=== PATIENT | female | born 1995 | race Caucasian/White ===

== ENCOUNTER 2016-06-28 05:19 | Emergency (ER) | payer BC ==
[~2016-06-28 05:19] MED LIST: ALBUTEROL2.5 MG/3 M IN
--- NOTE | 2016-06-28 09:27 | DIAGNOSTIC IMAGING REPORT ---
PROCEDURE: US OB 1ST TRIMESTER W/TRANSVAG INDICATION: PAIN, 5 months . Initial encounter TECHNIQUE: Ng scale, color, and spectral Doppler transabdominal and endovaginal sonographic images of the first trimester gravid uterus were obtained. COMPARISON: Pelvic ultrasound 05/27/[address] abdomen/pelvis 03/29/2016 FINDINGS: TRANSABDOMINAL SCANS: Anteverted uterus. Echogenic kidneys suggestive of medullary sponge kidneys. Spleen at the upper limits of normal (12 x 5.5 cm) . Ultrasound of the right lower quadrant demonstrates no abnormalities. TRANSVAGINAL SCANS: Uterus measures 8.5 x 6.3 x 4.5 cm. Myometrium is unremarkable. Avascular slightly inhomogeneous endometrium measures 19 mm. Right ovary measures 3.4 x 1.6 x 1.8 cm with a 1.8 cm corpus luteum cyst. Left ovary measures 2 x 1.9 x 2.3 cm. There are small peripheral follicles. Vascular flow to both ovaries. No adnexal mass or free fluid. IMPRESSION: 1. Mild thickening of the endometrium. No evidence of an endometrial gestational sac. Recommend follow-up Beta hCG and ultrasound 2. Results discussed with Dr. Mcmanus
--- NOTE | 2016-06-28 09:28 | ED ORDER SUMMARY ---
..... Patient: JAMARI MCCLELLAND OrderSheet [facility] VisitID: [id number] [place] [address] 21y, F Registration Date/Time: 06/28/2016 ORDER SHEET Weight: 61.2 kg (stated) Allergies: No Known Drug Allergy GENERAL ORDERS: CBC w Diff Urgent (05:55 06/28/2016 Rafi Nunez) (Ack 5:56 LMuller) (6:07 Charles R.N.) CMP Urgent (05:55 06/28/2016 Rafi Nunez) (Ack 5:56 LMuller) (6:07 Charles R.N.) UA-Culture if indicated Urgent (05:55 06/28/2016 Rafi Nunez) (Ack 5:56 LMuller) (6:34 Quanimajulian) Urine Urgent (05:55 06/28/2016 Rafi Nunez) (Ack 5:56 LMuller) (6:34 Raj) Serum Quantitative Urgent (05:55 06/28/2016 Rafi Nunez) (Ack 5:56 LMuller) (6:07 Sofiya R.N.) US Pelvic Complete w Transvag (HCG 185 Please attempt to visualize the appendix) Urgent (07:09 06/28/2016 Rafi Nunez) (Ack 7:11 LMuller) (Cancelled: Physician Order8:51 Rafi Nunez) US OB 1st Trimester w Transvag (?) Urgent (08:51 06/28/2016 Rafi Nunez) (9:41 Rodrigo R.N.) MEDICATION ORDERS: DuoNeb Neb Tx 1 unit dose (NOW) (05:55 06/28/2016 Rafi Nunez) (6:02 Kitty) Prednisone PO 40 mg (NOW) (05:55 06/28/2016 Rafi Nunez) (6:12 Sofiya R.N.) IV FLUIDS: IV NS : initial bolus none -, then 1000 mL/hr for X1 (NOW) (05:53 06/28/2016 Rafi Nunez) (6:Caridad Gee ORDER SHEET NOTES: [Electronically signed by August Mcmanus Dr. (09:51 06/28/2016)] [Electronically signed by Karyn Sawant R.N. (06/28/2016)] [Electronically locked/signed by Karyn Sawant R.N. (06/28/2016)]
--- NOTE | 2016-06-28 09:28 | ED NURSING NOTES ---
Clinical Report - Nurses [facility] [address] [place] [address] 06/28/2016 5:19 Patient: JAMARI MCCLELLAND TRIAGE Triage time 0531. Acuity: LEVEL 3. Chief Complaint: DYSPNEA, COUGH and PELVIC PAIN. --05:40 Piero Clemente R.N. 05:31 06/28/16. BP: 127/68. HR: 95. RR: 18. O2 saturation: 98%. Temp: 98.2 F. Pain level now 0/10. --05:40 Piero Clemente R.N. Weight: 61.2 kg stated. Height/Length: 61 inches Per Patient. BMI: 25.5. --05:39 Piero Clemente R.N. Medications Albuterol HHN. Albuterol Sulfate HFA Inhalation. --05:35 Piero Clemente R.N. Allergies No Known Drug Allergy. --05:35 Piero Clemente R.N. History Arrived by private vehicle. Historian: patient. Unaccompanied. This started yesterday. ( both started yesterday. seen at [facility] monday last for abd pain. dx at that time. pt sent home with instructions to return if pain worsened.). 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 (albuterol,). PAST MEDICAL HX: Last normal menstrual period- May 30. 2. Para 1. Currently : 4 weeks. FALL RISK ASSESSMENT: Fall risk assessment completed. No fall risk identified. NUTRITIONAL RISK ASSESSMENT: The nutritional risk assessment revealed no deficiencies. FUNCTIONAL ASSESSMENT: Functional assessment: no impairments noted. LEARNING NEEDS ASSESSMENT: The learning needs assessment revealed no barriers. SKIN INTEGRITY ASSESSMENT: Skin integrity risk assessment completed. No skin integrity risk identified. --05:40 Piero Clemente R.N. PROBLEMS: Otitis Externa. Otitis Media. Abdominal Pain. Gastroenteritis. Mastitis. Anxiety Reaction. Lung Disease. Hemorrhoids. OB History. Diarrhea. Vomiting. . Nephrolithiasis. Renal Colic. Bronchitis. Asthma. UTI - Urinary Tract Infection. Cystitis. Ovarian Cyst. --05:35 Piero Clemente R.N. Appendicitis [RuleOut]. Abdominal Pain [RuleOut]. [RuleOut]. Flank Pain [RuleOut]. --05:35 Piero Clemente R.N. ADDITIONAL SURGERIES: Kidney Sx with ino stents. Laparoscopy. Ureteral Stent. --05:35 Piero Clemente R.N. Interventions ID band on patient. --05:40 Piero Clemente R.N. PHYSICAL ASSESSMENT GENERAL / NEURO / PSYCH: Alert. Oriented X 4. Appears in no acute distress. HEENT: Pupils equal, round and reactive to light. No facial asymmetry noted. Mucous membranes are pink. RESPIRATORY: Mild respiratory distress. The patient can speak in full sentences. Chest nontender. Wheezing present. CVS: Capillary refill less than 2 seconds. Pulses within normal limits. SKIN: Skin intact. Skin is warm and dry. Normal skin turgor. --05:40 Piero Clemente R.N. NURSING PROGRESS NOTES Patient gowned. Head of bed elevated. Reassurance given. Patient identifiers checked. Call light placed in reach. Bed placed in lowest position. Brakes of bed on. --05:40 Piero Clemente R.N. 06:02 06/28/2016 Duoneb (Ipratropium-Albuterol) Neb TX Nebulizer 1 unit dose given. Given by the respiratory therapist. Allergies verified and confirmed 5 rights. --06:02 Gricel Lopez 06:12 06/28/2016 Prednisone PO 40 mg given. Allergies verified and confirmed 5 rights. --06:12 Piero Clemente R.N. 06:13 06/28/2016 Site #1 started via IV in the left antecubital space with an 20g angiocath, with aseptic technique and good blood return; one attempt. Blood drawn: rainbow set. Labeled in the presence of the patient and sent to the lab. Saline lock flushed with saline. --06:13 Piero Clemente R.N. 06:13 06/28/2016 Started bag #1 1000 mL IV Fluids IV NS (Saline); bolus of 1000 mL wide open via site #1. Allergies verified and confirmed 5 rights. IV patency established. IV site checked: no pain, redness, or swelling. IV flushed thoroughly pre- and post-medication administration. --06:13 Piero Clemente R.N. 07:20 06/28/16. Care transferred and report received. --07:20 Karyn Sawant R.N. 07:44 06/28/16. BP: 120/74. HR: 104. RR: 12. O2 saturation: 100% on room air. Pain level now: 10/19. --07:44 Karyn Sawant R.N. 07:44 06/28/2016 IV Fluids IV NS Discontinued: bag #1 infused. Total amount infused: 1000 mL. IV patency established. IV site checked: no pain, redness, or swelling. IV flushed thoroughly. --09:44 Travis Marinelli R.N. DISPOSITION / DISCHARGE 09:39 06/28/16. BP: 116/71. HR: 90. RR: 16. O2 saturation: 99% on room air. Temp: 98.5 F (oral). Pain level now 09/19. --09:43 Travis Marinelli R.N. 09:38 06/28/2016 Site #1 removed upon discharge. Catheter intact. Bandage applied. --09:43 Travis Marinelli R.N. 09:40 06/28/16. Departure time: 0938. Condition at departure: improved and stable. No learning barriers present. Discharge instructions provided and reviewed with the patient. Reviewed medication(s) side effects, precautions, dosing and course information. Prescription(s) given to the patient. Patient verbalized understanding. Written instructions provided in Syrian. ( follow up with OB to establish care, and follow up with PCP in 2 days.). The patient was discharged by the physician. She was discharged home. She left the Emergency Department ambulatory and via private vehicle. Patient driving. --09:43 Travis Marinelli R.N. Locked/Released at 06/28/2016 19:25 by Karyn Sawant R.N.
--- NOTE | 2016-06-28 09:28 | ED ORDER SUMMARY ---
..... Patient: JAMARI MCCLELLAND OrderSheet [facility] VisitID: [id number] [place] [address] 21y, F Registration Date/Time: 06/28/2016 ORDER SHEET Weight: 61.2 kg (stated) Allergies: No Known Drug Allergy GENERAL ORDERS: CBC w Diff Urgent (05:55 06/28/2016 Rafi Nunez) (Ack 5:56 LMuller) (6:07 Charles R.N.) CMP Urgent (05:55 06/28/2016 Rafi Nunez) (Ack 5:56 LMuller) (6:07 Charles R.N.) UA-Culture if indicated Urgent (05:55 06/28/2016 Rafi Nunez) (Ack 5:56 LMuller) (6:34 Quanimajulian) Urine Urgent (05:55 06/28/2016 Rafi Nunez) (Ack 5:56 LMuller) (6:34 Raj) Serum Quantitative Urgent (05:55 06/28/2016 Rafi Nunez) (Ack 5:56 LMuller) (6:07 Sofiya R.N.) US Pelvic Complete w Transvag (HCG 185 Please attempt to visualize the appendix) Urgent (07:09 06/28/2016 Rafi Nunez) (Ack 7:11 LMuller) (Cancelled: Physician Order8:51 Rafi Nunez) US OB 1st Trimester w Transvag (?) Urgent (08:51 06/28/2016 Rafi Nunez) (9:41 Rodrigo R.N.) MEDICATION ORDERS: DuoNeb Neb Tx 1 unit dose (NOW) (05:55 06/28/2016 Rafi Nunez) (6:02 Kitty) Prednisone PO 40 mg (NOW) (05:55 06/28/2016 Rafi Nunez) (6:12 Sofiya R.N.) IV FLUIDS: IV NS : initial bolus none -, then 1000 mL/hr for X1 (NOW) (05:53 06/28/2016 Rafi Nunez) (6:Caridad Gee ORDER SHEET NOTES: [Electronically signed by August Mcmanus Dr. (09:51 06/28/2016)] [Electronically signed by Karyn Sawant R.N. (06/28/2016)] [Electronically locked/signed by Karyn Sawant R.N. (06/28/2016)]
--- NOTE | 2016-06-28 09:28 | ED CLINICAL REPORT ---
Clinical Report - Physicians/Mid Levels [facility] [address] [place] [address] 06/28/2016 5:19 Patient: JAMARI MCCLELLAND Time Seen: 05:30; initial patient contact. Arrived- By private vehicle. Historian- patient. HISTORY OF PRESENT ILLNESS Chief Complaint: PELVIC PAIN. This started yesterday and still present. It was gradual in onset. The symptoms are described as moderate. Modifying factors. Not worsened by anything. Not relieved by anything. The patient has had moderate, sharp, constant abdominal pain. The pain is described as located in the right lower quadrant. No nausea, vomiting, diarrhea or radiation of abdominal pain to the back. The patient has had pelvic pain and a vaginal discharge. No vaginal pain, low back pain, flank pain, pain with urination or urinary frequency. No urgency of urination or hematuria. She has missed a period. Sexually active. (Reviewed records from [facility] on 06/25/16, no ectopic/embryo visualized, HCG Qt 84. D/C'd w/ Vaginitis, pt has not filled Flagyl Rx.). Currently . Not receiving care. Similar symptoms previously: None. Recent medical care: The patient was seen recently at another facility in the emergency department. ( Prov: Positive U preg, inconclusive U/S for ectopic per pt(awaiting records).). REVIEW OF SYSTEMS No nausea, fever or chills. All systems otherwise negative, except as recorded above. PAST HISTORY ( Otitis Externa. Otitis Media. Abdominal Pain. Gastroenteritis. Mastitis. Anxiety Reaction. Lung Disease. Hemorrhoids. OB History. Diarrhea. Vomiting. . Nephrolithiasis. Renal Colic. Bronchitis. Asthma. UTI - Urinary Tract Infection. Cystitis. Ovarian Cyst. Appendicitis [RuleOut]. Abdominal Pain [RuleOut]. [RuleOut]. Flank Pain SURGERIES: Kidney Sx with ino stents. Laparoscopy. Ureteral Stent.). Medications: Albuterol HHN. Albuterol Sulfate HFA Inhalation. Allergies: No Known Drug Allergy. SOCIAL HISTORY Former smoker. No alcohol use or drug use. ADDITIONAL NOTES The nursing notes have been reviewed with agreement regarding the chief complaint, PMH and patient medications and allergies. PHYSICAL EXAM Vital Signs: 06/28/2016 05:31 BP: 127/68. HR: 95. RR: 18. O2 saturation: 98%. Temp: 98.2 F. Have been reviewed as normal. Appearance: Alert. Oriented X3. No acute distress. HEENT: Normal external inspection. ENT: Pharynx normal. CVS: Heart sounds normal. Rate normal. Rhythm normal. Respiratory: No respiratory distress. Expiratory mild bilateral wheezes diffusely. Abdomen: Soft. Moderate tenderness in the right lower quadrant with guarding present. Positive obturator and psoas sign (Positive Rovsing's sign.). No rebound tenderness. Bowel sounds normal. No organomegaly. No mass. Back: Normal external inspection. No CVA tenderness. Skin: Skin warm and dry. Normal skin color. No rash. Extremities: No lower extremity edema. Neuro: Oriented X 3. LABS, X-RAYS, AND EKG Pelvic Sonogram: Nl RLQ, no signs of appendicitis or eptopic. No free fluid in pelvis. Study type: bedside abdominal, transvaginal and obstetrical evaluation. The study was interpreted by the radiologist and discussed with the radiologist. Interpretation time: 09:24. Laboratory Tests: UA-Culture if indicated: (FRANCIS: 06/28/2016 06:30) ( MsgRcvd 06/28/2016 06:54) Final results Test Result Flag Units (Reference) URINE COLOR YELLOW URINE APPEARANCE CLEAR URINE GLUCOSE NEGATIVE (NEGATIVE) URINE BILIRUBIN NEGATIVE (NEGATIVE) URINE KETONE NEGATIVE (NEGATIVE) URINE SPECIFIC GRAVITY >= 1.030 (1.010-1.030) URINE PH 6.0 (5.0-8.0) URINE PROTEIN NEGATIVE (NEGATIVE) URINE UROBILINOGEN 0.2 EU/dL (0.2-1.0) URINE NITRITE NEGATIVE (NEGATIVE) URINE BLOOD TRACE-LYSED (NEGATIVE) URINE LEUK ESTERASE NEGATIVE (NEGATIVE) URINE RBC 1-3 rbc/hpf (0-1) URINE WBC 0-1 wbc/hpf (0-1) URINE EPITHELIAL CELLS 3-5 EPI/hpf (0-5) URINE BACTERIA TRACE (<1+) (NONE SEEN) URINE COMMENT CULT NOT INDICATED URINE CULTURES ARE SET-UP BASED ON THE FOLLOWING CRITERIA:POSITIVE NITRITEPOSITIVE LEUKOCYTE ESTERASEGREATER THAN 10 WHITE BLOOD CELLSMODERATE (2+) OR GREATER BACTERIA Urine: (FRANCIS: 06/28/2016 06:30) ( MsgRcvd 06/28/2016 06:45) Final results Test Result Flag Units (Reference) URINE POSITIVE CBC w Diff: (FRANCIS: 06/28/2016 06:02) ( MsgRcvd 06/28/2016 09:04) Final results Test Result Flag Units (Reference) WHITE BLOOD COUNT 7.2 K/uL (4.5-11.5) RED BLOOD COUNT 5.10 M/uL (4.00-5.20) HEMOGLOBIN 14.4 gm/dL (12.0-16.0) HEMATOCRIT 41.2 % (36.0-46.0) MEAN CELL VOLUME 81 fL (80-100) MEAN CORPUSCULAR HGB 28 pg (26-34) MEAN CORPUSCULAR HGB CONC 35 g/dL (31-37) RED CELL DISTRIBUTION WIDTH 14.2 % (11.6-14.8) PLATELET COUNT 333 K/uL (150-400) NEUTROPHIL % 47.3 L % (50-75) LYMPH % 27.8 % (25-40) MONO % 10.3 % (3-14) EOSINOPHIL % 13.6 H % (0-4) BASOPHIL % 0.7 % (0-2) CMP: (FRANCIS: 06/28/2016 06:02) ( MsgRcvd 06/28/2016 06:46) Final results Test Result Flag Units (Reference) GLUCOSE 94 mg/dL (70-110) BUN 17 mg/dL (7-18) CREATININE 0.9 mg/dL (0.6-1.3) Estimated GFR >60 mL/min Estimated GFR- >60 mL/min Note: Persistent reduction over 3 months in eGFR<60 mL/min/1.73 m2 defines CKD. Patients with eGFR values>=60 mL/min/1.73 m2 may also have CKD if evidence ofpersistent proteinuria. Additional information may be foundat www.kidney.org. SODIUM 141 mmol/L (136-145) POTASSIUM 3.9 mmol/L (3.5-5.1) CHLORIDE 107 mmol/L (98-107) CARBON DIOXIDE 24 mmol/L (21-32) CALCIUM 8.5 mg/dL (8.5-10.1) TOTAL PROTEIN 7.0 g/dL (6.4-8.2) ALBUMIN 3.6 g/dL (3.3-5.0) BILIRUBIN, TOTAL 0.8 mg/dL (0.0-1.0) ALKALINE PHOSPHATASE 76 U/L (46-116) AST (SGOT) 17 U/L (15-37) ALT (SGPT) 25 U/L (12-78) BETA HCG, QUANTITATIVE 185 mIU/mL REFERENCE RANGE:Adult Males: <2 mIU/mLNon- Females: <6 mIU/mL Females:Approximate Approximate hCGGestational Age Range (mIU/mL) 0-1 week 0-501-2 weeks 40-3002-3 weeks 100-38598-3 weeks 500-68232-7 months 5,000-200,0002-3 months 10,000-100,0002nd trimester 3,000-50,0003rd trimester 1,000-50,000 . PROGRESS AND PROCEDURES Disposition: Discharged home in good and improved condition. Condition: good. CLINICAL IMPRESSION Acute right lower quadrant abdominal pain. Ultrasound was performed but could not determine the location of the . Moderate persistent asthma with an acute exacerbation. No status asthmaticus, pneumonia, hypoxemia or acute respiratory failure. INSTRUCTIONS Your Current Medications: CONTINUE TAKING THE FOLLOWING MEDICATIONS: Albuterol HHN*. Albuterol Sulfate HFA Inhalation. Prescription Medications: Prednisone 20 mg: take 2 orally every day for 4 days. Dispense sufficient quantity. No refills. (Start on 06/29/16) Follow-up: Follow up with your doctor in about two days. Call for an appointment. (Electronically signed by August Mcmanus Dr. 06/28/2016 9:51)
--- NOTE | 2016-06-28 19:25 | ED MAR SUMMARY ---
..... Medication Administration Record [facility] [address] [place] [address] Patient: JAMARI MCCLELLAND Visit ID: [id number] 21y, F Weight: 61.2 kg Height/Length: 61 in BMI: 25.5 ALLERGIES: No Known Drug Allergy Given 06:02 06/28/2016 Gricel Lopez, Medication Administered: DUONEB [NEB TX] (IPRATROPIUM-ALBUTEROL), Dose: 1 unit dose Nebulizer Neb TX. Medication Ordered: DuoNeb Neb Tx 1 unit dose (NOW). Given 06:12 06/28/2016 Piero Clemente R.N. Medication Administered: PREDNISONE [PO], Dose: 40 mg PO. Medication Ordered: Prednisone PO 40 mg (NOW). Start 06:13 06/28/2016 Piero Clemente R.N., Stop 07:44 06/28/2016 Travis Marinelli R.N. Medication Administered: IV NS (SALINE), Dose: IV Fluids, Bolus: 1000 mL wide open, Dispensed: 1000 mL bag, Site: #1 left . Medication Ordered: IV NS : initial bolus none -, then 1000 mL/hr for X1 (NOW).
--- NOTE | 2016-06-28 19:25 | ED DISCHARGE INSTRUCTIONS ---
Patient: JAMARI MCCLELLAND General Instructions [facility] VisitID: [id number] [place] [address] 21y, F Registration Date/Time: 06/28/2016 Acute right lower quadrant abdominal pain. Ultrasound was performed but could not determine the location of the . Moderate persistent asthma with an acute exacerbation. No status asthmaticus, pneumonia, hypoxemia or acute respiratory failure. INSTRUCTIONS Your Current Medications: CONTINUE TAKING THE FOLLOWING MEDICATIONS: Albuterol HHN*. Albuterol Sulfate HFA Inhalation. Prescription Medications: Prednisone 20 mg: take 2 orally every day for 4 days. Dispense sufficient quantity. No refills. (Start on 06/29/16) Follow-up: Follow up with your doctor in about two days. Call for an appointment. ADDITIONAL INFORMATION Abdominal Pain, Unknown Cause (Female) The exact cause of your abdominal (stomach) pain is not certain. This does not mean that this is something to worry about, or the right tests were not done. Everyone likes to know the exact cause of the problem, but sometimes with abdominal pain, there is no clear-cut cause, and this could be a good thing. The good news is that your symptoms can be treated, and you will feel better. Your condition does not seem serious now; however, sometimes the signs of a serious problem may take more time to appear. For this reason,it is important for you to watch for any new symptoms, problems,or worsening of your condition. Over the next few days, the abdominal pain may come and go, or be continuous. Other common symptoms can include nausea and vomiting. Sometimes it can be difficult to tell if you feel nauseous, you may just feel bad and not associate that feeling with nausea. Constipation, diarrhea, and a fever may go along with the pain. The pain may continue even if treated correctly over the following days. Depending on how things go, sometimes the cause can become clear and may require further or different treatment. Additional evaluations, medications, or tests may be needed. Home care Your health care provider may prescribe medications for pain, symptoms, or an infection. Follow the health care provider's instructions for taking these medications. General care Rest until your next exam. No strenuous activities. Try to find positions that ease discomfort. A small pillow placed on the abdomen may help relieve pain. Something warm on your abdomen (such as a heating pad) may help, but be careful not to burn yourself. Diet Do not force yourself to eat, especially if having cramps, vomiting, or diarrhea. Water is important so you do not get dehydrated. Soup may also be good. Sports drinks may also help, especially if they are not too acidic. Make sure you don't drink sugary drinks as this can make things worse. Take liquids in small amounts. Do not guzzle them. Caffeine sometimes makes the pain and cramping worse. Avoid dairy products if you have vomiting or diarrhea. Don't eat large amounts at a time. Wait a few minutes between bites. Eat a diet low in fiber (called a low-residue diet). Foods allowed include refined breads, white rice, fruit and vegetable juices without pulp, tender meats. These foods will pass more easily through the intestine. Avoid whole-grain foods, whole fruits and vegetables, meats, seeds and nuts, fried or fatty foods, dairy, alcohol and spicy foods until your symptoms go away. Follow-up care Follow up with your health care provider as instructed, or if your pain does not begin to improve in the next 24 hours. When to seek medical care Seek prompt medical care if any of the following occur: Pain gets worse or moves to the right lower abdomen New or worsening vomiting or diarrhea Swelling of the abdomen Unable to pass stool for more than three days Fever of 100.4F (38C) or higher, or as directed by your healthcare provider. Blood in vomit or bowel movements (dark red or black color) Jaundice (yellow color of eyes and skin) Weakness, dizziness Chest, arm, back, neck or jaw pain Unexpected vaginal bleeding or missed period Call 911 Call emergency services if any of the following occur: Trouble breathing Confusion Fainting or loss of consciousness Rapid heart rate Seizure Asthma [Adult] Asthma is a disease where the small air passages within the lung go into spasm and restrict the flow of air. Inflammation and swelling of the airways cause further restriction. During an acute asthma attack, these factors cause difficulty breathing, wheezing, cough and chest tightness. An asthma attack can be triggered by many things. Common triggers include the common cold, bronchitis, pneumonia, irritants such as smoke or pullutants in the air, emotional upset and heavy exercise. Inmany adults with asthma, allergies todust, mold, pollen and animal dander can cause an asthma attack. Skipping doses of daily asthma medicine can also bring on an asthma attack. Asthma can be controlled with proper medicines and decreased exposure to known allergens. Home Care: Take prescribed medicine exactly at the times advised. If you have a hand-held inhaler or aerosol breathing medicine, do not use it more than once every four hours, unless told to do so. (If you need this medicine more than every four hours, you may need to return to the Emergency Room.) If prescribed an antibiotic or prednisone, take all of the medicine even if you are feeling better after a few days. Do not smoke. Avoid being exposed to the smoke of others. Some persons with asthma have worsening of their symptoms when they take aspirin and non-steroidal medicines like ibuprofen (Motrin, Advil) and naproxen (Aleve, Naprosyn). Talk to your doctor if you think this may apply to you. Acetaminophen (Tylenol)should be safe to use. Follow Up with your doctor, or as advised by our staff. Always bring all of your current medicines with you for your doctor to see. If you do not already have one, talk to your doctor about developing a personalized "Asthma Action Plan." [NOTE: A pneumococcal vaccine and yearly flu shot (every fall) are recommended. Ask your doctor about this.] Get Prompt Medical Attention if any of the following occur: Increased wheezing or shortness of breath Need to use your inhalers more often than usual without relief Fever of 100.4F (38C) or higher, or as directed by your healthcare provider Coughing up lots of dark-colored or bloody sputum (mucus) Chest pain with each breath You do not start to improve within 24 hours Call 911 If Any Of The Following Occur : Trouble walking or talking because of shortness of breath If you use a peak flow meter andyou are still in the red zone (less than 50 percent) 15 minutes after using inhaler medication Lips or fingernails turning johnson or blue Prednisone Oral tablet What is this medicine? PREDNISONE (PRED ni sone) is a corticosteroid. It is commonly used to treat inflammation of the skin, joints, lungs, and other organs. Common conditions treated include asthma, allergies, and arthritis. It is also used for other conditions, such as blood disorders and diseases of the adrenal glands. How should I use this medicine? Take this medicine by mouth with a glass of water. Follow the directions on the prescription label. Take this medicine with food. If you are taking this medicine once a day, take it in the morning. Do not take more medicine than you are told to take. Do not suddenly stop taking your medicine because you may develop a severe reaction. Your doctor will tell you how much medicine to take. If your doctor wants you to stop the medicine, the dose may be slowly lowered over time to avoid any side effects. Talk to your child psychology teacher regarding the use of this medicine in children. Special care may be needed. What side effects may I notice from receiving this medicine? Side effects that you should report to your doctor or health urgent care nurse practitioner as soon as possible: allergic reactions like skin rash, itching or hives, swelling of the face, lips, or tongue changes in emotions or moods changes in vision depressed mood eye pain fever or chills, cough, sore throat, pain or difficulty passing urine increased thirst swelling of ankles, feet Side effects that usually do not require medical attention (report to your doctor or health urgent care nurse practitioner if they continue or are bothersome): confusion, excitement, restlessness headache nausea, vomiting skin problems, acne, thin and shiny skin trouble sleeping weight gain What may interact with this medicine? Do not take this medicine with any of the following medications: metyrapone mifepristone This medicine may also interact with the following medications: aminoglutethimide amphotericin B aspirin and aspirin-like medicines barbiturates certain medicines for diabetes, like glipizide or glyburide cholestyramine cholinesterase inhibitors cyclosporine digoxin diuretics ephedrine female hormones, like estrogens and control pills isoniazid ketoconazole NSAIDS, medicines for pain and inflammation, like ibuprofen or naproxen phenytoin rifampin toxoids vaccines warfarin What if I miss a dose? If you miss a dose, take it as soon as you can. If it is almost time for your next dose, talk to your doctor or health urgent care nurse practitioner. You may need to miss a dose or take an extra dose. Do not take double or extra doses without advice. Where should I keep my medicine? Keep out of the reach of children. Store at room temperature between 15 and 30 degrees C (59 and 86 degrees F). Protect from light. Keep container tightly closed. Throw away any unused medicine after the expiration date. What should I tell my health care provider before I take this medicine? They need to know if you have any of these conditions: Melissa's syndrome diabetes glaucoma heart disease high blood pressure infection (especially a virus infection such as chickenpox, cold sores, or herpes) kidney disease liver disease mental illness myasthenia gravis osteoporosis seizures stomach or intestine problems thyroid disease an unusual or allergic reaction to lactose, prednisone, other medicines, foods, dyes, or preservatives or trying to get breast-feeding What should I watch for while using this medicine? Visit your doctor or health urgent care nurse practitioner for regular checks on your progress. If you are taking this medicine over a prolonged period, carry an identification card with your name and address, the type and dose of your medicine, and your doctor's name and address. This medicine may increase your risk of getting an infection. Tell your doctor or health urgent care nurse practitioner if you are around anyone with measles or chickenpox, or if you develop sores or blisters that do not heal properly. If you are going to have surgery, tell your doctor or health urgent care nurse practitioner that you have taken this medicine within the last twelve months. Ask your doctor or health urgent care nurse practitioner about your diet. You may need to lower the amount of salt you eat. This medicine may affect blood sugar levels. If you have diabetes, check with your doctor or health urgent care nurse practitioner before you change your diet or the dose of your diabetic medicine. You have been given the following additional information: Abdominal Pain, Unknown Cause, (Female) Asthma, Acute (Adult) Prednisone Oral tablet (Electronically signed by August Mcmanus Dr. 06/28/2016 9:51)
--- NOTE | 2016-06-28 19:25 | ED MAR SUMMARY ---
..... Medication Administration Record [facility] [address] [place] [address] Patient: JAMARI MCCLELLAND Visit ID: [id number] 21y, F Weight: 61.2 kg Height/Length: 61 in BMI: 25.5 ALLERGIES: No Known Drug Allergy Given 06:02 06/28/2016 Gricel Lopez, Medication Administered: DUONEB [NEB TX] (IPRATROPIUM-ALBUTEROL), Dose: 1 unit dose Nebulizer Neb TX. Medication Ordered: DuoNeb Neb Tx 1 unit dose (NOW). Given 06:12 06/28/2016 Piero Clemente R.N. Medication Administered: PREDNISONE [PO], Dose: 40 mg PO. Medication Ordered: Prednisone PO 40 mg (NOW). Start 06:13 06/28/2016 Piero Clemente R.N., Stop 07:44 06/28/2016 Travis Marinelli R.N. Medication Administered: IV NS (SALINE), Dose: IV Fluids, Bolus: 1000 mL wide open, Dispensed: 1000 mL bag, Site: #1 left . Medication Ordered: IV NS : initial bolus none -, then 1000 mL/hr for X1 (NOW).
--- NOTE | 2016-06-28 19:25 | ED MED RECONCILIATION SUMMARY ---
Patient: JAMARI MCCLELLAND Medication Reconciliation Report [facility] VisitID: [id number] [address] [place] [address] 21y, F Registration Date/Time: 06/28/2016 Weight: 61.2 kg Height/Length: 61 in. BMI: 25.5 ALLERGIES: No Known Drug Allergy The patient's Home Medications are listed below: CONTINUE TAKING THE FOLLOWING MEDICATIONS: Albuterol HHN Albuterol Sulfate HFA Inhalation The source(s) of the original Home Medication information: Not obtained. The following Medications were given to the patient in the Emergency Department: Duoneb [Neb Tx] Neb TX 1 unit dose, administered: 06/28/2016 6:02:00 AM Prednisone [PO] PO 40 mg, administered: 06/28/2016 6:12:00 AM IV NS IV Fluids bolus 1000 mL wide open, administered: 06/28/2016 6:13:00 AM The following Medications were prescribed to the patient: Prednisone 20 mg: take 2 orally every day for 4 days. Dispense sufficient quantity. No refills.(Start on 06/29/16) -- August Mcmanus Dr.
--- NOTE | 2016-06-28 19:25 | ED DISCHARGE INSTRUCTIONS ---
Patient: JAMARI MCCLELLAND General Instructions [facility] VisitID: [id number] [place] [address] 21y, F Registration Date/Time: 06/28/2016 Acute right lower quadrant abdominal pain. Ultrasound was performed but could not determine the location of the . Moderate persistent asthma with an acute exacerbation. No status asthmaticus, pneumonia, hypoxemia or acute respiratory failure. INSTRUCTIONS Your Current Medications: CONTINUE TAKING THE FOLLOWING MEDICATIONS: Albuterol HHN*. Albuterol Sulfate HFA Inhalation. Prescription Medications: Prednisone 20 mg: take 2 orally every day for 4 days. Dispense sufficient quantity. No refills. (Start on 06/29/16) Follow-up: Follow up with your doctor in about two days. Call for an appointment. ADDITIONAL INFORMATION Abdominal Pain, Unknown Cause (Female) The exact cause of your abdominal (stomach) pain is not certain. This does not mean that this is something to worry about, or the right tests were not done. Everyone likes to know the exact cause of the problem, but sometimes with abdominal pain, there is no clear-cut cause, and this could be a good thing. The good news is that your symptoms can be treated, and you will feel better. Your condition does not seem serious now; however, sometimes the signs of a serious problem may take more time to appear. For this reason,it is important for you to watch for any new symptoms, problems,or worsening of your condition. Over the next few days, the abdominal pain may come and go, or be continuous. Other common symptoms can include nausea and vomiting. Sometimes it can be difficult to tell if you feel nauseous, you may just feel bad and not associate that feeling with nausea. Constipation, diarrhea, and a fever may go along with the pain. The pain may continue even if treated correctly over the following days. Depending on how things go, sometimes the cause can become clear and may require further or different treatment. Additional evaluations, medications, or tests may be needed. Home care Your health care provider may prescribe medications for pain, symptoms, or an infection. Follow the health care provider's instructions for taking these medications. General care Rest until your next exam. No strenuous activities. Try to find positions that ease discomfort. A small pillow placed on the abdomen may help relieve pain. Something warm on your abdomen (such as a heating pad) may help, but be careful not to burn yourself. Diet Do not force yourself to eat, especially if having cramps, vomiting, or diarrhea. Water is important so you do not get dehydrated. Soup may also be good. Sports drinks may also help, especially if they are not too acidic. Make sure you don't drink sugary drinks as this can make things worse. Take liquids in small amounts. Do not guzzle them. Caffeine sometimes makes the pain and cramping worse. Avoid dairy products if you have vomiting or diarrhea. Don't eat large amounts at a time. Wait a few minutes between bites. Eat a diet low in fiber (called a low-residue diet). Foods allowed include refined breads, white rice, fruit and vegetable juices without pulp, tender meats. These foods will pass more easily through the intestine. Avoid whole-grain foods, whole fruits and vegetables, meats, seeds and nuts, fried or fatty foods, dairy, alcohol and spicy foods until your symptoms go away. Follow-up care Follow up with your health care provider as instructed, or if your pain does not begin to improve in the next 24 hours. When to seek medical care Seek prompt medical care if any of the following occur: Pain gets worse or moves to the right lower abdomen New or worsening vomiting or diarrhea Swelling of the abdomen Unable to pass stool for more than three days Fever of 100.4F (38C) or higher, or as directed by your healthcare provider. Blood in vomit or bowel movements (dark red or black color) Jaundice (yellow color of eyes and skin) Weakness, dizziness Chest, arm, back, neck or jaw pain Unexpected vaginal bleeding or missed period Call 911 Call emergency services if any of the following occur: Trouble breathing Confusion Fainting or loss of consciousness Rapid heart rate Seizure Asthma [Adult] Asthma is a disease where the small air passages within the lung go into spasm and restrict the flow of air. Inflammation and swelling of the airways cause further restriction. During an acute asthma attack, these factors cause difficulty breathing, wheezing, cough and chest tightness. An asthma attack can be triggered by many things. Common triggers include the common cold, bronchitis, pneumonia, irritants such as smoke or pullutants in the air, emotional upset and heavy exercise. Inmany adults with asthma, allergies todust, mold, pollen and animal dander can cause an asthma attack. Skipping doses of daily asthma medicine can also bring on an asthma attack. Asthma can be controlled with proper medicines and decreased exposure to known allergens. Home Care: Take prescribed medicine exactly at the times advised. If you have a hand-held inhaler or aerosol breathing medicine, do not use it more than once every four hours, unless told to do so. (If you need this medicine more than every four hours, you may need to return to the Emergency Room.) If prescribed an antibiotic or prednisone, take all of the medicine even if you are feeling better after a few days. Do not smoke. Avoid being exposed to the smoke of others. Some persons with asthma have worsening of their symptoms when they take aspirin and non-steroidal medicines like ibuprofen (Motrin, Advil) and naproxen (Aleve, Naprosyn). Talk to your doctor if you think this may apply to you. Acetaminophen (Tylenol)should be safe to use. Follow Up with your doctor, or as advised by our staff. Always bring all of your current medicines with you for your doctor to see. If you do not already have one, talk to your doctor about developing a personalized "Asthma Action Plan." [NOTE: A pneumococcal vaccine and yearly flu shot (every fall) are recommended. Ask your doctor about this.] Get Prompt Medical Attention if any of the following occur: Increased wheezing or shortness of breath Need to use your inhalers more often than usual without relief Fever of 100.4F (38C) or higher, or as directed by your healthcare provider Coughing up lots of dark-colored or bloody sputum (mucus) Chest pain with each breath You do not start to improve within 24 hours Call 911 If Any Of The Following Occur : Trouble walking or talking because of shortness of breath If you use a peak flow meter andyou are still in the red zone (less than 50 percent) 15 minutes after using inhaler medication Lips or fingernails turning johnson or blue Prednisone Oral tablet What is this medicine? PREDNISONE (PRED ni sone) is a corticosteroid. It is commonly used to treat inflammation of the skin, joints, lungs, and other organs. Common conditions treated include asthma, allergies, and arthritis. It is also used for other conditions, such as blood disorders and diseases of the adrenal glands. How should I use this medicine? Take this medicine by mouth with a glass of water. Follow the directions on the prescription label. Take this medicine with food. If you are taking this medicine once a day, take it in the morning. Do not take more medicine than you are told to take. Do not suddenly stop taking your medicine because you may develop a severe reaction. Your doctor will tell you how much medicine to take. If your doctor wants you to stop the medicine, the dose may be slowly lowered over time to avoid any side effects. Talk to your test eng regarding the use of this medicine in children. Special care may be needed. What side effects may I notice from receiving this medicine? Side effects that you should report to your doctor or health residential child care counselor as soon as possible: allergic reactions like skin rash, itching or hives, swelling of the face, lips, or tongue changes in emotions or moods changes in vision depressed mood eye pain fever or chills, cough, sore throat, pain or difficulty passing urine increased thirst swelling of ankles, feet Side effects that usually do not require medical attention (report to your doctor or health residential child care counselor if they continue or are bothersome): confusion, excitement, restlessness headache nausea, vomiting skin problems, acne, thin and shiny skin trouble sleeping weight gain What may interact with this medicine? Do not take this medicine with any of the following medications: metyrapone mifepristone This medicine may also interact with the following medications: aminoglutethimide amphotericin B aspirin and aspirin-like medicines barbiturates certain medicines for diabetes, like glipizide or glyburide cholestyramine cholinesterase inhibitors cyclosporine digoxin diuretics ephedrine female hormones, like estrogens and control pills isoniazid ketoconazole NSAIDS, medicines for pain and inflammation, like ibuprofen or naproxen phenytoin rifampin toxoids vaccines warfarin What if I miss a dose? If you miss a dose, take it as soon as you can. If it is almost time for your next dose, talk to your doctor or health residential child care counselor. You may need to miss a dose or take an extra dose. Do not take double or extra doses without advice. Where should I keep my medicine? Keep out of the reach of children. Store at room temperature between 15 and 30 degrees C (59 and 86 degrees F). Protect from light. Keep container tightly closed. Throw away any unused medicine after the expiration date. What should I tell my health care provider before I take this medicine? They need to know if you have any of these conditions: Melissa's syndrome diabetes glaucoma heart disease high blood pressure infection (especially a virus infection such as chickenpox, cold sores, or herpes) kidney disease liver disease mental illness myasthenia gravis osteoporosis seizures stomach or intestine problems thyroid disease an unusual or allergic reaction to lactose, prednisone, other medicines, foods, dyes, or preservatives or trying to get breast-feeding What should I watch for while using this medicine? Visit your doctor or health residential child care counselor for regular checks on your progress. If you are taking this medicine over a prolonged period, carry an identification card with your name and address, the type and dose of your medicine, and your doctor's name and address. This medicine may increase your risk of getting an infection. Tell your doctor or health residential child care counselor if you are around anyone with measles or chickenpox, or if you develop sores or blisters that do not heal properly. If you are going to have surgery, tell your doctor or health residential child care counselor that you have taken this medicine within the last twelve months. Ask your doctor or health residential child care counselor about your diet. You may need to lower the amount of salt you eat. This medicine may affect blood sugar levels. If you have diabetes, check with your doctor or health residential child care counselor before you change your diet or the dose of your diabetic medicine. You have been given the following additional information: Abdominal Pain, Unknown Cause, (Female) Asthma, Acute (Adult) Prednisone Oral tablet (Electronically signed by August Mcmanus Dr. 06/28/2016 9:51)
--- NOTE | 2016-06-28 19:25 | ED MED RECONCILIATION SUMMARY ---
Patient: JAMARI MCCLELLAND Medication Reconciliation Report [facility] VisitID: [id number] [address] [place] [address] 21y, F Registration Date/Time: 06/28/2016 Weight: 61.2 kg Height/Length: 61 in. BMI: 25.5 ALLERGIES: No Known Drug Allergy The patient's Home Medications are listed below: CONTINUE TAKING THE FOLLOWING MEDICATIONS: Albuterol HHN Albuterol Sulfate HFA Inhalation The source(s) of the original Home Medication information: Not obtained. The following Medications were given to the patient in the Emergency Department: Duoneb [Neb Tx] Neb TX 1 unit dose, administered: 06/28/2016 6:02:00 AM Prednisone [PO] PO 40 mg, administered: 06/28/2016 6:12:00 AM IV NS IV Fluids bolus 1000 mL wide open, administered: 06/28/2016 6:13:00 AM The following Medications were prescribed to the patient: Prednisone 20 mg: take 2 orally every day for 4 days. Dispense sufficient quantity. No refills.(Start on 06/29/16) -- August Mcmanus Dr.
== END 2016-06-28 09:44 | disposition home or self-care (01) ==
LOC: ED SRH 05:19
DX: R10.31 Right lower quadrant pain (principal); O99.89 Other specified diseases and conditions complicating pregnancy, childbirth and the puerperium; J45.41 Moderate persistent asthma with (acute) exacerbation; Z3A.01 Less than 8 weeks gestation of pregnancy; Z79.51 Long term (current) use of inhaled steroids
CPT/HCPCS: 90004; 90100; 90197; 93070; 95059

== ENCOUNTER 2016-07-10 18:44 | Emergency (ER) | payer BC ==
--- NOTE | 2016-07-10 21:33 | ED ORDER SUMMARY ---
..... Patient: JAMARI MCCLELLAND OrderSheet [facility] VisitID: [id number] [place] [address] 21y, F Registration Date/Time: 07/10/2016 ORDER SHEET Weight: 63.5 kg (stated) Allergies: No Known Drug Allergy GENERAL ORDERS: UA-Culture if indicated Urgent (19:00 07/10/2016 HOShaughnessy R.N. per protocol) (Ack 19:27 LTapper) (20:58 HOShaughnessy R.N.) Urine Urgent (19:00 07/10/2016 HOShaughabdoul R.N. per protocol) (Cancelled: Duplicate Order19:11 Evelio Nunez) US Pelvic Complete w Transvag Urgent (19:11 07/10/2016 Evelio Nunez) (Ack 19:27 LTapper) (Cancelled: Wrong Order20:02 LTapper) CBC w Diff Urgent (19:12 07/10/2016 Evelio Nunez) (Ack 19:27 LTapper) (20:58 HOShaughnessy R.N.) CMP Urgent (19:12 07/10/2016 Evelio Nunez) (Ack 19:27 LTapper) (20:58 HOShaughnessy R.N.) Serum Quantitative Urgent (19:12 07/10/2016 Evelio Nunez) (Ack 19:27 LTapper) (20:58 HOShaughnessy R.N.) US OB 1st Trimester w Transvag (2015) Urgent (20:02 07/10/2016 LTapper written order Evelio Nunez) (Ack 20:40 LTapper) (20:58 HOShaughnessy R.N.) MEDICATION ORDERS: Tylenol PO 650 mg (NOW) (19:12 07/10/2016 Evelio Nunez) (19:28 HOShaughnessy R.N.) IV FLUIDS: Morphine IV 4 mg (HIGH ALERT MEDICATION, NOW) (19:25 07/10/2016 Evelio Nunez) (19:34 HOShaughnessy R.N.) ORDER SHEET NOTES: [Electronically signed by Jordy Quiroz R.N. (23:41 07/10/2016)] [Electronically signed by Zacarias Garcia Dr. (11:08 07/13/2016)] [Electronically locked/signed by Jordy Quiroz R.N. (23:41 07/10/2016)]
--- NOTE | 2016-07-10 21:33 | ED NURSING NOTES ---
Clinical Report - Nurses [facility] [address] [place] [address] 07/10/2016 18:45 Patient: JAMARI MCCLELLAND TRIAGE Triage time 1902 PM. Chief Complaint: ABDOMINAL PAIN and CRAMPS and ABDOMINAL PAIN and RIGHT FLANK PAIN. Alert. No acute distress. --19:09 Jordy Quiroz R.N. 19:02 07/10/16. BP: 117/66. HR: 102. RR: 16. O2 saturation: 100%. Temp: 99.3 F (oral). Pain level now: 03/21. --19:09 Jordy Quiroz R.N. Weight: 63.5 kg stated. Height/Length: 61 inches. BMI: 26.5. --19:09 Jordy Quiroz R.N. Medications Albuterol HHN. Albuterol Sulfate HFA Inhalation. --19:06 Jordy Quiroz R.N. 1 Oral. --19:07 Jordy Quiroz R.N. Allergies No Known Drug Allergy. --19:06 Jordy Quiroz R.N. History Arrived by private vehicle. Historian: patient. Accompanied by family. Onset was gradual. (about 2 weeks.). ( Patient presents to the ED with symptoms of right sided abdominal pain and cramping that radiates to her back. Patient states that she is 6 weeks and has been experiencing the cramping for approximately 2 weeks. Patient states that she has noticed a thick white discharge coming from her vagina. Patient states that she has a history of 13 kidney stones.). Last oral intake by patient was dinner. 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 PAST MEDICAL HX: Immunizations: up-to-date. Last normal menstrual period- May 30, 2016. Possibly . In 1st trimester. confirmed with home test and urine test. Has had care in clinic. The patient has had care. SOCIAL HX: Never smoker. Alcohol use. (no). History of drug use. (no). FALL RISK ASSESSMENT: Fall risk assessment completed. No fall risk identified. NUTRITIONAL RISK ASSESSMENT: The nutritional risk assessment revealed no deficiencies. FUNCTIONAL ASSESSMENT: Functional assessment: no impairments noted. LEARNING NEEDS ASSESSMENT: The learning needs assessment revealed no barriers. SKIN INTEGRITY ASSESSMENT: Skin integrity risk assessment completed. No skin integrity risk identified. --19:09 Jordy Quiroz R.N. PROBLEMS: Otitis Externa. Otitis Media. Abdominal Pain. Gastroenteritis. Mastitis. Anxiety Reaction. Lung Disease. Hemorrhoids. OB History. Diarrhea. Vomiting. . Nephrolithiasis. Renal Colic. Bronchitis. Asthma. UTI - Urinary Tract Infection. Cystitis. Ovarian Cyst. --19:07 Jordy Quiroz R.N. ADDITIONAL SURGERIES: Kidney Sx with ino stents. Laparoscopy. Ureteral Stent. --19:07 Jordy Quiroz R.N. PHYSICAL ASSESSMENT Ambulatory to room. GENERAL / NEURO / PSYCH: Alert. Oriented X 4. Appears in no acute distress. HEENT: Mucous membranes are pink. RESPIRATORY: Respirations not labored. Breath sounds within normal limits. CVS: Normal heart rate and rhythm. Capillary refill less than 2 seconds. GI / : Abdominal tenderness in the right upper quadrant, right side of the abdomen and right lower quadrant. Guarding and rebound tenderness present. A copious amount of thick and white vaginal discharge present. No vaginal bleeding. EXTREMITIES: No lower extremity edema. SKIN: Skin is warm and dry. --19:10 Jordy Quiroz R.N. NURSING PROGRESS NOTES Call light placed in reach. Side rails up x 1. Bed placed in lowest position. Brakes of bed on. --19:10 Jordy Quiroz R.N. 19:28 07/10/2016 Tylenol (Acetaminophen) PO 650 mg given. Allergies verified and confirmed 5 rights. --19:28 Jordy Quiroz R.N. 19:34 07/10/2016 Site #1 started via IV in the right antecubital space with an 18g angiocath; one attempt. Blood drawn: rainbow set. Labeled in the presence of the patient and sent to the lab. Saline lock flushed with 10 mL saline. --19:34 Jordy Quiroz R.N. 19:34 07/10/2016 Morphine IVP 4 mg given over 2 minute(s) via site #1. Allergies verified, confirmed 5 rights and sedative warning given to the patient. IV patency established. IV site checked: no pain, redness, or swelling. IV flushed thoroughly pre- and post-medication administration. IVP given by RN. --19:34 Jordy Quiroz R.N. 20:20 07/10/16. BP: 108/90. HR: 75. RR: 16. O2 saturation: 100%. Pain level now: 09/19. --20:20 Jordy Quiroz R.N. Reassurance given. --20:20 Jordy Quiroz R.N. 20:57 07/10/2016 Morphine IVP 4 mg given over 2 minute(s) via site #1. Allergies verified, confirmed 5 rights and sedative warning given to the patient. IV patency established. IV site checked: no pain, redness, or swelling. IV flushed thoroughly pre- and post-medication administration. IVP given by RN. --20:58 Jordy Quiroz R.N. ( Ultrasound at the bedside.). --21:07 Jordy Quiroz R.N. Locked/Released at 07/10/2016 23:41 by Jordy Quiroz R.N.
--- NOTE | 2016-07-10 21:33 | ED ORDER SUMMARY ---
..... Patient: JAMARI MCCLELLAND OrderSheet [facility] VisitID: [id number] [place] [address] 21y, F Registration Date/Time: 07/10/2016 ORDER SHEET Weight: 63.5 kg (stated) Allergies: No Known Drug Allergy GENERAL ORDERS: UA-Culture if indicated Urgent (19:00 07/10/2016 HOShaughnessy R.N. per protocol) (Ack 19:27 LTapper) (20:58 HOShaughnessy R.N.) Urine Urgent (19:00 07/10/2016 HOShaughabdoul R.N. per protocol) (Cancelled: Duplicate Order19:11 Evelio Nunez) US Pelvic Complete w Transvag Urgent (19:11 07/10/2016 Evelio Nunez) (Ack 19:27 LTapper) (Cancelled: Wrong Order20:02 LTapper) CBC w Diff Urgent (19:12 07/10/2016 Evelio Nunez) (Ack 19:27 LTapper) (20:58 HOShaughnessy R.N.) CMP Urgent (19:12 07/10/2016 Evelio Nunez) (Ack 19:27 LTapper) (20:58 HOShaughnessy R.N.) Serum Quantitative Urgent (19:12 07/10/2016 Evelio Nunez) (Ack 19:27 LTapper) (20:58 HOShaughnessy R.N.) US OB 1st Trimester w Transvag (2015) Urgent (20:02 07/10/2016 LTapper written order Evelio Nunez) (Ack 20:40 LTapper) (20:58 HOShaughnessy R.N.) MEDICATION ORDERS: Tylenol PO 650 mg (NOW) (19:12 07/10/2016 Evelio Nunez) (19:28 HOShaughnessy R.N.) IV FLUIDS: Morphine IV 4 mg (HIGH ALERT MEDICATION, NOW) (19:25 07/10/2016 Evelio Nunez) (19:34 HOShaughnessy R.N.) ORDER SHEET NOTES: [Electronically signed by Jordy Quiroz R.N. (23:41 07/10/2016)] [Electronically signed by Zacarias Garcia Dr. (11:08 07/13/2016)] [Electronically locked/signed by Jordy Quiroz R.N. (23:41 07/10/2016)]
--- NOTE | 2016-07-10 21:33 | ED NURSING NOTES ---
Clinical Report - Nurses [facility] [address] [place] [address] 07/10/2016 18:45 Patient: JAMARI MCCLELLAND TRIAGE Triage time 1902 PM. Chief Complaint: ABDOMINAL PAIN and CRAMPS and ABDOMINAL PAIN and RIGHT FLANK PAIN. Alert. No acute distress. --19:09 Jordy Quiroz R.N. 19:02 07/10/16. BP: 117/66. HR: 102. RR: 16. O2 saturation: 100%. Temp: 99.3 F (oral). Pain level now: 03/21. --19:09 Jordy Quiroz R.N. Weight: 63.5 kg stated. Height/Length: 61 inches. BMI: 26.5. --19:09 Jordy Quiroz R.N. Medications Albuterol HHN. Albuterol Sulfate HFA Inhalation. --19:06 Jordy Quiroz R.N. 1 Oral. --19:07 Jordy Quiroz R.N. Allergies No Known Drug Allergy. --19:06 Jordy Quiroz R.N. History Arrived by private vehicle. Historian: patient. Accompanied by family. Onset was gradual. (about 2 weeks.). ( Patient presents to the ED with symptoms of right sided abdominal pain and cramping that radiates to her back. Patient states that she is 6 weeks and has been experiencing the cramping for approximately 2 weeks. Patient states that she has noticed a thick white discharge coming from her vagina. Patient states that she has a history of 13 kidney stones.). Last oral intake by patient was dinner. Treatment DIRECTOR REGULATORY AGENCY: Took Tylenol. PAST MEDICAL HX: Immunizations: up-to-date. Last normal menstrual period- May 30, 2016. Possibly . In 1st trimester. confirmed with home test and urine test. Has had care in clinic. The patient has had care. SOCIAL HX: Never smoker. Alcohol use. (no). History of drug use. (no). FALL RISK ASSESSMENT: Fall risk assessment completed. No fall risk identified. NUTRITIONAL RISK ASSESSMENT: The nutritional risk assessment revealed no deficiencies. FUNCTIONAL ASSESSMENT: Functional assessment: no impairments noted. LEARNING NEEDS ASSESSMENT: The learning needs assessment revealed no barriers. SKIN INTEGRITY ASSESSMENT: Skin integrity risk assessment completed. No skin integrity risk identified. --19:09 Jordy Quiroz R.N. PROBLEMS: Otitis Externa. Otitis Media. Abdominal Pain. Gastroenteritis. Mastitis. Anxiety Reaction. Lung Disease. Hemorrhoids. OB History. Diarrhea. Vomiting. . Nephrolithiasis. Renal Colic. Bronchitis. Asthma. UTI - Urinary Tract Infection. Cystitis. Ovarian Cyst. --19:07 Jordy Quiroz R.N. ADDITIONAL SURGERIES: Kidney Sx with ino stents. Laparoscopy. Ureteral Stent. --19:07 Jordy Quiroz R.N. PHYSICAL ASSESSMENT Ambulatory to room. GENERAL / NEURO / PSYCH: Alert. Oriented X 4. Appears in no acute distress. HEENT: Mucous membranes are pink. RESPIRATORY: Respirations not labored. Breath sounds within normal limits. CVS: Normal heart rate and rhythm. Capillary refill less than 2 seconds. GI / : Abdominal tenderness in the right upper quadrant, right side of the abdomen and right lower quadrant. Guarding and rebound tenderness present. A copious amount of thick and white vaginal discharge present. No vaginal bleeding. EXTREMITIES: No lower extremity edema. SKIN: Skin is warm and dry. --19:10 Jordy Quiroz R.N. NURSING PROGRESS NOTES Call light placed in reach. Side rails up x 1. Bed placed in lowest position. Brakes of bed on. --19:10 Jordy Quiroz R.N. 19:28 07/10/2016 Tylenol (Acetaminophen) PO 650 mg given. Allergies verified and confirmed 5 rights. --19:28 Jordy Quiroz R.N. 19:34 07/10/2016 Site #1 started via IV in the right antecubital space with an 18g angiocath; one attempt. Blood drawn: rainbow set. Labeled in the presence of the patient and sent to the lab. Saline lock flushed with 10 mL saline. --19:34 Jordy Quiroz R.N. 19:34 07/10/2016 Morphine IVP 4 mg given over 2 minute(s) via site #1. Allergies verified, confirmed 5 rights and sedative warning given to the patient. IV patency established. IV site checked: no pain, redness, or swelling. IV flushed thoroughly pre- and post-medication administration. IVP given by RN. --19:34 Jordy Quiroz R.N. 20:20 07/10/16. BP: 108/90. HR: 75. RR: 16. O2 saturation: 100%. Pain level now: 09/19. --20:20 Jordy Quiroz R.N. Reassurance given. --20:20 Jordy Quiroz R.N. 20:57 07/10/2016 Morphine IVP 4 mg given over 2 minute(s) via site #1. Allergies verified, confirmed 5 rights and sedative warning given to the patient. IV patency established. IV site checked: no pain, redness, or swelling. IV flushed thoroughly pre- and post-medication administration. IVP given by RN. --20:58 Jordy Quiroz R.N. ( Ultrasound at the bedside.). --21:07 Jordy Quiroz R.N. Locked/Released at 07/10/2016 23:41 by Jordy Quiroz R.N.
--- NOTE | 2016-07-10 21:33 | ED CLINICAL REPORT ---
Clinical Report - Physicians/Mid Levels [facility] [address] [place] [address] 07/10/2016 18:45 Patient: JAMARI MCCLELLAND Arrived- By private vehicle. Historian- patient. HISTORY OF PRESENT ILLNESS Chief Complaint: PELVIC PAIN. This started about 2 weeks ago and still present and worsening. It was gradual in onset and has been intermittent and waxing/waning but is not gone now. Modifying factors. Not worsened by anything. Not relieved by anything. The patient has had pelvic pain. No abnormal bleeding, vaginal discharge, vaginal itching, genital lesions or pain with urination. (patient reports some morning sickness with her prior howeverhas not had symptoms like this before. Reports she has a follow-up PLEATER appointment in a week.). Currently : reports being approximately 6 weeks . Patient is a . Similar symptoms previously: None. Recent medical care: Not recently seen/assessed. REVIEW OF SYSTEMS No fever, chills or skin rash. All systems otherwise negative, except as recorded above. PAST HISTORY See nurses notes. Medications: 1 Oral. Albuterol HHN. Albuterol Sulfate HFA Inhalation. Allergies: No Known Drug Allergy. SOCIAL HISTORY Never smoker. No alcohol use or drug use. No recent travel. Is a local resident. ADDITIONAL NOTES The nursing notes have been reviewed. PHYSICAL EXAM Vital Signs: 07/10/2016 19:02 BP: 117/66. HR: 102. RR: 16. O2 saturation: 100%. Temp: 99.3 F. Pain level now: 10/10. Blood pressure normal. Oxygen saturation normal. Appearance: Alert. Oriented X3. No acute distress. HEENT: Normal external inspection. ENT: Pharynx normal. Neck: Neck supple. CVS: Heart sounds normal. Respiratory: No respiratory distress. Breath sounds normal. Chest nontender. Abdomen: Soft and nontender. Bowel sounds normal. No organomegaly. No mass. No gravid uterus. Back: Normal external inspection. : (Not indicated). Skin: Skin warm and dry. Normal skin color. No rash. Normal skin turgor. Extremities: Extremities nontender. No lower extremity edema. LABS, X-RAYS, AND EKG Pelvic Sonogram: A single gestation intrauterine (early 1st trimester) is present. No ectopic , free fluid or adnexal mass. The study was independently viewed by me, interpreted by the radiologist and discussed with the radiologist. Laboratory Tests: UA-Culture if indicated: (FRANCIS: 07/10/2016 18:59) ( [facility] 07/10/2016 19:31) Final results Test Result Flag Units (Reference) URINE COLOR YELLOW URINE APPEARANCE CLEAR URINE GLUCOSE NEGATIVE (NEGATIVE) URINE BILIRUBIN NEGATIVE (NEGATIVE) URINE KETONE NEGATIVE (NEGATIVE) URINE SPECIFIC GRAVITY 1.025 (1.010-1.030) URINE PH 6.0 (5.0-8.0) URINE PROTEIN NEGATIVE (NEGATIVE) URINE UROBILINOGEN 0.2 EU/dL (0.2-1.0) URINE NITRITE NEGATIVE (NEGATIVE) URINE BLOOD NEGATIVE (NEGATIVE) URINE LEUK ESTERASE NEGATIVE (NEGATIVE) URINE RBC NONE SEEN rbc/hpf (0-1) URINE WBC 1-3 wbc/hpf (0-1) URINE EPITHELIAL CELLS 1-3 EPI/hpf (0-5) URINE BACTERIA NONE SEEN (NONE SEEN) URINE COMMENT CULT NOT INDICATED URINE CULTURES ARE SET-UP BASED ON THE FOLLOWING CRITERIA:POSITIVE NITRITEPOSITIVE LEUKOCYTE ESTERASEGREATER THAN 10 WHITE BLOOD CELLSMODERATE (2+) OR GREATER BACTERIA Urine: (FRANCIS: 07/10/2016 18:59) ( [facility] 07/10/2016 19:12) Final results Test Result Flag Units (Reference) URINE POSITIVE CBC w Diff: (FRANCIS: 07/10/2016 19:21) ( [facility] 07/10/2016 19:34) Final results Test Result Flag Units (Reference) WHITE BLOOD COUNT 10.8 K/uL (4.5-11.5) RED BLOOD COUNT 4.85 M/uL (4.00-5.20) HEMOGLOBIN 13.6 gm/dL (12.0-16.0) HEMATOCRIT 40.4 % (36.0-46.0) MEAN CELL VOLUME 83 fL (80-100) MEAN CORPUSCULAR HGB 28 pg (26-34) MEAN CORPUSCULAR HGB CONC 34 g/dL (31-37) RED CELL DISTRIBUTION WIDTH 14.4 % (11.6-14.8) PLATELET COUNT 311 K/uL (150-400) NEUTROPHIL % 50.8 % (50-75) LYMPH % 23.5 L % (25-40) MONO % 6.5 % (3-14) EOSINOPHIL % 18.0 H % (0-4) BASOPHIL % 1.2 % (0-2) CMP: (FRANCIS: 07/10/2016 19:21) ( MsgRcvd 07/10/2016 20:16) Final results Test Result Flag Units (Reference) GLUCOSE 92 mg/dL (70-110) BUN 13 mg/dL (7-18) CREATININE 0.9 mg/dL (0.6-1.3) Estimated GFR >60 mL/min Estimated GFR- >60 mL/min Note: Persistent reduction over 3 months in eGFR<60 mL/min/1.73 m2 defines CKD. Patients with eGFR values>=60 mL/min/1.73 m2 may also have CKD if evidence ofpersistent proteinuria. Additional information may be foundat www.kidney.org. SODIUM 141 mmol/L (136-145) POTASSIUM 3.7 mmol/L (3.5-5.1) CHLORIDE 107 mmol/L (98-107) CARBON DIOXIDE 24 mmol/L (21-32) CALCIUM 8.7 mg/dL (8.5-10.1) TOTAL PROTEIN 6.9 g/dL (6.4-8.2) ALBUMIN 3.8 g/dL (3.3-5.0) BILIRUBIN, TOTAL 0.8 mg/dL (0.0-1.0) ALKALINE PHOSPHATASE 75 U/L (46-116) AST (SGOT) 12 L U/L (15-37) ALT (SGPT) 20 U/L (12-78) BETA HCG, QUANTITATIVE 36759 mIU/mL REFERENCE RANGE:Adult Males: <2 mIU/mLNon- Females: <6 mIU/mL Females:Approximate Approximate hCGGestational Age Range (mIU/mL) 0-1 week 0-501-2 weeks 40-3002-3 weeks 100-94032-1 weeks 500-54864-8 months 5,000-200,0002-3 months 10,000-100,0002nd trimester 3,000-50,0003rd trimester 1,000-50,000 . PROGRESS AND PROCEDURES Course of Care: the patient is a 21-year-old femalewho was recently diagnosed as being in roughly the 6 weeks of her and is a [id number] for evaluation of lower abdominal pain. At this time differential diagnosis includes ovarian cyst, ectopic , urinary tract infecti The patient will be evaluated with laboratory studies includingultrasound of the abdomen and pelvis. Do not feel that this is acute appendicitis. Symptoms have been ongoing for the past 2 weeks. This is not consistent with the clinical presentation of appendicitis. Had discussed with patient acute appendicitis precautions All questions answered. Patient is agreeable to the treatment and plan. Patient's workup is significant for intrauterine . At this time thepatient could have a normal or a spontaneous . Unclear at this time as the patient's is very early on. Rest the patient's workup is otherwise unremarkable. I discussed the patient return precautions to the emergency department including vaginal bleeding and worsening pain as well as fever. Do not feel patient needs to be admitted to the hospital. Do not feel patient has ectopic . I discussed the patient workup, diagnosis, home care, follow-up, and return precautions. All questions answered. The patient expressed understanding of these instructions and was agreeable to them. Do not feel patient needs to be admitted to the hospital require further emergency department evaluation/workup. Do not feel patient has a surgical abdomen. Pain is likely due to current withoutsigns of ectopic . Disposition: Discharged. Condition: good. CLINICAL IMPRESSION Acute pelvic pain. 07/10/2016 19:02 BP: 117/66. HR: 102. RR: 16. O2 saturation: 100%. Temp: 99.3 F. Pain level now: 10/10. Blood pressure normal. Oxygen saturation normal. INSTRUCTIONS Warnings: GENERAL WARNINGS: Return or contact your physician immediately if your condition worsens or changes unexpectedly, if not improving as expected, or if other problems arise. Specifically return if pain, vomiting, bleeding, breathing difficulty or fever. Your Current Medications: CONTINUE TAKING THE FOLLOWING MEDICATIONS: Albuterol HHN*. Albuterol Sulfate HFA Inhalation. 1 Oral. Prescription Medications: Percocet 5 mg/325 mg: take 1 tablet orally every 6 hours as needed for pain. Dispense five (5). No refill. Substitution is permissible. Follow-up: Return to the emergency department as needed. Follow up with a specialist Your PLEATER. Reason for referral: call to schedule an appointment in 2 - 3 days. Summary of care provided to patient via paper. Follow up with your doctor in three days. Reason for referral: recheck today's concerns. Screening today revealed the patient's blood pressure to be in the normal range. Understanding of the discharge instructions verbalized by patient. (Electronically signed by Zacarias Garcia Dr. 07/13/2016 11:08) Addenda for JAMARI MCCLELLAND VisitID: [id number] Date: 07/10/2016 07/11/2016 0:45 Chart locked prior to input of discharge information. Vitals at discharge: 101/65 RR 18 98.3 F oral 87 pulse 2/10 Pain. Patient advised on medications including dosage, course, precautions. 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 Return if symptoms worsen, including heavy bleeding, cramping, fever. IV was removed, catheter intact and bandage applied. (Electronically signed by María eMndoza - 07/11/2016 0:45)
--- NOTE | 2016-07-10 21:33 | ED CLINICAL REPORT ---
Clinical Report - Physicians/Mid Levels [facility] [address] [place] [address] 07/10/2016 18:45 Patient: JAMARI MCLCELLAND Arrived- By private vehicle. Historian- patient. HISTORY OF PRESENT ILLNESS Chief Complaint: PELVIC PAIN. This started about 2 weeks ago and still present and worsening. It was gradual in onset and has been intermittent and waxing/waning but is not gone now. Modifying factors. Not worsened by anything. Not relieved by anything. The patient has had pelvic pain. No abnormal bleeding, vaginal discharge, vaginal itching, genital lesions or pain with urination. (patient reports some morning sickness with her prior howeverhas not had symptoms like this before. 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 Currently : reports being approximately 6 weeks . Patient is a . Similar symptoms previously: None. Recent medical care: Not recently seen/assessed. REVIEW OF SYSTEMS No fever, chills or skin rash. All systems otherwise negative, except as recorded above. PAST HISTORY See nurses notes. Medications: 1 Oral. Albuterol HHN. Albuterol Sulfate HFA Inhalation. Allergies: No Known Drug Allergy. SOCIAL HISTORY Never smoker. No alcohol use or drug use. No recent travel. Is a local resident. ADDITIONAL NOTES The nursing notes have been reviewed. PHYSICAL EXAM Vital Signs: 07/10/2016 19:02 BP: 117/66. HR: 102. RR: 16. O2 saturation: 100%. Temp: 99.3 F. Pain level now: 10/10. Blood pressure normal. Oxygen saturation normal. Appearance: Alert. Oriented X3. No acute distress. HEENT: Normal external inspection. ENT: Pharynx normal. Neck: Neck supple. CVS: Heart sounds normal. Respiratory: No respiratory distress. Breath sounds normal. Chest nontender. Abdomen: Soft and nontender. Bowel sounds normal. No organomegaly. No mass. No gravid uterus. Back: Normal external inspection. : (Not indicated). Skin: Skin warm and dry. Normal skin color. No rash. Normal skin turgor. Extremities: Extremities nontender. No lower extremity edema. LABS, X-RAYS, AND EKG Pelvic Sonogram: A single gestation intrauterine (early 1st trimester) is present. No ectopic , free fluid or adnexal mass. The study was independently viewed by me, interpreted by the radiologist and discussed with the radiologist. Laboratory Tests: UA-Culture if indicated: (FRANCIS: 07/10/2016 18:59) ( [facility] 19:31) Final results Test Result Flag Units (Reference) URINE COLOR YELLOW URINE APPEARANCE CLEAR URINE GLUCOSE NEGATIVE (NEGATIVE) URINE BILIRUBIN NEGATIVE (NEGATIVE) URINE KETONE NEGATIVE (NEGATIVE) URINE SPECIFIC GRAVITY 1.025 (1.010-1.030) URINE PH 6.0 (5.0-8.0) URINE PROTEIN NEGATIVE (NEGATIVE) URINE UROBILINOGEN 0.2 EU/dL (0.2-1.0) URINE NITRITE NEGATIVE (NEGATIVE) URINE BLOOD NEGATIVE (NEGATIVE) URINE LEUK ESTERASE NEGATIVE (NEGATIVE) URINE RBC NONE SEEN rbc/hpf (0-1) URINE WBC 1-3 wbc/hpf (0-1) URINE EPITHELIAL CELLS 1-3 EPI/hpf (0-5) URINE BACTERIA NONE SEEN (NONE SEEN) URINE COMMENT CULT NOT INDICATED URINE CULTURES ARE SET-UP BASED ON THE FOLLOWING CRITERIA:POSITIVE NITRITEPOSITIVE LEUKOCYTE ESTERASEGREATER THAN 10 WHITE BLOOD CELLSMODERATE (2+) OR GREATER BACTERIA Urine: (FRANCIS: 07/10/2016 18:59) ( [facility] 07/10[facility]2016 19:12) Final results Test Result Flag Units (Reference) URINE POSITIVE CBC w Diff: (FRANCIS: 07/10/2016 19:21) ( [facility] 07/10/2016 19:34) Final results Test Result Flag Units (Reference) WHITE BLOOD COUNT 10.8 K/uL (4.5-11.5) RED BLOOD COUNT 4.85 M/uL (4.00-5.20) HEMOGLOBIN 13.6 gm/dL (12.0-16.0) HEMATOCRIT 40.4 % (36.0-46.0) MEAN CELL VOLUME 83 fL (80-100) MEAN CORPUSCULAR HGB 28 pg (26-34) MEAN CORPUSCULAR HGB CONC 34 g/dL (31-37) RED CELL DISTRIBUTION WIDTH 14.4 % (11.6-14.8) PLATELET COUNT 311 K/uL (150-400) NEUTROPHIL % 50.8 % (50-75) LYMPH % 23.5 L % (25-40) MONO % 6.5 % (3-14) EOSINOPHIL % 18.0 H % (0-4) BASOPHIL % 1.2 % (0-2) CMP: (FRANCIS: 07/10/2016 19:21) ( MsgRcvd 07/10/2016 20:16) Final results Test Result Flag Units (Reference) GLUCOSE 92 mg/dL (70-110) BUN 13 mg/dL (7-18) CREATININE 0.9 mg/dL (0.6-1.3) Estimated GFR >60 mL/min Estimated GFR- >60 mL/min Note: Persistent reduction over 3 months in eGFR<60 mL/min/1.73 m2 defines CKD. Patients with eGFR values>=60 mL/min/1.73 m2 may also have CKD if evidence ofpersistent proteinuria. Additional information may be foundat www.kidney.org. SODIUM 141 mmol/L (136-145) POTASSIUM 3.7 mmol/L (3.5-5.1) CHLORIDE 107 mmol/L (98-107) CARBON DIOXIDE 24 mmol/L (21-32) CALCIUM 8.7 mg/dL (8.5-10.1) TOTAL PROTEIN 6.9 g/dL (6.4-8.2) ALBUMIN 3.8 g/dL (3.3-5.0) BILIRUBIN, TOTAL 0.8 mg/dL (0.0-1.0) ALKALINE PHOSPHATASE 75 U/L (46-116) AST (SGOT) 12 L U/L (15-37) ALT (SGPT) 20 U/L (12-78) BETA HCG, QUANTITATIVE 17919 mIU/mL REFERENCE RANGE:Adult Males: <2 mIU/mLNon- Females: <6 mIU/mL Females:Approximate Approximate hCGGestational Age Range (mIU/mL) 0-1 week 0-501-2 weeks 40-3002-3 weeks 100-94235-8 weeks 500-18342-8 months 5,000-200,0002-3 months 10,000-100,0002nd trimester 3,000-50,0003rd trimester 1,000-50,000 . PROGRESS AND PROCEDURES Course of Care: the patient is a 21-year-old femalewho was recently diagnosed as being in roughly the 6 weeks of her and is a [id number] for evaluation of lower abdominal pain. At this time differential diagnosis includes ovarian cyst, ectopic , urinary tract infecti The patient will be evaluated with laboratory studies includingultrasound of the abdomen and pelvis. Do not feel that this is acute appendicitis. Symptoms have been ongoing for the past 2 weeks. This is not consistent with the clinical presentation of appendicitis. Had discussed with patient acute appendicitis precautions All questions answered. Patient is agreeable to the treatment and plan. Patient's workup is significant for intrauterine . At this time thepatient could have a normal or a spontaneous . Unclear at this time as the patient's is very early on. Rest the patient's workup is otherwise unremarkable. I discussed the patient return precautions to the emergency department including vaginal bleeding and worsening pain as well as fever. Do not feel patient needs to be admitted to the hospital. Do not feel patient has ectopic . I discussed the patient workup, diagnosis, home care, follow-up, and return precautions. All questions answered. The patient expressed understanding of these instructions and was agreeable to them. Do not feel patient needs to be admitted to the hospital require further emergency department evaluation/workup. Do not feel patient has a surgical abdomen. Pain is likely due to current withoutsigns of ectopic . Disposition: Discharged. Condition: good. CLINICAL IMPRESSION Acute pelvic pain. 07/10/2016 19:02 BP: 117/66. HR: 102. RR: 16. O2 saturation: 100%. Temp: 99.3 F. Pain level now: 10/10. Blood pressure normal. Oxygen saturation normal. INSTRUCTIONS Warnings: GENERAL WARNINGS: Return or contact your physician immediately if your condition worsens or changes unexpectedly, if not improving as expected, or if other problems arise. Specifically return if pain, vomiting, bleeding, breathing difficulty or fever. Your Current Medications: CONTINUE TAKING THE FOLLOWING MEDICATIONS: Albuterol HHN*. Albuterol Sulfate HFA Inhalation. 1 Oral. Prescription Medications: Percocet 5 mg/325 mg: take 1 tablet orally every 6 hours as needed for pain. Dispense five (5). No refill. Substitution is permissible. Follow-up: Return to the emergency department as needed. 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 Reason for referral: call to schedule an appointment in 2 - 3 days. Summary of care provided to patient via paper. Follow up with your doctor in three days. Reason for referral: recheck today's concerns. Screening today revealed the patient's blood pressure to be in the normal range. Understanding of the discharge instructions verbalized by patient. (Electronically signed by Zacarias Garcia Dr. 07/13/2016 11:08) Addenda for JAMARI MCCLELLAND VisitID: [id number] Date: 07/10/2016 07/11/2016 0:45 Chart locked prior to input of discharge information. Vitals at discharge: 101/65 RR 18 98.3 F oral 87 pulse 2/10 Pain. Patient advised on medications including dosage, course, precautions. 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 Return if symptoms worsen, including heavy bleeding, cramping, fever. IV was removed, catheter intact and bandage applied. (Electronically signed by María Mendoza - 07/11/2016 0:45)
--- NOTE | 2016-07-10 23:22 | DIAGNOSTIC IMAGING REPORT ---
PROCEDURE: US OB 1ST TRIMESTER W/TRANSVAG INDICATION: Pelvic pain. TECHNIQUE: Gn scale, color, and spectral Doppler transabdominal and endovaginal sonographic images of the first trimester gravid uterus were obtained. COMPARISON: Comparison made to obstetric ultrasound 06/28/2016. FINDINGS: TRANSABDOMINAL SCANS: Interval development of intrauterine gestational sac. There is increased echogenicity of the renal pyramids bilaterally consistent with medullary sponge kidney. Kidneys are mildly atrophic (right 8.5 cm, left 9.0 cm). TRANSVAGINAL SCANS: Early intrauterine gestational sac (1.2 cm, 6.0 weeks). No evidence of pole or yolk sac. Placenta circumferential. Normal fluid. There is a 1.4 x 0.6 cm subchorionic hemorrhage. Normal cervix length (3.5 cm). The 1.5 cm right corpus luteum cyst. Ovaries are otherwise normal. IMPRESSION: 1. Development of a early intrauterine gestational sac estimated at 6.0 weeks (plus or minus 1.5 weeks). MELANY is 02/12/2017. 2. There is a 1.4 x 0.6 cm subchorionic hemorrhage. 3. Findings suggest medullary sponge kidney with mild bilateral chronic renal atrophy.
--- NOTE | 2016-07-13 11:09 | ED DISCHARGE INSTRUCTIONS ---
Patient: JAMARI MCCLELLAND General Instructions [facility] VisitID: [id number] [place] [address] 21y, F Registration Date/Time: 07/10/2016 Acute pelvic pain. 07/10/2016 19:02 BP: 117/66. HR: 102. RR: 16. O2 saturation: 100%. Temp: 99.3 F. Pain level now: 03/21. Blood pressure normal. Oxygen saturation normal. INSTRUCTIONS Warnings: GENERAL WARNINGS: Return or contact your physician immediately if your condition worsens or changes unexpectedly, if not improving as expected, or if other problems arise. Specifically return if pain, vomiting, bleeding, breathing difficulty or fever. Your Current Medications: CONTINUE TAKING THE FOLLOWING MEDICATIONS: Albuterol HHN*. Albuterol Sulfate HFA Inhalation. 1 Oral. Prescription Medications: Percocet 5 mg/325 mg: take 1 tablet orally every 6 hours as needed for pain. Dispense five (5). No refill. Substitution is permissible. Follow-up: Return to the emergency department as needed. Follow up with a specialist Your NURSE WOUND. Reason for referral: call to schedule an appointment in 2 - 3 days. Summary of care provided to patient via paper. Follow up with your doctor in three days. Reason for referral: recheck today's concerns. Screening today revealed the patient's blood pressure to be in the normal range. Understanding of the discharge instructions verbalized by patient. ADDITIONAL INFORMATION Pelvic Pain, Uncertain Cause Based on your visit today, the exact cause of your pelvic pain is not certain. But your condition does not appear to be serious at this time. However, the signs of a serious problem may take more time to appear. Therefore, it is important for you to watch for any new symptoms or worsening of your condition. Home Care: Rest until you are feeling better. Avoid sexual intercourse until your pain goes away. You may use acetaminophen (Tylenol) or ibuprofen (Motrin, Advil) to control pain, unless another medicine was prescribed. [NOTE: If you have chronic liver or kidney disease or ever had a stomach ulcer or GI bleeding, talk with your doctor before using these medicines.] Follow Up with your doctor as advised. If a culture test was taken, call in two days for the results. If the culture is positive, you will be given more advice at that time. Otherwise, follow-up with your doctor or this facility as instructed. Get Prompt Medical Attention if any of the following occur: Fever of 100.4F (38C) or higher, or as directed by your healthcare provider Vaginal discharge Worsening pain Weakness, dizziness or fainting Unexpected vaginal bleeding or passage of johnson or white tissue from the vagina Pain that moves to the right lower abdomen Abdominal Pain,Possible Appendicitis [Repeat Exam, Female] Based on your visit today, the exact cause of your abdominal (stomach) pain is not certain. However, you do have some of the early signs of APPENDICITIS. Early in an appendix infection the symptoms can be similar to a simple "stomach ache" or "stomach flu". Therefore, the diagnosis can be hard to make. Since an appendix infection is a serious condition, it is important to know if this is the cause of your symptoms. WAITING for more time to pass and repeating the exam is the best way to find out whether you have appendicitis. Within the next 12-24 hours the cause of your stomach pain should become clear. It is important for you to watch for any new symptoms or worsening of your condition. (See below). Home Care: Rest until your next exam. No strenuous activities. Eat a diet low in fiber (called a low-residue diet). Foods allowed include refined breads, white rice, fruit and vegetable juices without pulp, tender meats. These foods will pass more easily through the intestine. Avoid whole-grain foods, whole fruits and vegetables, meats, seeds and nuts, fried or fatty foods, dairy, alcohol and spicy foods until your symptoms go away. In some cases, you may be asked not to eat or drink anything until you are re-examined. Return for another exam exactly as directed. Follow Up with your doctor or this facility as directed. Get Prompt Medical Attention if any of the following occur: Pain gets worse or moves to the right lower abdomen New or worsening vomiting or diarrhea Swelling of the abdomen Unable to pass stool for more than three days Fever of 100.4F (38C) or higher, or as directed by your healthcare provider Blood in vomit or bowel movements (dark red or black color) Weakness, dizziness or fainting Unexpected vaginal bleeding Oxycodone Hydrochloride, Acetaminophen Oral tablet What is this medicine? ACETAMINOPHEN; OXYCODONE (a set a HOMER jaylan fen; ox i KOE done) is a pain reliever. It is used to treat mild to moderate pain. How should I use this medicine? Take this medicine by mouth with a full glass of water. Follow the directions on the prescription label. Take your medicine at regular intervals. Do not take your medicine more often than directed. Talk to your gericare aide teacher regarding the use of this medicine in children. Special care may be needed. Patients over 65 years old may have a stronger reaction and need a smaller dose. What side effects may I notice from receiving this medicine? Side effects that you should report to your doctor or health regular senior care provider as soon as possible: allergic reactions like skin rash, itching or hives, swelling of the face, lips, or tongue breathing difficulties, wheezing confusion light headedness or fainting spells severe stomach pain yellowing of the skin or the whites of the eyes Side effects that usually do not require medical attention (report to your doctor or health regular senior care provider if they continue or are bothersome): dizziness drowsiness nausea vomiting What may interact with this medicine? alcohol antihistamines barbiturates like amobarbital, butalbital, butabarbital, methohexital, pentobarbital, phenobarbital, thiopental, and secobarbital benztropine drugs for bladder problems like solifenacin, trospium, oxybutynin, tolterodine, hyoscyamine, and methscopolamine drugs for breathing problems like ipratropium and tiotropium drugs for certain stomach or intestine problems like propantheline, homatropine methylbromide, glycopyrrolate, atropine, belladonna, and dicyclomine general anesthetics like etomidate, ketamine, nitrous oxide, propofol, desflurane, enflurane, halothane, isoflurane, and sevoflurane medicines for depression, anxiety, or psychotic disturbances medicines for sleep muscle relaxants naltrexone narcotic medicines (opiates) for pain phenothiazines like perphenazine, thioridazine, chlorpromazine, mesoridazine, fluphenazine, prochlorperazine, promazine, and trifluoperazine scopolamine tramadol trihexyphenidyl What if I miss a dose? If you miss a dose, take it as soon as you can. If it is almost time for your next dose, take only that dose. Do not take double or extra doses. Where should I keep my medicine? Keep out of the reach of children. This medicine can be abused. Keep your medicine in a safe place to protect it from theft. Do not share this medicine with anyone. Selling or giving away this medicine is dangerous and against the law. Store at room temperature between 20 and 25 degrees C (68 and 77 degrees F). Keep container tightly closed. Protect from light. This medicine may cause accidental overdose and if it is taken by other adults, children, or pets. Flush any unused medicine down the toilet to reduce the chance of harm. Do not use the medicine after the expiration date. What should I tell my health care provider before I take this medicine? They need to know if you have any of these conditions: brain tumor Crohn's disease, inflammatory bowel disease, or ulcerative colitis drink more than 3 alcohol containing drinks per day drug abuse or addiction head injury heart or circulation problems kidney disease or problems going to the bathroom liver disease lung disease, asthma, or breathing problems an unusual or allergic reaction to acetaminophen, oxycodone, other opioid analgesics, other medicines, foods, dyes, or preservatives or trying to get breast-feeding What should I watch for while using this medicine? Tell your doctor or health regular senior care provider if your pain does not go away, if it gets worse, or if you have new or a different type of pain. You may develop tolerance to the medicine. Tolerance means that you will need a higher dose of the medication for pain relief. Tolerance is normal and is expected if you take this medicine for a long time. Do not suddenly stop taking your medicine because you may develop a severe reaction. Your body becomes used to the medicine. This does NOT mean you are addicted. Addiction is a behavior related to getting and using a drug for a non-medical reason. If you have pain, you have a medical reason to take pain medicine. Your doctor will tell you how much medicine to take. If your doctor wants you to stop the medicine, the dose will be slowly lowered over time to avoid any side effects. You may get drowsy or dizzy. Do not drive, use machinery, or do anything that needs mental alertness until you know how this medicine affects you. Do not stand or sit up quickly, especially if you are an older patient. This reduces the risk of dizzy or fainting spells. Alcohol may interfere with the effect of this medicine. Avoid alcoholic drinks. There are different types of narcotic medicines (opiates) for pain. If you take more than one type at the same time, you may have more side effects. Give your health care provider a list of all medicines you use. Your doctor will tell you how much medicine to take. Do not take more medicine than directed. Call emergency for help if you have problems breathing. The medicine will cause constipation. Try to have a bowel movement at least every 2 to 3 days. If you do not have a bowel movement for 3 days, call your doctor or health regular senior care provider. Do not take Tylenol (acetaminophen) or medicines that have acetaminophen with this medicine. Too much acetaminophen can be very dangerous. Many nonprescription medicines contain acetaminophen. Always read the labels carefully to avoid taking more acetaminophen. You have been given the following additional information: Pelvic Pain, Unknown Cause Abdominal Pain, Possible Appendicitis (Female) Oxycodone Hydrochloride, Acetaminophen Oral tablet (Electronically signed by Zacarias Garcia Dr. 07/13/2016 11:08)
--- NOTE | 2016-07-13 11:09 | ED MAR SUMMARY ---
..... Medication Administration Record [facility] [address] [place] [address] Patient: JAMARI MCCLELLAND Visit ID: [id number] 21y, F Weight: 63.5 kg Height/Length: 61 in BMI: 26.5 ALLERGIES: No Known Drug Allergy Given 19:28 07/10/2016 Jordy Quiroz RAsafNAsaf Medication Administered: TYLENOL [PO] (ACETAMINOPHEN), Dose: 650 mg PO. Medication Ordered: Tylenol PO 650 mg (NOW). Given 19:34 07/10/2016 Jordy Quiroz RAsafN. Medication Administered: MORPHINE [IVP], Dose: 4 mg IVP over 2 minute(s), Site: #1 right AC. Medication Ordered: Morphine IV 4 mg (HIGH ALERT MEDICATION, NOW). Given 20:57 07/10/2016 Jordy Quiroz, R.N. Medication Administered: MORPHINE [IVP], Dose: 4 mg IVP over 2 minute(s), Site: #1 right AC. Medication Ordered: Morphine IV 4 mg (HIGH ALERT MEDICATION, NOW).
--- NOTE | 2016-07-13 11:09 | ED MED RECONCILIATION SUMMARY ---
Patient: JAMARI MCCLELLAND Medication Reconciliation Report [facility] VisitID: [id number] [place] [address] 21y, F Registration Date/Time: 07/10/2016 Weight: 63.5 kg Height/Length: 61 in. BMI: 26.5 ALLERGIES: No Known Drug Allergy The patient's Home Medications are listed below: CONTINUE TAKING THE FOLLOWING MEDICATIONS: Albuterol HHN Albuterol Sulfate HFA Inhalation 1 Oral The source(s) of the original Home Medication information: Not obtained. The following Medications were given to the patient in the Emergency Department: Tylenol [PO] PO 650 mg, administered: 07/10/2016 7:28:00 PM Morphine [IVP] IVP 4 mg, administered: 07/10/2016 7:34:00 PM Morphine [IVP] IVP 4 mg, administered: 07/10/2016 8:57:00 PM The following Medications were prescribed to the patient: Percocet 5 mg/325 mg: take 1 tablet orally every 6 hours as needed for pain. Dispense five (5). No refill. Substitution is permissible. -- Zacarias Garcia Dr.
--- NOTE | 2016-07-13 11:09 | ED MED RECONCILIATION SUMMARY ---
Patient: JAMARI MCCLELLAND Medication Reconciliation Report [facility] VisitID: [id number] [place] [address] 21y, F Registration Date/Time: 07/10/2016 Weight: 63.5 kg Height/Length: 61 in. BMI: 26.5 ALLERGIES: No Known Drug Allergy The patient's Home Medications are listed below: CONTINUE TAKING THE FOLLOWING MEDICATIONS: Albuterol HHN Albuterol Sulfate HFA Inhalation 1 Oral The source(s) of the original Home Medication information: Not obtained. The following Medications were given to the patient in the Emergency Department: Tylenol [PO] PO 650 mg, administered: 07/10/2016 7:28:00 PM Morphine [IVP] IVP 4 mg, administered: 07/10/2016 7:34:00 PM Morphine [IVP] IVP 4 mg, administered: 07/10/2016 8:57:00 PM The following Medications were prescribed to the patient: Percocet 5 mg/325 mg: take 1 tablet orally every 6 hours as needed for pain. Dispense five (5). No refill. Substitution is permissible. -- Zacarias Garcia Dr.
--- NOTE | 2016-07-13 11:09 | ED MAR SUMMARY ---
..... Medication Administration Record [facility] [address] [place] [address] Patient: JAMARI MCCLELLAND Visit ID: [id number] 21y, F Weight: 63.5 kg Height/Length: 61 in BMI: 26.5 ALLERGIES: No Known Drug Allergy Given 19:28 07/10/2016 Jordy Quiroz RAsafNAsaf Medication Administered: TYLENOL [PO] (ACETAMINOPHEN), Dose: 650 mg PO. Medication Ordered: Tylenol PO 650 mg (NOW). Given 19:34 07/10/2016 Jordy Quiroz RAsafN. Medication Administered: MORPHINE [IVP], Dose: 4 mg IVP over 2 minute(s), Site: #1 right AC. Medication Ordered: Morphine IV 4 mg (HIGH ALERT MEDICATION, NOW). Given 20:57 07/10/2016 Jordy Quiroz, R.N. Medication Administered: MORPHINE [IVP], Dose: 4 mg IVP over 2 minute(s), Site: #1 right AC. Medication Ordered: Morphine IV 4 mg (HIGH ALERT MEDICATION, NOW).
== END 2016-07-10 22:45 | disposition home or self-care (01) ==
LOC: ED SRH 18:44
DX: O26.891 Other specified pregnancy related conditions, first trimester (principal); R10.2 Pelvic and perineal pain; Z3A.01 Less than 8 weeks gestation of pregnancy
CPT/HCPCS: 90004; 90100; 90197; 93070; 95059

== ENCOUNTER 2016-07-14 18:42 | Observation (INO) | payer BC ==
--- NOTE | 2016-07-14 19:33 | ED NURSING NOTES ---
Clinical Report - [facility] [address] [place] [address] 07/14/2016 18:42 Patient: JAMARI MCCLELLAND TRIAGE Triage time 18:50 Jul 14 2016. Acuity: LEVEL 3. Chief Complaint: "ASTHMA ATTACK" and WHEEZING. Alert. DAVEY COMA SCORE: Davey Coma Scale: 15- eyes open spontaneously (4); best verbal response- oriented x 4 (5); best motor response- obeys commands (6). --19:09 Quoc Perez R.N. 18:52 07/14/16. BP: 126/68. HR: 98. RR: 20. O2 saturation: 94% on room air. Temp: 99.4 F (oral). Pain level now: 5/10. Additional comments: Brething. --19:09 Quoc Perez R.N. Weight: 63.5 kg stated. Height/Length: 61 inches Per Patient. BMI: 26.5. --18:56 Quoc Perez R.N. Medications Albuterol HHN. Albuterol Sulfate HFA Inhalation. 1 Oral. --19:00 Quoc Perez R.N. Allergies No Known Drug Allergy. --19:00 Quoc Perez R.N. Medication/allergy information source: the patient. --19:09 Quoc Perez R.N. History Arrived by private vehicle. Historian: patient. Accompanied by family. Primary physician (Akanksha). ( Expiratory wheezing throughout. Has been using her HHN/MDI frequently and is feeling agitated.). Onset. (about three days ago). She has had wheezing. 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 PAST MEDICAL HX: Last normal menstrual period- 6 1/2 weeks . Currently . In 1st trimester. SOCIAL HX: Former smoker, end date 04/2016. No alcohol use or drug use. No infectious disease exposure. ABUSE ASSESSMENT: No report of abuse. FALL RISK ASSESSMENT: Fall risk assessment completed. No fall risk identified. NUTRITIONAL RISK ASSESSMENT: The nutritional risk assessment revealed no deficiencies. FUNCTIONAL ASSESSMENT: Functional assessment: no impairments noted. LEARNING NEEDS ASSESSMENT: The learning needs assessment revealed no barriers. SKIN INTEGRITY ASSESSMENT: Skin integrity risk assessment completed. No skin integrity risk identified. --19:09 Quoc Perez R.N. PROBLEMS: Pelvic Pain. Care. Otitis Externa. Otitis Media. Gastroenteritis. Mastitis. Anxiety Reaction. Lung Disease. Hemorrhoids. Diarrhea. Vomiting. . Nephrolithiasis. Renal Colic. Bronchitis. UTI - Urinary Tract Infection. Cystitis. Ovarian Cyst. --19:02 Quoc Perez R.N. Flank Pain [RuleOut]. --19:02 Quoc Perez R.N. ADDITIONAL SURGERIES: Kidney Sx with ino stents. Laparoscopy. Ureteral Stent. --19:02 Quoc Perez R.N. Interventions ID band on patient. To treatment room. --19: Quoc Perez R.N. PHYSICAL ASSESSMENT Ambulatory to room. GENERAL / NEURO / PSYCH: Alert. Oriented X 4. HEENT: Mucous membranes are pink. RESPIRATORY: No respiratory distress. Mild respiratory distress. Respirations not labored. The patient can speak in full sentences. Expiratory wheezes present. CVS: Capillary refill less than 2 seconds. GI / : Abdomen soft and nontender. Bowel sounds within normal limits. SKIN: Skin is warm and dry. Normal skin turgor. --19:11 Quoc Perez R.N. NURSING PROGRESS NOTES Pulse oximeter and NIBP monitor placed on patient; monitor alarms on. Patient gowned. Reassurance given to the patient and patient's friends. Patient identifiers checked. Call light placed in reach. Side rails up x 1. Bed placed in lowest position. Brakes of bed on. Patient ready for evaluation- chart flagged and ED physician notified. --19:11 Quoc Perez R.N. 19:07 07/14/2016 Duoneb (Ipratropium-Albuterol) Neb TX Nebulizer 1 unit dose given. Given by the respiratory therapist. Allergies verified and confirmed 5 rights. --19:22 Quoc Perez R.N. 19:18 07/14/2016 Albuterol Neb TX 1 unit dose given. --19:23 Quoc Perez R.N. 19:26 07/14/2016 Acetaminophen (APAP) PO Tablets 1000 mg given. Allergies verified and confirmed 5 rights. --19:26 Quoc Perez R.N. 19:30 07/14/2016 Site #1 started via IV antecubital space with an 20g angiocath, with aseptic technique and good blood return; one attempt. Saline lock flushed with saline. --19:31 Sam Godwin R.N. 19:31 07/14/2016 SOLU-MEDROL (MethylPREDNISolone Sodium Succ) IVP 125 mg given over 2 minute(s) via site #1. Allergies verified and confirmed 5 rights. IV patency established. IV site checked: no pain, redness, or swelling. IV flushed thoroughly pre- and post-medication administration. IVP given by RN. --19:31 Sam Godwin R.N. ( Pt on 1L able to ambulate to bathroom without difficulty pt verbalized understanding of POC). --19:56 Sam Godwin R.N. 19:55 07/14/16. BP: 127/72. HR: 90. RR: 18. O2 saturation: 100%. --19:56 Sam Godwin R.N. 20:17 07/14/16. BP: 142/70. HR: 81. RR: 18. O2 saturation: 98%. --20:19 Sam Godwin R.N. DISPOSITION / DISCHARGE Condition at departure: improved. --20:45 Sam Godwin R.N. 20:44 07/14/16. BP: 129/73. HR: 86. RR: 18. O2 saturation: 100%. Temp: 98.5 F. --20:45 Sam Godwin R.N. Departure time: 20:45 Jul 14 2016. Admitted (20:45 Jul 14 2016). Patient's personal items include: shirt and pants; items were given to the patient. --20:45 Sam Godwin R.N. Locked/Released at 07/15/2016 1:33 by Sam Godwin R.N.
--- NOTE | 2016-07-14 19:33 | ED NURSING NOTES ---
Clinical Report - Nurses [facility] [address] [place] [address] 07/14/2016 18:42 Patient: JAMARI MCCLELLAND TRIAGE Triage time 18:50 Jul 14 2016. Acuity: LEVEL 3. Chief Complaint: "ASTHMA ATTACK" and WHEEZING. Alert. DAVEY COMA SCORE: Davey Coma Scale: 15- eyes open spontaneously (4); best verbal response- oriented x 4 (5); best motor response- obeys commands (6). --19:09 Quoc Perez R.N. 18:52 07/14/16. BP: 126/68. HR: 98. RR: 20. O2 saturation: 94% on room air. Temp: 99.4 F (oral). Pain level now: 5/10. Additional comments: Brething. --19:09 Quoc Perez R.N. Weight: 63.5 kg stated. Height/Length: 61 inches Per Patient. BMI: 26.5. --18:56 Quoc Perez R.N. Medications Albuterol HHN. Albuterol Sulfate HFA Inhalation. 1 Oral. --19:00 Quoc Perez R.N. Allergies No Known Drug Allergy. --19:00 Quoc Perez R.N. Medication/allergy information source: the patient. --19:09 Quoc Perze R.N. History Arrived by private vehicle. Historian: patient. Accompanied by family. Primary physician (Akankhsa). ( Expiratory wheezing throughout. Has been using her HHN/MDI frequently and is feeling agitated.). Onset. (about three days ago). She has had wheezing. 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 PAST MEDICAL HX: Last normal menstrual period- 6 1/2 weeks . Currently . In 1st trimester. SOCIAL HX: Former smoker, end date 04/2016. No alcohol use or drug use. No infectious disease exposure. ABUSE ASSESSMENT: No report of abuse. FALL RISK ASSESSMENT: Fall risk assessment completed. No fall risk identified. NUTRITIONAL RISK ASSESSMENT: The nutritional risk assessment revealed no deficiencies. FUNCTIONAL ASSESSMENT: Functional assessment: no impairments noted. LEARNING NEEDS ASSESSMENT: The learning needs assessment revealed no barriers. SKIN INTEGRITY ASSESSMENT: Skin integrity risk assessment completed. No skin integrity risk identified. --19:09 Quoc Perez R.N. PROBLEMS: Pelvic Pain. Care. Otitis Externa. Otitis Media. Gastroenteritis. Mastitis. Anxiety Reaction. Lung Disease. Hemorrhoids. Diarrhea. Vomiting. . Nephrolithiasis. Renal Colic. Bronchitis. UTI - Urinary Tract Infection. Cystitis. Ovarian Cyst. --19:02 Quoc Perez R.N. Flank Pain [RuleOut]. --19:02 Quoc Perez R.N. ADDITIONAL SURGERIES: Kidney Sx with ino stents. Laparoscopy. Ureteral Stent. --19:02 Quoc Perez R.N. Interventions ID band on patient. To treatment room. --19: Quoc Perez R.N. PHYSICAL ASSESSMENT Ambulatory to room. GENERAL / NEURO / PSYCH: Alert. Oriented X 4. HEENT: Mucous membranes are pink. RESPIRATORY: No respiratory distress. Mild respiratory distress. Respirations not labored. The patient can speak in full sentences. Expiratory wheezes present. CVS: Capillary refill less than 2 seconds. GI / : Abdomen soft and nontender. Bowel sounds within normal limits. SKIN: Skin is warm and dry. Normal skin turgor. --19:11 Quoc Perez R.N. NURSING PROGRESS NOTES Pulse oximeter and NIBP monitor placed on patient; monitor alarms on. Patient gowned. Reassurance given to the patient and patient's friends. Patient identifiers checked. Call light placed in reach. Side rails up x 1. Bed placed in lowest position. Brakes of bed on. Patient ready for evaluation- chart flagged and ED physician notified. --19:11 Quoc Perez R.N. 19:07 07/14/2016 Duoneb (Ipratropium-Albuterol) Neb TX Nebulizer 1 unit dose given. Given by the respiratory therapist. Allergies verified and confirmed 5 rights. --19:22 Quoc Perez R.N. 19:18 07/14/2016 Albuterol Neb TX 1 unit dose given. --19:23 Quoc Perez R.N. 19:26 07/14/2016 Acetaminophen (APAP) PO Tablets 1000 mg given. Allergies verified and confirmed 5 rights. --19:26 Quoc Perez R.N. 19:30 07/14/2016 Site #1 started via IV antecubital space with an 20g angiocath, with aseptic technique and good blood return; one attempt. Saline lock flushed with saline. --19:31 Sam Godwin R.N. 19:31 07/14/2016 SOLU-MEDROL (MethylPREDNISolone Sodium Succ) IVP 125 mg given over 2 minute(s) via site #1. Allergies verified and confirmed 5 rights. IV patency established. IV site checked: no pain, redness, or swelling. IV flushed thoroughly pre- and post-medication administration. IVP given by RN. --19:31 Sam Godwin R.N. ( Pt on 1L able to ambulate to bathroom without difficulty pt verbalized understanding of POC). --19:56 Sam Godwin R.N. 19:55 07/14/16. BP: 127/72. HR: 90. RR: 18. O2 saturation: 100%. --19:56 Sam Godwin R.N. 20:17 07/14/16. BP: 142/70. HR: 81. RR: 18. O2 saturation: 98%. --20:19 Sam Godwin R.N. DISPOSITION / DISCHARGE Condition at departure: improved. --20:45 Sam Godwin R.N. 20:44 07/14/16. BP: 129/73. HR: 86. RR: 18. O2 saturation: 100%. Temp: 98.5 F. --20:45 Sam Godwin R.N. Departure time: 20:45 Jul 14 2016. Admitted (20:45 Jul 14 2016). Patient's personal items include: shirt and pants; items were given to the patient. --20:45 Sam Godwin R.N. Locked/Released at 07/15/2016 1:33 by Sam Godwin R.N.
--- NOTE | 2016-07-14 19:33 | ED CLINICAL REPORT ---
Clinical Report - Physicians/Mid Levels [facility] [address] [place] [address] 07/14/2016 18:42 Patient: JAMARI MCCLELLAND Time Seen: 19:03. Arrived- By private vehicle. Historian- patient. Note: . HISTORY OF PRESENT ILLNESS Chief Complaint: DYSPNEA and HISTORY OF ASTHMA. This started several days ago and is still present. It was gradual in onset and has been waxing/waning. The dyspnea is described as moderate. The dyspnea is worsened by walking and is improved by rest (neb / MDI help, but only briefly). The patient has had a moderate dry cough . No blood tinged sputum or frankly bloody sputum. She has had chest tightness, low grade fever, wheezing and dyspnea on exertion. No calf pain, foot swelling, orthopnea or paroxysmal nocturnal dyspnea. (Pt states she has been using her nebulizer or MDI "every hour" since last night and not improving much). Similar symptoms previously: Recent medical care: The patient was seen recently at this facility in the emergency department. Seen for similar symptoms. REVIEW OF SYSTEMS No muscle aches, sore throat, sinus drainage, nausea or vomiting. No abdominal pain, diarrhea, black stools, bloody stools or headache. No fainting episodes, difficulty with urination, excessive urination, enlarged lymph nodes or joint pain. The patient has had a nasal discharge and missed periods. Currently : 6 1/2 weeks recent sonogram showed intrauterine . All systems otherwise negative, except as recorded above. PAST HISTORY See nurses notes. Asthma. PCP: [facility]. Surgeries: Renal stone manipulation (ureteral stent placed). Medications: Albuterol HHN. Albuterol Sulfate HFA Inhalation. 1 Oral. Allergies: No Known Drug Allergy. SOCIAL HISTORY Former smoker, end date 04/2016. No alcohol use or drug use. ADDITIONAL NOTES The nursing notes have been reviewed. PHYSICAL EXAM Vital Signs: 07/14/2016 18:52 BP: 126/68. HR: 98. RR: 20. O2 saturation: 94%. Temp: 99.4 F. Pain level now: 5/10. Appearance: Alert. Patient in moderate distress. Eyes: Eyes normal inspection. No pale conjunctivae or scleral icterus. ENT: Pharynx normal. Uvula midline. No pharyngeal erythema. The mucous membranes are not dry. Neck: Normal inspection. No jugular venous distention. Neck supple. CVS: Tachycardia. Heart sounds normal. Pulses normal. Respiratory: Prolonged expirations. Mildly decreased air movement bilaterally. Expiratory moderate bilateral wheezes present. No rales. Abdomen: Soft and nontender. Back: Normal inspection. Skin: Skin warm and dry. Normal skin color. Normal skin turgor. Extremities: Extremities exhibit normal ROM. No calf tenderness. No lower extremity edema. Neuro: Oriented X 3. No motor deficit. LABS, X-RAYS, AND EKG Laboratory Tests: UA-Culture if indicated: (FRANCIS: 07/14/2016 19:37) ( [facility] 07/14/2016 19:53) IP Test Result Flag Units (Reference) URINE COLOR YELLOW URINE APPEARANCE CLEAR URINE GLUCOSE NEGATIVE (NEGATIVE) URINE BILIRUBIN NEGATIVE (NEGATIVE) URINE KETONE NEGATIVE (NEGATIVE) URINE SPECIFIC GRAVITY 1.020 (1.010-1.030) URINE PH 6.0 (5.0-8.0) URINE PROTEIN NEGATIVE (NEGATIVE) URINE UROBILINOGEN 0.2 EU/dL (0.2-1.0) URINE NITRITE NEGATIVE (NEGATIVE) URINE BLOOD NEGATIVE (NEGATIVE) URINE LEUK ESTERASE NEGATIVE (NEGATIVE) CBC w Diff: (FRANCIS: 07/14/2016 19:15) ( [facility] 07/14/2016 19:32) Final results Test Result Flag Units (Reference) WHITE BLOOD COUNT 11.6 H K/uL (4.5-11.5) RED BLOOD COUNT 4.95 M/uL (4.00-5.20) HEMOGLOBIN 14.0 gm/dL (12.0-16.0) HEMATOCRIT 41.2 % (36.0-46.0) MEAN CELL VOLUME 83 fL (80-100) MEAN CORPUSCULAR HGB 28 pg (26-34) MEAN CORPUSCULAR HGB CONC 34 g/dL (31-37) RED CELL DISTRIBUTION WIDTH 14.4 % (11.6-14.8) PLATELET COUNT 302 K/uL (150-400) NEUTROPHIL % 55.6 % (50-75) LYMPH % 19.2 L % (25-40) MONO % 5.3 % (3-14) EOSINOPHIL % 18.7 H % (0-4) BASOPHIL % 1.2 % (0-2) [id number]: (FRANCIS: 07/14/2016 19:15) ( MsgRcvd 07/14/2016 20:01) Final results Test Result Flag Units (Reference) PROCALCITONIN <0.5 ng/mL (0-0.5) PCT Concentration: Interpretation : Risk/option for action PCT <=0.5 ng/mL : Systemic : Low risk forinfection(sepsis): progression to severeis not likely. : systemic infection.Local bacterial : CAUTION-PCT levelsinfection is : below 0.5 ng/mL do notpossible. : exclude an infection,because localizedinfections (withoutsystemic signs) may beassociated with suchlow levels. If PCT ismeasured very earlyafter a bacterialchallenge (usually <6hours), these valuesmay still be low. Inthis case PCT shouldbe re-assessed 6-24hours later. PCT >0.5 and : Systemic infection: Moderate risk for<= 2 ng/mL : (sepsis) is : progression to severepossible, but : systemic infection.other conditions : The patient should beare known to : closely monitoredelevate PCT. : both clinically andby re-assessing PCTwithin 6-24 hours. PCT > 2 ng/mL : Systemic infection: High risk for(sepsis) is likely: progression to severeunless other : systemic infection.causes are known. : PCT >= 10 ng/mL : Important systemic: High likelihood ofinflammatory : severe sepsis orresponse, almost : septic shock.exclusively due to:severe bacterial :sepsis or septic :shock. : CMP: (FRANCIS: 07/14/2016 19:15) ( MsgRcvd 07/14/2016 19:59) Final results Test Result Flag Units (Reference) GLUCOSE 103 mg/dL (70-110) BUN 11 mg/dL (7-18) CREATININE 0.8 mg/dL (0.6-1.3) Estimated GFR >60 mL/min Estimated GFR- >60 mL/min Note: Persistent reduction over 3 months in eGFR<60 mL/min/1.73 m2 defines CKD. Patients with eGFR values>=60 mL/min/1.73 m2 may also have CKD if evidence ofpersistent proteinuria. Additional information may be foundat www.kidney.org. SODIUM 141 mmol/L (136-145) POTASSIUM 3.8 mmol/L (3.5-5.1) CHLORIDE 106 mmol/L (98-107) CARBON DIOXIDE 20 L mmol/L (21-32) CALCIUM 9.2 mg/dL (8.5-10.1) TOTAL PROTEIN 7.3 g/dL (6.4-8.2) ALBUMIN 4.1 g/dL (3.3-5.0) BILIRUBIN, TOTAL 0.8 mg/dL (0.0-1.0) ALKALINE PHOSPHATASE 75 U/L (46-116) AST (SGOT) 19 U/L (15-37) ALT (SGPT) 29 U/L (12-78) Rapid Influenza Screen: (FRANCIS: 07/14/2016 19:37) ( MsgRcvd 07/14/2016 20:04) Final results SPECIMEN DESCRIPTION: SLPS SWAB Test Result Flag Units (Reference) RAPID INFLUENZA SCREEN DATE: 07/14/16 INFLUENZA A: NEGATIVE SCREEN FOR INFLUENZA A INFLUENZA B: NEGATIVE SCREEN FOR INFLUENZA B . Pulse Oximetry: 07/14/2016 18:52 O2 saturation: 94%. (FIO2 - room air). Interpretation: hypoxemia. PROGRESS AND PROCEDURES Course of Care: Patient is stable. Physical exam findings are improved. Symptoms better. Acetaminophen 1000 mg PO given. Albuterol nebulizer treatment given. Solu-Medrol 125 mg IVP given. DuoNeb nebulizer treatment (1 unit dose) given. Discussed case with patient's primary care provider, (Elijah). Reviewed test results. Agreed upon treatment plan. Health care provider will see patient in hospital. Patient/family counseled. Old ED records reviewed. Patient has had multiple ED visits ([facility] with 18 visits to area ED's ([facility] x 14 visits) in past 12 months). Transition orders written. Disposition: Observation in Acute Care. Condition: stable, guarded and improved. CLINICAL IMPRESSION Status asthmaticus with hypoxemia. Underlying asthma is persistent, moderate. (Electronically signed by Mariano Jacinto DO 07/14/2016 22:43)
--- NOTE | 2016-07-14 19:33 | ED ORDER SUMMARY ---
..... Patient: JAMARI MCCLELLAND OrderSheet [facility] VisitID: [id number] [address] [place] [address] 21y, F Registration Date/Time: 07/14/2016 ORDER SHEET Weight: 63.5 kg (stated) Allergies: No Known Drug Allergy GENERAL ORDERS: Rapid Influenza Screen (Nasal Pharyngeal) (DEGREASING SOLUTION RECLAIMER swab) Urgent (19:11 07/14/2016 [facility]) (Ack 19:14 LTapper) (19:33 DBeyer R.N.) CBC w Diff Urgent (19:22 07/14/2016 [facility]) (19:22 JRomanelli R.N.) CMP Urgent (19:22 07/14/2016 [facility]) (19:22 JRomanelli R.N.) UA-Culture if indicated Urgent (19:22 07/14/2016 [facility]) (Ack 19:28 LMuller) (19:54 DBeyer R.N.) PCT (Procalcitonin) Urgent (19:22 07/14/2016 [facility]) (19:23 JRomanelli R.N.) MEDICATION ORDERS: DuoNeb Neb Tx 1 unit dose (NOW) (19:03 07/14/2016 [facility]) (19:22 JRomanelli R.N.) Albuterol Neb Tx 1 unit dose (NOW, HHN) (19:10 07/14/2016 [facility]) Acetaminophen PO 1,000 mg (NOW) (19:10 07/14/2016 [facility]) (19:26 JRomanelli R.N.) IV FLUIDS: Solu-MEDROL IV 125 mg (NOW) (19:09 07/14/2016 [facility]) (19:31 DBeyer R.N.) ORDER SHEET NOTES: [Electronically signed by Mariano Jacinto DO (22:43 07/14/2016)] [Electronically signed by Sam Godwin R.N. (01:33 07/15/2016)] [Electronically locked/signed by Sam Godwin R.N. (01:33 07/15/2016)]
--- NOTE | 2016-07-14 19:33 | ED ORDER SUMMARY ---
..... Patient: JAMARI MCCLELLAND OrderSheet [facility] VisitID: [id number] [address] [place] [address] 21y, F Registration Date/Time: 07/14/2016 ORDER SHEET Weight: 63.5 kg (stated) Allergies: No Known Drug Allergy GENERAL ORDERS: Rapid Influenza Screen (Nasal Pharyngeal) (INFORMATION ANALYST swab) Urgent (19:11 07/14/2016 [facility]) (Ack 19:14 LTapper) (19:33 DBeyer R.N.) CBC w Diff Urgent (19:22 07/14/2016 [facility]) (19:22 JRomanelli R.N.) CMP Urgent (19:22 07/14/2016 [facility]) (19:22 JRomanelli R.N.) UA-Culture if indicated Urgent (19:22 07/14/2016 [facility]) (Ack 19:28 LMuller) (19:54 DBeyer R.N.) PCT (Procalcitonin) Urgent (19:22 07/14/2016 [facility]) (19:23 JRomanelli R.N.) MEDICATION ORDERS: DuoNeb Neb Tx 1 unit dose (NOW) (19:03 07/14/2016 [facility]) (19:22 JRomanelli R.N.) Albuterol Neb Tx 1 unit dose (NOW, HHN) (19:10 07/14/2016 [facility]) Acetaminophen PO 1,000 mg (NOW) (19:10 07/14/2016 [facility]) (19:26 JRomanelli R.N.) IV FLUIDS: Solu-MEDROL IV 125 mg (NOW) (19:09 07/14/2016 [facility]) (19:31 DBeyer R.N.) ORDER SHEET NOTES: [Electronically signed by Mariano Jacinto DO (22:43 07/14/2016)] [Electronically signed by Sam Godwin R.N. (01:33 07/15/2016)] [Electronically locked/signed by Sam Godwin R.N. (01:33 07/15/2016)]
--- NOTE | 2016-07-14 20:10 | Progress Note ---
Subjective General 21 y.o. female who is 6 weeks with asthma flare last week or so. Not improving with nebs at home and using q 1 hr at night "can't breathe" admit for asthma flare. Treat with albuterol, advair, singulair. monitor on O2
[2016-07-14 21:25] VITALS: BP 124/68
--- NOTE | 2016-07-14 21:26 | HISTORY AND PHYSICAL ---
ADMITTED: 07/14/2016 CHIEF COMPLAINT: 1. Shortness of breath, asthma flare HISTORY OF PRESENT ILLNESS: The patient is a 21-year-old female who has had about a week or 2 of worse asthma symptoms and then the last couple days very bad, waking up every 1 hour overnight, unable to breathe, taking nebulizers. She got to the point that she knew she needed to come in for her asthma flare and treatment, went to the emergency department today and in spite of a nebulizer she continues to be very wheezy and some shortness of breath and decision is to admit her to the hospital. Of note, she is also 6-1/2 weeks with an EDC of 03/06/2017. MEDICAL/SURGICAL HISTORY: Past medical history: She has had asthma. She is , with EDC 03/06/2017. Past surgical history: She has had 2 kidney surgeries with stent placement and laparoscopy. MEDICATIONS: 1. Symbicort 160 mg 2 puffs b.i.d. 2. Albuterol inhaler as well as nebulizer q.2 hours p.r.n. shortness of breath. ALLERGIES: 1. NONE. SOCIAL HISTORY: She has history of smoking, quit about 2 months ago. She denies any alcohol or drug use. She lives with a stepson, as well as her own child and an adopted child at home. FAMILY HISTORY: Mom and dad are alive and well without any asthma, heart disease , diabetes. REVIEW OF SYSTEMS: For asthma, shortness of breath, acid reflux, , a little bit of nausea. Denies any fevers or muscle aches. PHYSICAL EXAMINATION: GENERAL: She is an alert female who is talking in full sentences, who appears to be breathing okay at this time, sitting up in the emergency department in no acute distress. VITAL SIGNS: Blood pressure of 126/68, heart rate of 98, respirations 20, saturating 94% on room air, temperature is 99.4. HEENT: Extraocular movements intact. Pupils equal, round, reactive to light. Oropharynx is clear with moist mucous membranes. NECK: Supple without lymphadenopathy. LUNGS: Diffuse wheezes bilaterally, but good air movement and no increased work of breathing noted. HEART: Regular rate and rhythm, no murmur. ABDOMEN: Soft. It is nontender, nondistended. EXTREMITIES: No edema. No sores. GENITOURINARY: Deferred. RECTAL: Deferred. BREASTS: Deferred. NEUROLOGIC: Cranial nerves II-XII intact. Strength and sensation grossly intact. LAB/IMAGING: Imaging: An ultrasound was done on 07/10/2016, showing development of an intrauterine with an MELANY of 02/12/2017 and bilateral medullary sponge kidney. Her CBC 11.6, hematocrit 41.2, platelets of 302,000. Comprehensive metabolic panel: Glucose 103, BUN of 11, creatinine 0.8, sodium 141, potassium 3.8, chloride of 106, HCO3 20, calcium 9.2, total protein 7.3. Albumin 4.1, total bili 0.8, alk phos 75, AST of 19, ALT of 29. Procalcitonin less than 0.05. Influenza screen negative. Urinalysis is normal. IMPRESSION: 1. This is a 21-year-old female with history of asthma and medullary sponge kidney, who presents to the emergency department with asthma exacerbation. 2. She is also 6-1/2 weeks . 3. She has got a history of acid reflux. PLAN: 1. Treat her with proton pump inhibitor, as especially at night this may be causing increase of her asthma flares. 2. We will add on Singulair to her asthma regimen, which includes a long-acting beta agonist, as well as corticosteroid through Symbicort. We will change to Advair as it is hospital formulary. Continue with albuterol treatments, oxygen to keep her O2 saturation greater than 92% and anticipate that patient will improve over the next 24-48 hours and hopefully will be able to be discharged home then if able. We will try to avoid using other meds as limiting her exposure to meds in the first trimester of . 3. She is a FULL CODE.
[2016-07-15] MEDS ORDERED: ALBUTEROL HFA60 DOSE IN (00:03)
--- NOTE | 2016-07-15 01:34 | ED MED RECONCILIATION SUMMARY ---
Patient: JAMARI MCCLELLAND Medication Reconciliation Report [facility] VisitID: [id number] [address] [place] [address] 21y, F Registration Date/Time: 07/14/2016 Weight: 63.5 kg Height/Length: 61 in. BMI: 26.5 ALLERGIES: No Known Drug Allergy The patient's Home Medications are listed below: THE FOLLOWING MEDICATIONS NEED TO BE RECONCILED: Albuterol HHN Albuterol Sulfate HFA Inhalation 1 Oral The source(s) of the original Home Medication information: patient The following Medications were given to the patient in the Emergency Department: Duoneb [Neb Tx] Neb TX 1 unit dose, administered: 07/14/2016 7:07:00 PM Albuterol [Neb Tx] Neb TX 1 unit dose, administered: 07/14/2016 7:18:00 PM Acetaminophen [PO] PO 1000 mg, administered: 07/14/2016 7:26:00 PM SOLU-MEDROL [IVP] IVP 125 mg, administered: 07/14/2016 7:31:00 PM The following Medications were prescribed to the patient: None.
--- NOTE | 2016-07-15 01:34 | ED MED RECONCILIATION SUMMARY ---
Patient: JAMARI MCCLELLAND Medication Reconciliation Report [facility] VisitID: [id number] [address] [place] [address] 21y, F Registration Date/Time: 07/14/2016 Weight: 63.5 kg Height/Length: 61 in. BMI: 26.5 ALLERGIES: No Known Drug Allergy The patient's Home Medications are listed below: THE FOLLOWING MEDICATIONS NEED TO BE RECONCILED: Albuterol HHN Albuterol Sulfate HFA Inhalation 1 Oral The source(s) of the original Home Medication information: patient The following Medications were given to the patient in the Emergency Department: Duoneb [Neb Tx] Neb TX 1 unit dose, administered: 07/14/2016 7:07:00 PM Albuterol [Neb Tx] Neb TX 1 unit dose, administered: 07/14/2016 7:18:00 PM Acetaminophen [PO] PO 1000 mg, administered: 07/14/2016 7:26:00 PM SOLU-MEDROL [IVP] IVP 125 mg, administered: 07/14/2016 7:31:00 PM The following Medications were prescribed to the patient: None.
--- NOTE | 2016-07-15 01:34 | ED MAR SUMMARY ---
..... Medication Administration Record [facility] [address] [place] [address] Patient: JAMARI MCCLELLAND Visit ID: [id number] 21y, F Weight: 63.5 kg Height/Length: 61 in BMI: 26.5 ALLERGIES: No Known Drug Allergy Given 19:07 07/14/2016 Quoc Perez RGerry Medication Administered: DUONEB [NEB TX] (IPRATROPIUM-ALBUTEROL), Dose: 1 unit dose Nebulizer Neb TX. Medication Ordered: DuoNeb Neb Tx 1 unit dose (NOW). Given :18 07/14/2016 Quoc Perez RAsafN. Medication Administered: ALBUTEROL [NEB TX], Dose: 1 unit dose Neb TX. Medication Ordered: Albuterol Neb Tx 1 unit dose (NOW, N). Given :07/14/2016 Quoc Perez RAsafNAsaf Medication Administered: ACETAMINOPHEN [PO] (APAP), Dose: 1000 mg Tablets PO. Medication Ordered: Acetaminophen PO 1,000 mg (NOW). Given :07/14/2016 Sam Godwin R.N. Medication Administered: SOLU-MEDROL [IVP] (METHYLPREDNISOLONE SODIUM SUCC), Dose: 125 mg IVP over 2 minute(s), Site: #1 . Medication Ordered: Solu-MEDROL IV 125 mg (NOW).
--- NOTE | 2016-07-15 01:34 | ED MAR SUMMARY ---
..... Medication Administration Record [facility] [address] [place] [address] Patient: JAMARI MCCLELLAND Visit ID: [id number] 21y, F Weight: 63.5 kg Height/Length: 61 in BMI: 26.5 ALLERGIES: No Known Drug Allergy Given 19:07 07/14/2016 Quoc Perez RGerry Medication Administered: DUONEB [NEB TX] (IPRATROPIUM-ALBUTEROL), Dose: 1 unit dose Nebulizer Neb TX. Medication Ordered: DuoNeb Neb Tx 1 unit dose (NOW). Given :18 07/14/2016 Quoc Perez RAsafN. Medication Administered: ALBUTEROL [NEB TX], Dose: 1 unit dose Neb TX. Medication Ordered: Albuterol Neb Tx 1 unit dose (NOW, N). Given :07/14/2016 Quoc Perez RAsafNAsaf Medication Administered: ACETAMINOPHEN [PO] (APAP), Dose: 1000 mg Tablets PO. Medication Ordered: Acetaminophen PO 1,000 mg (NOW). Given :07/14/2016 Sam Godwin R.N. Medication Administered: SOLU-MEDROL [IVP] (METHYLPREDNISOLONE SODIUM SUCC), Dose: 125 mg IVP over 2 minute(s), Site: #1 . Medication Ordered: Solu-MEDROL IV 125 mg (NOW).
--- NOTE | 2016-07-15 01:34 | ED DISCHARGE INSTRUCTIONS ---
Patient: JAMARI MCCLELLAND Bridgette General Instructions [facility] VisitID: [id number] [address] [place] [address] 21y, F Registration Date/Time: 07/14/2016 Status asthmaticus with hypoxemia. Underlying asthma is persistent, moderate. (Electronically signed by Mariano Jacinto DO 07/14/2016 22:43)
--- NOTE | 2016-07-15 01:34 | ED DISCHARGE INSTRUCTIONS ---
Patient: JAMARI MCCLELLAND Bridget[place] General Instructions [facility] VisitID: [id number] [address] [place] [address] 21y, F Registration Date/Time: 07/14/2016 Status asthmaticus with hypoxemia. Underlying asthma is persistent, moderate. (Electronically signed by Mariano Jacinto DO 07/14/2016 22:43)
[2016-07-15 03:12] VITALS: BP 123/59
[2016-07-15 07:03] VITALS: BP 112/65
--- NOTE | 2016-07-15 07:09 | Progress Note ---
Subjective General 21 y.o. female who is 6 weeks with asthma flare last week or so. Not improving with nebs at home and using q 1 hr at night "can't breathe" admit for asthma flare. This am feels that she is breathing a lot better. Not as tight and also not needing the nebs so much and feeling well. Would like to have d/c home. Physical Exam Vital Signs / I&Os Vital Signs Date Time Temp Pulse Resp B/P Pulse O2 O2 Flow FiO2 Ox Delivery Rate 07/15 702 98.4 108 19 112/65 98 Room Air 07/15 0312 98.8 109 18 123/59 93 Room Air 07/14 2130 Room Air 07/14 2124 98.8 96 18 124/68 96 Nasal 1.0 Cannula 07/14 1907 2.0 I&O 07/15 0000 07/14 1600 07/14 0800 Intake Total 0 Output Total 0 Balance 0 General Appearance Alert, Cooperative HEENT Normal exam Lungs good air movement, soft wheezes mild bilaterally no increase in work of breathing. Cardiovascular Regular rate and rhythm, No murmurs, gallops, rubs Extremities No edema LAB Results Laboratory Tests 07/14 07/14 07/14 1937 1915 191 Chemistry Plasma Sodium (136 - 145 mmol/L) 141 Plasma Potassium (3.5 - 5.1 mmol/L) 3.8 Plasma Chloride (98 - 107 mmol/L) 106 CO2 (Enzymatic) (21 - 32 mmol/L) 20 BUN (7 - 18 mg/dL) 11 Creatinine (0.6 - 1.3 mg/dL) 0.8 Est GFR ( Amer) (mL/min) >60 Est GFR (Non-Af Amer) (mL/min) >60 Glucose (70 - 110 mg/dL) 103 Plasma Calcium (8.5 - 10.1 mg/dL) 9.2 Total Bilirubin (0.0 - 1.0 mg/dL) 0.8 AST (15 - 37 U/L) 19 ALT (12 - 78 U/L) 29 Alkaline Phosphatase (46 - 116 U/L) 75 Total Protein (6.4 - 8.2 g/dL) 7.3 Albumin (3.3 - 5.0 g/dL) 4.1 Procalcitonin (0 - 0.5 ng/mL) <0.5 Hematology WBC (4.5 - 11.5 K/uL) 11.6 RBC (4.00 - 5.20 M/uL) 4.95 Hgb (12.0 - 16.0 gm/dL) 14.0 Hct (36.0 - 46.0 %) 41.2 MCV (80 - 100 fL) 83 MCH (26 - 34 pg) 28 RDW (11.6 - 14.8 %) 14.4 Neut % (Auto) (50 - 75 %) 55.6 Lymph % (Auto) (25 - 40 %) 19.2 Stearns % (Auto) (3 - 14 %) 5.3 Eos % (Auto) (0 - 4 %) 18.7 Baso % (Auto) (0 - 2 %) 1.2 Plt Count, EDTA (150 - 400 K/uL) 302 PUBS MCHC (31 - 37 g/dL) 34 Urines Urine Color YELLOW Urine Appearance CLEAR Urine pH (5.0 - 8.0) 6.0 Ur Specific [place] (1.010 - 1.030) 1.020 Urine Protein (NEGATIVE) NEGATIVE Urine Ketones (NEGATIVE) NEGATIVE Urine Blood (NEGATIVE) NEGATIVE Urine Nitrite (NEGATIVE) NEGATIVE Urine Bilirubin (NEGATIVE) NEGATIVE Urine Urobilinogen (0.2 - 1.0 EU/dL) 0.2 Ur Leukocyte Esterase (NEGATIVE) NEGATIVE Urine RBC (0 - 1 rbc/hpf) NONE SEEN Urine WBC (0 - 1 wbc/hpf) 1-3 Ur Epithelial Cells (0 - 5 EPI/hpf) 5-10 Urine Bacteria (NONE SEEN) TRACE (<1+) Urine Glucose (NEGATIVE) NEGATIVE Urine Comment CULT NOT INDICATED Microbiology Date/Time Procedure - Status Source Growth 07/14 1936 Influenza Screen - COMP NASALPHAR Assessment and Plan Problem List 1. Status asthmaticus Plan Seems to be much improved. Will continue with ppi, acid med, raise level of head in bed, f/u with PMD in early next week and d/c home today 2. Plan stable
[2016-07-15] MEDS ORDERED: MONTELUKAST SOD10 MG PO (07:47)
[2016-07-15] MEDS ORDERED: ADVAIR DISKU1 IN (07:47)
[2016-07-15] MEDS ORDERED: PANTOPRAZOLE SO40 MG PO (07:49)
--- NOTE | 2016-07-15 07:49 | Provider's Discharge Care Plan ---
Problem, Goal, Plan Problem List 1. Instructions: Follow up as needed (f/u with OB provider), Take meds as directed 2. Asthma Instructions: Take meds as directed, keep elevation of head of bed to 30 degrees to reduce gerd
== END 2016-07-15 09:15 | disposition home or self-care (01) ==
LOC: ED SRH 18:42 → TRANS SRH 19:41 → ACUTE2 SRH 20:45
PROVIDERS: ADMIT Family Medicine
DX: O99.511 Diseases of the respiratory system complicating pregnancy, first trimester (principal); J45.42 Moderate persistent asthma with status asthmaticus; R09.02 Hypoxemia; Z3A.01 Less than 8 weeks gestation of pregnancy; O26.831 Pregnancy related renal disease, first trimester; Q61.5 Medullary cystic kidney; Z87.891 Personal history of nicotine dependence
CPT/HCPCS: 29230; 29240; 90004; 90100; 91400; 93004; 95059

== ENCOUNTER 2016-07-22 16:58 | Emergency (ER) | payer BC ==
[~2016-07-22 16:58] MED LIST changes: +ADVAIR DISKU1 IN; +ALBUTEROL HFA60 DOSE IN; +MONTELUKAST SOD10 MG PO; +PANTOPRAZOLE SO40 MG PO
--- NOTE | 2016-07-22 19:15 | ED CLINICAL REPORT ---
Clinical Report - Physicians/Mid Levels [facility] [address] [place] [address] 07/22/2016 16:57 Patient: JAMARI MCCLELLAND Time Seen: 17:11; initial patient contact. Arrived- By private vehicle. Historian- patient. HISTORY OF PRESENT ILLNESS Chief Complaint: VOMITING. This started yesterday and is still present. It was gradual in onset. The patient has had nausea and vomiting. No diarrhea, black stools, bloody stools or abdominal pain. The illness is described as moderate. Similar symptoms previously: Many times. Recent medical care: Not recently seen/assessed. REVIEW OF SYSTEMS No fever or excessive urination. All systems otherwise negative, except as recorded above. PAST HISTORY Status Asthmaticus. Pelvic Pain. Care. Otitis Externa. Otitis Media. Abdominal Pain. Gastroenteritis. Mastitis. Anxiety Reaction. Lung Disease. Hemorrhoids. OB History. Diarrhea. Vomiting. . Nephrolithiasis. Renal Colic. Bronchitis. Asthma. UTI - Urinary Tract Infection. Cystitis. Ovarian Cyst. Appendicitis [RuleOut]. Abdominal Pain [RuleOut]. [RuleOut]. Flank Pain ADDITIONAL SURGERIES: Kidney Sx with ino stents. Laparoscopy. Renal Stone Manipulation. Ureteral Stent. Medications: Albuterol HHN. Albuterol Sulfate HFA Inhalation. 1 Oral. Allergies: No Known Drug Allergy. SOCIAL HISTORY Never smoker. No alcohol use or drug use. ADDITIONAL NOTES The nursing notes have been reviewed with agreement regarding the chief complaint, PMH and patient medications and allergies. PHYSICAL EXAM Vital Signs: 07/22/2016 17:17 BP: 120/79. HR: 105. RR: 18. O2 saturation: 97%. Temp: 98.4 F. Have been reviewed. Blood pressure normal. Tachycardic. Respiratory rate normal. Temperature normal. Oxygen saturation normal. Appearance: Alert. Oriented X3. No acute distress. Eyes: Eyes normal inspection. ENT: Dry mucous membranes present. CVS: Normal heart rate and rhythm. Heart sounds normal. Respiratory: No respiratory distress. Breath sounds normal. Abdomen: Soft and nontender. Bowel sounds normal. Back: Normal inspection. No CVA tenderness. Skin: Skin warm and dry. Normal skin color. Extremities: No lower extremity edema. Neuro: Oriented X 3. LABS, X-RAYS, AND EKG Laboratory Tests: UA-Culture if indicated: (FRANCIS: 07/22/2016 18:00) ( [facility] 07/22/2016 18:17) Final results Test Result Flag Units (Reference) URINE COLOR YELLOW URINE APPEARANCE CLEAR URINE GLUCOSE NEGATIVE (NEGATIVE) URINE BILIRUBIN NEGATIVE (NEGATIVE) URINE KETONE 2+ (NEGATIVE) URINE SPECIFIC GRAVITY 1.020 (1.010-1.030) URINE PH 6.0 (5.0-8.0) URINE PROTEIN NEGATIVE (NEGATIVE) URINE UROBILINOGEN 0.2 EU/dL (0.2-1.0) URINE NITRITE NEGATIVE (NEGATIVE) URINE BLOOD NEGATIVE (NEGATIVE) URINE LEUK ESTERASE NEGATIVE (NEGATIVE) URINE RBC 3-5 rbc/hpf (0-1) URINE WBC 1-3 wbc/hpf (0-1) URINE EPITHELIAL CELLS 5-10 EPI/hpf (0-5) URINE BACTERIA FEW (1+) (NONE SEEN) URINE COMMENT CULT NOT INDICATED MUCUS 2+URINE CULTURES ARE SET-UP BASED ON THE FOLLOWING CRITERIA:POSITIVE NITRITEPOSITIVE LEUKOCYTE ESTERASEGREATER THAN 10 WHITE BLOOD CELLSMODERATE (2+) OR GREATER BACTERIA CBC w Diff: (FRANCIS: 07/22/2016 18:00) ( [facility] 07/22/2016 18:18) Final results Test Result Flag Units (Reference) WHITE BLOOD COUNT 12.1 H K/uL (4.5-11.5) RED BLOOD COUNT 4.89 M/uL (4.00-5.20) HEMOGLOBIN 13.7 gm/dL (12.0-16.0) HEMATOCRIT 40.7 % (36.0-46.0) MEAN CELL VOLUME 83 fL (80-100) MEAN CORPUSCULAR HGB 28 pg (26-34) MEAN CORPUSCULAR HGB CONC 34 g/dL (31-37) RED CELL DISTRIBUTION WIDTH 14.4 % (11.6-14.8) PLATELET COUNT 319 K/uL (150-400) NEUTROPHIL % 73.2 % (50-75) LYMPH % 14.9 L % (25-40) MONO % 6.1 % (3-14) EOSINOPHIL % 5.5 H % (0-4) BASOPHIL % 0.3 % (0-2) . PROGRESS AND PROCEDURES Course of Care: Pt developed wheezing after arrival, relieved completely w/ Duoneb. Also feeling much better after IVF and Zofran. Disposition: Discharged home in good and improved condition. Condition: good. CLINICAL IMPRESSION Vomiting with nausea and dehydration. No volume depletion. Mild persistent asthma. INSTRUCTIONS Your Current Medications: CONTINUE TAKING THE FOLLOWING MEDICATIONS: Albuterol HHN*. Albuterol Sulfate HFA Inhalation. 1 Oral. Prescription Medications: Zofran (orally disintegrating tablets) 4 mg: take 1 orally every 6 hours as needed for nausea and vomiting. Dispense ten (10). One refill. Substitution is permissible. Follow-up: Follow up with your doctor as scheduled. Screening today revealed the patient's blood pressure to be in the normal range. (Electronically signed by August Mcmanus Dr. 07/22/2016 19:17)
--- NOTE | 2016-07-22 19:15 | ED CLINICAL REPORT ---
Clinical Report - Physicians/Mid Levels [facility] [address] [place] [address] 07/22/2016 16:57 Patient: JAMARI MCCLELLAND Time Seen: 17:11; initial patient contact. Arrived- By private vehicle. Historian- patient. HISTORY OF PRESENT ILLNESS Chief Complaint: VOMITING. This started yesterday and is still present. It was gradual in onset. The patient has had nausea and vomiting. No diarrhea, black stools, bloody stools or abdominal pain. The illness is described as moderate. Similar symptoms previously: Many times. Recent medical care: Not recently seen/assessed. REVIEW OF SYSTEMS No fever or excessive urination. All systems otherwise negative, except as recorded above. PAST HISTORY Status Asthmaticus. Pelvic Pain. Care. Otitis Externa. Otitis Media. Abdominal Pain. Gastroenteritis. Mastitis. Anxiety Reaction. Lung Disease. Hemorrhoids. OB History. Diarrhea. Vomiting. . Nephrolithiasis. Renal Colic. Bronchitis. Asthma. UTI - Urinary Tract Infection. Cystitis. Ovarian Cyst. Appendicitis [RuleOut]. Abdominal Pain [RuleOut]. [RuleOut]. Flank Pain ADDITIONAL SURGERIES: Kidney Sx with ino stents. Laparoscopy. Renal Stone Manipulation. Ureteral Stent. Medications: Albuterol HHN. Albuterol Sulfate HFA Inhalation. 1 Oral. Allergies: No Known Drug Allergy. SOCIAL HISTORY Never smoker. No alcohol use or drug use. ADDITIONAL NOTES The nursing notes have been reviewed with agreement regarding the chief complaint, PMH and patient medications and allergies. PHYSICAL EXAM Vital Signs: 07/22/2016 17:17 BP: 120/79. HR: 105. RR: 18. O2 saturation: 97%. Temp: 98.4 F. Have been reviewed. Blood pressure normal. Tachycardic. Respiratory rate normal. Temperature normal. Oxygen saturation normal. Appearance: Alert. Oriented X3. No acute distress. Eyes: Eyes normal inspection. ENT: Dry mucous membranes present. CVS: Normal heart rate and rhythm. Heart sounds normal. Respiratory: No respiratory distress. Breath sounds normal. Abdomen: Soft and nontender. Bowel sounds normal. Back: Normal inspection. No CVA tenderness. Skin: Skin warm and dry. Normal skin color. Extremities: No lower extremity edema. Neuro: Oriented X 3. LABS, X-RAYS, AND EKG Laboratory Tests: UA-Culture if indicated: (FRANCIS: 07/22/2016 18:00) ( [facility] [place] 07/22/2016 18:17) Final results Test Result Flag Units (Reference) URINE COLOR YELLOW URINE APPEARANCE CLEAR URINE GLUCOSE NEGATIVE (NEGATIVE) URINE BILIRUBIN NEGATIVE (NEGATIVE) URINE KETONE 2+ (NEGATIVE) URINE SPECIFIC GRAVITY 1.020 (1.010-1.030) URINE PH 6.0 (5.0-8.0) URINE PROTEIN NEGATIVE (NEGATIVE) URINE UROBILINOGEN 0.2 EU/dL (0.2-1.0) URINE NITRITE NEGATIVE (NEGATIVE) URINE BLOOD NEGATIVE (NEGATIVE) URINE LEUK ESTERASE NEGATIVE (NEGATIVE) URINE RBC 3-5 rbc/hpf (0-1) URINE WBC 1-3 wbc/hpf (0-1) URINE EPITHELIAL CELLS 5-10 EPI/hpf (0-5) URINE BACTERIA FEW (1+) (NONE SEEN) URINE COMMENT CULT NOT INDICATED MUCUS 2+URINE CULTURES ARE SET-UP BASED ON THE FOLLOWING CRITERIA:POSITIVE NITRITEPOSITIVE LEUKOCYTE ESTERASEGREATER THAN 10 WHITE BLOOD CELLSMODERATE (2+) OR GREATER BACTERIA CBC w Diff: (FRANCIS: 07/22/2016 18:00) ( [facility] [place] 07/22/2016 18:18) Final results Test Result Flag Units (Reference) WHITE BLOOD COUNT 12.1 H K/uL (4.5-11.5) RED BLOOD COUNT 4.89 M/uL (4.00-5.20) HEMOGLOBIN 13.7 gm/dL (12.0-16.0) HEMATOCRIT 40.7 % (36.0-46.0) MEAN CELL VOLUME 83 fL (80-100) MEAN CORPUSCULAR HGB 28 pg (26-34) MEAN CORPUSCULAR HGB CONC 34 g/dL (31-37) RED CELL DISTRIBUTION WIDTH 14.4 % (11.6-14.8) PLATELET COUNT 319 K/uL (150-400) NEUTROPHIL % 73.2 % (50-75) LYMPH % 14.9 L % (25-40) MONO % 6.1 % (3-14) EOSINOPHIL % 5.5 H % (0-4) BASOPHIL % 0.3 % (0-2) . PROGRESS AND PROCEDURES Course of Care: Pt developed wheezing after arrival, relieved completely w/ Duoneb. Also feeling much better after IVF and Zofran. Disposition: Discharged home in good and improved condition. Condition: good. CLINICAL IMPRESSION Vomiting with nausea and dehydration. No volume depletion. Mild persistent asthma. INSTRUCTIONS Your Current Medications: CONTINUE TAKING THE FOLLOWING MEDICATIONS: Albuterol HHN*. Albuterol Sulfate HFA Inhalation. 1 Oral. Prescription Medications: Zofran (orally disintegrating tablets) 4 mg: take 1 orally every 6 hours as needed for nausea and vomiting. Dispense ten (10). One refill. Substitution is permissible. Follow-up: Follow up with your doctor as scheduled. Screening today revealed the patient's blood pressure to be in the normal range. (Electronically signed by August Mcmanus Dr. 07/22/2016 19:17)
--- NOTE | 2016-07-22 19:15 | ED ORDER SUMMARY ---
..... Patient: JAMARI MCCLELLAND OrderSheet [facility] VisitID: [id number] [address] [place] [address] 21y, F Registration Date/Time: 07/22/2016 ORDER SHEET Weight: 63.5 kg (stated) Allergies: No Known Drug Allergy GENERAL ORDERS: UA-Culture if indicated Urgent (17:35 07/22/2016 Rafi Nunez) (Ack 17:41 LTapper) (18:01 LWhalen R.N.) CBC w Diff Urgent (17:35 07/22/2016 Rafi Nunez) (Ack 17:41 LTapper) (18:01 LWhalen R.N.) CMP Urgent (17:35 07/22/2016 Rafi Nunez) (Ack 17:41 LTapper) (18:01 LWhalen R.N.) Amylase Urgent (17:37 07/22/2016 Rafi Nunez) (Ack 17:41 LTapper) (18:01 LWhalen R.N.) Lipase Urgent (17:37 07/22/2016 Rafi Nunez) (Ack 17:41 LTapper) (18:01 LWhalen R.N.) MEDICATION ORDERS: DuoNeb Neb Tx 1 unit dose (NOW) (18:12 07/22/2016 Rafi Nunez) (18:28 JFredrickglar) IV FLUIDS: IV NS : initial bolus none -, then 1000 mL/hr for X1 (NOW) (17:33 07/22/2016 Rafi Nunez) (18:02 LWhalen R.N.) Zofran IV 4 mg (NOW) (17:34 07/22/2016 Rafi Nunez) (18:03 LWhalen R.N.) ORDER SHEET NOTES: [Electronically signed by August Mcmanus Dr. (19:17 07/22/2016)] [Electronically signed by Melody Virk R.N. (19:33 07/22/2016)] [Electronically locked/signed by Melody Virk R.N. (19:33 07/22/2016)]
--- NOTE | 2016-07-22 19:15 | ED ORDER SUMMARY ---
..... Patient: JAMARI MCCLELLAND OrderSheet [facility] VisitID: [id number] [address] [place] [address] 21y, F Registration Date/Time: 07/22/2016 ORDER SHEET Weight: 63.5 kg (stated) Allergies: No Known Drug Allergy GENERAL ORDERS: UA-Culture if indicated Urgent (17:35 07/22/2016 Rafi Nunez) (Ack 17:41 LTapper) (18:01 LWhalen R.N.) CBC w Diff Urgent (17:35 07/22/2016 Rafi Nunez) (Ack 17:41 LTapper) (18:01 LWhalen R.N.) CMP Urgent (17:35 07/22/2016 Rafi Nunez) (Ack 17:41 LTapper) (18:01 LWhalen R.N.) Amylase Urgent (17:37 07/22/2016 Rafi Nunez) (Ack 17:41 LTapper) (18:01 LWhalen R.N.) Lipase Urgent (17:37 07/22/2016 Rafi Nunez) (Ack 17:41 LTapper) (18:01 LWhalen R.N.) MEDICATION ORDERS: DuoNeb Neb Tx 1 unit dose (NOW) (18:12 07/22/2016 Rafi Nunez) (18:28 JFredrickglar) IV FLUIDS: IV NS : initial bolus none -, then 1000 mL/hr for X1 (NOW) (17:33 07/22/2016 Rafi Nunez) (18:02 LWhalen R.N.) Zofran IV 4 mg (NOW) (17:34 07/22/2016 Rafi Nunez) (18:03 LWhalen R.N.) ORDER SHEET NOTES: [Electronically signed by August Mcmanus Dr. (19:17 07/22/2016)] [Electronically signed by Melody Virk R.N. (19:33 07/22/2016)] [Electronically locked/signed by Melody Virk R.N. (19:33 07/22/2016)]
--- NOTE | 2016-07-22 19:15 | ED NURSING NOTES ---
Clinical Report - Nurses [facility] [address] [place] [address] 07/22/2016 16:57 [id number] Triage time 17:17 Jul 22 2016. Acuity: LEVEL 3. Chief Complaint: NAUSEA, VOMITING and DIARRHEA. DAVEY COMA SCORE: Davey Coma Scale: 15- eyes open spontaneously (4); best verbal response- oriented x 4 (5); best motor response- obeys commands (6). --17:25 Bernabe Hernandez R.N. 17:17 07/22/16. BP: 120/79. HR: 105. RR: 18. O2 saturation: 97%. Temp: 98.4 F. --17:25 Bernabe Hernandez R.N. Weight: 63.5 kg stated. Height/Length: 61 inches Per Patient. BMI: 26.5. --17:24 Bernabe Hernandez R.N. Medications Albuterol HHN. Albuterol Sulfate HFA Inhalation. 1 Oral. --17:20 Bernabe Hernandez R.N. Allergies No Known Drug Allergy. --17:20 Bernabe Hernandez R.N. History Arrived by private vehicle. Historian: patient. Accompanied by family. ( Two days ago symptoms started n/v and diarrhea and patient is 7 weeks .). She has had nausea and vomiting. Last oral intake by patient was breakfast (a couple crackers). 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 PAST MEDICAL HX: Mild gastroesophageal reflux disease. No history of diabetes mellitus. No history of peptic ulcer disease or gallstones. Immunizations: up-to-date. Currently . In 1st trimester. confirmed with urine test and serum test. Has had care by crown blocker. G 2. P 1. SOCIAL HX: Smoker- current status unknown. Occasional alcohol use. No drug use. She has had contact with a sick family member. No infectious disease exposure. SELF HARM ASSESSMENT: A self harm assessment was performed. The patient answered "no" to the question "Have you recently felt down, depressed, or hopeless?" and "Do you have thoughts of harming or killing yourself?". FALL RISK ASSESSMENT: Fall risk assessment completed. No fall risk identified. NUTRITIONAL RISK ASSESSMENT: The nutritional risk assessment revealed no deficiencies. FUNCTIONAL ASSESSMENT: Functional assessment: no impairments noted. LEARNING NEEDS ASSESSMENT: The learning needs assessment revealed no barriers. ABUSE ASSESSMENT: Abuse assessment: (yes) The patient was asked "Do you feel safe in your home?". SKIN INTEGRITY ASSESSMENT: Skin integrity risk assessment completed. No skin integrity risk identified. --17:25 Bernabe Hernandez R.N. PROBLEMS: Status Asthmaticus. Pelvic Pain. Care. Otitis Externa. Otitis Media. Abdominal Pain. Gastroenteritis. Mastitis. Anxiety Reaction. Lung Disease. Hemorrhoids. OB History. Diarrhea. Vomiting. . Nephrolithiasis. Renal Colic. Bronchitis. Asthma. UTI - Urinary Tract Infection. Cystitis. Ovarian Cyst. --17: Bernabe Hernandez R.N. Appendicitis [RuleOut]. Abdominal Pain [RuleOut]. [RuleOut]. Flank Pain [RuleOut]. --17: Bernabe Hernandez R.N. ADDITIONAL SURGERIES: Kidney Sx with ino stents. Laparoscopy. Renal Stone Manipulation. Ureteral Stent. --17: Bernabe Hernandez R.N. Interventions ID band on patient. --17: Bernabe Hernandez R.N. PHYSICAL ASSESSMENT Ambulatory to room. ( Patient states cramping now and then but nothing too bad.). GENERAL / NEURO / PSYCH: Alert. Oriented X 4. Appears in no acute distress. HEENT: Mucous membranes are pink. RESPIRATORY: Respirations not labored. Breath sounds within normal limits. CVS: Normal sinus rhythm noted. Capillary refill less than 2 seconds. GI / : The patient has had nausea. Emesis noted. She has diarrhea (yesterday). Normal genitalia. SKIN: Skin is warm and dry. --17:26 Bernabe Hernandez R.N. NURSING PROGRESS NOTES Pulse oximeter and NIBP monitor placed on patient. Head of bed elevated (45). Reassurance given. Call light placed in reach. Side rails up x 1. Bed placed in lowest position. Brakes of bed on. --17:27 Bernabe Hernandez R.N. 18:02 07/22/2016 Site #1 started via IV in the right hand with an 20g angiocath, with aseptic technique and good blood return; one attempt. Blood drawn: rainbow set. Labeled in the presence of the patient and sent to the lab. Saline lock flushed with 10 mL saline. --18:02 Bernabe Hernandez R.N. 18:02 07/22/2016 Started bag #1 1000 mL IV Fluids IV NS (Saline); at 1000 mL/hr over 1 hour(s) via site #1 via dial-a-flow. Allergies verified and confirmed 5 rights. IV patency established. IV site checked: no pain, redness, or swelling. IV flushed thoroughly pre- and post-medication administration. --18:02 Bernabe Hernandez R.N. 18:02 07/22/2016 Zofran (Ondansetron HCl) IVP 4 mg given over 2 minute(s) via site #1. Allergies verified and confirmed 5 rights. IV patency established. IV site checked: no pain, redness, or swelling. IV flushed thoroughly pre- and post-medication administration. --18:03 Bernabe Hernandez R.N. 18:18 07/22/2016 Duoneb (Ipratropium-Albuterol) Neb TX Nebulizer 1 unit dose given. Given by the respiratory therapist. Allergies verified and confirmed 5 rights. Jaun Gu --18:28 Jaun Gu. DISPOSITION / DISCHARGE 19:02 07/22/2016 IV Fluids IV NS Discontinued: bag #1 completed. Total amount infused: 1000 mL. IV patency established. IV site checked: no pain, redness, or swelling. IV flushed thoroughly. --19:31 Melody Virk R.N. 19:31 07/22/2016 Site #1 removed upon discharge. Catheter intact. Bandaid applied. --19:31 Melody Virk R.N. 19:32 07/22/16. Departure time: 19:32 Jul 22 2016. Condition at departure: improved and stable. The goals identified in the patient's plan of care were met. No learning barriers present. Discharge instructions provided and reviewed with the patient. Reviewed medication(s) side effects, precautions, dosing and course information. Prescription(s) given to the patient. Reviewed referral to an crown blocker for followup. Summary of care provided to patient via paper. Patient verbalized understanding. Written instructions provided in Korean. The patient was discharged home and accompanied by consumer relations specialist. She left the Emergency Department ambulatory and via private vehicle. Switchboard Operator Receptionist driving. --19:32 Melody Virk R.N. 19:32 07/22/16. BP: 116/68. HR: 103. RR: 18. O2 saturation: 100%. Temp: 98.3 F. Pain level now 0/10. --19:32 Melody Virk R.N. Locked/Released at 07/22/2016 19:33 by Melody Virk R.N.
--- NOTE | 2016-07-22 19:15 | ED NURSING NOTES ---
Clinical Report - Nurses [facility] [address] [place] [address] 07/22/2016 16:57 [id number] Triage time 17:17 Jul 22 2016. Acuity: LEVEL 3. Chief Complaint: NAUSEA, VOMITING and DIARRHEA. DAVEY COMA SCORE: Davey Coma Scale: 15- eyes open spontaneously (4); best verbal response- oriented x 4 (5); best motor response- obeys commands (6). --17:25 Bernabe Hernandez R.N. 17:17 07/22/16. BP: 120/79. HR: 105. RR: 18. O2 saturation: 97%. Temp: 98.4 F. --17:25 Bernabe Hernandez R.N. Weight: 63.5 kg stated. Height/Length: 61 inches Per Patient. BMI: 26.5. --17:24 Bernabe Hernandez R.N. Medications Albuterol HHN. Albuterol Sulfate HFA Inhalation. 1 Oral. --17:20 Bernabe Hernandez R.N. Allergies No Known Drug Allergy. --17:20 Bernabe Hernandez R.N. History Arrived by private vehicle. Historian: patient. Accompanied by family. ( Two days ago symptoms started n/v and diarrhea and patient is 7 weeks .). She has had nausea and vomiting. Last oral intake by patient was breakfast (a couple crackers). 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 PAST MEDICAL HX: Mild gastroesophageal reflux disease. No history of diabetes mellitus. No history of peptic ulcer disease or gallstones. Immunizations: up-to-date. Currently . In 1st trimester. confirmed with urine test and serum test. Has had care by carpenter and joiner. G 2. P 1. SOCIAL HX: Smoker- current status unknown. Occasional alcohol use. No drug use. She has had contact with a sick family member. No infectious disease exposure. SELF HARM ASSESSMENT: A self harm assessment was performed. The patient answered "no" to the question "Have you recently felt down, depressed, or hopeless?" and "Do you have thoughts of harming or killing yourself?". FALL RISK ASSESSMENT: Fall risk assessment completed. No fall risk identified. NUTRITIONAL RISK ASSESSMENT: The nutritional risk assessment revealed no deficiencies. FUNCTIONAL ASSESSMENT: Functional assessment: no impairments noted. LEARNING NEEDS ASSESSMENT: The learning needs assessment revealed no barriers. ABUSE ASSESSMENT: Abuse assessment: (yes) The patient was asked "Do you feel safe in your home?". SKIN INTEGRITY ASSESSMENT: Skin integrity risk assessment completed. No skin integrity risk identified. --17:25 Bernabe Hernandez R.N. PROBLEMS: Status Asthmaticus. Pelvic Pain. Care. Otitis Externa. Otitis Media. Abdominal Pain. Gastroenteritis. Mastitis. Anxiety Reaction. Lung Disease. Hemorrhoids. OB History. Diarrhea. Vomiting. . Nephrolithiasis. Renal Colic. Bronchitis. Asthma. UTI - Urinary Tract Infection. Cystitis. Ovarian Cyst. --17: Bernabe Hernandez R.N. Appendicitis [RuleOut]. Abdominal Pain [RuleOut]. [RuleOut]. Flank Pain [RuleOut]. --17: Bernabe Hernandez R.N. ADDITIONAL SURGERIES: Kidney Sx with ino stents. Laparoscopy. Renal Stone Manipulation. Ureteral Stent. --17: Bernabe Hernandez R.N. Interventions ID band on patient. --17: Bernabe Hernandez R.N. PHYSICAL ASSESSMENT Ambulatory to room. ( Patient states cramping now and then but nothing too bad.). GENERAL / NEURO / PSYCH: Alert. Oriented X 4. Appears in no acute distress. HEENT: Mucous membranes are pink. RESPIRATORY: Respirations not labored. Breath sounds within normal limits. CVS: Normal sinus rhythm noted. Capillary refill less than 2 seconds. GI / : The patient has had nausea. Emesis noted. She has diarrhea (yesterday). Normal genitalia. SKIN: Skin is warm and dry. --17:26 Bernabe Hernandez R.N. NURSING PROGRESS NOTES Pulse oximeter and NIBP monitor placed on patient. Head of bed elevated (45). Reassurance given. Call light placed in reach. Side rails up x 1. Bed placed in lowest position. Brakes of bed on. --17:27 Bernabe Hernandez R.N. 18:02 07/22/2016 Site #1 started via IV in the right hand with an 20g angiocath, with aseptic technique and good blood return; one attempt. Blood drawn: rainbow set. Labeled in the presence of the patient and sent to the lab. Saline lock flushed with 10 mL saline. --18:02 Bernabe Hernandez R.N. 18:02 07/22/2016 Started bag #1 1000 mL IV Fluids IV NS (Saline); at 1000 mL/hr over 1 hour(s) via site #1 via dial-a-flow. Allergies verified and confirmed 5 rights. IV patency established. IV site checked: no pain, redness, or swelling. IV flushed thoroughly pre- and post-medication administration. --18:02 Bernabe Hernandez R.N. 18:02 07/22/2016 Zofran (Ondansetron HCl) IVP 4 mg given over 2 minute(s) via site #1. Allergies verified and confirmed 5 rights. IV patency established. IV site checked: no pain, redness, or swelling. IV flushed thoroughly pre- and post-medication administration. --18:03 Bernabe Hernandez R.N. 18:18 07/22/2016 Duoneb (Ipratropium-Albuterol) Neb TX Nebulizer 1 unit dose given. Given by the respiratory therapist. Allergies verified and confirmed 5 rights. Jaun Gu --18:28 Jaun Gu. DISPOSITION / DISCHARGE 19:02 07/22/2016 IV Fluids IV NS Discontinued: bag #1 completed. Total amount infused: 1000 mL. IV patency established. IV site checked: no pain, redness, or swelling. IV flushed thoroughly. --19:31 Melody Virk R.N. 19:31 07/22/2016 Site #1 removed upon discharge. Catheter intact. Bandaid applied. --19:31 Melody Virk R.N. 19:32 07/22/16. Departure time: 19:32 Jul 22 2016. Condition at departure: improved and stable. The goals identified in the patient's plan of care were met. No learning barriers present. Discharge instructions provided and reviewed with the patient. Reviewed medication(s) side effects, precautions, dosing and course information. Prescription(s) given to the patient. Reviewed referral to an carpenter and joiner for followup. Summary of care provided to patient via paper. Patient verbalized understanding. Written instructions provided in Malay. The patient was discharged home and accompanied by manager med surg. She left the Emergency Department ambulatory and via private vehicle. Manager Content driving. --19:32 Melody Virk R.N. 19:32 07/22/16. BP: 116/68. HR: 103. RR: 18. O2 saturation: 100%. Temp: 98.3 F. Pain level now 0/10. --19:32 Melody Virk R.N. Locked/Released at 07/22/2016 19:33 by Melody Virk R.N.
--- NOTE | 2016-07-22 19:33 | ED MAR SUMMARY ---
..... Medication Administration Record [facility] [address] [place] [address] Patient: JAMARI MCCLELLAND Visit ID: [id number] 21y, F Weight: 63.5 kg Height/Length: 61 in BMI: 26.5 ALLERGIES: No Known Drug Allergy Start 18:02 07/22/2016 Bernabe Hernandez R.N., Stop 19:02 07/22/2016 Melody Virk R.N. Medication Administered: IV NS (SALINE), Dose: IV Fluids over 1 hour(s), Rate: 1000 mL/hr, Dispensed: 1000 mL bag, Site: #1 right hand. Medication Ordered: IV NS : initial bolus none -, then 1000 mL/hr for X1 (NOW). Given 18:02 07/22/2016 Bernabe Hernandez R.N. Medication Administered: ZOFRAN [IVP] (ONDANSETRON HCL), Dose: 4 mg IVP over 2 minute(s), Site: #1 right hand. Medication Ordered: Zofran IV 4 mg (NOW). Given 18:18 07/22/2016 Jaun Gu, Medication Administered: DUONEB [NEB TX] (IPRATROPIUM-ALBUTEROL), Dose: 1 unit dose Nebulizer Neb TX. Medication Ordered: DuoNeb Neb Tx 1 unit dose (NOW).
--- NOTE | 2016-07-22 19:33 | ED MAR SUMMARY ---
..... Medication Administration Record [facility] [address] [place] [address] Patient: JAMARI MCCLELLAND Visit ID: [id number] 21y, F Weight: 63.5 kg Height/Length: 61 in BMI: 26.5 ALLERGIES: No Known Drug Allergy Start 18:02 07/22/2016 Bernabe Hernandez R.N., Stop 19:02 07/22/2016 Melody Virk R.N. Medication Administered: IV NS (SALINE), Dose: IV Fluids over 1 hour(s), Rate: 1000 mL/hr, Dispensed: 1000 mL bag, Site: #1 right hand. Medication Ordered: IV NS : initial bolus none -, then 1000 mL/hr for X1 (NOW). Given 18:02 07/22/2016 Bernabe Hernandez R.N. Medication Administered: ZOFRAN [IVP] (ONDANSETRON HCL), Dose: 4 mg IVP over 2 minute(s), Site: #1 right hand. Medication Ordered: Zofran IV 4 mg (NOW). Given 18:18 07/22/2016 Jaun Gu, Medication Administered: DUONEB [NEB TX] (IPRATROPIUM-ALBUTEROL), Dose: 1 unit dose Nebulizer Neb TX. Medication Ordered: DuoNeb Neb Tx 1 unit dose (NOW).
--- NOTE | 2016-07-22 19:33 | ED MED RECONCILIATION SUMMARY ---
Patient: JAMARI MCCLELLAND Medication Reconciliation Report [facility] VisitID: [id number] [address] [place] [address] 21y, F Registration Date/Time: 07/22/2016 Weight: 63.5 kg Height/Length: 61 in. BMI: 26.5 ALLERGIES: No Known Drug Allergy The patient's Home Medications are listed below: CONTINUE TAKING THE FOLLOWING MEDICATIONS: Albuterol HHN Albuterol Sulfate HFA Inhalation 1 Oral The source(s) of the original Home Medication information: Not obtained. The following Medications were given to the patient in the Emergency Department: IV NS IV Fluids bolus 0, then 1000 mL/hr, administered: 07/22/2016 6:02:00 PM Zofran [IVP] IVP 4 mg, administered: 07/22/2016 6:02:00 PM Duoneb [Neb Tx] Neb TX 1 unit dose, administered: 07/22/2016 6:18:00 PM The following Medications were prescribed to the patient: Zofran (orally disintegrating tablets) 4 mg: take 1 orally every 6 hours as needed for nausea and vomiting. Dispense ten (10). One refill. Substitution is permissible. -- August Mcmanus Dr.
--- NOTE | 2016-07-22 19:33 | ED DISCHARGE INSTRUCTIONS ---
Patient: JAMARI MCCLELLAND General Instructions [facility] VisitID: [id number] [place] [address] 21y, F Registration Date/Time: 07/22/2016 Vomiting with nausea and dehydration. No volume depletion. Mild persistent asthma. INSTRUCTIONS Your Current Medications: CONTINUE TAKING THE FOLLOWING MEDICATIONS: Albuterol HHN*. Albuterol Sulfate HFA Inhalation. 1 Oral. Prescription Medications: Zofran (orally disintegrating tablets) 4 mg: take 1 orally every 6 hours as needed for nausea and vomiting. Dispense ten (10). One refill. Substitution is permissible. Follow-up: Follow up with your doctor as scheduled. Screening today revealed the patient's blood pressure to be in the normal range. ADDITIONAL INFORMATION Vomiting [6Yr-Adult] Vomiting is a common symptom that may be due to different causes. These include gastroenteritis ("stomach flu"), food poisoning and gastritis. There are other more serious causes of vomiting which may be hard to diagnose early in the illness. Therefore, it is important to watch for the warning signs listed below. The main danger from repeated vomiting is dehydration. This is due to excess loss of water and minerals from the body. When this occurs, body fluids must be replaced. Home Care: If symptoms are severe, rest at home for the next 24 hours. You may use acetaminophen (Tylenol) or ibuprofen (Motrin, Advil) to control fever, unless another medicine was prescribed. [NOTE : If you have chronic liver or kidney disease or ever had a stomach ulcer or GI bleeding, talk with your doctor before using these medicines.] (Aspirin should never be used in anyone under 18 years of age who is ill with a fever. It may cause severe liver damage.) Avoid tobacco and alcohol use, which may worsen your symptoms. If medicines for vomiting were prescribed, take as directed. Once vomiting stops, then follow these guidelines: During The First 12-24 Hours follow the diet below: FRUIT JUICES: Apple, grape juice, clear fruit drinks, and electrolyte replacement drinks. BEVERAGES: Soft drinks without caffeine; mineral water (plain or flavored), decaffeinated tea and coffee. SOUPS: Clear broth, consomm and bouillon DESSERTS: Plain gelatin, popsicles and fruit juice bars. As you feel better, you may add 6-8 ounces of yogurt per day. During The Next 24 Hours you may add the following to the above: Hot cereal, plain toast, bread, rolls, crackers Plain noodles, rice, mashed potatoes, chicken noodle or rice soup Unsweetened canned fruit (avoid pineapple), bananas Limit caffeine and chocolate. No spices or seasonings except salt. During The Next 24 Hours Gradually resume a normal diet, as you feel better and your symptoms lessen. Follow Up with your doctor as advised if you are not improving over the next 2-3 days. Get Prompt Medical Attention if any of the following occur: Constant right-sided lower abdominal pain or increasing general abdominal pain Continued vomiting (unable to keep liquids down) for 24 hours Frequent diarrhea (more than 5 times a day); blood (red or black color) or mucus in diarrhea Reduced urine output or extreme thirst Weakness, dizziness or fainting Unusually drowsy or confused Fever of 100.4F (38C) oral or higher, not better with fever medication Yellow color of the eyes or skin Ondansetron Oral disintegrating tablet What is this medicine? ONDANSETRON (on ERIKA se desi) is used to treat nausea and vomiting caused by chemotherapy. It is also used to prevent or treat nausea and vomiting after surgery. How should I use this medicine? These tablets are made to dissolve in the mouth. Do not try to push the tablet through the foil backing. With dry hands, peel away the foil backing and gently remove the tablet. Place the tablet in the mouth and allow it to dissolve, then swallow. While you may take these tablets with water, it is not necessary to do so. Talk to your head of english regarding the use of this medicine in children. Special care may be needed. What side effects may I notice from receiving this medicine? Side effects that you should report to your doctor or health transition of care specialist as soon as possible: allergic reactions like skin rash, itching or hives, swelling of the face, lips, or tongue breathing problems dizziness fast or irregular heartbeat feeling faint or lightheaded, falls fever and chills swelling of the hands and feet tightness in the chest Side effects that usually do not require medical attention (report to your doctor or health transition of care specialist if they continue or are bothersome): constipation or diarrhea headache What may interact with this medicine? Do not take this medicine with any of the following medications: -apomorphine -cisapride -dofetilide -dronedarone -pimozide -thioridazine -ziprasidone This medicine may also interact with the following medications: -carbamazepine -phenytoin -rifampicin -tramadol -other medicines that prolong the QT interval (cause an abnormal heart rhythm) What if I miss a dose? If you miss a dose, take it as soon as you can. If it is almost time for your next dose, take only that dose. Do not take double or extra doses. Where should I keep my medicine? Keep out of the reach of children. Store between 2 and 30 degrees C (36 and 86 degrees F). Throw away any unused medicine after the expiration date. What should I tell my health care provider before I take this medicine? They need to know if you have any of these conditions: heart disease history of irregular heartbeat liver disease low levels of magnesium or potassium in the blood an unusual or allergic reaction to ondansetron, granisetron, other medicines, foods, dyes, or preservatives or trying to get breast-feeding What should I watch for while using this medicine? Check with your doctor or health transition of care specialist as soon as you can if you have any sign of an allergic reaction. You have been given the following additional information: Vomiting (6Y-Adult) Ondansetron Oral disintegrating tablet (Electronically signed by August Mcmanus Dr. 07/22/2016 19:17)
--- NOTE | 2016-07-22 19:33 | ED DISCHARGE INSTRUCTIONS ---
Patient: JAMARI MCCLELLAND General Instructions [facility] VisitID: [id number] [place] [address] 21y, F Registration Date/Time: 07/22/2016 Vomiting with nausea and dehydration. No volume depletion. Mild persistent asthma. INSTRUCTIONS Your Current Medications: CONTINUE TAKING THE FOLLOWING MEDICATIONS: Albuterol HHN*. Albuterol Sulfate HFA Inhalation. 1 Oral. Prescription Medications: Zofran (orally disintegrating tablets) 4 mg: take 1 orally every 6 hours as needed for nausea and vomiting. Dispense ten (10). One refill. Substitution is permissible. Follow-up: Follow up with your doctor as scheduled. Screening today revealed the patient's blood pressure to be in the normal range. ADDITIONAL INFORMATION Vomiting [6Yr-Adult] Vomiting is a common symptom that may be due to different causes. These include gastroenteritis ("stomach flu"), food poisoning and gastritis. There are other more serious causes of vomiting which may be hard to diagnose early in the illness. Therefore, it is important to watch for the warning signs listed below. The main danger from repeated vomiting is dehydration. This is due to excess loss of water and minerals from the body. When this occurs, body fluids must be replaced. Home Care: If symptoms are severe, rest at home for the next 24 hours. You may use acetaminophen (Tylenol) or ibuprofen (Motrin, Advil) to control fever, unless another medicine was prescribed. [NOTE : If you have chronic liver or kidney disease or ever had a stomach ulcer or GI bleeding, talk with your doctor before using these medicines.] (Aspirin should never be used in anyone under 18 years of age who is ill with a fever. It may cause severe liver damage.) Avoid tobacco and alcohol use, which may worsen your symptoms. If medicines for vomiting were prescribed, take as directed. Once vomiting stops, then follow these guidelines: During The First 12-24 Hours follow the diet below: FRUIT JUICES: Apple, grape juice, clear fruit drinks, and electrolyte replacement drinks. BEVERAGES: Soft drinks without caffeine; mineral water (plain or flavored), decaffeinated tea and coffee. SOUPS: Clear broth, consomm and bouillon DESSERTS: Plain gelatin, popsicles and fruit juice bars. As you feel better, you may add 6-8 ounces of yogurt per day. During The Next 24 Hours you may add the following to the above: Hot cereal, plain toast, bread, rolls, crackers Plain noodles, rice, mashed potatoes, chicken noodle or rice soup Unsweetened canned fruit (avoid pineapple), bananas Limit caffeine and chocolate. No spices or seasonings except salt. During The Next 24 Hours Gradually resume a normal diet, as you feel better and your symptoms lessen. Follow Up with your doctor as advised if you are not improving over the next 2-3 days. Get Prompt Medical Attention if any of the following occur: Constant right-sided lower abdominal pain or increasing general abdominal pain Continued vomiting (unable to keep liquids down) for 24 hours Frequent diarrhea (more than 5 times a day); blood (red or black color) or mucus in diarrhea Reduced urine output or extreme thirst Weakness, dizziness or fainting Unusually drowsy or confused Fever of 100.4F (38C) oral or higher, not better with fever medication Yellow color of the eyes or skin Ondansetron Oral disintegrating tablet What is this medicine? ONDANSETRON (on ERIKA se desi) is used to treat nausea and vomiting caused by chemotherapy. It is also used to prevent or treat nausea and vomiting after surgery. How should I use this medicine? These tablets are made to dissolve in the mouth. Do not try to push the tablet through the foil backing. With dry hands, peel away the foil backing and gently remove the tablet. Place the tablet in the mouth and allow it to dissolve, then swallow. While you may take these tablets with water, it is not necessary to do so. Talk to your pneumatic tester mechanic regarding the use of this medicine in children. Special care may be needed. What side effects may I notice from receiving this medicine? Side effects that you should report to your doctor or health overnight caregiver as soon as possible: allergic reactions like skin rash, itching or hives, swelling of the face, lips, or tongue breathing problems dizziness fast or irregular heartbeat feeling faint or lightheaded, falls fever and chills swelling of the hands and feet tightness in the chest Side effects that usually do not require medical attention (report to your doctor or health overnight caregiver if they continue or are bothersome): constipation or diarrhea headache What may interact with this medicine? Do not take this medicine with any of the following medications: -apomorphine -cisapride -dofetilide -dronedarone -pimozide -thioridazine -ziprasidone This medicine may also interact with the following medications: -carbamazepine -phenytoin -rifampicin -tramadol -other medicines that prolong the QT interval (cause an abnormal heart rhythm) What if I miss a dose? If you miss a dose, take it as soon as you can. If it is almost time for your next dose, take only that dose. Do not take double or extra doses. Where should I keep my medicine? Keep out of the reach of children. Store between 2 and 30 degrees C (36 and 86 degrees F). Throw away any unused medicine after the expiration date. What should I tell my health care provider before I take this medicine? They need to know if you have any of these conditions: heart disease history of irregular heartbeat liver disease low levels of magnesium or potassium in the blood an unusual or allergic reaction to ondansetron, granisetron, other medicines, foods, dyes, or preservatives or trying to get breast-feeding What should I watch for while using this medicine? Check with your doctor or health overnight caregiver as soon as you can if you have any sign of an allergic reaction. You have been given the following additional information: Vomiting (6Y-Adult) Ondansetron Oral disintegrating tablet (Electronically signed by August Mcmanus Dr. 07/22/2016 19:17)
--- NOTE | 2016-07-22 19:33 | ED MED RECONCILIATION SUMMARY ---
Patient: JAMARI MCCLELLAND Medication Reconciliation Report [facility] VisitID: [id number] [address] [place] [address] 21y, F Registration Date/Time: 07/22/2016 Weight: 63.5 kg Height/Length: 61 in. BMI: 26.5 ALLERGIES: No Known Drug Allergy The patient's Home Medications are listed below: CONTINUE TAKING THE FOLLOWING MEDICATIONS: Albuterol HHN Albuterol Sulfate HFA Inhalation 1 Oral The source(s) of the original Home Medication information: Not obtained. The following Medications were given to the patient in the Emergency Department: IV NS IV Fluids bolus 0, then 1000 mL/hr, administered: 07/22/2016 6:02:00 PM Zofran [IVP] IVP 4 mg, administered: 07/22/2016 6:02:00 PM Duoneb [Neb Tx] Neb TX 1 unit dose, administered: 07/22/2016 6:18:00 PM The following Medications were prescribed to the patient: Zofran (orally disintegrating tablets) 4 mg: take 1 orally every 6 hours as needed for nausea and vomiting. Dispense ten (10). One refill. Substitution is permissible. -- August Mcmanus Dr.
== END 2016-07-22 19:33 | disposition home or self-care (01) ==
LOC: ED SRH 16:58
DX: R11.2 Nausea with vomiting, unspecified (principal); E86.0 Dehydration; J45.30 Mild persistent asthma, uncomplicated; Z79.51 Long term (current) use of inhaled steroids; Z33.1 Pregnant state, incidental; Z3A.01 Less than 8 weeks gestation of pregnancy
CPT/HCPCS: 90004; 90100; 92235; 92530; 95059

== ENCOUNTER 2016-07-27 15:24 | Emergency (ER) | payer BC ==
--- NOTE | 2016-07-27 16:21 | ED NURSING NOTES ---
Clinical Report - Nurses Formerly [facility] [address] [place] [address] 07/27/2016 15:24 Patient: JAMARI MCCLELLAND TRIAGE Triage time 1530 PM. Acuity: LEVEL 3. Chief Complaint: "ASTHMA ATTACK" and WHEEZING. Alert. No acute distress. SEPSIS SCREEN: Sepsis Screen. Negative (no infection suspected/documented). CHRISTIANA COMA SCORE: [place] Coma Scale: 15- eyes open spontaneously (4); best verbal response- oriented x 4 (5); best motor response- obeys commands (6). --15:34 Anat Crisostomo R.N. 15:29 07/27/16. BP: 123/68. HR: 115. RR: 21 (unlabored). O2 saturation: 98% on room air. Temp: 99.1 F (oral). Pain level now: 0/10. --15:34 Anat Crisostomo R.N. Weight: 63.5 kg stated. Height/Length: 67 inches Per Patient. BMI: 21.9. --15:29 Anat Crisostomo R.N. Medications Albuterol HHN. Albuterol Sulfate HFA Inhalation. 1 Oral. --15:33 Anat Crisostomo R.N. Allergies No Known Drug Allergy. --15:33 Anat Crisostomo R.N. Medication/allergy information source: the patient. --15:34 Anat Crisostomo R.N. History Arrived by private vehicle. Historian: patient. Accompanied by family. ( Pt is 8 weeks with a hx of asthma who has ran out of her inhalers as of this morning, pt does admit having a cold for the past week with fevers and dry cough. Here for evaluation). This started today. She has had fever, a cough and wheezing. No chills, chest pain or back pain. Treatment RETAIL ASSISTANT: None. PAST MEDICAL HX: Asthma. Immunizations: up-to-date. SOCIAL HX: No alcohol use or drug use. No infectious disease exposure. ABUSE ASSESSMENT: No report of abuse. SELF HARM ASSESSMENT: A self harm assessment was performed. The patient answered "no" to the question "Do you have thoughts of harming or killing yourself?" and "Have you recently had thoughts about harming or killing others?". FALL RISK ASSESSMENT: Fall risk assessment completed. No fall risk identified. NUTRITIONAL RISK ASSESSMENT: The nutritional risk assessment revealed no deficiencies. FUNCTIONAL ASSESSMENT: Functional assessment: no impairments noted. LEARNING NEEDS ASSESSMENT: The learning needs assessment revealed no barriers. SKIN INTEGRITY ASSESSMENT: Skin integrity risk assessment completed. No skin integrity risk identified. --15:34 Anat Crisostomo R.N. PROBLEMS: Sick Contact. Gastroesophageal Reflux Disease. Status Asthmaticus. Pelvic Pain. Care. Otitis Externa. Otitis Media. Abdominal Pain. Gastroenteritis. Mastitis. Anxiety Reaction. Lung Disease. Hemorrhoids. OB History. Diarrhea. Vomiting. . Nephrolithiasis. Renal Colic. Bronchitis. UTI - Urinary Tract Infection. Cystitis. Ovarian Cyst. --15:33 Anat Crisostomo R.N. Appendicitis [RuleOut]. Abdominal Pain [RuleOut]. [RuleOut]. Flank Pain [RuleOut]. --15:33 Anat Crisostomo R.N. ADDITIONAL SURGERIES: Kidney Sx with ino stents. Laparoscopy. Renal Stone Manipulation. Ureteral Stent. --15:33 Anat Crisostomo R.N. Interventions ID band on patient. --15:34 Anat Crisostomo R.N. PHYSICAL ASSESSMENT Ambulatory to room. GENERAL / NEURO / PSYCH: Alert. Oriented X 4. Appears in no acute distress. HEENT: Mucous membranes are pink. RESPIRATORY: Cough. Expiratory and inspiratory wheezes in the right and left lung base posteriorly, mid-lung posteriorly and upper lung posteriorly. SKIN: Skin is warm and dry. Normal skin turgor. --15:35 Anat Crisostomo R.N. NURSING PROGRESS NOTES The initial plan of care for this patient has been created This plan of care was discussed with the patient. Pulse oximeter placed on patient. Reassurance given. Two patient identifiers checked. Call light placed in reach. Side rails up. Bed placed in lowest position. Brakes of bed on. --15:35 Anat Crisostomo R.N. ( Neb treatment initiated as ordered by . O2 sats at 98 percent upon arrival and maintaining). --15:36 Anat Crisostomo R.N. late entry - 15:45 PM. Reassurance given. Reassessment after intervention and medication administered. She is calm and resting quietly and has had no adverse reaction. RESPIRATORY: Inspiratory wheezes in the left upper lung posteriorly. No decreased breath sounds. Call light placed in reach. --16:18 Anat Crisostomo R.N. 16:16 07/27/16. RR: 16. O2 saturation: 100% on room air. Pain level now: 0/10. --16:18 Anat Crisostomo R.N. DISPOSITION / DISCHARGE Departure time: 1632 PM. Condition at departure: improved and stable. The goals identified in the patient's plan of care were met. No learning barriers present. Discharge instructions provided and reviewed with the patient. Reviewed warnings (s/s of asthma). Reviewed medication(s) side effects, precautions, dosing and course information. Prescription(s) given to the patient. Activity restrictions (rest) reviewed. Work note given. Patient verbalized understanding. Written instructions provided in Indonesian. The patient was discharged by the physician. She was discharged home and accompanied by spouse. She left the Emergency Department ambulatory and via private vehicle. Patient driving. FALL RISK ASSESSMENT: Fall risk assessment completed. No fall risk identified. --16:42 Anat Crisostomo R.N. 16:30 07/27/16. BP: 115/95 (regular adult cuff) taken on the left arm, via an automated monitor, while sitting. HR: 96. RR: 16 (regular and unlabored). O2 saturation: 100% on room air. Temp: 98.4 F. Pain level now: 0/10. --16:42 Anat Crisostomo R.N. Locked/Released at 07/27/2016 16:43 by Anat Crisostomo R.N.
--- NOTE | 2016-07-27 16:21 | ED CLINICAL REPORT ---
Clinical Report - Physicians/Mid Levels [facility] [address] [place] [address] 07/27/2016 15:24 Patient: JAMARI MCCLELLAND Time Seen: 15:27. Arrived- By private vehicle. Historian- patient. CPT: ER phys charges level 4 (#[id number]). HISTORY OF PRESENT ILLNESS Chief Complaint: DYSPNEA, WHEEZING and HISTORY OF ASTHMA. This started today Ran out of meds today and is still present. The dyspnea is described as moderate. No cough, sputum production or chest pain. See nurses notes for current asthma threapy. Asthma triggers: unknown. Takes asthma medications. Similar symptoms previously: As bad. Diagnosis: asthma. Recent medical care: Not recently seen/assessed. REVIEW OF SYSTEMS No sore throat, sinus drainage, fever, chills or muscle aches. No palpitations, calf pain, nausea, abdominal pain or diarrhea. No difficulty with urination, excessive urination, skin rash, enlarged lymph nodes or vomiting. The patient has had a nasal discharge. All systems otherwise negative, except as recorded above. PAST HISTORY Asthma. Medications: Albuterol HHN. Albuterol Sulfate HFA Inhalation. 1 Oral. Allergies: No Known Drug Allergy. SOCIAL HISTORY Never smoker. No alcohol use or drug use. ADDITIONAL NOTES The nursing notes have been reviewed. PHYSICAL EXAM Vital Signs: 07/27/2016 15:29 BP: 123/68. HR: 115. RR: 21. O2 saturation: 98%. Temp: 99.1 F. Pain level now: 0/10. Appearance: Alert. Patient in mild distress. Eyes: Eyes normal inspection. ENT: Pharynx normal. Neck: Normal inspection. CVS: Normal heart rate and rhythm. Heart sounds normal. Pulses normal. Respiratory: Moderate respiratory distress with tachypnea. Expiratory moderate bilateral wheezes diffusely. Abdomen: Soft and nontender. Back: Normal inspection. Skin: Skin warm. Normal skin color. No rash. Extremities: Extremities exhibit normal ROM. No lower extremity edema. Neuro: Oriented X 3. PROGRESS AND PROCEDURES Course of Care: Al;buterol HHN Patient is stable. The patient's symptoms are now gone. Physical exam findings are improved. Patient/family counseled. Disposition: Discharged. Condition: stable. CLINICAL IMPRESSION Moderate persistent and mild intermittent asthma with an acute exacerbation. No status asthmaticus. Acute viral rhinitis. INSTRUCTIONS No strenuous activity. Warnings: Further evaluation is necessary. GENERAL WARNINGS: Return or contact your physician immediately if your condition worsens or changes unexpectedly, if not improving as expected, or if other problems arise. Your Current Medications: CONTINUE TAKING THE FOLLOWING MEDICATIONS: Albuterol HHN*. Albuterol Sulfate HFA Inhalation. 1 Oral. Prescription Medications: Albuterol HFA oral inhaler: inhale 2 puffs via spacer every 4 hours as needed for wheezing, until symptoms improve. Dispense one (1) unit. No refill. Albuterol 0.083% Inhalation Solution: inhale 1 unit dose (3 mL) via nebulizer every 4 hours until symptoms improve, as needed for wheezing. Dispense twenty-five (25) units. No refills. Understanding of the discharge instructions verbalized by patient. Follow-up with: Odalis Roldan PA-C, [facility], , [facility], [address] [place] [address] Follow up in one week. Call for the next available appointment. (Electronically signed by Jose Parker MD 07/29/2016 22:25) Addenda for JAMARI MCCLELLAND VisitID: [id number] Date: 07/27/2016 07/29/2016 22:24 Albuterol HHN ordered by myself (Electronically signed by Jose Parker MD - 07/29/2016 22:24)
--- NOTE | 2016-07-27 16:21 | ED CLINICAL REPORT ---
Clinical Report - Physicians/Mid Levels [facility] [address] [place] [address] 07/27/2016 15:24 Patient: JAMARI MCCLELLAND Time Seen: 15:27. Arrived- By private vehicle. Historian- patient. CPT: ER phys charges level 4 (#[id number]). HISTORY OF PRESENT ILLNESS Chief Complaint: DYSPNEA, WHEEZING and HISTORY OF ASTHMA. This started today Ran out of meds today and is still present. The dyspnea is described as moderate. No cough, sputum production or chest pain. See nurses notes for current asthma threapy. Asthma triggers: unknown. Takes asthma medications. Similar symptoms previously: As bad. Diagnosis: asthma. Recent medical care: Not recently seen/assessed. REVIEW OF SYSTEMS No sore throat, sinus drainage, fever, chills or muscle aches. No palpitations, calf pain, nausea, abdominal pain or diarrhea. No difficulty with urination, excessive urination, skin rash, enlarged lymph nodes or vomiting. The patient has had a nasal discharge. All systems otherwise negative, except as recorded above. PAST HISTORY Asthma. Medications: Albuterol HHN. Albuterol Sulfate HFA Inhalation. 1 Oral. Allergies: No Known Drug Allergy. SOCIAL HISTORY Never smoker. No alcohol use or drug use. ADDITIONAL NOTES The nursing notes have been reviewed. PHYSICAL EXAM Vital Signs: 07/27/2016 15:29 BP: 123/68. HR: 115. RR: 21. O2 saturation: 98%. Temp: 99.1 F. Pain level now: 0/10. Appearance: Alert. Patient in mild distress. Eyes: Eyes normal inspection. ENT: Pharynx normal. Neck: Normal inspection. CVS: Normal heart rate and rhythm. Heart sounds normal. Pulses normal. Respiratory: Moderate respiratory distress with tachypnea. Expiratory moderate bilateral wheezes diffusely. Abdomen: Soft and nontender. Back: Normal inspection. Skin: Skin warm. Normal skin color. No rash. Extremities: Extremities exhibit normal ROM. No lower extremity edema. Neuro: Oriented X 3. PROGRESS AND PROCEDURES Course of Care: Al;buterol HHN Patient is stable. The patient's symptoms are now gone. Physical exam findings are improved. Patient/family counseled. Disposition: Discharged. Condition: stable. CLINICAL IMPRESSION Moderate persistent and mild intermittent asthma with an acute exacerbation. No status asthmaticus. Acute viral rhinitis. INSTRUCTIONS No strenuous activity. Warnings: Further evaluation is necessary. GENERAL WARNINGS: Return or contact your physician immediately if your condition worsens or changes unexpectedly, if not improving as expected, or if other problems arise. Your Current Medications: CONTINUE TAKING THE FOLLOWING MEDICATIONS: Albuterol HHN*. Albuterol Sulfate HFA Inhalation. 1 Oral. Prescription Medications: Albuterol HFA oral inhaler: inhale 2 puffs via spacer every 4 hours as needed for wheezing, until symptoms improve. Dispense one (1) unit. No refill. Albuterol 0.083% Inhalation Solution: inhale 1 unit dose (3 mL) via nebulizer every 4 hours until symptoms improve, as needed for wheezing. Dispense twenty-five (25) units. No refills. Understanding of the discharge instructions verbalized by patient. Follow-up with: Odalis Roldan PA-C, [facility], , [facility], [address] [place] [address] Follow up in one week. Call for the next available appointment. (Electronically signed by Jose Parker MD 07/29/2016 22:25) Addenda for JAMARI MCCLELLAND VisitID: [id number] Date: 07/27/2016 07/29/2016 22:24 Albuterol HHN ordered by myself (Electronically signed by Jose Parker MD - 07/29/2016 22:24)
--- NOTE | 2016-07-29 22:25 | ED DISCHARGE INSTRUCTIONS ---
Patient: JAMARI MCCLELLAND General Instructions [facility] VisitID: [id number] Mikey Tilleymish [place] [phone] 21y, F Registration Date/Time: 07/27/2016 Moderate persistent and mild intermittent asthma with an acute exacerbation. No status asthmaticus. Acute viral rhinitis. INSTRUCTIONS No strenuous activity. Warnings: Further evaluation is necessary. GENERAL WARNINGS: Return or contact your physician immediately if your condition worsens or changes unexpectedly, if not improving as expected, or if other problems arise. Your Current Medications: CONTINUE TAKING THE FOLLOWING MEDICATIONS: Albuterol HHN*. Albuterol Sulfate HFA Inhalation. 1 Oral. Prescription Medications: Albuterol HFA oral inhaler: inhale 2 puffs via spacer every 4 hours as needed for wheezing, until symptoms improve. Dispense one (1) unit. No refill. Albuterol 0.083% Inhalation Solution: inhale 1 unit dose (3 mL) via nebulizer every 4 hours until symptoms improve, as needed for wheezing. Dispense twenty-five (25) units. No refills. Understanding of the discharge instructions verbalized by patient. Follow-up with: Odalis Roldan PA-C, [facility], , [facility], [address] [place] [address] Follow up in one week. Call for the next available appointment. ADDITIONAL INFORMATION Asthma [Adult] Asthma is a disease where the small air passages within the lung go into spasm and restrict the flow of air. Inflammation and swelling of the airways cause further restriction. During an acute asthma attack, these factors cause difficulty breathing, wheezing, cough and chest tightness. An asthma attack can be triggered by many things. Common triggers include the common cold, bronchitis, pneumonia, irritants such as smoke or pullutants in the air, emotional upset and heavy exercise. Inmany adults with asthma, allergies todust, mold, pollen and animal dander can cause an asthma attack. Skipping doses of daily asthma medicine can also bring on an asthma attack. Asthma can be controlled with proper medicines and decreased exposure to known allergens. Home Care: Take prescribed medicine exactly at the times advised. If you have a hand-held inhaler or aerosol breathing medicine, do not use it more than once every four hours, unless told to do so. (If you need this medicine more than every four hours, you may need to return to the Emergency Room.) If prescribed an antibiotic or prednisone, take all of the medicine even if you are feeling better after a few days. Do not smoke. Avoid being exposed to the smoke of others. Some persons with asthma have worsening of their symptoms when they take aspirin and non-steroidal medicines like ibuprofen (Motrin, Advil) and naproxen (Aleve, Naprosyn). Talk to your doctor if you think this may apply to you. Acetaminophen (Tylenol)should be safe to use. Follow Up with your doctor, or as advised by our staff. Always bring all of your current medicines with you for your doctor to see. If you do not already have one, talk to your doctor about developing a personalized "Asthma Action Plan." [NOTE: A pneumococcal vaccine and yearly flu shot (every fall) are recommended. Ask your doctor about this.] Get Prompt Medical Attention if any of the following occur: Increased wheezing or shortness of breath Need to use your inhalers more often than usual without relief Fever of 100.4F (38C) or higher, or as directed by your healthcare provider Coughing up lots of dark-colored or bloody sputum (mucus) Chest pain with each breath You do not start to improve within 24 hours Call 911 If Any Of The Following Occur : Trouble walking or talking because of shortness of breath If you use a peak flow meter andyou are still in the red zone (less than 50 percent) 15 minutes after using inhaler medication Lips or fingernails turning johnson or blue Viral Respiratory Illness [Adult] You have an Upper Respiratory Illness (URI) caused by a virus. This illness is contagious during the first few days. It is spread through the air by coughing and sneezing or by direct contact (touching the sick person and then touching your own eyes, nose or mouth). Most viral illnesses go away within 7-10 days with rest and simple home remedies. Sometimes, the illness may last for several weeks. Antibiotics will not kill a virus and are generally not prescribed for this condition. Home Care: 1) If symptoms are severe, rest at home for the first 2-3 days. When you resume activity, don't let yourself get too tired. 2) Avoid being exposed to cigarette smoke (yours or others). 3) Tylenol (acetaminophen) or ibuprofen (Advil, Motrin) will help fever, muscle aching and headache. (Persons under 18 with fever should not take aspirin since this may cause liver damage.) 4) Your appetite may be poor, so a light diet is fine. Avoid dehydration by drinking 6-8 glasses of fluids per day (water, soft drinks, juices, tea, soup). Extra fluids will help loosen secretions in the nose and lungs. 5) Ayeo-tvk-iriyfri cold medicines will not shorten the length of time youre sick, but they may be helpful for the following symptoms: cough (Robitussin DM); sore throat (Chloraseptic lozenges or spray); nasal and sinus congestion (Actifed, Sudafed, Chlortrimeton). Follow Up with your doctor or as advised if you dont improve over the next week. Get Prompt Medical Attention if any of the following occur: -- Cough with lots of colored sputum (mucus) or blood in your sputum -- Chest pain, shortness of breath, wheezing or have trouble breathing -- Severe headache; face, neck or ear pain -- Fever over 100.4 F (38.0 C) for more than three days -- You cant swallow due to throat pain Albuterol Sulfate Pressurized inhalation, suspension What is this medicine? ALBUTEROL (al BYOO ter ole) is a bronchodilator. It helps open up the airways in your lungs to make it easier to breathe. This medicine is used to treat and to prevent bronchospasm. How should I use this medicine? This medicine is for inhalation through the mouth. Follow the directions on your prescription label. Take your medicine at regular intervals. Do not use more often than directed. Make sure that you are using your inhaler correctly. Ask you doctor or health care provider if you have any questions. Talk to your packing clerk regarding the use of this medicine in children. Special care may be needed. What side effects may I notice from receiving this medicine? Side effects that you should report to your doctor or health nursing care attendant as soon as possible: allergic reactions like skin rash, itching or hives, swelling of the face, lips, or tongue breathing problems chest pain feeling faint or lightheaded, falls high blood pressure irregular heartbeat fever muscle cramps or weakness pain, tingling, numbness in the hands or feet vomiting Side effects that usually do not require medical attention (report to your doctor or health nursing care attendant if they continue or are bothersome): cough difficulty sleeping headache nervousness or trembling stomach upset stuffy or runny nose throat irritation unusual taste What may interact with this medicine? anti-infectives like chloroquine and pentamidine caffeine cisapride diuretics medicines for colds medicines for depression or for emotional or psychotic conditions medicines for weight loss including some herbal products methadone some antibiotics like clarithromycin, erythromycin, levofloxacin, and linezolid some heart medicines steroid hormones like dexamethasone, cortisone, hydrocortisone theophylline thyroid hormones What if I miss a dose? If you miss a dose, use it as soon as you can. If it is almost time for your next dose, use only that dose. Do not use double or extra doses. Where should I keep my medicine? Keep out of the reach of children. Store at room temperature between 15 and 30 degrees C (59 and 86 degrees F). The contents are under pressure and may burst when exposed to heat or flame. Do not freeze. This medicine does not work as well if it is too cold. Throw away any unused medicine after the expiration date. Inhalers need to be thrown away after the labeled number of puffs have been used or by the expiration date; whichever comes first. Ventolin HFA should be thrown away 12 months after removing from foil pouch. Check the instructions that come with your medicine. What should I tell my health care provider before I take this medicine? They need to know if you have any of the following conditions: diabetes heart disease or irregular heartbeat high blood pressure pheochromocytoma seizures thyroid disease an unusual or allergic reaction to albuterol, levalbuterol, sulfites, other medicines, foods, dyes, or preservatives or trying to get breast-feeding What should I watch for while using this medicine? Tell your doctor or health nursing care attendant if your symptoms do not improve. Do not use extra albuterol. If your asthma or bronchitis gets worse while you are using this medicine, call your doctor right away. If your mouth gets dry try chewing sugarless gum or sucking hard candy. Drink water as directed. Albuterol Sulfate Nebulizer solution What is this medicine? ALBUTEROL (al BYOO ter ole) is a bronchodilator. It helps to open up the airways in your lungs to make it easier to breathe. This medicine is used to treat and to prevent bronchospasm. How should I use this medicine? This medicine is used in a nebulizer. Nebulizers make a liquid into an aerosol that you breathe in through your mouth or your mouth and nose into your lungs. You will be taught how to use your nebulizer. Follow the directions on your prescription label. Take your medicine at regular intervals. Do not use more often than directed. Talk to your packing clerk regarding the use of this medicine in children. Special care may be needed. What side effects may I notice from receiving this medicine? Side effects that you should report to your doctor or health nursing care attendant as soon as possible: allergic reactions like skin rash, itching or hives, swelling of the face, lips, or tongue breathing problems chest pain feeling faint or lightheaded, falls high blood pressure irregular heartbeat fever muscle cramps or weakness pain, tingling, numbness in the hands or feet vomiting Side effects that usually do not require medical attention (report to your doctor or health nursing care attendant if they continue or are bothersome): cough difficulty sleeping headache nervousness, trembling stomach upset stuffy or runny nose throat irritation unusual taste What may interact with this medicine? anti-infectives like chloroquine and pentamidine caffeine cisapride diuretics medicines for colds medicines for depression or emotional or psychotic conditions medicines for weight loss including some herbal products methadone some antibiotics like clarithromycin, erythromycin, levofloxacin, and linezolid some heart medicines steroid hormones like dexamethasone, cortisone, hydrocortisone theophylline thyroid hormones What if I miss a dose? If you miss a dose, use it as soon as you can. If it is almost time for your next dose, use only that dose. Do not use double or extra doses. Where should I keep my medicine? Keep out of the reach of children. Store between 2 and 25 degrees C (36 and 77 degrees F). Do not freeze. Protect from light. Throw away any unused medicine after the expiration date. Most products are kept in the foil package until time of use. Some products can be used up to 1 week after they are removed from the foil pouch. Check the instructions that come with your medicine. What should I tell my health care provider before I take this medicine? They need to know if you have any of the following conditions: diabetes heart disease or irregular heartbeat high blood pressure pheochromocytoma seizures thyroid disease an unusual or allergic reaction to albuterol, levalbuterol, sulfites, other medicines, foods, dyes, or preservatives or trying to get breast-feeding What should I watch for while using this medicine? Tell your doctor or health nursing care attendant if your symptoms do not improve. Do not use extra albuterol. Call your doctor right away if your asthma or bronchitis gets worse while you are using this medicine. If your mouth gets dry try chewing sugarless gum or sucking hard candy. Drink water as directed. You have been given the following additional information: Asthma, Acute (Adult) Uri, Viral, No Abx (Adult) Albuterol Sulfate Pressurized inhalation, suspension Albuterol Sulfate Nebulizer solution No strenuous activity. (Electronically signed by Jose Parker MD 07/29/2016 22:25)
--- NOTE | 2016-07-29 22:25 | ED MAR SUMMARY ---
..... Medication Administration Record [facility] [address] [place], [place] [id number] Patient: JAMARI MCCLELLAND Visit ID: [id number] 21y, F Weight: 63.5 kg Height/Length: 67 in BMI: 21.9 ALLERGIES: No Known Drug Allergy
--- NOTE | 2016-07-29 22:25 | ED MED RECONCILIATION SUMMARY ---
Patient: JAMARI MCCLELLAND Medication Reconciliation Report [facility] VisitID: [id number] [address] [place] [address] 21y, F Registration Date/Time: 07/27/2016 Weight: 63.5 kg Height/Length: 67 in. BMI: 21.9 ALLERGIES: No Known Drug Allergy The patient's Home Medications are listed below: CONTINUE TAKING THE FOLLOWING MEDICATIONS: Albuterol HHN Albuterol Sulfate HFA Inhalation 1 Oral The source(s) of the original Home Medication information: patient The following Medications were given to the patient in the Emergency Department: None. The following Medications were prescribed to the patient: Albuterol HFA oral inhaler: inhale 2 puffs via spacer every 4 hours as needed for wheezing, until symptoms improve. Dispense one (1) unit. No refill. -- Jose Parker MD Albuterol 0.083% Inhalation Solution: inhale 1 unit dose (3 mL) via nebulizer every 4 hours until symptoms improve, as needed for wheezing. Dispense twenty-five (25) units. No refills. -- Jose Parker MD
--- NOTE | 2016-07-29 22:25 | ED MAR SUMMARY ---
..... Medication Administration Record [facility] [address] [place], [place] [id number] Patient: JAMARI MCCLELLAND Visit ID: [id number] 21y, F Weight: 63.5 kg Height/Length: 67 in BMI: 21.9 ALLERGIES: No Known Drug Allergy
--- NOTE | 2016-07-29 22:25 | ED MED RECONCILIATION SUMMARY ---
Patient: JAMARI MCCLELLAND Medication Reconciliation Report [facility] VisitID: [id number] [address] [place] [address] 21y, F Registration Date/Time: 07/27/2016 Weight: 63.5 kg Height/Length: 67 in. BMI: 21.9 ALLERGIES: No Known Drug Allergy The patient's Home Medications are listed below: CONTINUE TAKING THE FOLLOWING MEDICATIONS: Albuterol HHN Albuterol Sulfate HFA Inhalation 1 Oral The source(s) of the original Home Medication information: patient The following Medications were given to the patient in the Emergency Department: None. The following Medications were prescribed to the patient: Albuterol HFA oral inhaler: inhale 2 puffs via spacer every 4 hours as needed for wheezing, until symptoms improve. Dispense one (1) unit. No refill. -- Jose Parker MD Albuterol 0.083% Inhalation Solution: inhale 1 unit dose (3 mL) via nebulizer every 4 hours until symptoms improve, as needed for wheezing. Dispense twenty-five (25) units. No refills. -- Jose Parker MD
== END 2016-07-27 16:30 | disposition home or self-care (01) ==
LOC: ED SRH 15:24
DX: J45.41 Moderate persistent asthma with (acute) exacerbation (principal); J45.21 Mild intermittent asthma with (acute) exacerbation; J00 Acute nasopharyngitis [common cold]; K21.9 Gastro-esophageal reflux disease without esophagitis

== ENCOUNTER 2016-08-01 12:41 | Emergency (ER) | payer BC ==
--- NOTE | 2016-08-01 15:55 | DIAGNOSTIC IMAGING REPORT ---
PROCEDURE: US 1ST TRIMESTER INDICATION: Right pelvic pain TECHNIQUE: Ng scale, color, and spectral Doppler transabdominal sonographic images of the first trimester gravid uterus were obtained. COMPARISON: OB ultrasound 07/10/2016 FINDINGS: TRANSABDOMINAL SCANS: Single intrauterine gestational sac with a yolk sac. pole measures up to bone centimeters, 8 weeks 5 days. Heart rate 155 bpm. MELANY 03/08/2017. Stable 1.4 x 0.7 cm subchorionic hemorrhage. 1.9 cm right ovarian corpus luteum cyst. Normal closed cervix measures 3.3 cm. IMPRESSION: 1. Single living intrauterine with gestational age of 8 weeks 5 days and estimated due date of 03/08/2017 2. Stable small subchorionic hemorrhage.
--- NOTE | 2016-08-01 16:51 | ED NURSING NOTES ---
Clinical Report - Nurses [facility] [address] [place] [address] 08/01/2016 12:42 Patient: JAMARI MCCLELLAND TRIAGE Triage time 13:20 Aug 01 2016. Acuity: LEVEL 3. Chief Complaint: ABDOMINAL PAIN, NAUSEA and VOMITING. Alert. DAVEY COMA SCORE: Davey Coma Scale: 15- eyes open spontaneously (4); best verbal response- oriented x 4 (5); best motor response- obeys commands (6). --13:33 Quoc Perez R.N. 13:22 08/01/16. BP: 142/84. HR: 117. RR: 16. O2 saturation: 100% on room air. Temp: 99.7 F (oral). Pain level now: 8/10. Additional comments: Abdominal pain/cramps. --13:33 Quoc Perez R.N. Weight: 63.5 kg stated. Height/Length: 61 inches Per Patient. BMI: 26.5. --13:30 Quoc Perez R.N. Medications Zofran Oral. --13:28 Quoc Perez R.N. Medication/allergy information source: the patient. --13:33 Quoc Perez R.N. Allergies No Known Drug Allergy. --13:28 Quoc Perez R.N. History Arrived by private vehicle. Historian: patient. Accompanied by spouse. Primary physician (Akanksha). ( Abdominal Pain/cramping. Pt denies any vaginal bleeding. Nauseated, "can't keep anything down." Pt states that she is 9 weeks .). Onset. (about 3 days ago). She has had vomiting, diarrhea and abdominal pain. No fever. Last oral intake by patient was (about 3 days ago). 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 (Zofran). PAST MEDICAL HX: Immunizations: up-to-date. Currently : 9 weeks. In 1st trimester. SOCIAL HX: Former smoker, end date 12/2015. History of drug use. No alcohol use. No recent travel. No infectious disease exposure. ABUSE ASSESSMENT: No report of abuse. FALL RISK ASSESSMENT: Fall risk assessment completed. No fall risk identified. NUTRITIONAL RISK ASSESSMENT: The nutritional risk assessment revealed no deficiencies. FUNCTIONAL ASSESSMENT: Functional assessment: no impairments noted. LEARNING NEEDS ASSESSMENT: The learning needs assessment revealed no barriers. SKIN INTEGRITY ASSESSMENT: Skin integrity risk assessment completed. No skin integrity risk identified. --13:33 Quoc Perez R.N. PROBLEMS: URI. Gastroesophageal Reflux Disease. Status Asthmaticus. Care. Otitis Media. Gastroenteritis. Mastitis. Anxiety Reaction. Lung Disease. Hemorrhoids. OB History. Diarrhea. Vomiting. . Nephrolithiasis. Renal Colic. UTI - Urinary Tract Infection. Cystitis. Ovarian Cyst. --13:29 Quoc Perez R.N. Appendicitis [RuleOut]. Flank Pain [RuleOut]. --13:29 Quoc Perez R.N. ADDITIONAL SURGERIES: Kidney Sx with ino stents. Laparoscopy. Renal Stone Manipulation. Ureteral Stent. --13:29 Quoc Perez R.N. Interventions ID and allergy band on patient. To treatment room. --13:33 Quoc Perez R.N. PHYSICAL ASSESSMENT 13:45. Ambulatory to room. Patient gowned. GENERAL / NEURO / PSYCH: Alert. Oriented X 4. RESPIRATORY: Respirations not labored. Breath sounds within normal limits. CVS: Capillary refill less than 2 seconds. GI / : The patient has had nausea. Bilious emesis noted. Has vomited numerous times. Abdomen soft. Abdominal tenderness. A moderate amount of thick, white and yellow vaginal discharge present. Stool color normal. SKIN: Skin is pale. Skin is warm and dry. --13:49 Mya Ventura R.N. NURSING PROGRESS NOTES 13:51 08/01/2016 Site #1 started via IV in the right antecubital space with an 22g angiocath; one attempt. Blood drawn: rainbow set. Saline lock flushed with 3 mL saline. --13:51 Mya Ventura R.N. Patient gowned. Head of bed elevated. Two patient identifiers checked. Call light placed in reach. Side rails up x 1. Bed placed in lowest position. --13:51 Mya Ventura R.N. 13:51 08/01/16. Patient ready for evaluation- chart flagged. --13:51 Mya Ventura R.N. 14:05 08/01/2016 Started bag #1 1000 mL IV Fluids IV NS (Saline); bolus of 1000 mL wide open via site #1 --14:05 Mya Ventura R.N. 14:07 08/01/2016 Ondansetron (Ondansetron HCl) IVP 4 mg given. via site #1. Allergies verified and confirmed 5 rights. IV patency established. IV site checked: no pain, redness, or swelling. IV flushed thoroughly pre- and post-medication administration. IVP given by RN. --14:07 Mya Ventura R.N. 14:00. Patient ID band checked for patient name and birthdate: patient confirmed. Blood samples drawn from the right antecubital space IV site with 22g by nurse ; labeled in presence of the patient and sent to lab: red, green and purple top. Line flushed with 3 mL normal saline post blood draw. Urine collected. --14:11 Mya Ventura R.N. 14:05 unable to obtain heart tones, informed pt that I am usually unable to obtain them before 14-16 weeks. --14:33 Aye Day R.N. 14:54 08/01/2016 PHENERGAN (Promethazine HCl) IVP 25 mg given. via site #1. --14:54 Mya Ventura R.N. 14:55 08/01/2016 Morphine IVP 4 mg given. via site #1. Allergies verified, confirmed 5 rights and sedative warning given to the patient. IV patency established. --14:55 Mya Ventura R.N. 14:58. Reassessment after fluids administered (feeling better, less nauseated). --14:59 Mya Ventura R.N. 14:59 08/01/16. BP: 131/75. HR: 102. RR: 18. O2 saturation: 99%. Pain level now: 7/10. --14:59 Mya Ventura R.N. 15:30. ( US at bedside doing exam). --15:48 Aye Day R.N. 16:24 08/01/16. BP: 95/55. HR: 93. RR: 16. O2 saturation: 97% on room air. Pain level now: 010. --16:26 Mya Ventura R.N. 16:26. ( patient states she is feeling much better with no cramping and nausea is gone.). --16:27 Mya Ventura R.N. DISPOSITION / DISCHARGE 16:49 08/01/2016 Site #1 removed upon discharge. Bandaid applied. --16:59 Mya Ventura R.N. Condition at departure: improved. No learning barriers present. Discharge instructions provided and reviewed with the patient and spouse. Reviewed medication(s) dosing and course information. Prescription(s) given to the patient (keflex and diclegis). Patient and spouse verbalized understanding. Written instructions provided in Portuguese. The patient was discharged home and accompanied by spouse. She left the Emergency Department ambulatory and via private vehicle. Spouse driving. --17:01 Mya Ventura R.N. 16:50 08/01/16. BP: 107/66. HR: 108. RR: 16. O2 saturation: 99%. Temp: 98.6 F. Pain level now: 210. --17:01 Mya Ventura R.N. Locked/Released at 08/01/2016 17:02 by Mya Ventura R.N.
--- NOTE | 2016-08-01 16:51 | ED ORDER SUMMARY ---
..... Patient: JAMARI MCCLELLAND OrderSheet [facility] VisitID: [id number] [place] [address] 21y, F Registration Date/Time: 08/01/2016 ORDER SHEET Weight: 63.5 kg (stated) Allergies: No Known Drug Allergy GENERAL ORDERS: CBC w Diff Urgent (13:08/01/2016 Evelio Nunez) (Ack 13:31 LNations ER Tech1) (13:54 TChapman R.N.) CMP Urgent (13:08/01/2016 Evelio Nunez) (Ack 13:31 LNations ER Tech1) (13:54 TChapman R.N.) UA-Culture if indicated Urgent (13:08/01/2016 Evelio Nunez) (Ack 13:31 LNations ER Tech1) (14:12 TChapman R.N.) Serum Quantitative Urgent (13:08/01/2016 Evelio Nunez) (Ack 13:31 LNations ER Tech1) (13:54 TChapman R.N.) Pulse oximeter (13:08/01/2016 Evelio Nunez) (13:54 TChapman R.N.) Heart Tones (13:08/01/2016 Evelio Nunez) (14:32 DDean R.N.) Lipase Urgent (13:08/01/2016 Evelio Nunez) (Ack 13:31 LNations ER Tech1) (13:54 TChapman R.N.) US OB 1st Trimester (few months ago) Urgent (14:46 08/01/2016 Evelio Nunez) (Ack 14:49 LNations ER Tech1) (16:23 TChapman R.N.) MEDICATION ORDERS: Phenergan IV 25 mg (HIGH ALERT MEDICATION, NOW) (14:44 08/01/2016 Evelio Nunez) (Ack 14:47 DDean R.N.) (14:54 TChapman R.N.) IV FLUIDS: IV NS : initial bolus 1000 mL (1000 mL/hr), then none - for X1 (NOW) (13:29 08/01/2016 Evelio Nunez) (Ack 13:59 DDean R.N.) (14:05 TChapman R.N.) Ondansetron IV 4 mg (NOW) (14:06 08/01/2016 TChapman R.N. per protocol) (14:07 TChapman R.N.) Morphine IV 4 mg (HIGH ALERT MEDICATION, NOW) (14:44 08/01/2016 Evelio Nunez) (Ack 14:47 DDean R.N.) (14:55 TChapman R.N.) ORDER SHEET NOTES: [Electronically signed by Mya Ventura R.N. (17:02 08/01/2016)] [Electronically signed by Zacarias Garcia Dr. (07:42 08/07/2016)] [Electronically locked/signed by Mya Ventura R.N. (17:02 08/01/2016)]
--- NOTE | 2016-08-01 16:51 | ED ORDER SUMMARY ---
..... Patient: JAMARI MCCLELLAND OrderSheet [facility] VisitID: [id number] [place] [address] 21y, F Registration Date/Time: 08/01/2016 ORDER SHEET Weight: 63.5 kg (stated) Allergies: No Known Drug Allergy GENERAL ORDERS: CBC w Diff Urgent (13:08/01/2016 Evelio Nunez) (Ack 13:31 LNations ER Tech1) (13:54 TChapman R.N.) CMP Urgent (13:08/01/2016 Evelio Nunez) (Ack 13:31 LNations ER Tech1) (13:54 TChapman R.N.) UA-Culture if indicated Urgent (13:08/01/2016 Evelio Nunez) (Ack 13:31 LNations ER Tech1) (14:12 TChapman R.N.) Serum Quantitative Urgent (13:08/01/2016 Evelio Nunez) (Ack 13:31 LNations ER Tech1) (13:54 TChapman R.N.) Pulse oximeter (13:08/01/2016 Evelio Nunez) (13:54 TChapman R.N.) Heart Tones (13:08/01/2016 Evelio Nunez) (14:32 DDean R.N.) Lipase Urgent (13:08/01/2016 Evelio Nunez) (Ack 13:31 LNations ER Tech1) (13:54 TChapman R.N.) US OB 1st Trimester (few months ago) Urgent (14:46 08/01/2016 Evelio Nunez) (Ack 14:49 LNations ER Tech1) (16:23 TChapman R.N.) MEDICATION ORDERS: Phenergan IV 25 mg (HIGH ALERT MEDICATION, NOW) (14:44 08/01/2016 Evelio Nunez) (Ack 14:47 DDean R.N.) (14:54 TChapman R.N.) IV FLUIDS: IV NS : initial bolus 1000 mL (1000 mL/hr), then none - for X1 (NOW) (13:29 08/01/2016 Evelio Nunez) (Ack 13:59 DDean R.N.) (14:05 TChapman R.N.) Ondansetron IV 4 mg (NOW) (14:06 08/01/2016 TChapman R.N. per protocol) (14:07 TChapman R.N.) Morphine IV 4 mg (HIGH ALERT MEDICATION, NOW) (14:44 08/01/2016 Evelio Nunez) (Ack 14:47 DDean R.N.) (14:55 TChapman R.N.) ORDER SHEET NOTES: [Electronically signed by Mya Ventura R.N. (17:02 08/01/2016)] [Electronically signed by Zacarias Garcia Dr. (07:42 08/07/2016)] [Electronically locked/signed by Mya Ventura R.N. (17:02 08/01/2016)]
--- NOTE | 2016-08-01 16:51 | ED CLINICAL REPORT ---
Clinical Report - Physicians/Mid Levels [facility] [address] [place] [address] 08/01/2016 12:42 Patient: JAMARI MCCLELLAND Arrived- By private vehicle. Historian- patient. HISTORY OF PRESENT ILLNESS Chief Complaint: nausea and vomiting during . This started past several days and is still present and worsening. It was abrupt in onset and has been constant but is not gone now. No contractions, vaginal bleeding or discharge or complaint of leakage of fluid. Gestational age is 9 weeks. (also reports diarrhea. no recent abx, new/unusual foods, travel, or sick contacts.). Similar symptoms previously: None. Recent medical care: Not recently seen/assessed. REVIEW OF SYSTEMS No skin rash. All systems otherwise negative, except as recorded above. PAST HISTORY See nurses notes. Medications: Zofran Oral. Allergies: No Known Drug Allergy. SOCIAL HISTORY Never smoker. No alcohol use or drug use. No recent travel. Is a local resident. ADDITIONAL NOTES The nursing notes have been reviewed. PHYSICAL EXAM Vital Signs: 08/01/2016 13:22 BP: 142/84. HR: 117. RR: 16. O2 saturation: 100%. Temp: 99.7 F. Pain level now: 8/10. Hypertensive. Oxygen saturation normal. Appearance: Alert. Oriented X3. No acute distress. HEENT: Normal external inspection. ENT: Pharynx normal. Neck: Neck supple. CVS: Heart sounds normal. Respiratory: No respiratory distress. Breath sounds normal. Chest nontender. Abdomen: Soft and nontender. Abnormal bowel sounds: hyperactive. (unable to palpate fundus.). Skin: Skin warm and dry. Normal skin color. No rash. Normal skin turgor. Extremities: Extremities nontender. No pathologic edema. LABS, X-RAYS, AND EKG Pelvic Sonogram: IUP at 8 w 5 d. no evidence of torsion. PROCEDURE: US 1ST TRIMESTER INDICATION: Right pelvic pain TECHNIQUE: Ng scale, color, and spectral Doppler transabdominal sonographic images of the first trimester gravid uterus were obtained. COMPARISON: OB ultrasound 07/10/2016 FINDINGS: TRANSABDOMINAL SCANS: Single intrauterine gestational sac with a yolk sac. pole measures up to bone centimeters, 8 weeks 5 days. Heart rate 155 bpm. MELANY 03/08/2017. Stable 1.4 x 0.7 cm subchorionic hemorrhage. 1.9 cm right ovarian corpus luteum cyst. Normal closed cervix measures 3.3 cm. IMPRESSION: 1. Single living intrauterine with gestational age of 8 weeks 5 days and estimated due date of 03/08/2017 2. Stable small subchorionic hemorrhage. Study type: bedside transvaginal evaluation. The study was independently viewed by me and interpreted by the radiologist. The study was discussed with the radiologist (via pacs). Laboratory Tests: UA-Culture if indicated: (FRANCIS: 08/01/2016 14:20) ( MsgRcvd 08/01/2016 14:38) Final results Test Result Flag Units (Reference) URINE COLOR DARRION URINE APPEARANCE CLEAR URINE GLUCOSE NEGATIVE (NEGATIVE) URINE BILIRUBIN ICTOTEST NEGATIVE (NEGATIVE) URINE KETONE 1+ (NEGATIVE) URINE SPECIFIC GRAVITY 1.025 (1.010-1.030) URINE PH 5.5 (5.0-8.0) URINE PROTEIN TRACE (NEGATIVE) URINE UROBILINOGEN 0.2 EU/dL (0.2-1.0) URINE NITRITE NEGATIVE (NEGATIVE) URINE BLOOD 2+ (NEGATIVE) URINE LEUK ESTERASE NEGATIVE (NEGATIVE) URINE RBC 5-10 rbc/hpf (0-1) URINE WBC 1-3 wbc/hpf (0-1) URINE EPITHELIAL CELLS 5-10 EPI/hpf (0-5) URINE BACTERIA FEW (1+) (NONE SEEN) URINE COMMENT CULT NOT INDICATED 2+ MUCOUSURINE CULTURES ARE SET-UP BASED ON THE FOLLOWING CRITERIA:POSITIVE NITRITEPOSITIVE LEUKOCYTE ESTERASEGREATER THAN 10 WHITE BLOOD CELLSMODERATE (2+) OR GREATER BACTERIA CBC w Diff: (FRANCIS: 08/01/2016 13:50) ( MsgRcvd 08/01/2016 14:02) Final results Test Result Flag Units (Reference) WHITE BLOOD COUNT 10.2 K/uL (4.5-11.5) RED BLOOD COUNT 5.07 M/uL (4.00-5.20) HEMOGLOBIN 14.2 gm/dL (12.0-16.0) HEMATOCRIT 42.6 % (36.0-46.0) MEAN CELL VOLUME 84 fL (80-100) MEAN CORPUSCULAR HGB 28 pg (26-34) MEAN CORPUSCULAR HGB CONC 33 g/dL (31-37) RED CELL DISTRIBUTION WIDTH 14.6 % (11.6-14.8) PLATELET COUNT 342 K/uL (150-400) NEUTROPHIL % 62.6 % (50-75) LYMPH % 18.8 L % (25-40) MONO % 5.2 % (3-14) EOSINOPHIL % 12.6 H % (0-4) BASOPHIL % 0.8 % (0-2) CMP: (FRANCIS: 08/01/2016 13:50) ( MsgRcvd 08/01/2016 15:54) Final results Test Result Flag Units (Reference) GLUCOSE 94 mg/dL (70-110) BUN 12 mg/dL (7-18) CREATININE 0.8 mg/dL (0.6-1.3) Estimated GFR >60 mL/min Estimated GFR- >60 mL/min Note: Persistent reduction over 3 months in eGFR<60 mL/min/1.73 m2 defines CKD. Patients with eGFR values>=60 mL/min/1.73 m2 may also have CKD if evidence ofpersistent proteinuria. Additional information may be foundat www.kidney.org. SODIUM 137 mmol/L (136-145) POTASSIUM 3.9 mmol/L (3.5-5.1) CHLORIDE 104 mmol/L (98-107) CARBON DIOXIDE 19 L mmol/L (21-32) CALCIUM 9.5 mg/dL (8.5-10.1) TOTAL PROTEIN 7.6 g/dL (6.4-8.2) ALBUMIN 3.7 g/dL (3.3-5.0) BILIRUBIN, TOTAL 0.9 mg/dL (0.0-1.0) ALKALINE PHOSPHATASE 94 U/L (46-116) AST (SGOT) 21 U/L (15-37) ALT (SGPT) 58 U/L (12-78) LIPASE 83 U/L (73-393) BETA HCG, QUANTITATIVE 633658 mIU/mL REFERENCE RANGE:Adult Males: <2 mIU/mLNon- Females: <6 mIU/mL Females:Approximate Approximate hCGGestational Age Range (mIU/mL) 0-1 week 0-501-2 weeks 40-3002-3 weeks 100-88826-2 weeks 500-41176-2 months 5,000-200,0002-3 months 10,000-100,0002nd trimester 3,000-50,0003rd trimester 1,000-50,000 . PROGRESS AND PROCEDURES Course of Care: the patient is a pleasant 21-year-old female presenting for evaluation of nausea, vomiting, diarrhea. patient is noted to be . Patient reports not having her ultrasound at this point in time. Patient will be vital for the nausea and vomiting and diarrheaas well as the current . We'll order laboratory studies including urinalysis, laboratory studies, and ultrasound. Patient is agreeable to the treatment plan. Patient states that she isn't making the concern about the . Had long discussion with patient in regards to nausea medication includingthe effects possibly of Zofran however they have not been medically provenat this point in time. Patient reports that she Is agreeable to Zofran at this time. pain medications also been ordered. Patient's workup was remarkable fora significant elevation in the patient's beta hCG. Patient is also noted to have intrauterine . Because of the patient's nausea and vomiting, patient could have morning sickness. The diarrheacould be aviral type etiology. No recent antibiotic exposure or sick contacts. Do not feel patient has C. difficile. Ultrasound confirms a viable intrauterine with normal heart tones. Please seeresultson PACs. Patient has been resting in bed and in no acute distress. nausea is well controlled here in the emergency department. Patient is also been controlled. Do not feel patient is admitted to the hospital require further emergency department workup/evaluation. Patient is not having any vaginal discharge. Do not feel pelvic examis needed at this time. Discussed the patient workup, diagnosis, home care, follow-up, and return precautions. All questions have been answered. The patient expressed understanding of these instructions and was agreeable to them. Disposition: Discharged. Condition: good. CLINICAL IMPRESSION Acute pelvic pain. 08/01/2016 16:24 BP: 95/55. HR: 93. RR: 16. O2 saturation: 97%. Pain level now: 0/10. Blood pressure normal. Oxygen saturation normal. Mild dehydration Acute urinary tract infection with hematuria. Moderate hyperemesis gravidarum less than 21 weeks (acute). INSTRUCTIONS Warnings: GENERAL WARNINGS: Return or contact your physician immediately if your condition worsens or changes unexpectedly, if not improving as expected, or if other problems arise. Specifically return if pain, vomiting, bleeding, breathing difficulty or fever. Your Current Medications: CONTINUE TAKING THE FOLLOWING MEDICATIONS: Zofran Oral. Prescription Medications: Keflex 500 mg: take 1 capsule orally every 8 hours for 5 days. No refill. Substitution is permissible. (disp 15 caps) Diclegis 10mg/10mg. Take one pill at night for morning sickness. Disp 30 each. Follow-up: Return to the emergency department as needed. Follow up with your doctor in three days. Reason for referral: recheck today's concerns. Summary of care provided to patient via paper. Screening today revealed the patient's blood pressure to be in the normal range. The patient should follow up with a primary care provider for blood pressure management. Understanding of the discharge instructions verbalized by patient. (Electronically signed by Zacarias Garcia Dr. 08/07/2016 7:42)
--- NOTE | 2016-08-07 07:42 | ED DISCHARGE INSTRUCTIONS ---
Patient: JAMARI MCCLELLAND General Instructions [facility] VisitID: [id number] [place] [address] 21y, F Registration Date/Time: 08/01/2016 Acute pelvic pain. 08/01/2016 16:24 BP: 95/55. HR: 93. RR: 16. O2 saturation: 97%. Pain level now: 0/10. Blood pressure normal. Oxygen saturation normal. Mild dehydration Acute urinary tract infection with hematuria. Moderate hyperemesis gravidarum less than 21 weeks (acute). INSTRUCTIONS Warnings: GENERAL WARNINGS: Return or contact your physician immediately if your condition worsens or changes unexpectedly, if not improving as expected, or if other problems arise. Specifically return if pain, vomiting, bleeding, breathing difficulty or fever. Your Current Medications: CONTINUE TAKING THE FOLLOWING MEDICATIONS: Zofran Oral. Prescription Medications: Keflex 500 mg: take 1 capsule orally every 8 hours for 5 days. No refill. Substitution is permissible. (disp 15 caps) Diclegis 10mg/10mg. Take one pill at night for morning sickness. Disp 30 each. Follow-up: Return to the emergency department as needed. Follow up with your doctor in three days. Reason for referral: recheck today's concerns. Summary of care provided to patient via paper. Screening today revealed the patient's blood pressure to be in the normal range. The patient should follow up with a primary care provider for blood pressure management. Understanding of the discharge instructions verbalized by patient. ADDITIONAL INFORMATION Pelvic Pain, Uncertain Cause Based on your visit today, the exact cause of your pelvic pain is not certain. But your condition does not appear to be serious at this time. However, the signs of a serious problem may take more time to appear. Therefore, it is important for you to watch for any new symptoms or worsening of your condition. Home Care: Rest until you are feeling better. Avoid sexual intercourse until your pain goes away. You may use acetaminophen (Tylenol) or ibuprofen (Motrin, Advil) to control pain, unless another medicine was prescribed. [NOTE: If you have chronic liver or kidney disease or ever had a stomach ulcer or GI bleeding, talk with your doctor before using these medicines.] Follow Up with your doctor as advised. If a culture test was taken, call in two days for the results. If the culture is positive, you will be given more advice at that time. Otherwise, follow-up with your doctor or this facility as instructed. Get Prompt Medical Attention if any of the following occur: Fever of 100.4F (38C) or higher, or as directed by your healthcare provider Vaginal discharge Worsening pain Weakness, dizziness or fainting Unexpected vaginal bleeding or passage of johnson or white tissue from the vagina Pain that moves to the right lower abdomen Bladder Infection,Female (Adult) A bladder infection ("cystitis" or "UTI") usually causes a constant urge to urinate and a burning when passing urine. Urine may be cloudy, smelly or dark. There may be pain in the lower abdomen. A bladder infection occurs when bacteria from the vaginal area enter the bladder opening (urethra). This can occur from sexual intercourse, wearing tight clothing, dehydration and other factors. Home Care: Drink lots of fluids (at least 6-8 glasses a day, unless you must restrict fluids for other medical reasons). This will force the medicine into your urinary system and flush the bacteria out of your body. Avoid sexual intercourse until your symptoms are gone. Avoid caffeine, alcohol and spicy foods. These can irritate the bladder. A bladder infection is treated with antibiotics. You may also be given Pyridium (generic = phenazopyridine) to reduce the burning sensation. This medicine will cause your urine to become a bright orange color. The orange urine may stain clothing. You may wear a pad or panty-liner to protect clothing. Preventing Future Infections: Always wipe from front to back after a bowel movement. Keep the genital area clean and dry. Drink plenty of fluids each day to avoid dehydration. Both sexual partners should wash before intercourse. Urinate right after intercourse to flush out the bladder. Wear cotton underwear and cotton-lined panty hose; avoid tight-fitting pants. If you are on control pills and are having frequent bladder infections, discuss with your doctor. Follow Up: Return to this facility or see your doctor if ALL symptoms are not gone after three days of treatment. Get Prompt Medical Attention if any of the following occur: Fever of 100.4F (38C) or higher, or as directed by your healthcare provider No improvement by the third day of treatment Increasing back or abdominal pain Repeated vomiting; unable to keep medicine down Weakness, dizziness or fainting Vaginal discharge Pain, redness or swelling in the labia (outer vaginal area) Blood In The Urine Blood in the urine ("hematuria") has many possible causes. If it occurs after an injury (such as a car accident or fall), it is most often a sign of bruising to the kidney or bladder. Common medical causes of blood in the urine include urinary tract infection, kidney stone, inflammation, tumors, or certain other diseases of the kidney or bladder. Menstruation can cause blood to appear in the urine sample, although it is not coming from the urinary tract. If only a trace amount of blood is present, it will show up on the urine test, even though the urine may be yellow and not pink or red. This may occur with any of the above conditions, as well as heavy exercise or high fever. In this case, your doctor may want to repeat the urine test on another day. This will show if the blood is still present. If so, then other tests can be done to find out the cause. Home Care: If your urine does not appear bloody (pink, brown or red) then you do not need to restrict your activity in any way. If you can see blood in your urine, rest and avoid heavy exertion until your next exam. Do not use aspirin or anti-inflammatory medicine like ibuprofen (Motrin, Advil) or naproxen (Naprosyn, Aleve). These thin the blood and may increase bleeding. Follow Up with your doctor or as advised by our staff. If you were injured and had blood in your urine, you should have a repeat urine test in 1-2 days. Contact your doctor or return to this facility for this test. [NOTE: A radiologist will review any X-rays that were taken. We will notify you of any new findings that may affect your care.] Get Prompt Medical Attention if any of the following occur: Bright red blood or blood clots in the urine (if a new symptom) Weakness, dizziness or fainting New groin, abdominal or back pain Fever of 100.4F (38C) or higher, or as directed by your healthcare provider Repeated vomiting Bleeding from nose, gums or easy bruising Hyperemesis Of Hyperemesis of is a severe form of "morning sickness", where the vomiting is excessive and may cause dehydration and chemical imbalances in the body. It occurs in about 1% of pregnancies, and is usually worse during the 10-12th week of . It gets better by the 16th week. Its cause is not well understood, but may be related to rising hormone levels early in the . It can be a serious threat to mother and fetus if dehydration becomes severe. Therefore, follow the advice below carefully. If symptoms are severe and not controlled by home measures, intravenous fluids and admission to the hospital may be needed. Home Care: 1) Activity a. After awakening from sleep, remain in bed for 15 minutes before getting up. 2) Diet a. Eat frequent small meals rather than 3 large meals. b. A diet high in carbohydrates (starches) and fiber is best. Avoid greasy or spicy foods. c. If you are having trouble keeping down solid foods, drink frequent, small amounts of liquids with electrolytes, such as broth or sports drinks. If nausea and vomiting continue, rest your stomach by waiting 1-2 hours before trying to drink again. d. Keep a log of the foods you eat and how they affect your symptoms. Avoid foods that trigger your symptoms. e. Keep Saltine crackers at the bedside. If you are nauseated upon awakening, eat some crackers or dry toast before getting out of bed. 3) Medicine a. In general, it is best to avoid strong medicines during , especially during the first three months. The effect on the growing baby is not always known and these could cause harm. Your doctor will recommend a prescription medicine only when the symptoms you are having (vomiting and dehydration) are more dangerous to the baby than the small risk of using the medicine. b. Taking Vitamin B6 (pyridoxine), 10-25 mg daily is safe and may be helpful to reduce nausea. c. Check with your doctor before taking any other tsgw-zih-fthctyk or herbal medicines during your . Follow Up: With your doctor within the next few days or as instructed by this facility. Get Prompt Medical Attention if any of the following occur: -- Unable to keep any clear liquids down over a six-hour period -- Worsening weakness, dizziness or fainting occurs -- No weight gain over a two-week period -- Severe constant lower right abdominal pain -- Fever, chills or frequent diarrhea Dehydration (Adult) Dehydration occurs when your body loses too much fluid. This may be the result of vomiting a lot or from diarrhea,sweating a lot, or a high fever. It may also happen if you dont drink enough fluid when youre sick. Misuse of diuretics (water pills) can also be a cause. Symptoms include thirst and feeling dizzy, weak, fatigued, or very drowsy. The diet described below is usually enough to treat most cases. Sometimes you may needmedicine. Home Care Follow these guidelines for home care: Drink at least 12 8-ounce glasses of fluid every day to overcome the dehydration. Fluid may include water; orange juice; lemonade; apple, grape, and cranberry juice; clear fruit drinks; electrolyte replacement and sports drinks; and teas and coffee without caffeine. If you have been diagnosed with a kidney disease, ask your doctor how much and what types of fluids you should drink to prevent dehydration. If you have kidney disease, drinking too much fluid can cause it build up in the your body and be dangerous to your health. If you have fever, muscle aching, or headache from a viral syndrome, you may useacetaminophen or ibuprofen, unless another medicine was prescribed for this.If you have chronic liver or kidney disease or ever had a stomach ulcer or GI bleeding, talk with your doctor before using these medicines. Don't take aspirin if you are younger than 18 and are ill with a fever.Aspirin raises the chance forsevere liver injury. Follow-up care Follow up with your health care provider if you don't get better in the next 24 to 48 hours. When to seek medical care Get prompt medical attention if any of theseoccur: Continued vomiting (cant keep liquids down) Frequent diarrhea (more than 5 times a day); blood (red or black color) or mucus in diarrhea Blood in vomit or stool Swollen abdomen or increasing abdominal pain Weakness, dizziness, or fainting Unusually drowsy or confused Reduced urine output or extreme thirst Fever of 100.4 F (38 C) oral or higher that does not get better with fever medication Cephalexin Monohydrate Oral tablet What is this medicine? CEPHALEXIN (sef a KANIKA in) is a cephalosporin antibiotic. It is used to treat certain kinds of bacterial infections It will not work for colds, flu, or other viral infections. How should I use this medicine? Take this medicine by mouth with a full glass of water. Follow the directions on the prescription label. This medicine can be taken with or without food. Take your medicine at regular intervals. Do not take your medicine more often than directed. Take all of your medicine as directed even if you think you are better. Do not skip doses or stop your medicine early. Talk to your eligibility supervisor regarding the use of this medicine in children. While this drug may be prescribed for selected conditions, precautions do apply. What side effects may I notice from receiving this medicine? Side effects that you should report to your doctor or health dog daycare provider as soon as possible: allergic reactions like skin rash, itching or hives, swelling of the face, lips, or tongue breathing problems pain or trouble passing urine redness, blistering, peeling or loosening of the skin, including inside the mouth severe or watery diarrhea unusually weak or tired yellowing of the eyes, skin Side effects that usually do not require medical attention (report to your doctor or health dog daycare provider if they continue or are bothersome): gas or heartburn genital or anal irritation headache joint or muscle pain nausea, vomiting What may interact with this medicine? probenecid some other antibiotics What if I miss a dose? If you miss a dose, take it as soon as you can. If it is almost time for your next dose, take only that dose. Do not take double or extra doses. There should be at least 4 to 6 hours between doses. Where should I keep my medicine? Keep out of the reach of children. Store at room temperature between 59 and 86 degrees F (15 and 30 degrees C). Throw away any unused medicine after the expiration date. What should I tell my health care provider before I take this medicine? They need to know if you have any of these conditions: kidney disease stomach or intestine problems, especially colitis an unusual or allergic reaction to cephalexin, other cephalosporins, penicillins, other antibiotics, medicines, foods, dyes or preservatives or trying to get breast-feeding What should I watch for while using this medicine? Tell your doctor or health dog daycare provider if your symptoms do not begin to improve in a few days. Do not treat diarrhea with over the counter products. Contact your doctor if you have diarrhea that lasts more than 2 days or if it is severe and watery. If you have diabetes, you may get a false-positive result for sugar in your urine. Check with your doctor or health dog daycare provider. You have been given the following additional information: Pelvic Pain, Unknown Cause Bladder Infection, Female (Adult) Hematuria Hyperemesis Gravidarum Dehydration (Adult) Cephalexin Monohydrate Oral tablet (Electronically signed by Zacarias Garcia Dr. 08/07/2016 7:42)
--- NOTE | 2016-08-07 07:43 | ED MED RECONCILIATION SUMMARY ---
Patient: JAMARI MCCLELLAND Medication Reconciliation Report [facility] VisitID: [id number] [address] [place] [address] 21y, F Registration Date/Time: 08/01/2016 Weight: 63.5 kg Height/Length: 61 in. BMI: 26.5 ALLERGIES: No Known Drug Allergy The patient's Home Medications are listed below: CONTINUE TAKING THE FOLLOWING MEDICATIONS: Zofran Oral The source(s) of the original Home Medication information: patient The following Medications were given to the patient in the Emergency Department: IV NS IV Fluids bolus 1000 mL wide open, administered: 08/01/2016 2:05:00 PM Ondansetron [IVP] IVP 4 mg, administered: 08/01/2016 2:07:00 PM PHENERGAN [IVP] IVP 25 mg, administered: 08/01/2016 2:54:00 PM Morphine [IVP] IVP 4 mg, administered: 08/01/2016 2:55:00 PM The following Medications were prescribed to the patient: Diclegis 10mg/10mg. Take one pill at night for morning sickness. Disp 30 each. -- Zacarias Garcia Dr. Keflex 500 mg: take 1 capsule orally every 8 hours for 5 days. No refill. Substitution is permissible.(disp 15 caps) -- Zacarias Garcia Dr.
--- NOTE | 2016-08-07 07:43 | ED MAR SUMMARY ---
..... Medication Administration Record [facility] [address] [place] [address] Patient: JAMARI MCCLELLAND Visit ID: [id number] 21y, F Weight: 63.5 kg Height/Length: 61 in BMI: 26.5 ALLERGIES: No Known Drug Allergy Start 14:05 08/01/2016 Mya Vnetura R.N. Medication Administered: IV NS (SALINE), Dose: IV Fluids, Bolus: 1000 mL wide open, Dispensed: 1000 mL bag, Site: #1 right AC. Medication Ordered: IV NS : initial bolus 1000 mL (1000 mL/hr), then none - for X1 (NOW). Given 14:07 08/01/2016 Mya Ventura R.N. Medication Administered: ONDANSETRON [IVP] (ONDANSETRON HCL), Dose: 4 mg IVP, Site: #1 right AC. Medication Ordered: Ondansetron IV 4 mg (NOW). Given 14:54 08/01/2016 Mya Ventura R.N. Medication Administered: PHENERGAN [IVP] (PROMETHAZINE HCL), Dose: 25 mg IVP, Site: #1 right AC. Medication Ordered: Phenergan IV 25 mg (HIGH ALERT MEDICATION, NOW). Given 14:55 08/01/2016 Mya Ventura R.N. Medication Administered: MORPHINE [IVP], Dose: 4 mg IVP, Site: #1 right AC. Medication Ordered: Morphine IV 4 mg (HIGH ALERT MEDICATION, NOW).
--- NOTE | 2016-08-07 07:43 | ED MED RECONCILIATION SUMMARY ---
Patient: JAMARI MCCLELLAND Medication Reconciliation Report [facility] VisitID: [id number] [address] [place] [address] 21y, F Registration Date/Time: 08/01/2016 Weight: 63.5 kg Height/Length: 61 in. BMI: 26.5 ALLERGIES: No Known Drug Allergy The patient's Home Medications are listed below: CONTINUE TAKING THE FOLLOWING MEDICATIONS: Zofran Oral The source(s) of the original Home Medication information: patient The following Medications were given to the patient in the Emergency Department: IV NS IV Fluids bolus 1000 mL wide open, administered: 08/01/2016 2:05:00 PM Ondansetron [IVP] IVP 4 mg, administered: 08/01/2016 2:07:00 PM PHENERGAN [IVP] IVP 25 mg, administered: 08/01/2016 2:54:00 PM Morphine [IVP] IVP 4 mg, administered: 08/01/2016 2:55:00 PM The following Medications were prescribed to the patient: Diclegis 10mg/10mg. Take one pill at night for morning sickness. Disp 30 each. -- Zacarias Garcia Dr. Keflex 500 mg: take 1 capsule orally every 8 hours for 5 days. No refill. Substitution is permissible.(disp 15 caps) -- Zacarias Garcia Dr.
--- NOTE | 2016-08-07 07:43 | ED MAR SUMMARY ---
..... Medication Administration Record [facility] [address] [place] [address] Patient: JAMARI MCCLELLAND Visit ID: [id number] 21y, F Weight: 63.5 kg Height/Length: 61 in BMI: 26.5 ALLERGIES: No Known Drug Allergy Start 14:05 08/01/2016 Mya Ventura R.N. Medication Administered: IV NS (SALINE), Dose: IV Fluids, Bolus: 1000 mL wide open, Dispensed: 1000 mL bag, Site: #1 right AC. Medication Ordered: IV NS : initial bolus 1000 mL (1000 mL/hr), then none - for X1 (NOW). Given 14:07 08/01/2016 Mya Ventura R.N. Medication Administered: ONDANSETRON [IVP] (ONDANSETRON HCL), Dose: 4 mg IVP, Site: #1 right AC. Medication Ordered: Ondansetron IV 4 mg (NOW). Given 14:54 08/01/2016 Mya Ventura R.N. Medication Administered: PHENERGAN [IVP] (PROMETHAZINE HCL), Dose: 25 mg IVP, Site: #1 right AC. Medication Ordered: Phenergan IV 25 mg (HIGH ALERT MEDICATION, NOW). Given 14:55 08/01/2016 Mya Ventura R.N. Medication Administered: MORPHINE [IVP], Dose: 4 mg IVP, Site: #1 right AC. Medication Ordered: Morphine IV 4 mg (HIGH ALERT MEDICATION, NOW).
== END 2016-08-01 16:50 | disposition home or self-care (01) ==
LOC: ED SRH 12:41
DX: O21.1 Hyperemesis gravidarum with metabolic disturbance (principal); O23.31 Infections of other parts of urinary tract in pregnancy, first trimester; B97.89 Other viral agents as the cause of diseases classified elsewhere; R31.9 Hematuria, unspecified; Z3A.08 8 weeks gestation of pregnancy; Z87.891 Personal history of nicotine dependence
CPT/HCPCS: 90004; 90100; 90197; 92235; 95059

== ENCOUNTER 2016-08-23 19:55 | Emergency (ER) | payer BC ==
--- NOTE | 2016-08-23 22:53 | ED CLINICAL REPORT ---
Clinical Report - Physicians/Mid Levels [facility] [address] [place] [address] 08/23/2016 19:57 Patient: JAMARI MCCLELLAND Time Seen: 2014; initial patient contact, initial documentation, patient care assumed. Arrived- By private vehicle. Historian- patient. HISTORY OF PRESENT ILLNESS Chief Complaint: BACK PAIN. It is described as being in the area of the right flank. No radiation. Modifying factors. Not worsened by anything. Not relieved by anything. Onset was today and it is still present. It was abrupt in onset and has been waxing/waning. No bladder dysfunction, bowel dysfunction, sensory loss or motor loss. ( none). Additional history - 12 wks , everything with going ok so far. Patient denies an injury but injury to the head or neck. Similar symptoms previously: Occasionally, as bad. ( states the pain feels same as when she had kidney stone or infection). Recent medical care: Not recently seen/assessed. REVIEW OF SYSTEMS No fever, difficulty with urination, urinary frequency, hematuria or vaginal discharge. No difficulty breathing, chest pain, abdominal pain, vomiting or diarrhea. She has had nausea. All systems otherwise negative, except as recorded above. PAST HISTORY See nurses notes. PROBLEMS: Dehydration. Hyperemesis Gravidarum. URI. Sick Contact. Gastroesophageal Reflux Disease. Status Asthmaticus. Pelvic Pain. Care. Otitis Externa. Otitis Media. Abdominal Pain. Gastroenteritis. Mastitis. Anxiety Reaction. Lung Disease. Hemorrhoids. OB History. Diarrhea. Vomiting. . Nephrolithiasis. Renal Colic. Bronchitis. Asthma. UTI - Urinary Tract Infection. Cystitis. Ovarian Cyst. --20:06 Anat Crisostomo R.N. Appendicitis [RuleOut]. Abdominal Pain [RuleOut]. [RuleOut]. Flank Pain [RuleOut]. --20:06 Anat Crisostomo R.N. SOCIAL HISTORY Former smoker. No alcohol use or drug use. No recent travel. Is a local resident. FAMILY HISTORY Negative. ADDITIONAL NOTES The nursing notes have been reviewed with agreement regarding the chief complaint, HPI, ROS, PMH and patient medications and allergies. PHYSICAL EXAM Vital Signs: 08/23/2016 20:06 BP: 118/89. HR: 105. RR: 18. O2 saturation: 100%. Temp: 98.2 F. Pain level now: 810. Have been reviewed as abnormal and appear to be correct. Blood pressure normal. Tachycardic. Respiratory rate normal. Temperature normal. Oxygen saturation normal. Appearance: Alert. No acute distress. Neck: Normal inspection. Neck nontender. Painless ROM. CVS: Heart sounds normal. Pulses normal. Respiratory: No respiratory distress. Breath sounds normal. Abdomen: No visible injury. Soft and nontender. Nontender gravid uterus palpable to just above pubic symphysis. Size consistent with dates. Bowel sounds normal. No organomegaly. No mass. Back: Normal inspection. No tenderness. Painless ROM. Skin: Skin warm and dry. Normal skin color. No rash. Normal skin turgor. Extremities: Extremities exhibit normal ROM. Extremities nontender. Neuro: Oriented X 3. Mood/affect normal. No motor deficit. No sensory deficit. LABS, X-RAYS, AND EKG Laboratory Tests: UA-Culture if indicated: (FRANCIS: 08/23/2016 22:10) ( MsgRcvd 08/23/2016 22:31) Final results Test Result Flag Units (Reference) URINE COLOR YELLOW URINE APPEARANCE CLEAR URINE GLUCOSE NEGATIVE (NEGATIVE) URINE BILIRUBIN NEGATIVE (NEGATIVE) URINE KETONE NEGATIVE (NEGATIVE) URINE SPECIFIC GRAVITY 1.015 (1.010-1.030) URINE PH 6.0 (5.0-8.0) URINE PROTEIN NEGATIVE (NEGATIVE) URINE UROBILINOGEN 0.2 EU/dL (0.2-1.0) URINE NITRITE NEGATIVE (NEGATIVE) URINE BLOOD NEGATIVE (NEGATIVE) URINE LEUK ESTERASE NEGATIVE (NEGATIVE) URINE RBC 0-1 rbc/hpf (0-1) URINE WBC RARE wbc/hpf (0-1) URINE EPITHELIAL CELLS 0-1 EPI/hpf (0-5) URINE BACTERIA NONE SEEN (NONE SEEN) URINE COMMENT CULT NOT INDICATED URINE CULTURES ARE SET-UP BASED ON THE FOLLOWING CRITERIA:POSITIVE NITRITEPOSITIVE LEUKOCYTE ESTERASEGREATER THAN 10 WHITE BLOOD CELLSMODERATE (2+) OR GREATER BACTERIA CBC w Diff: (FRANCIS: 08/23/2016 19:30) ( Mscvd 08/23/2016 20:40) Final results Test Result Flag Units (Reference) WHITE BLOOD COUNT 10.5 K/uL (4.5-11.5) RED BLOOD COUNT 4.61 M/uL (4.00-5.20) HEMOGLOBIN 13.2 gm/dL (12.0-16.0) HEMATOCRIT 38.5 % (36.0-46.0) MEAN CELL VOLUME 84 fL (80-100) MEAN CORPUSCULAR HGB 29 pg (26-34) MEAN CORPUSCULAR HGB CONC 34 g/dL (31-37) RED CELL DISTRIBUTION WIDTH 14.4 % (11.6-14.8) PLATELET COUNT 307 K/uL (150-400) NEUTROPHIL % 67.7 % (50-75) LYMPH % 23.8 L % (25-40) MONO % 6.4 % (3-14) EOSINOPHIL % 1.4 % (0-4) BASOPHIL % 0.7 % (0-2) CMP: (FRANCIS: 08/23/2016 19:30) ( MsgRcvd 08/23/2016 21:01) Final results Test Result Flag Units (Reference) GLUCOSE 94 mg/dL (70-110) BUN 12 mg/dL (7-18) CREATININE 0.8 mg/dL (0.6-1.3) Estimated GFR >60 mL/min Estimated GFR- >60 mL/min Note: Persistent reduction over 3 months in eGFR<60 mL/min/1.73 m2 defines CKD. Patients with eGFR values>=60 mL/min/1.73 m2 may also have CKD if evidence ofpersistent proteinuria. Additional information may be foundat www.kidney.org. SODIUM 138 mmol/L (136-145) POTASSIUM 3.9 mmol/L (3.5-5.1) CHLORIDE 103 mmol/L (98-107) CARBON DIOXIDE 23 mmol/L (21-32) CALCIUM 9.2 mg/dL (8.5-10.1) TOTAL PROTEIN 6.9 g/dL (6.4-8.2) ALBUMIN 3.4 g/dL (3.3-5.0) BILIRUBIN, TOTAL 0.3 mg/dL (0.0-1.0) ALKALINE PHOSPHATASE 77 U/L (46-116) AST (SGOT) 8 L U/L (15-37) ALT (SGPT) 20 U/L (12-78) . Note - Tests: (US Kidney 9mm stone on R 6mm stone on L no hydronephrosis fht strong 150's Verbal report given by us tech Suzan). PROGRESS AND PROCEDURES Course of Care: pt was informed upon initial hx and exam reasons why I wouldn't give stronger pain meds, narcs, cat c drug, not safe in upon telling pt her results, guest in room was questioning me why I wasn't giving her pain meds, and how last time did, again explained I wasn't comfortable prescribing something that was cat c drug when I wasn't the ob specialist who could monitor her or her baby, pt verbalized understanding. Patient/family counseled. 22:49. Differential Diagnosis: I considered Musculo-skeletal strain, vertebral fracture, pancreatitis, pyelonephritis and ureterolithiasis as a possible cause of back pain in this patient. This is a partial list of diagnoses considered. Above considerations are based on history, physical exam and laboratory data. Differential diagnosis was discussed with patient. Disposition: Discharged home in good and improved condition. Condition: good and stable. CLINICAL IMPRESSION Ureterolithiasis (multiple stones) in the right ureter and left ureter with renal colic. No hydronephrosis, acute pyelonephritis, urinary tract infection or hematuria. INSTRUCTIONS (strain all urine). Warnings: GENERAL WARNINGS: Return or contact your physician immediately if your condition worsens or changes unexpectedly, if not improving as expected, or if other problems arise. SPECIFICALLY, return if you develop incontinence of urine (loss of bladder control). fever, uncontrolled vomiting. Prescription Medications: Zofran 4 mg: Take 1 orally every six hours as needed for nausea/vomiting. Dispense ten (10). No refills. Substitution is permissible. Follow-up: Follow up with an delinquency prevention officer in about two days even if well. Call for an appointment. Summary of care provided to patient. Understanding of the discharge instructions verbalized by patient. (Electronically signed by Juana Roberson A.R.N.P. 08/23/2016 23:25)
--- NOTE | 2016-08-23 22:53 | ED NURSING NOTES ---
Clinical Report - Nurses [facility] [address] [place] [address] 08/23/2016 19:57 Patient: JAMARI MCCLELLAND TRIAGE Triage time 2007 PM. Acuity: LEVEL 3. Chief Complaint: CHILLS, PELVIC PAIN, VAGINAL DISCHARGE, GENITAL PAIN, URINARY URGENCY, URINARY FREQUENCY and FLANK PAIN (Pt believes that she has a UTI or Kidney stone). Alert. No acute distress. DAVEY COMA SCORE: Davey Coma Scale: 15- eyes open spontaneously (4); best verbal response- oriented x 4 (5); best motor response- obeys commands (6). --20:13 Anat Crisostomo R.N. 20:06 08/23/16. BP: 118/89. HR: 105. RR: 18. O2 saturation: 100% on room air. Temp: 98.2 F. Pain level now: 01/19. --20:13 Anat Crisostomo R.N. Weight: 63.5 kg stated. Height/Length: 64 inches Per Patient. BMI: 24. --20:06 Anat Crisostomo R.N. Medications Zofran Oral. --20:06 Anat Crisostomo R.N. Medication/allergy information source: the patient. --20:13 Anat Crisostomo R.N. Allergies No Known Drug Allergy. --20:06 Anat Crisostomo R.N. History Arrived by private vehicle. Historian: patient. Accompanied by family. Primary physician (Dr. Ramsey/ Dr. Day Chisholm). ( Pt is 12 weeks who has had a hx of kidney stones and UTI in the past, onset of right flank pain initiated this a.m. Urgency for the past 3 days with pain upon urination and frequency, pt does admit to having vaginal disharge). This started today. No fever, weakness, cough, difficulty breathing or skin rash. Denies muscle aches. 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 PAST MEDICAL HX: Immunizations: up-to-date. Currently : 12 weeks. SOCIAL HX: Former smoker. No alcohol use or drug use. No infectious disease exposure. ABUSE ASSESSMENT: No report of abuse. SELF HARM ASSESSMENT: A self harm assessment was performed. The patient answered "no" to the question "Do you have thoughts of harming or killing yourself?" and "Have you recently had thoughts about harming or killing others?". FALL RISK ASSESSMENT: Fall risk assessment completed. No fall risk identified. NUTRITIONAL RISK ASSESSMENT: The nutritional risk assessment revealed no deficiencies. FUNCTIONAL ASSESSMENT: Functional assessment: no impairments noted. LEARNING NEEDS ASSESSMENT: The learning needs assessment revealed no barriers. SKIN INTEGRITY ASSESSMENT: Skin integrity risk assessment completed. No skin integrity risk identified. --20:13 Anat Crisostomo R.N. PROBLEMS: Dehydration. Hyperemesis Gravidarum. URI. Sick Contact. Gastroesophageal Reflux Disease. Status Asthmaticus. Pelvic Pain. Care. Otitis Externa. Otitis Media. Abdominal Pain. Gastroenteritis. Mastitis. Anxiety Reaction. Lung Disease. Hemorrhoids. OB History. Diarrhea. Vomiting. . Nephrolithiasis. Renal Colic. Bronchitis. Asthma. UTI - Urinary Tract Infection. Cystitis. Ovarian Cyst. --20:06 Anat Crisostomo R.N. Appendicitis [RuleOut]. Abdominal Pain [RuleOut]. [RuleOut]. Flank Pain [RuleOut]. --20:06 Anat Crisostomo R.N. Interventions ID band on patient. --20:13 Anat Crisostomo R.N. PHYSICAL ASSESSMENT Ambulatory to room. GENERAL / NEURO / PSYCH: Alert. Oriented X 4. Appears in no acute distress. Appears in pain. HEENT: No facial asymmetry noted. Mucous membranes are pink. RESPIRATORY: Respirations not labored. Breath sounds within normal limits. CVS: Capillary refill less than 2 seconds. GI / : Abdomen nontender. SKIN: Skin intact. Skin is warm and dry. Normal skin turgor. --20:17 Anat Crisostomo R.N. NURSING PROGRESS NOTES The initial plan of care for this patient has been created This plan of care was discussed with the patient. Patient gowned. Warming measures: blanket applied. Reassurance given. Two patient identifiers checked. Call light placed in reach. Side rails up x 1. Bed placed in lowest position. Brakes of bed on. --20:17 Anat Crisostomo R.N. ( FHT attempted x 2, unable to find at 12 weeks, US ordered DAIRY FEED MIXING OPERATOR Da aware). --20:29 Anat Crisostomo R.N. Patient ID band checked for patient name and birthdate: patient confirmed. Blood samples drawn from the right antecubital space with Vacutainer and 23g butterfly by tech per protocol ; labeled in presence of the patient and sent to lab: rainbow set. --20:37 Nessa Jin ER Tech1 21:29 08/23/2016 Tylenol (Acetaminophen) PO Tablets 500 mg given. Allergies verified and confirmed 5 rights. --21:29 Anat Crisostomo R.N. Reassurance given. ( Awaiting on US, approximately arriving at 2130, pt aware. Emotional support provide, complaining of pain, tylenol given as ordered). Call light placed in reach. --21:31 Anat Crisostomo R.N. 21:28 08/23/16. BP: 130/85 (regular adult cuff) taken on the left arm, via an automated monitor, while sitting. HR: 104. RR: 18. O2 saturation: 100%. Pain level now: 03/21. --21:31 Anat Crisostomo R.N. 22:22 08/23/2016 Tylenol PO Response: no adverse reaction symptoms are the same. The patient feels the same. --22:37 Anat Crisostomo R.N. DISPOSITION / DISCHARGE Departure time: 2240 PM. Condition at departure: stable. The goals identified in the patient's plan of care were met. ( Pt and Dad upset due to "unable to get pain meds" VIRIDIANA Roberson spoke to pt and family about concerns of being and warnings of Category C drugs. Pt's dad walked over and stated " I am taking her home, this was a joke and a waste of time"). ( Pt left without discharge paperwork,). FALL RISK ASSESSMENT: Fall risk assessment completed. No fall risk identified. --22:59 Anat Crisostomo R.N. 22:30 08/23/16. BP: unable to obtain due to patient not present. HR: unable to obtain due to patient not present. RR: unable to obtain due to patient not present. O2 saturation: unable to obtain due to patient not present. Temp: unable to obtain due to patient not present. Pain level now unable to obtain due to patient not present. --22:59 Anat Crisostomo R.N. Locked/Released at 08/23/2016 22:59 by Anat Crisostomo R.N.
--- NOTE | 2016-08-23 22:53 | ED ORDER SUMMARY ---
..... Patient: JAMARI MCCLELLAND OrderSheet [facility] VisitID: [id number] [place] [address] 21y, F Registration Date/Time: 08/23/2016 ORDER SHEET Weight: 63.5 kg (stated) Allergies: No Known Drug Allergy GENERAL ORDERS: US OB 1st Trimester (12 wks) Urgent (20:25 08/23/2016 HBivens A.R.N.P.) (Ack 20:27 SRedmond) (Ack 20:27 EHassan R.N.) (20:33 EHassan R.N.) UA-Culture if indicated Urgent (20:25 08/23/2016 HBivens A.R.N.P.) (Ack 20:27 SRedmond) (Ack 20:27 EHassan R.N.) (20:33 EHassan R.N.) CBC w Diff Urgent (20:25 08/23/2016 HBivens A.R.N.P.) (Ack 20:27 SRedmond) (Ack 20:27 EHassan R.N.) (20:33 EHassan R.N.) CMP Urgent (20:25 08/23/2016 HBivens A.R.N.P.) (Ack 20:27 SRedmond) (Ack 20:27 EHassan R.N.) (20:33 EHassan R.N.) US Kidney/Renal Complete (No) Urgent (21:36 08/23/2016 HBivens A.R.N.P.) (Ack 21:44 SRedmond) (22:04 HBivens A.R.N.P.) (Cancelled: Other22:04 HBivens A.R.N.P.) MEDICATION ORDERS: Tylenol PO 500 mg (NOW) (21:28 08/23/2016 EHassan R.N. verbal order read back to HBivens A.R.N.P.) (21:29 EHassan R.N.) Hydrocodone-APAP PO 5/325 mg (NOW, HIGH ALERT MEDICATION) (22:48 08/23/2016 HBivens A.R.N.P.) (Cancelled: Patient Left22:51 Hiram Armstrong) IV FLUIDS: ORDER SHEET NOTES: [Electronically signed by Anat Crisostomo R.N. (22:59 08/23/2016)] [Electronically signed by Juana RobersonRAsafN.PAsaf (23:25 08/23/2016)] [Electronically locked/signed by Anat Crisostomo R.N. (22:59 08/23/2016)]
--- NOTE | 2016-08-23 22:53 | ED ORDER SUMMARY ---
..... Patient: JAMARI MCCLELLAND OrderSheet [facility] VisitID: [id number] [place] [address] 21y, F Registration Date/Time: 08/23/2016 ORDER SHEET Weight: 63.5 kg (stated) Allergies: No Known Drug Allergy GENERAL ORDERS: US OB 1st Trimester (12 wks) Urgent (20:25 08/23/2016 HBivens A.R.N.P.) (Ack 20:27 SRedmond) (Ack 20:27 EHassan R.N.) (20:33 EHassan R.N.) UA-Culture if indicated Urgent (20:25 08/23/2016 HBivens A.R.N.P.) (Ack 20:27 SRedmond) (Ack 20:27 EHassan R.N.) (20:33 EHassan R.N.) CBC w Diff Urgent (20:25 08/23/2016 HBivens A.R.N.P.) (Ack 20:27 SRedmond) (Ack 20:27 EHassan R.N.) (20:33 EHassan R.N.) CMP Urgent (20:25 08/23/2016 HBivens A.R.N.P.) (Ack 20:27 SRedmond) (Ack 20:27 EHassan R.N.) (20:33 EHassan R.N.) US Kidney/Renal Complete (No) Urgent (21:36 08/23/2016 HBivens A.R.N.P.) (Ack 21:44 SRedmond) (22:04 HBivens A.R.N.P.) (Cancelled: Other22:04 HBivens A.R.N.P.) MEDICATION ORDERS: Tylenol PO 500 mg (NOW) (21:28 08/23/2016 EHassan R.N. verbal order read back to HBivens A.R.N.P.) (21:29 EHassan R.N.) Hydrocodone-APAP PO 5/325 mg (NOW, HIGH ALERT MEDICATION) (22:48 08/23/2016 HBivens A.R.N.P.) (Cancelled: Patient Left22:51 Hiram Armstrong) IV FLUIDS: ORDER SHEET NOTES: [Electronically signed by Anat Crisostomo R.N. (22:59 08/23/2016)] [Electronically signed by Juana RobersonRAsafN.PAsaf (23:25 08/23/2016)] [Electronically locked/signed by Anat Crisostomo R.N. (22:59 08/23/2016)]
--- NOTE | 2016-08-23 23:25 | ED MED RECONCILIATION SUMMARY ---
Patient: JAMARI MCCLELLAND Medication Reconciliation Report [facility] VisitID: [id number] [address] [place] [address] 21y, F Registration Date/Time: 08/23/2016 Weight: 63.5 kg Height/Length: 64 in. BMI: 24.0 ALLERGIES: No Known Drug Allergy The patient's Home Medications are listed below: THE FOLLOWING MEDICATIONS NEED TO BE RECONCILED: Zofran Oral The source(s) of the original Home Medication information: patient The following Medications were given to the patient in the Emergency Department: Tylenol [PO] PO 500 mg, administered: 08/23/2016 9:29:00 PM The following Medications were prescribed to the patient: Zofran 4 mg: Take 1 orally every six hours as needed for nausea/vomiting. Dispense ten (10). No refills. Substitution is permissible. -- Juana Roberson A.R.N.P.
--- NOTE | 2016-08-23 23:25 | ED DISCHARGE INSTRUCTIONS ---
Patient: JAMARI MCCLELLAND General Instructions [facility] VisitID: [id number] [place] [address] 21y, F Registration Date/Time: 08/23/2016 Ureterolithiasis (multiple stones) in the right ureter and left ureter with renal colic. No hydronephrosis, acute pyelonephritis, urinary tract infection or hematuria. INSTRUCTIONS (strain all urine). Warnings: GENERAL WARNINGS: Return or contact your physician immediately if your condition worsens or changes unexpectedly, if not improving as expected, or if other problems arise. SPECIFICALLY, return if you develop incontinence of urine (loss of bladder control). fever, uncontrolled vomiting. Prescription Medications: Zofran 4 mg: Take 1 orally every six hours as needed for nausea/vomiting. Dispense ten (10). No refills. Substitution is permissible. Follow-up: Follow up with an plastic technician in about two days even if well. Call for an appointment. Summary of care provided to patient. Understanding of the discharge instructions verbalized by patient. ADDITIONAL INFORMATION Kidney Stone (W/ Colic) The sharp cramping pain and nausea/vomiting that you have is due to a small stone which has formed in the kidney and is now passing down a narrow tube (ureter) on its way to your bladder. Once it reaches your bladder, the pain will stop. The stone may pass in your urine stream in one piece. [The size may be 1/16" to 1/4" (1-6mm)]. Or, the stone may also break up into jarek fragments which you may not even notice. Once you have had a kidney stone, you are at risk for developing another one in the future. Home Care: Drink plenty of fluids (at least 8 to 10 glasses of water a day). Most stones will pass on their own, but may take from a few hours to a few days. Sometimes the stone is too large to pass by itself and special methods will have to be used to remove the stone. Each time you urinate, do so in a jar. Pour the urine from the jar through the strainer and into the toilet. Continue doing this until 24 hours after your pain stops. By then, if there was a kidney stone, it should pass from your bladder. Some stones dissolve into sand-like particles and pass right through the strainer. In that case, you wont ever see a stone. Save any stone that you find in the strainer and bring it to your doctor for analysis. It may be possible to prevent certain types of stones from forming. Therefore, it is important to know what kind of stone you have. Try to stay as active as possible since this will help the stone pass. Do not stay in bed unless your pain prevents you from getting up. You may notice a red, pink or brown color to your urine. This is normal while passing a kidney stone. Follow Up with your doctor or return to this facility if the pain lasts more than 48 hours. Get Prompt Medical Attention if any of the following occur: Pain that is not controlled by the medicine given Repeated vomiting or unable to keep down fluids Weakness, dizziness or fainting Fever of 100.4F (38C) or higher, or as directed by your healthcare provider Passage of solid red or brown urine (can't see through it) or urine with lots of blood clots Unable to pass urine for 8 hours and increasing bladder pressure Ondansetron Oral disintegrating tablet What is this medicine? ONDANSETRON (on ERIKA se desi) is used to treat nausea and vomiting caused by chemotherapy. It is also used to prevent or treat nausea and vomiting after surgery. How should I use this medicine? These tablets are made to dissolve in the mouth. Do not try to push the tablet through the foil backing. With dry hands, peel away the foil backing and gently remove the tablet. Place the tablet in the mouth and allow it to dissolve, then swallow. While you may take these tablets with water, it is not necessary to do so. Talk to your professional development director regarding the use of this medicine in children. Special care may be needed. What side effects may I notice from receiving this medicine? Side effects that you should report to your doctor or health insurance healthcare representative as soon as possible: allergic reactions like skin rash, itching or hives, swelling of the face, lips, or tongue breathing problems dizziness fast or irregular heartbeat feeling faint or lightheaded, falls fever and chills swelling of the hands and feet tightness in the chest Side effects that usually do not require medical attention (report to your doctor or health insurance healthcare representative if they continue or are bothersome): constipation or diarrhea headache What may interact with this medicine? Do not take this medicine with any of the following medications: -apomorphine -cisapride -dofetilide -dronedarone -pimozide -thioridazine -ziprasidone This medicine may also interact with the following medications: -carbamazepine -phenytoin -rifampicin -tramadol -other medicines that prolong the QT interval (cause an abnormal heart rhythm) What if I miss a dose? If you miss a dose, take it as soon as you can. If it is almost time for your next dose, take only that dose. Do not take double or extra doses. Where should I keep my medicine? Keep out of the reach of children. Store between 2 and 30 degrees C (36 and 86 degrees F). Throw away any unused medicine after the expiration date. What should I tell my health care provider before I take this medicine? They need to know if you have any of these conditions: heart disease history of irregular heartbeat liver disease low levels of magnesium or potassium in the blood an unusual or allergic reaction to ondansetron, granisetron, other medicines, foods, dyes, or preservatives or trying to get breast-feeding What should I watch for while using this medicine? Check with your doctor or health insurance healthcare representative as soon as you can if you have any sign of an allergic reaction. You have been given the following additional information: Kidney Stone W/ Colic Ondansetron Oral disintegrating tablet (Electronically signed by Juana Roberson A.R.N.P. 08/23/2016 23:25)
--- NOTE | 2016-08-23 23:25 | ED MED RECONCILIATION SUMMARY ---
Patient: JAMARI MCCLELLAND Medication Reconciliation Report [facility] VisitID: [id number] [address] [place] [address] 21y, F Registration Date/Time: 08/23/2016 Weight: 63.5 kg Height/Length: 64 in. BMI: 24.0 ALLERGIES: No Known Drug Allergy The patient's Home Medications are listed below: THE FOLLOWING MEDICATIONS NEED TO BE RECONCILED: Zofran Oral The source(s) of the original Home Medication information: patient The following Medications were given to the patient in the Emergency Department: Tylenol [PO] PO 500 mg, administered: 08/23/2016 9:29:00 PM The following Medications were prescribed to the patient: Zofran 4 mg: Take 1 orally every six hours as needed for nausea/vomiting. Dispense ten (10). No refills. Substitution is permissible. -- Juana Roberson A.R.N.P.
--- NOTE | 2016-08-23 23:25 | ED DISCHARGE INSTRUCTIONS ---
Patient: JAMARI MCCLELLAND General Instructions [facility] VisitID: [id number] [place] [address] 21y, F Registration Date/Time: 08/23/2016 Ureterolithiasis (multiple stones) in the right ureter and left ureter with renal colic. No hydronephrosis, acute pyelonephritis, urinary tract infection or hematuria. INSTRUCTIONS (strain all urine). Warnings: GENERAL WARNINGS: Return or contact your physician immediately if your condition worsens or changes unexpectedly, if not improving as expected, or if other problems arise. SPECIFICALLY, return if you develop incontinence of urine (loss of bladder control). fever, uncontrolled vomiting. Prescription Medications: Zofran 4 mg: Take 1 orally every six hours as needed for nausea/vomiting. Dispense ten (10). No refills. Substitution is permissible. Follow-up: Follow up with an opal polisher in about two days even if well. Call for an appointment. Summary of care provided to patient. Understanding of the discharge instructions verbalized by patient. ADDITIONAL INFORMATION Kidney Stone (W/ Colic) The sharp cramping pain and nausea/vomiting that you have is due to a small stone which has formed in the kidney and is now passing down a narrow tube (ureter) on its way to your bladder. Once it reaches your bladder, the pain will stop. The stone may pass in your urine stream in one piece. [The size may be 1/16" to 1/4" (1-6mm)]. Or, the stone may also break up into jarek fragments which you may not even notice. Once you have had a kidney stone, you are at risk for developing another one in the future. Home Care: Drink plenty of fluids (at least 8 to 10 glasses of water a day). Most stones will pass on their own, but may take from a few hours to a few days. Sometimes the stone is too large to pass by itself and special methods will have to be used to remove the stone. Each time you urinate, do so in a jar. Pour the urine from the jar through the strainer and into the toilet. Continue doing this until 24 hours after your pain stops. By then, if there was a kidney stone, it should pass from your bladder. Some stones dissolve into sand-like particles and pass right through the strainer. In that case, you wont ever see a stone. Save any stone that you find in the strainer and bring it to your doctor for analysis. It may be possible to prevent certain types of stones from forming. Therefore, it is important to know what kind of stone you have. Try to stay as active as possible since this will help the stone pass. Do not stay in bed unless your pain prevents you from getting up. You may notice a red, pink or brown color to your urine. This is normal while passing a kidney stone. Follow Up with your doctor or return to this facility if the pain lasts more than 48 hours. Get Prompt Medical Attention if any of the following occur: Pain that is not controlled by the medicine given Repeated vomiting or unable to keep down fluids Weakness, dizziness or fainting Fever of 100.4F (38C) or higher, or as directed by your healthcare provider Passage of solid red or brown urine (can't see through it) or urine with lots of blood clots Unable to pass urine for 8 hours and increasing bladder pressure Ondansetron Oral disintegrating tablet What is this medicine? ONDANSETRON (on ERIKA se desi) is used to treat nausea and vomiting caused by chemotherapy. It is also used to prevent or treat nausea and vomiting after surgery. How should I use this medicine? These tablets are made to dissolve in the mouth. Do not try to push the tablet through the foil backing. With dry hands, peel away the foil backing and gently remove the tablet. Place the tablet in the mouth and allow it to dissolve, then swallow. While you may take these tablets with water, it is not necessary to do so. Talk to your military science teacher regarding the use of this medicine in children. Special care may be needed. What side effects may I notice from receiving this medicine? Side effects that you should report to your doctor or health care clinician as soon as possible: allergic reactions like skin rash, itching or hives, swelling of the face, lips, or tongue breathing problems dizziness fast or irregular heartbeat feeling faint or lightheaded, falls fever and chills swelling of the hands and feet tightness in the chest Side effects that usually do not require medical attention (report to your doctor or health care clinician if they continue or are bothersome): constipation or diarrhea headache What may interact with this medicine? Do not take this medicine with any of the following medications: -apomorphine -cisapride -dofetilide -dronedarone -pimozide -thioridazine -ziprasidone This medicine may also interact with the following medications: -carbamazepine -phenytoin -rifampicin -tramadol -other medicines that prolong the QT interval (cause an abnormal heart rhythm) What if I miss a dose? If you miss a dose, take it as soon as you can. If it is almost time for your next dose, take only that dose. Do not take double or extra doses. Where should I keep my medicine? Keep out of the reach of children. Store between 2 and 30 degrees C (36 and 86 degrees F). Throw away any unused medicine after the expiration date. What should I tell my health care provider before I take this medicine? They need to know if you have any of these conditions: heart disease history of irregular heartbeat liver disease low levels of magnesium or potassium in the blood an unusual or allergic reaction to ondansetron, granisetron, other medicines, foods, dyes, or preservatives or trying to get breast-feeding What should I watch for while using this medicine? Check with your doctor or health care clinician as soon as you can if you have any sign of an allergic reaction. You have been given the following additional information: Kidney Stone W/ Colic Ondansetron Oral disintegrating tablet (Electronically signed by Juana Roberson A.R.N.P. 08/23/2016 23:25)
--- NOTE | 2016-08-23 23:25 | ED MAR SUMMARY ---
..... Medication Administration Record [facility] [address] [place] [address] Patient: JAMARI MCCLELLAND Visit ID: [id number] 21y, F Weight: 63.5 kg Height/Length: 64 in BMI: 24 ALLERGIES: No Known Drug Allergy Given 21:29 08/23/2016 Anat Crisostomo R.N. Medication Administered: TYLENOL [PO] (ACETAMINOPHEN), Dose: 500 mg Tablets PO. Medication Ordered: Tylenol PO 500 mg (NOW).
--- NOTE | 2016-08-23 23:25 | ED MAR SUMMARY ---
..... Medication Administration Record [facility] [address] [place] [address] Patient: JAMARI MCCLELLAND Visit ID: [id number] 21y, F Weight: 63.5 kg Height/Length: 64 in BMI: 24 ALLERGIES: No Known Drug Allergy Given 21:29 08/23/2016 Anat Crisostomo R.N. Medication Administered: TYLENOL [PO] (ACETAMINOPHEN), Dose: 500 mg Tablets PO. Medication Ordered: Tylenol PO 500 mg (NOW).
--- NOTE | 2016-08-24 00:02 | DIAGNOSTIC IMAGING REPORT ---
PROCEDURE: US 1ST TRIMESTER INDICATION: Right flank pain. History of kidney stones. TECHNIQUE: Ng scale, color, and spectral Doppler transabdominal and endovaginal sonographic images of the first trimester gravid uterus were obtained. COMPARISON: Comparison made to obstetric ultrasound 08/01/2016 (MELANY 03/08/2017). Comparison is also made to abdominal ultrasound (05/27/2016) and CT abdomen and pelvis on 03/29/2016. FINDINGS: TRANSABDOMINAL SCANS: Early intrauterine . Right kidney is of normal size (9.5 cm). There is increased echogenicity of the renal pyramids with a 7 mm nonobstructing right lower pole renal calculus. Left kidney is of normal size (9.8 cm). There is increased echogenicity of the renal pyramids with a 5 mm nonobstructing calculus in the lower pole. Patent bilateral ureteral orifices. TRANSVAGINAL SCANS: Early viable intrauterine with cardiac activity. Maskell-rump length 5.8 cm (12.3 weeks). Placenta is posterior and partially circumferential. Normal amniotic fluid and cervix length. Right ovary is normal with a 1.7 cm of corpus luteum cyst. Left ovary is not visualized. IMPRESSION: 1. Early viable intrauterine at 12.3 weeks menstrual age (plus or minus 1 week). MELANY is 03/05/2017. 2. Normal growth. 3. Increased echogenicity of bilateral renal pyramids compatible with medullary sponge kidney. 4. There is a 7 mm nonobstructing calculus in the right kidney. 5. There is a 5 mm nonobstructing calculus in the left kidney.
== END 2016-08-23 21:40 | disposition home or self-care (01) ==
LOC: ED SRH 19:55
DX: O99.89 Other specified diseases and conditions complicating pregnancy, childbirth and the puerperium (principal); N20.1 Calculus of ureter; N23 Unspecified renal colic; Z3A.12 12 weeks gestation of pregnancy; K21.9 Gastro-esophageal reflux disease without esophagitis; Z87.891 Personal history of nicotine dependence
CPT/HCPCS: 90004; 90100; 95059

== ENCOUNTER 2016-08-24 14:09 | Emergency (ER) | payer BC ==
--- NOTE | 2016-08-24 16:28 | ED CLINICAL REPORT ---
Clinical Report - Physicians/Mid Levels [facility] [address] [place] [address] 08/24/2016 14:10 Patient: JAMARI MCCLELLAND Time Seen: 14:31 Aug 24 2016. Arrived- By private vehicle. Historian- patient. HISTORY OF PRESENT ILLNESS Chief Complaint: b/l flank pain. Still present. The patient has had flank pain. She has had pain with urination. (, patient with bilateral flank pain worsening over the last 3 days, was seen here in the emergency department last night, diagnosed with bilateral nephrolithiasis, is awaiting her first appointment with her OB. Currently 12 weeks. NO fevers, no dysuria.). REVIEW OF SYSTEMS No vomiting, diarrhea, difficulty breathing or chest pain. All systems otherwise negative, except as recorded above. SOCIAL HISTORY Never smoker. No alcohol use. ADDITIONAL NOTES The nursing notes have been reviewed. PHYSICAL EXAM Vital Signs: 08/24/2016 14:20 BP: 125/86. HR: 75. RR: 18. O2 saturation: 98%. Temp: 98.6 F. Pain level now: 7/10. Appearance: Alert. No acute distress. Appears to be in pain. Patient in mild distress. CVS: Heart sounds normal. Respiratory: No respiratory distress. Breath sounds normal. Abdomen: Gravid uterus palpable to just above pubic symphysis. No organomegaly. No mass. No abdominal tenderness or rebound tenderness. Skin: Skin warm. No rash. LABS, X-RAYS, AND EKG Laboratory Tests: UA-Culture if indicated: (FRANCIS: 08/24/2016 15:34) ( MsgRcvd 08/24/2016 16:26) Final results Test Result Flag Units (Reference) URINE COLOR YELLOW URINE APPEARANCE CLEAR URINE GLUCOSE NEGATIVE (NEGATIVE) URINE BILIRUBIN NEGATIVE (NEGATIVE) URINE KETONE NEGATIVE (NEGATIVE) URINE SPECIFIC GRAVITY 1.025 (1.010-1.030) URINE PH 6.0 (5.0-8.0) URINE PROTEIN NEGATIVE (NEGATIVE) URINE UROBILINOGEN 0.2 EU/dL (0.2-1.0) URINE NITRITE NEGATIVE (NEGATIVE) URINE BLOOD 1+ (NEGATIVE) URINE LEUK ESTERASE NEGATIVE (NEGATIVE) URINE RBC 5-10 rbc/hpf (0-1) URINE WBC 1-3 wbc/hpf (0-1) URINE EPITHELIAL CELLS 3-5 EPI/hpf (0-5) URINE BACTERIA TRACE (<1+) (NONE SEEN) URINE COMMENT CULT NOT INDICATED URINE CULTURES ARE SET-UP BASED ON THE FOLLOWING CRITERIA:POSITIVE NITRITEPOSITIVE LEUKOCYTE ESTERASEGREATER THAN 10 WHITE BLOOD CELLSMODERATE (2+) OR GREATER BACTERIA UA-Culture if indicated: (FRANCIS: 08/24/2016 14:30) ( MsgRcvd 08/24/2016 15:16) Final results Test Result Flag Units (Reference) URINE COLOR YELLOW URINE APPEARANCE HAZY URINE GLUCOSE NEGATIVE (NEGATIVE) URINE BILIRUBIN NEGATIVE (NEGATIVE) URINE KETONE NEGATIVE (NEGATIVE) URINE SPECIFIC GRAVITY >= 1.030 (1.010-1.030) URINE PH 5.5 (5.0-8.0) URINE PROTEIN NEGATIVE (NEGATIVE) URINE UROBILINOGEN 0.2 EU/dL (0.2-1.0) URINE NITRITE NEGATIVE (NEGATIVE) URINE BLOOD NEGATIVE (NEGATIVE) URINE LEUK ESTERASE TRACE (NEGATIVE) URINE RBC 1-3 rbc/hpf (0-1) URINE WBC 5-10 wbc/hpf (0-1) URINE EPITHELIAL CELLS 10-15 EPI/hpf (0-5) URINE BACTERIA MANY (4+) (NONE SEEN) URINE COMMENT CULTURE INDICATED URINE CULTURES ARE SET-UP BASED ON THE FOLLOWING CRITERIA:POSITIVE NITRITEPOSITIVE LEUKOCYTE ESTERASEGREATER THAN 10 WHITE BLOOD CELLSMODERATE (2+) OR GREATER BACTERIA . Note - Tests: (US: IMPRESSION: 1. Early viable intrauterine at 12.3 weeks menstrual age (plus or minus 1 week). MELANY is 03/05/2017. 2. Normal growth. 3. Increased echogenicity of bilateral renal pyramids compatible with medullary sponge kidney. 4. There is a 7 mm nonobstructing calculus in the right kidney. 5. There is a 5 mm nonobstructing calculus in the left kidney. _ Electronically Final signed by:Tejinder Flores MD 08/23/2016 11:59:28 PM). PROGRESS AND PROCEDURES Course of Care: Previous US/ FHT within 24 hours reviewed er visit Patient with no CVA tenderness, minimal low bacteria seen on a clean catch urine, will culture. She is afebrile, normal cardiac. Recent ultrasound, no further workup in the ER. Patient has an appointment with her OB tomorrow. Otherwise abdomen is benign, soft and no signs of acute surgical abdomen. Patient is stable. Patient/family counseled. Disposition: Discharged. CLINICAL IMPRESSION Right and left nephrolithiasis with renal colic. First Trimester . INSTRUCTIONS Drink plenty of fluids. Prescription Medications: Percocet 5 mg/325 mg: take 1 tablet orally every 6 hours as needed for pain. Dispense five (5). No refill. Substitution is permissible. Follow-up: Follow up with your doctor tomorrow. (Electronically signed by Tracy Ramachandran P.A.-C 08/24/2016 16:46)
--- NOTE | 2016-08-24 16:28 | ED ORDER SUMMARY ---
..... Patient: JAMARI MCCLELLAND OrderSheet [facility] VisitID: [id number] [place] [address] 21y, F Registration Date/Time: 08/24/2016 ORDER SHEET Weight: 63.5 kg (stated) Allergies: No Known Drug Allergy GENERAL ORDERS: UA-Culture if indicated Urgent (14:28 08/24/2016 EKoroleva P.A.-C) (Ack 14:33 James) (14:36 JBoardley R.N.) UA-Culture if indicated Urgent (15:40 08/24/2016 JBoardley R.N. verbal order read back to Perla P.A.-C) (Ack 15:42 James) (15:53 JBoardley R.N.) Culture, Urine (Urine, Clean Catch) (on the second urine sample please) Urgent (16:27 08/24/2016 EKoroleva P.A.-C) (Ack 16:28 James) MEDICATION ORDERS: Percocet PO 5/325 mg (HIGH ALERT MEDICATION, NOW) (14:28 08/24/2016 EKoroleva P.A.-C) (Ack 14:29 JBoardley R.N.) (14:32 JBoardley R.N.) Zofran ODT PO 4 mg (NOW) (14:34 08/24/2016 EKoroleva P.A.-C) (14:36 JBoardley R.N.) IV FLUIDS: ORDER SHEET NOTES: [Electronically signed by Tracy RamachandranAAsaf-C (16:46 08/24/2016)] [Electronically signed by Chrissy Fernández R.N. (08:37 08/25/2016)] [Electronically locked/signed by Chrissy Fernández R.N. (08:37 08/25/2016)]
--- NOTE | 2016-08-24 16:28 | ED ORDER SUMMARY ---
..... Patient: JAMARI MCCLELLAND OrderSheet [facility] VisitID: [id number] [place] [address] 21y, F Registration Date/Time: 08/24/2016 ORDER SHEET Weight: 63.5 kg (stated) Allergies: No Known Drug Allergy GENERAL ORDERS: UA-Culture if indicated Urgent (14:28 08/24/2016 EKoroleva P.A.-C) (Ack 14:33 James) (14:36 JBoardley R.N.) UA-Culture if indicated Urgent (15:40 08/24/2016 JBoardley R.N. verbal order read back to Perla P.A.-C) (Ack 15:42 James) (15:53 JBoardley R.N.) Culture, Urine (Urine, Clean Catch) (on the second urine sample please) Urgent (16:27 08/24/2016 EKoroleva P.A.-C) (Ack 16:28 James) MEDICATION ORDERS: Percocet PO 5/325 mg (HIGH ALERT MEDICATION, NOW) (14:28 08/24/2016 EKoroleva P.A.-C) (Ack 14:29 JBoardley R.N.) (14:32 JBoardley R.N.) Zofran ODT PO 4 mg (NOW) (14:34 08/24/2016 EKoroleva P.A.-C) (14:36 JBoardley R.N.) IV FLUIDS: ORDER SHEET NOTES: [Electronically signed by Tracy RamachandranAAsaf-C (16:46 08/24/2016)] [Electronically signed by Chrissy Fernández R.N. (08:37 08/25/2016)] [Electronically locked/signed by Chrissy Fernández R.N. (08:37 08/25/2016)]
--- NOTE | 2016-08-24 16:28 | ED NURSING NOTES ---
Clinical Report - Nurses [facility] [address] [place] [address] 08/24/2016 14:10 Patient: JAMARI MCCLELLAND TRIAGE Triage time 14:16. Acuity: LEVEL 4. Chief Complaint: FLANK PAIN (Right and Left). 14:16 08/24/16. 14:16 08/24/16. Alert. No acute distress. SEPSIS SCREEN: Sepsis Screen. Negative (no infection suspected/documented). --14:23 Domingo Robison R.N. 14:20 08/24/16. BP: 125/86. HR: 75. RR: 18. O2 saturation: 98% on room air. Temp: 98.6 F (oral). Pain level now: 710. --14:23 Domingo Robison R.N. Weight: 63.5 kg stated. Height/Length: 61 inches Per Patient. BMI: 26.5. --14:19 Domingo Robison R.N. Medications Zofran Oral. --14:18 Domingo Robison R.N. Albuterol Sulfate Inhalation. --14:18 Domingo Robison R.N. Advair Diskus Inhalation. --14:18 Domingo Robison R.N. Singulair Oral. --14:18 Domingo Robison R.N. Medication/allergy information source: the patient and patient's family. --14:23 Domingo Robison R.N. Allergies No Known Drug Allergy. --14:18 Domingo Robison R.N. History Arrived by private vehicle. Historian: patient. Accompanied by family. Primary physician (DOTTIE FUENTES). 14:16 08/24/16. Treatment PERSONAL FINANCIAL REPRESENTATIVE: (Hydrocodone from previous ER visit). PAST MEDICAL HX: Immunizations: up-to-date. Last normal menstrual period- 12 weeks , LMP 19 DEC 16. Currently . SOCIAL HX: Never smoker. No alcohol use or drug use. No recent travel. No known contact with a sick individual. ABUSE ASSESSMENT: No report of abuse. FALL RISK ASSESSMENT: Fall risk assessment completed. No fall risk identified. NUTRITIONAL RISK ASSESSMENT: The nutritional risk assessment revealed no deficiencies. FUNCTIONAL ASSESSMENT: Functional assessment: no impairments noted. LEARNING NEEDS ASSESSMENT: The learning needs assessment revealed no barriers. SKIN INTEGRITY ASSESSMENT: Skin integrity risk assessment completed. No skin integrity risk identified. --14:23 Domingo Robison R.N. PROBLEMS: Ureterolithiasis. Dehydration. Hyperemesis Gravidarum. URI. Sick Contact. Gastroesophageal Reflux Disease. Status Asthmaticus. Pelvic Pain. Care. Otitis Externa. Otitis Media. Abdominal Pain. Gastroenteritis. Mastitis. Anxiety Reaction. Lung Disease. Hemorrhoids. OB History. Diarrhea. Vomiting. . Nephrolithiasis. Renal Colic. Bronchitis. Asthma. UTI - Urinary Tract Infection. Cystitis. Ovarian Cyst. --14:19 Domingo Robison R.N. ADDITIONAL SURGERIES: Kidney Sx with ino stents. Laparoscopy. Renal Stone Manipulation. Ureteral Stent. --14:19 Domingo Robison R.N. Assessment 14:16 08/24/16. --14:23 Domingo Robison R.N. Interventions 14:16 08/24/16. 14:16 08/24/16. ID and allergy band on patient. To treatment room. --14:23 Domingo Robison R.N. PHYSICAL ASSESSMENT 14:08/24/16. Ambulatory to room. GENERAL / NEURO / PSYCH: Appears in pain. RESPIRATORY: Respirations not labored. Breath sounds within normal limits. CVS: Capillary refill less than 2 seconds. SKIN: Skin is warm and dry. --14:20 Domingo Robison R.N. NURSING PROGRESS NOTES 14:20 08/24/16. The plan of care for this patient has been created. Head of bed elevated. Two patient identifiers checked. Call light placed in reach. Side rails up x 2. Bed placed in lowest position. Brakes of bed on. Brakes of chair on. --14:20 Domingo Robison R.N. 14:20 08/24/16. Patient ready for evaluation- chart flagged and notification provided. --14:20 Domingo Robison R.N. 14:26 08/24/2016 Percocet (Oxycodone-Acetaminophen) PO 5/325 mg Tablets 1 tab given. Allergies verified, confirmed 5 rights and sedative warning given to the patient. --14:32 Domingo Robison R.N. 14:36 08/24/2016 Zofran ODT (Ondansetron) PO 4 mg given. Allergies verified and confirmed 5 rights. --14:36 Domingo Robison R.N. 14:36 08/24/16. Patient ID band checked for patient name and birthdate: patient confirmed. Clean catch urine collected with return of yellow-colored urine; sample sent to lab for urinalysis and culture. Specimen labeled in the presence of the patient. --14:36 Domingo Robison R.N. 14:41 08/24/16. Patient and family informed about reason for wait and about plan of care. --14:41 Domingo Robison R.N. 14:41 08/24/16. Patient waiting for lab results. --14:41 Domingo Robison R.N. 15:11 08/24/16. --15:11 Domingo Robison R.N. 15:10 08/24/16. BP: 118/72. HR: 80. RR: 14. O2 saturation: 99% on room air. Temp: 98.1 F (oral). Pain level now: 5/10. --15:11 Domingo Robison R.N. 15:11 08/24/16. Reassessment after medication administered. She has had no adverse reaction. Overall patient status is improved- she states feels better. --15:11 Domingo Robison R.N. 15:23 08/24/16. ( Pt aware she needs to provide urine specimen as previous was contaminated.). --15:23 Domingo Robison R.N. 15:32 08/24/16. Patient and family informed about reason for wait and about plan of care. --15:32 Domingo Robison R.N. 15:42 08/24/16. Patient ID band checked for patient name and birthdate: patient confirmed. Instructions provided to collect clean catch urine and patient verbalized understanding. Clean catch urine collected with return of yellow-colored urine; sample sent to lab for urinalysis and culture. Specimen labeled in the presence of the patient (2nd urine sent due to contamination from 1st specimen). --15:42 Domingo Robison R.N. 15:43 08/24/16. Patient informed about reason for wait and about plan of care. --15:43 Domingo Robison R.N. 15:43 08/24/16. Patient waiting for lab results. --15:43 Domingo Robison R.N. DISPOSITION / DISCHARGE 16:32 08/24/16. Condition at departure: improved. The goals identified in the patient's plan of care were met. No learning barriers present. Discharge instructions provided and reviewed with the patient and family. Reviewed warnings. Reviewed medication(s). Treatments reviewed. Patient and family verbalized understanding. Written instructions provided in [place]. The patient was discharged by the physician assistant director of security. She was discharged home and accompanied by family. She left the Emergency Department ambulatory and via private vehicle. Family member driving. FALL RISK ASSESSMENT: Fall risk assessment completed. No fall risk identified. --16:32 Domingo Robison R.N. 16:31 08/24/16. BP: 109/69. HR: 72. RR: 16. O2 saturation: 100% on room air. Temp: 98.1 F (oral). --16:32 Domingo Robison R.N. 16:32 08/24/16. Departure time: 16:32. --16:32 Domingo Robison R.N. Locked/Released at 08/25/2016 8:37 by Chrissy Fernández R.N.
--- NOTE | 2016-08-24 16:28 | ED NURSING NOTES ---
Clinical Report - Nurses [facility] [address] [place] [address] 08/24/2016 14:10 Patient: JAMARI MCCLELLAND TRIAGE Triage time 14:16. Acuity: LEVEL 4. Chief Complaint: FLANK PAIN (Right and Left). 14:16 08/24/16. 14:16 08/24/16. Alert. No acute distress. SEPSIS SCREEN: Sepsis Screen. Negative (no infection suspected/documented). --14:23 Domingo Robison R.N. 14:20 08/24/16. BP: 125/86. HR: 75. RR: 18. O2 saturation: 98% on room air. Temp: 98.6 F (oral). Pain level now: 710. --14:23 Domingo Robison R.N. Weight: 63.5 kg stated. Height/Length: 61 inches Per Patient. BMI: 26.5. --14:19 Domingo Robison R.N. Medications Zofran Oral. --14:18 Domingo Robison R.N. Albuterol Sulfate Inhalation. --14:18 Domingo Robison R.N. Advair Diskus Inhalation. --14:18 Domingo Robison R.N. Singulair Oral. --14:18 Domingo Robison R.N. Medication/allergy information source: the patient and patient's family. --14:23 Domingo Robison R.N. Allergies No Known Drug Allergy. --14:18 Domingo Robison R.N. History Arrived by private vehicle. Historian: patient. Accompanied by family. Primary physician (DOTTIE FUENTES). 14:16 08/24/16. 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 PAST MEDICAL HX: Immunizations: up-to-date. Last normal menstrual period- 12 weeks , LMP 19 DEC 16. Currently . SOCIAL HX: Never smoker. No alcohol use or drug use. No recent travel. No known contact with a sick individual. ABUSE ASSESSMENT: No report of abuse. FALL RISK ASSESSMENT: Fall risk assessment completed. No fall risk identified. NUTRITIONAL RISK ASSESSMENT: The nutritional risk assessment revealed no deficiencies. FUNCTIONAL ASSESSMENT: Functional assessment: no impairments noted. LEARNING NEEDS ASSESSMENT: The learning needs assessment revealed no barriers. SKIN INTEGRITY ASSESSMENT: Skin integrity risk assessment completed. No skin integrity risk identified. --14:23 Domingo Robison R.N. PROBLEMS: Ureterolithiasis. Dehydration. Hyperemesis Gravidarum. URI. Sick Contact. Gastroesophageal Reflux Disease. Status Asthmaticus. Pelvic Pain. Care. Otitis Externa. Otitis Media. Abdominal Pain. Gastroenteritis. Mastitis. Anxiety Reaction. Lung Disease. Hemorrhoids. OB History. Diarrhea. Vomiting. . Nephrolithiasis. Renal Colic. Bronchitis. Asthma. UTI - Urinary Tract Infection. Cystitis. Ovarian Cyst. --14:19 Domingo Robison R.N. ADDITIONAL SURGERIES: Kidney Sx with ino stents. Laparoscopy. Renal Stone Manipulation. Ureteral Stent. --14:19 Domingo Robison R.N. Assessment 14:16 08/24/16. --14:23 Domingo Robison R.N. Interventions 14:16 08/24/16. 14:16 08/24/16. ID and allergy band on patient. To treatment room. --14:23 Domingo Robison R.N. PHYSICAL ASSESSMENT 14:08/24/16. Ambulatory to room. GENERAL / NEURO / PSYCH: Appears in pain. RESPIRATORY: Respirations not labored. Breath sounds within normal limits. CVS: Capillary refill less than 2 seconds. SKIN: Skin is warm and dry. --14:20 Domingo Robison R.N. NURSING PROGRESS NOTES 14:20 08/24/16. The plan of care for this patient has been created. Head of bed elevated. Two patient identifiers checked. Call light placed in reach. Side rails up x 2. Bed placed in lowest position. Brakes of bed on. Brakes of chair on. --14:20 Domingo Robison R.N. 14:20 08/24/16. Patient ready for evaluation- chart flagged and notification provided. --14:20 Domingo Robison R.N. 14:26 08/24/2016 Percocet (Oxycodone-Acetaminophen) PO 5/325 mg Tablets 1 tab given. Allergies verified, confirmed 5 rights and sedative warning given to the patient. --14:32 Domingo Robison R.N. 14:36 08/24/2016 Zofran ODT (Ondansetron) PO 4 mg given. Allergies verified and confirmed 5 rights. --14:36 Domingo Robison R.N. 14:36 08/24/16. Patient ID band checked for patient name and birthdate: patient confirmed. Clean catch urine collected with return of yellow-colored urine; sample sent to lab for urinalysis and culture. Specimen labeled in the presence of the patient. --14:36 Domingo Robison R.N. 14:41 08/24/16. Patient and family informed about reason for wait and about plan of care. --14:41 Domingo Robison R.N. 14:41 08/24/16. Patient waiting for lab results. --14:41 Domingo Robison R.N. 15:11 08/24/16. --15:11 Domingo Robison R.N. 15:10 08/24/16. BP: 118/72. HR: 80. RR: 14. O2 saturation: 99% on room air. Temp: 98.1 F (oral). Pain level now: 5/10. --15:11 Domingo Robison R.N. 15:11 08/24/16. Reassessment after medication administered. She has had no adverse reaction. Overall patient status is improved- she states feels better. --15:11 Domingo Robison R.N. 15:23 08/24/16. ( Pt aware she needs to provide urine specimen as previous was contaminated.). --15:23 Domingo Robison R.N. 15:32 08/24/16. Patient and family informed about reason for wait and about plan of care. --15:32 Domingo Robison R.N. 15:42 08/24/16. Patient ID band checked for patient name and birthdate: patient confirmed. Instructions provided to collect clean catch urine and patient verbalized understanding. Clean catch urine collected with return of yellow-colored urine; sample sent to lab for urinalysis and culture. Specimen labeled in the presence of the patient (2nd urine sent due to contamination from 1st specimen). --15:42 Domingo Robison R.N. 15:43 08/24/16. Patient informed about reason for wait and about plan of care. --15:43 Domingo Robison R.N. 15:43 08/24/16. Patient waiting for lab results. --15:43 Domingo Robison R.N. DISPOSITION / DISCHARGE 16:32 08/24/16. Condition at departure: improved. The goals identified in the patient's plan of care were met. No learning barriers present. Discharge instructions provided and reviewed with the patient and family. Reviewed warnings. Reviewed medication(s). Treatments reviewed. Patient and family verbalized understanding. Written instructions provided in Dutch. The patient was discharged by the physician certified physical therapist assistant. She was discharged home and accompanied by family. She left the Emergency Department ambulatory and via private vehicle. Family member driving. FALL RISK ASSESSMENT: Fall risk assessment completed. No fall risk identified. --16:32 Domingo Robison R.N. 16:31 08/24/16. BP: 109/69. HR: 72. RR: 16. O2 saturation: 100% on room air. Temp: 98.1 F (oral). --16:32 Domingo Robison R.N. 16:32 08/24/16. Departure time: 16:32. --16:32 Domingo Robison R.N. Locked/Released at 08/25/2016 8:37 by Chrissy Fernández R.N.
--- NOTE | 2016-08-25 08:37 | ED MAR SUMMARY ---
..... Medication Administration Record [facility] [address] [place] [address] Patient: JAMARI MCCLELLAND Visit ID: [id number] 21y, F Weight: 63.5 kg Height/Length: 61 in BMI: 26.5 ALLERGIES: No Known Drug Allergy Given 14:26 08/24/2016 Domingo Robison R.N. Medication Administered: PERCOCET [PO] (OXYCODONE-ACETAMINOPHEN), Dose: 1 tab 5/325 mg Tablets PO. Medication Ordered: Percocet PO 5/325 mg (HIGH ALERT MEDICATION, NOW). Given 14:36 08/24/2016 Domingo Robison R.N. Medication Administered: ZOFRAN ODT [PO] (ONDANSETRON), Dose: 4 mg PO. Medication Ordered: Zofran ODT PO 4 mg (NOW).
--- NOTE | 2016-08-25 08:37 | ED MED RECONCILIATION SUMMARY ---
Patient: JAMARI MCCLELLAND Medication Reconciliation Report [facility] VisitID: [id number] [place] [address] 21y, F Registration Date/Time: 08/24/2016 Weight: 63.5 kg Height/Length: 61 in. BMI: 26.5 ALLERGIES: No Known Drug Allergy The patient's Home Medications are listed below: THE FOLLOWING MEDICATIONS NEED TO BE RECONCILED: Advair Diskus Inhalation Albuterol Sulfate Inhalation Singulair Oral Zofran Oral The source(s) of the original Home Medication information: patient patient's family member The following Medications were given to the patient in the Emergency Department: Percocet [PO] PO 1 tab, administered: 08/24/2016 2:26:00 PM Zofran ODT [PO] PO 4 mg, administered: 08/24/2016 2:36:00 PM The following Medications were prescribed to the patient: Percocet 5 mg/325 mg: take 1 tablet orally every 6 hours as needed for pain. Dispense five (5). No refill. Substitution is permissible. -- Tracy Ramachandran P.A.-C
--- NOTE | 2016-08-25 08:37 | ED MED RECONCILIATION SUMMARY ---
Patient: JAMARI MCCLELLAND Medication Reconciliation Report [facility] VisitID: [id number] [place] [address] 21y, F Registration Date/Time: 08/24/2016 Weight: 63.5 kg Height/Length: 61 in. BMI: 26.5 ALLERGIES: No Known Drug Allergy The patient's Home Medications are listed below: THE FOLLOWING MEDICATIONS NEED TO BE RECONCILED: Advair Diskus Inhalation Albuterol Sulfate Inhalation Singulair Oral Zofran Oral The source(s) of the original Home Medication information: patient patient's family member The following Medications were given to the patient in the Emergency Department: Percocet [PO] PO 1 tab, administered: 08/24/2016 2:26:00 PM Zofran ODT [PO] PO 4 mg, administered: 08/24/2016 2:36:00 PM The following Medications were prescribed to the patient: Percocet 5 mg/325 mg: take 1 tablet orally every 6 hours as needed for pain. Dispense five (5). No refill. Substitution is permissible. -- Tracy Ramachandran P.A.-C
--- NOTE | 2016-08-25 08:37 | ED MAR SUMMARY ---
..... Medication Administration Record [facility] [address] [place] [address] Patient: JAMARI MCCLELLAND Visit ID: [id number] 21y, F Weight: 63.5 kg Height/Length: 61 in BMI: 26.5 ALLERGIES: No Known Drug Allergy Given 14:26 08/24/2016 Domingo Robison R.N. Medication Administered: PERCOCET [PO] (OXYCODONE-ACETAMINOPHEN), Dose: 1 tab 5/325 mg Tablets PO. Medication Ordered: Percocet PO 5/325 mg (HIGH ALERT MEDICATION, NOW). Given 14:36 08/24/2016 Domingo Robison R.N. Medication Administered: ZOFRAN ODT [PO] (ONDANSETRON), Dose: 4 mg PO. Medication Ordered: Zofran ODT PO 4 mg (NOW).
--- NOTE | 2016-08-25 08:37 | ED DISCHARGE INSTRUCTIONS ---
Patient: JAMARI MCCLELLAND General Instructions [facility] VisitID: [id number] [place] [address] 21y, F Registration Date/Time: 08/24/2016 Right and left nephrolithiasis with renal colic. First Trimester . INSTRUCTIONS Drink plenty of fluids. Prescription Medications: Percocet 5 mg/325 mg: take 1 tablet orally every 6 hours as needed for pain. Dispense five (5). No refill. Substitution is permissible. Follow-up: Follow up with your doctor tomorrow. ADDITIONAL INFORMATION Kidney Stone (W/ Colic) The sharp cramping pain and nausea/vomiting that you have is due to a small stone which has formed in the kidney and is now passing down a narrow tube (ureter) on its way to your bladder. Once it reaches your bladder, the pain will stop. The stone may pass in your urine stream in one piece. [The size may be 1/16" to 1/4" (1-6mm)]. Or, the stone may also break up into jarek fragments which you may not even notice. Once you have had a kidney stone, you are at risk for developing another one in the future. Home Care: Drink plenty of fluids (at least 8 to 10 glasses of water a day). Most stones will pass on their own, but may take from a few hours to a few days. Sometimes the stone is too large to pass by itself and special methods will have to be used to remove the stone. Each time you urinate, do so in a jar. Pour the urine from the jar through the strainer and into the toilet. Continue doing this until 24 hours after your pain stops. By then, if there was a kidney stone, it should pass from your bladder. Some stones dissolve into sand-like particles and pass right through the strainer. In that case, you wont ever see a stone. Save any stone that you find in the strainer and bring it to your doctor for analysis. It may be possible to prevent certain types of stones from forming. Therefore, it is important to know what kind of stone you have. Try to stay as active as possible since this will help the stone pass. Do not stay in bed unless your pain prevents you from getting up. You may notice a red, pink or brown color to your urine. This is normal while passing a kidney stone. Follow Up with your doctor or return to this facility if the pain lasts more than 48 hours. Get Prompt Medical Attention if any of the following occur: Pain that is not controlled by the medicine given Repeated vomiting or unable to keep down fluids Weakness, dizziness or fainting Fever of 100.4F (38C) or higher, or as directed by your healthcare provider Passage of solid red or brown urine (can't see through it) or urine with lots of blood clots Unable to pass urine for 8 hours and increasing bladder pressure Blood In The Urine Blood in the urine ("hematuria") has many possible causes. If it occurs after an injury (such as a car accident or fall), it is most often a sign of bruising to the kidney or bladder. Common medical causes of blood in the urine include urinary tract infection, kidney stone, inflammation, tumors, or certain other diseases of the kidney or bladder. Menstruation can cause blood to appear in the urine sample, although it is not coming from the urinary tract. If only a trace amount of blood is present, it will show up on the urine test, even though the urine may be yellow and not pink or red. This may occur with any of the above conditions, as well as heavy exercise or high fever. In this case, your doctor may want to repeat the urine test on another day. This will show if the blood is still present. If so, then other tests can be done to find out the cause. Home Care: If your urine does not appear bloody (pink, brown or red) then you do not need to restrict your activity in any way. If you can see blood in your urine, rest and avoid heavy exertion until your next exam. Do not use aspirin or anti-inflammatory medicine like ibuprofen (Motrin, Advil) or naproxen (Naprosyn, Aleve). These thin the blood and may increase bleeding. Follow Up with your doctor or as advised by our staff. If you were injured and had blood in your urine, you should have a repeat urine test in 1-2 days. Contact your doctor or return to this facility for this test. [NOTE: A radiologist will review any X-rays that were taken. We will notify you of any new findings that may affect your care.] Get Prompt Medical Attention if any of the following occur: Bright red blood or blood clots in the urine (if a new symptom) Weakness, dizziness or fainting New groin, abdominal or back pain Fever of 100.4F (38C) or higher, or as directed by your healthcare provider Repeated vomiting Bleeding from nose, gums or easy bruising Oxycodone Hydrochloride, Acetaminophen Oral tablet What is this medicine? ACETAMINOPHEN; OXYCODONE (a set a HOMER jaylan fen; ox i KOE done) is a pain reliever. It is used to treat mild to moderate pain. How should I use this medicine? Take this medicine by mouth with a full glass of water. Follow the directions on the prescription label. Take your medicine at regular intervals. Do not take your medicine more often than directed. Talk to your architectural sales consultant regarding the use of this medicine in children. Special care may be needed. Patients over 65 years old may have a stronger reaction and need a smaller dose. What side effects may I notice from receiving this medicine? Side effects that you should report to your doctor or health intensive care anaesthetist as soon as possible: allergic reactions like skin rash, itching or hives, swelling of the face, lips, or tongue breathing difficulties, wheezing confusion light headedness or fainting spells severe stomach pain yellowing of the skin or the whites of the eyes Side effects that usually do not require medical attention (report to your doctor or health intensive care anaesthetist if they continue or are bothersome): dizziness drowsiness nausea vomiting What may interact with this medicine? alcohol antihistamines barbiturates like amobarbital, butalbital, butabarbital, methohexital, pentobarbital, phenobarbital, thiopental, and secobarbital benztropine drugs for bladder problems like solifenacin, trospium, oxybutynin, tolterodine, hyoscyamine, and methscopolamine drugs for breathing problems like ipratropium and tiotropium drugs for certain stomach or intestine problems like propantheline, homatropine methylbromide, glycopyrrolate, atropine, belladonna, and dicyclomine general anesthetics like etomidate, ketamine, nitrous oxide, propofol, desflurane, enflurane, halothane, isoflurane, and sevoflurane medicines for depression, anxiety, or psychotic disturbances medicines for sleep muscle relaxants naltrexone narcotic medicines (opiates) for pain phenothiazines like perphenazine, thioridazine, chlorpromazine, mesoridazine, fluphenazine, prochlorperazine, promazine, and trifluoperazine scopolamine tramadol trihexyphenidyl What if I miss a dose? If you miss a dose, take it as soon as you can. If it is almost time for your next dose, take only that dose. Do not take double or extra doses. Where should I keep my medicine? Keep out of the reach of children. This medicine can be abused. Keep your medicine in a safe place to protect it from theft. Do not share this medicine with anyone. Selling or giving away this medicine is dangerous and against the law. Store at room temperature between 20 and 25 degrees C (68 and 77 degrees F). Keep container tightly closed. Protect from light. This medicine may cause accidental overdose and if it is taken by other adults, children, or pets. Flush any unused medicine down the toilet to reduce the chance of harm. Do not use the medicine after the expiration date. What should I tell my health care provider before I take this medicine? They need to know if you have any of these conditions: brain tumor Crohn's disease, inflammatory bowel disease, or ulcerative colitis drink more than 3 alcohol containing drinks per day drug abuse or addiction head injury heart or circulation problems kidney disease or problems going to the bathroom liver disease lung disease, asthma, or breathing problems an unusual or allergic reaction to acetaminophen, oxycodone, other opioid analgesics, other medicines, foods, dyes, or preservatives or trying to get breast-feeding What should I watch for while using this medicine? Tell your doctor or health intensive care anaesthetist if your pain does not go away, if it gets worse, or if you have new or a different type of pain. You may develop tolerance to the medicine. Tolerance means that you will need a higher dose of the medication for pain relief. Tolerance is normal and is expected if you take this medicine for a long time. Do not suddenly stop taking your medicine because you may develop a severe reaction. Your body becomes used to the medicine. This does NOT mean you are addicted. Addiction is a behavior related to getting and using a drug for a non-medical reason. If you have pain, you have a medical reason to take pain medicine. Your doctor will tell you how much medicine to take. If your doctor wants you to stop the medicine, the dose will be slowly lowered over time to avoid any side effects. You may get drowsy or dizzy. Do not drive, use machinery, or do anything that needs mental alertness until you know how this medicine affects you. Do not stand or sit up quickly, especially if you are an older patient. This reduces the risk of dizzy or fainting spells. Alcohol may interfere with the effect of this medicine. Avoid alcoholic drinks. There are different types of narcotic medicines (opiates) for pain. If you take more than one type at the same time, you may have more side effects. Give your health care provider a list of all medicines you use. Your doctor will tell you how much medicine to take. Do not take more medicine than directed. Call emergency for help if you have problems breathing. The medicine will cause constipation. Try to have a bowel movement at least every 2 to 3 days. If you do not have a bowel movement for 3 days, call your doctor or health intensive care anaesthetist. Do not take Tylenol (acetaminophen) or medicines that have acetaminophen with this medicine. Too much acetaminophen can be very dangerous. Many nonprescription medicines contain acetaminophen. Always read the labels carefully to avoid taking more acetaminophen. You have been given the following additional information: Kidney Stone W/ Colic Hematuria Oxycodone Hydrochloride, Acetaminophen Oral tablet (Electronically signed by Tracy Ramachandran P.A.-C 08/24/2016 16:46)
== END 2016-08-24 16:32 | disposition home or self-care (01) ==
LOC: ED SRH 14:09
DX: O99.89 Other specified diseases and conditions complicating pregnancy, childbirth and the puerperium (principal); N20.0 Calculus of kidney; Z3A.12 12 weeks gestation of pregnancy
CPT/HCPCS: 90004; 90469

== ENCOUNTER 2016-10-02 17:39 | Emergency (ER) | payer BC ==
--- NOTE | 2016-10-02 18:25 | ED CLINICAL REPORT ---
Clinical Report - Physicians/Mid Levels [facility] [address] [place] [address] 10/02/2016 17:41 Patient: JAMARI MCCLELLAND Time Seen: 18:06; initial patient contact. Arrived- By private vehicle. Historian- patient. HISTORY OF PRESENT ILLNESS Chief Complaint: VAGINAL DISCHARGE. (pt. states she is currently being treated for a "vaginal infection" with augmentin. She has been on this for 7 days but concerned because now she is having white/clear discharge and more pain.).). The symptoms are described as moderate. The patient has had pelvic pain. No low back pain. She has had pain with urination. Sexually active. Currently : 18 weeks. Similar symptoms previously: Twice. Recent medical care: The patient was seen recently at another facility in the emergency department. REVIEW OF SYSTEMS No nausea, vomiting or diarrhea. All systems otherwise negative, except as recorded above. PAST HISTORY See nurses notes. Problems: Abdominal Pain. Anxiety Reaction. UTI - Urinary Tract Infection. Medications: Augmentin Oral. Advair Diskus Inhalation. Albuterol Sulfate Inhalation. Singulair Oral. Allergies: No Known Drug Allergy. FAMILY HISTORY Negative. ADDITIONAL NOTES The nursing notes have been reviewed with agreement regarding the chief complaint, HPI, ROS, PMH and patient medications and allergies. PHYSICAL EXAM Vital Signs: 10/02/2016 17:49 BP: 122/79. HR: 76. RR: 16. O2 saturation: 98%. Temp: 98.8 F. Have been reviewed. Appearance: Alert. Oriented X3. No acute distress. Anxious. Appears to be in pain. CVS: Heart sounds normal. Abdomen: Soft and nontender. Bowel sounds normal. No organomegaly. No mass. : Vagina: moderate erythema. Right labia majora : mild erythema, tenderness and swelling. Clitoris: mild erythema, tenderness and swelling. Left labia majora : mild erythema, tenderness and swelling. Right labia minora : moderate erythema and tenderness and mild swelling. Left labia minora : moderate erythema and tenderness and mild swelling. No vaginal bleeding. No cervicitis. CLINICAL IMPRESSION Acute moderate suzette vulvovaginitis Second trimester . INSTRUCTIONS (keep your appointment with your squad leader tomorrow, stop the augmentin for now, and cold compresses to the area may help, and benadryl orally might help with the itching.). Warnings: Further evaluation is necessary. It is very important to follow up with a physician. OTC Medications: Benadryl Allergy 25 mg (available over the counter): take 1 orally every 8 hours as needed for itching. Dispense twenty (20). No refill. Substitution is permissible. Clotrimazole 2% Vaginal Cream (available over the counter): insert 1 applicatorful into the vagina every 12 hours for 3 days. No refills. Follow-up: Follow up with a network controller tomorrow as scheduled. Understanding of the discharge instructions verbalized by patient. (Electronically signed by Gabi Renee PA-C 10/02/2016 20:15)
--- NOTE | 2016-10-02 18:25 | ED CLINICAL REPORT ---
Clinical Report - Physicians/Mid Levels [facility] [address] [place] [address] 10/02/2016 17:41 Patient: JAMARI MCCLELLAND Time Seen: 18:06; initial patient contact. Arrived- By private vehicle. Historian- patient. HISTORY OF PRESENT ILLNESS Chief Complaint: VAGINAL DISCHARGE. (pt. states she is currently being treated for a "vaginal infection" with augmentin. She has been on this for 7 days but concerned because now she is having white/clear discharge and more pain.).). The symptoms are described as moderate. The patient has had pelvic pain. No low back pain. She has had pain with urination. Sexually active. Currently : 18 weeks. Similar symptoms previously: Twice. Recent medical care: The patient was seen recently at another facility in the emergency department. REVIEW OF SYSTEMS No nausea, vomiting or diarrhea. All systems otherwise negative, except as recorded above. PAST HISTORY See nurses notes. Problems: Abdominal Pain. Anxiety Reaction. UTI - Urinary Tract Infection. Medications: Augmentin Oral. Advair Diskus Inhalation. Albuterol Sulfate Inhalation. Singulair Oral. Allergies: No Known Drug Allergy. FAMILY HISTORY Negative. ADDITIONAL NOTES The nursing notes have been reviewed with agreement regarding the chief complaint, HPI, ROS, PMH and patient medications and allergies. PHYSICAL EXAM Vital Signs: 10/02/2016 17:49 BP: 122/79. HR: 76. RR: 16. O2 saturation: 98%. Temp: 98.8 F. Have been reviewed. Appearance: Alert. Oriented X3. No acute distress. Anxious. Appears to be in pain. CVS: Heart sounds normal. Abdomen: Soft and nontender. Bowel sounds normal. No organomegaly. No mass. : Vagina: moderate erythema. Right labia majora : mild erythema, tenderness and swelling. Clitoris: mild erythema, tenderness and swelling. Left labia majora : mild erythema, tenderness and swelling. Right labia minora : moderate erythema and tenderness and mild swelling. Left labia minora : moderate erythema and tenderness and mild swelling. No vaginal bleeding. No cervicitis. CLINICAL IMPRESSION Acute moderate suzette vulvovaginitis Second trimester . INSTRUCTIONS (keep your appointment with your labor expediter tomorrow, stop the augmentin for now, and cold compresses to the area may help, and benadryl orally might help with the itching.). Warnings: Further evaluation is necessary. It is very important to follow up with a physician. OTC Medications: Benadryl Allergy 25 mg (available over the counter): take 1 orally every 8 hours as needed for itching. Dispense twenty (20). No refill. Substitution is permissible. Clotrimazole 2% Vaginal Cream (available over the counter): insert 1 applicatorful into the vagina every 12 hours for 3 days. No refills. Follow-up: Follow up with a reading assistant tomorrow as scheduled. Understanding of the discharge instructions verbalized by patient. (Electronically signed by Gabi Renee PA-C 10/02/2016 20:15)
--- NOTE | 2016-10-02 18:25 | ED NURSING NOTES ---
Clinical Report - Nurses [facility] [address] [place] [address] 10/02/2016 17:41 Patient: JAMARI MCCLELLAND TRIAGE Triage time 17:48. Acuity: LEVEL 4. Chief Complaint: VAGINAL DISCHARGE. Alert. No acute distress. ( pt. states she is currently being treated for a "vaginal infection" with augmentin. She has been on this for 7 days but concerned because now she is having white/clear discharge and more pain.). SEPSIS SCREEN: Sepsis Screen. Negative (no infection suspected/documented). CHRISTIANA COMA SCORE: [place] Coma Scale: 15- eyes open spontaneously (4); best verbal response- oriented x 4 (5); best motor response- obeys commands (6). --17:53 Taylor Serna R.N. 17:49 10/02/16. BP: 122/79. HR: 76. RR: 16. O2 saturation: 98%. Temp: 98.8 F. Pain level now 5/10. --17:53 Taylor Serna R.N. Weight: 63.5 kg stated. Height/Length: 61 inches Per Patient. BMI: 26.5. --17:48 Taylor Serna R.N. Medications Advair Diskus Inhalation. Albuterol Sulfate Inhalation. Singulair Oral. --17:50 Taylor Serna R.N. Augmentin Oral. --17:53 Taylor Serna R.N. Allergies No Known Drug Allergy. --17:50 Taylor Serna R.N. History Arrived by private vehicle. Historian: patient. Unaccompanied. Primary physician (Odalis Romero). Onset. (3 days ago). 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 PAST MEDICAL HX: Immunizations: up-to-date. Last normal menstrual period- 2015. 2. Para 1. Abortions 0. SOCIAL HX: Never smoker. No alcohol use or drug use. ABUSE ASSESSMENT: Abuse assessment: The patient was asked "Do you feel safe in your home?" and "Has anyone hurt you or threatened to hurt you?". No report of abuse. NUTRITIONAL RISK ASSESSMENT: The nutritional risk assessment revealed no deficiencies. FUNCTIONAL ASSESSMENT: Functional assessment: no impairments noted. LEARNING NEEDS ASSESSMENT: The learning needs assessment revealed no barriers. --17:53 Taylor Serna R.N. PROBLEMS: Ureterolithiasis. Dehydration. Hyperemesis Gravidarum. URI. Gastroesophageal Reflux Disease. Status Asthmaticus. Pelvic Pain. Care. Otitis Externa. Otitis Media. Abdominal Pain. Gastroenteritis. Mastitis. Anxiety Reaction. Lung Disease. Hemorrhoids. Diarrhea. Vomiting. Nephrolithiasis. Renal Colic. Bronchitis. Asthma. UTI - Urinary Tract Infection. Cystitis. Ovarian Cyst. --17:50 Taylor Serna R.N. ADDITIONAL SURGERIES: Kidney Sx with ino stents. Laparoscopy. Renal Stone Manipulation. Ureteral Stent. --17:50 Taylor Serna R.N. Interventions ID band on patient. --17:53 Taylor Serna R.N. PHYSICAL ASSESSMENT Ambulatory to room. GENERAL / NEURO / PSYCH: Alert. Appears in no acute distress. HEENT: Mucous membranes are pink. RESPIRATORY: Respirations not labored. GI / : Abdomen soft and nontender. SKIN: Skin is warm and dry. --17:53 Taylor Serna R.N. NURSING PROGRESS NOTES Patient gowned. Head of bed elevated. Two patient identifiers checked. Call light placed in reach. Side rails up x 2. Bed placed in lowest position. Brakes of bed on. Patient ready for evaluation- chart flagged. --17:53 Taylor Serna R.N. DISPOSITION / DISCHARGE 18:27. Departure time: 1826. Condition at departure: stable. No learning barriers present. Discharge instructions provided and reviewed with the patient. Reviewed medication(s) side effects, precautions, dosing and course information. Prescription(s) given to the patient. Reviewed referral to family practice for followup. Patient verbalized understanding. Written instructions provided in Swedish. The patient was discharged home and unaccompanied at time of discharge. She left the Emergency Department ambulatory. Medication list reviewed and validated. --18:33 Taylor Serna R.N. 18:27 10/02/16. RR: 15. Additional comments: d/c v/s deferred due to pt in ED < 1 hour. . --18:33 Taylor Serna R.N. Locked/Released at 10/02/2016 18:33 by Taylor Serna R.N.
--- NOTE | 2016-10-02 18:25 | ED NURSING NOTES ---
Clinical Report - Nurses [facility] [address] [place] [address] 10/02/2016 17:41 Patient: JAMARI MCCLELLAND TRIAGE Triage time 17:48. Acuity: LEVEL 4. Chief Complaint: VAGINAL DISCHARGE. Alert. No acute distress. ( pt. states she is currently being treated for a "vaginal infection" with augmentin. She has been on this for 7 days but concerned because now she is having white/clear discharge and more pain.). SEPSIS SCREEN: Sepsis Screen. Negative (no infection suspected/documented). CHRISTIANA COMA SCORE: [place] Coma Scale: 15- eyes open spontaneously (4); best verbal response- oriented x 4 (5); best motor response- obeys commands (6). --17:53 Taylor Serna R.N. 17:49 10/02/16. BP: 122/79. HR: 76. RR: 16. O2 saturation: 98%. Temp: 98.8 F. Pain level now 5/10. --17:53 Taylor Serna R.N. Weight: 63.5 kg stated. Height/Length: 61 inches Per Patient. BMI: 26.5. --17:48 Taylor Serna R.N. Medications Advair Diskus Inhalation. Albuterol Sulfate Inhalation. Singulair Oral. --17:50 Taylor Serna R.N. Augmentin Oral. --17:53 Taylor Serna R.N. Allergies No Known Drug Allergy. --17:50 Taylor Serna R.N. History Arrived by private vehicle. Historian: patient. Unaccompanied. Primary physician (Odalis Romero). Onset. (3 days ago). 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 PAST MEDICAL HX: Immunizations: up-to-date. Last normal menstrual period- 2015. 2. Para 1. Abortions 0. SOCIAL HX: Never smoker. No alcohol use or drug use. ABUSE ASSESSMENT: Abuse assessment: The patient was asked "Do you feel safe in your home?" and "Has anyone hurt you or threatened to hurt you?". No report of abuse. NUTRITIONAL RISK ASSESSMENT: The nutritional risk assessment revealed no deficiencies. FUNCTIONAL ASSESSMENT: Functional assessment: no impairments noted. LEARNING NEEDS ASSESSMENT: The learning needs assessment revealed no barriers. --17:53 Taylor Serna R.N. PROBLEMS: Ureterolithiasis. Dehydration. Hyperemesis Gravidarum. URI. Gastroesophageal Reflux Disease. Status Asthmaticus. Pelvic Pain. Care. Otitis Externa. Otitis Media. Abdominal Pain. Gastroenteritis. Mastitis. Anxiety Reaction. Lung Disease. Hemorrhoids. Diarrhea. Vomiting. Nephrolithiasis. Renal Colic. Bronchitis. Asthma. UTI - Urinary Tract Infection. Cystitis. Ovarian Cyst. --17:50 Taylor Serna R.N. ADDITIONAL SURGERIES: Kidney Sx with ino stents. Laparoscopy. Renal Stone Manipulation. Ureteral Stent. --17:50 Taylor Serna R.N. Interventions ID band on patient. --17:53 Taylor Serna R.N. PHYSICAL ASSESSMENT Ambulatory to room. GENERAL / NEURO / PSYCH: Alert. Appears in no acute distress. HEENT: Mucous membranes are pink. RESPIRATORY: Respirations not labored. GI / : Abdomen soft and nontender. SKIN: Skin is warm and dry. --17:53 Taylor Serna R.N. NURSING PROGRESS NOTES Patient gowned. Head of bed elevated. Two patient identifiers checked. Call light placed in reach. Side rails up x 2. Bed placed in lowest position. Brakes of bed on. Patient ready for evaluation- chart flagged. --17:53 Taylor Serna R.N. DISPOSITION / DISCHARGE 18:27. Departure time: 1826. Condition at departure: stable. No learning barriers present. Discharge instructions provided and reviewed with the patient. Reviewed medication(s) side effects, precautions, dosing and course information. Prescription(s) given to the patient. Reviewed referral to family practice for followup. Patient verbalized understanding. Written instructions provided in Urdu. The patient was discharged home and unaccompanied at time of discharge. She left the Emergency Department ambulatory. Medication list reviewed and validated. --18:33 Taylor Serna R.N. 18:27 10/02/16. RR: 15. Additional comments: d/c v/s deferred due to pt in ED < 1 hour. . --18:33 Taylor Serna R.N. Locked/Released at 10/02/2016 18:33 by Taylor Serna R.N.
--- NOTE | 2016-10-02 20:16 | ED MED RECONCILIATION SUMMARY ---
Patient: KRYSTINJAMARI Medication Reconciliation Report [facility] VisitID: [id number] [place] [address] 21y, F Registration Date/Time: 10/02/2016 Weight: 63.5 kg Height/Length: 61 in. BMI: 26.5 ALLERGIES: No Known Drug Allergy The patient's Home Medications are listed below: THE FOLLOWING MEDICATIONS NEED TO BE RECONCILED: Advair Diskus Inhalation Albuterol Sulfate Inhalation Augmentin Oral Singulair Oral The source(s) of the original Home Medication information: Not obtained. The following Medications were given to the patient in the Emergency Department: None. The following Medications were prescribed to the patient: Benadryl Allergy 25 mg (available over the counter): take 1 orally every 8 hours as needed for itching. Dispense twenty (20). No refill. Substitution is permissible. -- Gabi Renee PA-C Clotrimazole 2% Vaginal Cream (available over the counter): insert 1 applicatorful into the vagina every 12 hours for 3 days. No refills. -- Gabi Renee PA-C
--- NOTE | 2016-10-02 20:16 | ED MAR SUMMARY ---
..... Medication Administration Record [facility] [address] [place] [place], [place] [id number] Patient: JAMARI MCCLELLAND Visit ID: [id number] 21y, F Weight: 63.5 kg Height/Length: 61 in BMI: 26.5 ALLERGIES: No Known Drug Allergy
--- NOTE | 2016-10-02 20:16 | ED MED RECONCILIATION SUMMARY ---
Patient: KRYSTINJAMARI Medication Reconciliation Report [facility] VisitID: [id number] [place] [address] 21y, F Registration Date/Time: 10/02/2016 Weight: 63.5 kg Height/Length: 61 in. BMI: 26.5 ALLERGIES: No Known Drug Allergy The patient's Home Medications are listed below: THE FOLLOWING MEDICATIONS NEED TO BE RECONCILED: Advair Diskus Inhalation Albuterol Sulfate Inhalation Augmentin Oral Singulair Oral The source(s) of the original Home Medication information: Not obtained. The following Medications were given to the patient in the Emergency Department: None. The following Medications were prescribed to the patient: Benadryl Allergy 25 mg (available over the counter): take 1 orally every 8 hours as needed for itching. Dispense twenty (20). No refill. Substitution is permissible. -- Gabi Renee PA-C Clotrimazole 2% Vaginal Cream (available over the counter): insert 1 applicatorful into the vagina every 12 hours for 3 days. No refills. -- Gabi Renee PA-C
--- NOTE | 2016-10-02 20:16 | ED DISCHARGE INSTRUCTIONS ---
Patient: JAMARI MCCLELLAND General Instructions [facility] VisitID: [id number] [place] [address] 21y, F Registration Date/Time: 10/02/2016 Acute moderate suzette vulvovaginitis Second trimester . INSTRUCTIONS (keep your appointment with your vice president and portfolio manager tomorrow, stop the augmentin for now, and cold compresses to the area may help, and benadryl orally might help with the itching.). Warnings: Further evaluation is necessary. It is very important to follow up with a physician. OTC Medications: Benadryl Allergy 25 mg (available over the counter): take 1 orally every 8 hours as needed for itching. Dispense twenty (20). No refill. Substitution is permissible. Clotrimazole 2% Vaginal Cream (available over the counter): insert 1 applicatorful into the vagina every 12 hours for 3 days. No refills. Follow-up: Follow up with a midlevel provider tomorrow as scheduled. Understanding of the discharge instructions verbalized by patient. ADDITIONAL INFORMATION Suzette Vaginal Infection Suzette is an overgrowth of the yeast germs that are normally present in the vagina. The symptoms are itching and redness of the outer vaginal area and whitish discharge. You may also have a burning sensation when you pass urine. This is due to the urine contacting the inflamed outer vaginal tissues. This infection occurs when there is an imbalance in the natural fluids of the vagina. It may occur during , or when taking control pills or antibiotics. Other risk factors include diabetes, wearing tight underwear and douching too often. Home Care: Keep the genital area clean and free of discharge by wearing an absorbent sanitary pad. Change the pad often. Shower daily, cleaning the outer vaginal area with plain soap and water. Do not douche during treatment unless advised to do so by your doctor. Routine douching after treatment is no longer recommended to clean the vagina. It raises your risk of vaginal infection and pelvic inflammatory disease. Dont have sex until you have finished the medicine and all of your symptoms have gone away. Wear cotton underwear or cotton-lined panty hose. Dont wear pants that are too tight. Take all medicine as directed until it is gone. If you dont do this, symptoms might come back. Follow Up: Return to this facility or see your doctor if ALL symptoms have not cleared after treatment is complete. Get Prompt Medical Attention if any of the following occur: Fever of 100.4F (38C) or higher, or as directed by your healthcare provider Lower abdominal pain Rash or joint pain Painful sores around the outer vaginal area or on your partners penis You have been given the following additional information: Vaginitis, Suzette (Electronically signed by Gabi Renee PA-C 10/02/2016 20:15)
--- NOTE | 2016-10-02 20:16 | ED DISCHARGE INSTRUCTIONS ---
Patient: JAMARI MCCLELLAND General Instructions [facility] VisitID: [id number] [place] [address] 21y, F Registration Date/Time: 10/02/2016 Acute moderate suzette vulvovaginitis Second trimester . INSTRUCTIONS (keep your appointment with your electrician wiring tomorrow, stop the augmentin for now, and cold compresses to the area may help, and benadryl orally might help with the itching.). Warnings: Further evaluation is necessary. It is very important to follow up with a physician. OTC Medications: Benadryl Allergy 25 mg (available over the counter): take 1 orally every 8 hours as needed for itching. Dispense twenty (20). No refill. Substitution is permissible. Clotrimazole 2% Vaginal Cream (available over the counter): insert 1 applicatorful into the vagina every 12 hours for 3 days. No refills. Follow-up: Follow up with a skein yard drier tomorrow as scheduled. Understanding of the discharge instructions verbalized by patient. ADDITIONAL INFORMATION Suzette Vaginal Infection Suzette is an overgrowth of the yeast germs that are normally present in the vagina. The symptoms are itching and redness of the outer vaginal area and whitish discharge. You may also have a burning sensation when you pass urine. This is due to the urine contacting the inflamed outer vaginal tissues. This infection occurs when there is an imbalance in the natural fluids of the vagina. It may occur during , or when taking control pills or antibiotics. Other risk factors include diabetes, wearing tight underwear and douching too often. Home Care: Keep the genital area clean and free of discharge by wearing an absorbent sanitary pad. Change the pad often. Shower daily, cleaning the outer vaginal area with plain soap and water. Do not douche during treatment unless advised to do so by your doctor. Routine douching after treatment is no longer recommended to clean the vagina. It raises your risk of vaginal infection and pelvic inflammatory disease. Dont have sex until you have finished the medicine and all of your symptoms have gone away. Wear cotton underwear or cotton-lined panty hose. Dont wear pants that are too tight. Take all medicine as directed until it is gone. If you dont do this, symptoms might come back. Follow Up: Return to this facility or see your doctor if ALL symptoms have not cleared after treatment is complete. Get Prompt Medical Attention if any of the following occur: Fever of 100.4F (38C) or higher, or as directed by your healthcare provider Lower abdominal pain Rash or joint pain Painful sores around the outer vaginal area or on your partners penis You have been given the following additional information: Vaginitis, Suzette (Electronically signed by Gabi Renee PA-C 10/02/2016 20:15)
--- NOTE | 2016-10-02 20:16 | ED MAR SUMMARY ---
..... Medication Administration Record [facility] [address] [place], [place] [id number] Patient: JAMARI MCCLELLAND Visit ID: [id number] 21y, F Weight: 63.5 kg Height/Length: 61 in BMI: 26.5 ALLERGIES: No Known Drug Allergy
== END 2016-10-02 18:27 | disposition home or self-care (01) ==
LOC: ED SRH 17:39
DX: O23.592 Infection of other part of genital tract in pregnancy, second trimester (principal); B37.3 Candidiasis of vulva and vagina; Z3A.18 18 weeks gestation of pregnancy

== ENCOUNTER 2016-10-08 17:12 | Emergency (ER) | payer BC ==
--- NOTE | 2016-10-08 19:30 | ED CLINICAL REPORT ---
Clinical Report - Physicians/Mid Levels [facility] [address] [place] [address] 10/08/2016 17:12 Patient: JAMARI MCCLELLAND Time Seen: 17:20. Arrived- By private vehicle. Historian- patient. HISTORY OF PRESENT ILLNESS Chief Complaint: DYSPNEA and HISTORY OF ASTHMA. This started about 2 days ago and is still present. It was gradual in onset and has been waxing/waning. The dyspnea is described as moderate and is worsened by walking and is improved by rest. The patient has had a mild dry cough . No blood tinged sputum or frankly bloody sputum. No fever, chest pain, calf pain or foot swelling. She has had wheezing and dyspnea on exertion. (Albuterol MDI--last dose ~ 15 minutes ago - helped somewhat). Similar symptoms previously: Recent medical care: The patient was seen recently at this facility in the emergency department. Seen for other problems. REVIEW OF SYSTEMS Last normal menstrual period- May 30. 2. Para 1. Abortions 0. No muscle aches, sore throat, sinus drainage, nausea or vomiting. No abdominal pain, diarrhea, black stools, bloody stools or headache. No difficulty with urination, excessive urination, skin rash or joint pain. The patient has had a nasal discharge. Currently : 18 weeks confirmed. Has had care. PAST HISTORY Asthma. Primary physician (Odalis Vale) PROBLEMS: Ureterolithiasis. Dehydration. Hyperemesis Gravidarum. URI. Gastroesophageal Reflux Disease. Status Asthmaticus. Pelvic Pain. Care. Otitis Externa. Otitis Media. Abdominal Pain. Gastroenteritis. Mastitis. Anxiety Reaction. Lung Disease. Hemorrhoids. Diarrhea. Vomiting. Nephrolithiasis. Renal Colic. Bronchitis. Asthma. UTI - Urinary Tract Infection. Cystitis. Ovarian Cyst. SURGERIES: Kidney Sx with ion stents. Laparoscopy. Renal Stone Manipulation. Ureteral Stent. No history of deep venous thrombosis or pulmonary embolism. Urinary tract infection. Anxiety. Medications: Advair Diskus Inhalation (Aerosol Powder Breath Activated 100-50 mcg/dose), 2x a day. Albuterol Sulfate Inhalation 2 puffs, PRN. Singulair Oral pt uncertain, at bedtime. Allergies: No Known Drug Allergy. SOCIAL HISTORY Never smoker. No alcohol use or drug use. Is a local resident. FAMILY HISTORY Negative. ADDITIONAL NOTES The nursing notes have been reviewed. PHYSICAL EXAM Vital Signs: 10/08/2016 17:16 BP: 117/78. HR: 128. RR: 20. O2 saturation: 100%. Temp: 98.2 F. Pain level now: 3/10. Appearance: Alert. Patient in mild distress. Eyes: Eyes normal inspection. No pale conjunctivae or scleral icterus. ENT: Nose normal. Uvula midline. Neck: Normal inspection. No jugular venous distention. Neck supple. CVS: Tachycardia. Heart sounds normal. Pulses normal. Respiratory: Mild respiratory distress with tachypnea. No fatigue. Expiratory moderate bilateral wheezes present. No accessory muscle use, retractions, decreased air movement, stridor or rales. No rhonchi. Abdomen: Soft and nontender. Gravid uterus. Size consistent with dates. Back: Normal inspection. Skin: Skin warm and dry. Normal skin color. Normal skin turgor. Extremities: Extremities exhibit normal ROM. No calf tenderness. No lower extremity edema. Neuro: Oriented X 3. No motor deficit. LABS, X-RAYS, AND EKG Pulse Oximetry: 10/08/2016 17:16 O2 saturation: 100%. (FIO2 - room air). Interpretation: normal. PROGRESS AND PROCEDURES Course of Care: Acetaminophen 1000 mg PO given. Prednisone 60 mg risks and benefits discussed with patient in 2nd trimester PO given. Zofran 4 mg ODT PO given. DuoNeb nebulizer treatment (1 unit dose) by respiratory therapist. Longstanding asthma history. No reason to suspect PE clinically (only PERC criteria is elevated HR which is c/w beta agonist use 19:27 10/08/16. Patient is stable. Physical exam findings are improved. Symptoms better. 19:28 10/08/16. Offered pt further work up and treatment, but she states she prefers to go home - she is informed that I cannot rule out other problems without further tests, but states, "I just live 2 minutes away and I can come back if any problems". Patient/family counseled. Old ED records reviewed. Patient has had multiple ED visits (19 visits to [facility], [facility] x 3 visits, [facility] ED x 1 visit, [facility] ED x 1 visit in past 12 months). Disposition: Discharged. Condition: stable and improved. CLINICAL IMPRESSION Moderate persistent asthma with an acute exacerbation. No status asthmaticus or hypoxemia. INSTRUCTIONS Warnings: Further evaluation is necessary. It is very important to follow up with a physician. GENERAL WARNINGS: Return or contact your physician immediately if your condition worsens or changes unexpectedly, if not improving as expected, or if other problems arise. Your Current Medications: CONTINUE TAKING THE FOLLOWING MEDICATIONS: Advair Diskus Inhalation : Aerosol Powder Breath Activated 100-50 mcg/dose, 2x a day. Albuterol Sulfate Inhalation : 2 puffs PRN. Singulair Oral : pt uncertain at bedtime. Prescription Medications: Prednisone 20 mg: take 2 orally every day for 4 days. Dispense sufficient quantity. No refills. OTC Medications: Acetaminophen (available over the counter): take according to label instructions. Follow-up with: Odalis Roldan PA-C, [facility], , [facility], [address] [place] [address] Follow up in two days. (Electronically signed by Mariano Jacinto DO 10/08/2016 23:07)
--- NOTE | 2016-10-08 19:30 | ED CLINICAL REPORT ---
Clinical Report - Physicians/Mid Levels [facility] [address] [place] [address] 10/08/2016 17:12 Patient: JAMARI MCCLELLAND Time Seen: 17:20. Arrived- By private vehicle. Historian- patient. HISTORY OF PRESENT ILLNESS Chief Complaint: DYSPNEA and HISTORY OF ASTHMA. This started about 2 days ago and is still present. It was gradual in onset and has been waxing/waning. The dyspnea is described as moderate and is worsened by walking and is improved by rest. The patient has had a mild dry cough . No blood tinged sputum or frankly bloody sputum. No fever, chest pain, calf pain or foot swelling. She has had wheezing and dyspnea on exertion. (Albuterol MDI--last dose ~ 15 minutes ago - helped somewhat). Similar symptoms previously: Recent medical care: The patient was seen recently at this facility in the emergency department. Seen for other problems. REVIEW OF SYSTEMS Last normal menstrual period- May 30. 2. Para 1. Abortions 0. No muscle aches, sore throat, sinus drainage, nausea or vomiting. No abdominal pain, diarrhea, black stools, bloody stools or headache. No difficulty with urination, excessive urination, skin rash or joint pain. The patient has had a nasal discharge. Currently : 18 weeks confirmed. Has had care. PAST HISTORY Asthma. Primary physician (Odalis Vale) PROBLEMS: Ureterolithiasis. Dehydration. Hyperemesis Gravidarum. URI. Gastroesophageal Reflux Disease. Status Asthmaticus. Pelvic Pain. Care. Otitis Externa. Otitis Media. Abdominal Pain. Gastroenteritis. Mastitis. Anxiety Reaction. Lung Disease. Hemorrhoids. Diarrhea. Vomiting. Nephrolithiasis. Renal Colic. Bronchitis. Asthma. UTI - Urinary Tract Infection. Cystitis. Ovarian Cyst. SURGERIES: Kidney Sx with ino stents. Laparoscopy. Renal Stone Manipulation. Ureteral Stent. No history of deep venous thrombosis or pulmonary embolism. Urinary tract infection. Anxiety. Medications: Advair Diskus Inhalation (Aerosol Powder Breath Activated 100-50 mcg/dose), 2x a day. Albuterol Sulfate Inhalation 2 puffs, PRN. Singulair Oral pt uncertain, at bedtime. Allergies: No Known Drug Allergy. SOCIAL HISTORY Never smoker. No alcohol use or drug use. Is a local resident. FAMILY HISTORY Negative. ADDITIONAL NOTES The nursing notes have been reviewed. PHYSICAL EXAM Vital Signs: 10/08/2016 17:16 BP: 117/78. HR: 128. RR: 20. O2 saturation: 100%. Temp: 98.2 F. Pain level now: 3/10. Appearance: Alert. Patient in mild distress. Eyes: Eyes normal inspection. No pale conjunctivae or scleral icterus. ENT: Nose normal. Uvula midline. Neck: Normal inspection. No jugular venous distention. Neck supple. CVS: Tachycardia. Heart sounds normal. Pulses normal. Respiratory: Mild respiratory distress with tachypnea. No fatigue. Expiratory moderate bilateral wheezes present. No accessory muscle use, retractions, decreased air movement, stridor or rales. No rhonchi. Abdomen: Soft and nontender. Gravid uterus. Size consistent with dates. Back: Normal inspection. Skin: Skin warm and dry. Normal skin color. Normal skin turgor. Extremities: Extremities exhibit normal ROM. No calf tenderness. No lower extremity edema. Neuro: Oriented X 3. No motor deficit. LABS, X-RAYS, AND EKG Pulse Oximetry: 10/08/2016 17:16 O2 saturation: 100%. (FIO2 - room air). Interpretation: normal. PROGRESS AND PROCEDURES Course of Care: Acetaminophen 1000 mg PO given. Prednisone 60 mg risks and benefits discussed with patient in 2nd trimester PO given. Zofran 4 mg ODT PO given. DuoNeb nebulizer treatment (1 unit dose) by respiratory therapist. Longstanding asthma history. No reason to suspect PE clinically (only PERC criteria is elevated HR which is c/w beta agonist use 19:27 10/08/16. Patient is stable. Physical exam findings are improved. Symptoms better. 19:28 10/08/16. Offered pt further work up and treatment, but she states she prefers to go home - she is informed that I cannot rule out other problems without further tests, but states, "I just live 2 minutes away and I can come back if any problems". Patient/family counseled. Old ED records reviewed. Patient has had multiple ED visits (19 visits to [facility] ED, [facility] x 3 visits, [facility] ED x 1 visit, [facility] ED x 1 visit in past 12 months). Disposition: Discharged. Condition: stable and improved. CLINICAL IMPRESSION Moderate persistent asthma with an acute exacerbation. No status asthmaticus or hypoxemia. INSTRUCTIONS Warnings: Further evaluation is necessary. It is very important to follow up with a physician. GENERAL WARNINGS: Return or contact your physician immediately if your condition worsens or changes unexpectedly, if not improving as expected, or if other problems arise. Your Current Medications: CONTINUE TAKING THE FOLLOWING MEDICATIONS: Advair Diskus Inhalation : Aerosol Powder Breath Activated 100-50 mcg/dose, 2x a day. Albuterol Sulfate Inhalation : 2 puffs PRN. Singulair Oral : pt uncertain at bedtime. Prescription Medications: Prednisone 20 mg: take 2 orally every day for 4 days. Dispense sufficient quantity. No refills. OTC Medications: Acetaminophen (available over the counter): take according to label instructions. Follow-up with: Odalis Roldan PA-C, [facility], , [facility], [address] [place] [address] Follow up in two days. (Electronically signed by Mariano Jacinto DO 10/08/2016 23:07)
--- NOTE | 2016-10-08 19:30 | ED ORDER SUMMARY ---
..... Patient: JAMARI MCCLELLAND OrderSheet [facility] VisitID: [id number] [place] [address] 21y, F Registration Date/Time: 10/08/2016 ORDER SHEET Weight: 63.5 kg (stated) Allergies: No Known Drug Allergy GENERAL ORDERS: RT Evaluation Stat (17:40 10/08/2016 Sharron R.N. verbal order read back to [facility]) (17:40 Sharron R.N.) MEDICATION ORDERS: DuoNeb Neb Tx 1 unit dose (NOW) (17:31 10/08/2016 [facility]) (17:39 Sharron R.N.) Prednisone PO 60 mg (NOW) (17:31 10/08/2016 [facility]) (18:19 Sharron R.N.) Zofran ODT PO 4 mg (NOW) (17:31 10/08/2016 [facility]) (17:38 Sharron R.N.) Albuterol Neb Tx 1 unit dose (NOW, with pediatric spacer, HHN) (17:48 10/08/2016 [facility]) (18:09 MRobideyadiel) Acetaminophen PO 1,000 mg (NOW) (19:27 10/08/2016 [facility]) (Ack 19:28 Robert R.N.) (19:30 Robert R.N.) IV FLUIDS: ORDER SHEET NOTES: [Electronically signed by Dudley Garnica R.N. (19:45 10/08/2016)] [Electronically signed by Mariano Jacinto DO (23:07 10/08/2016)] [Electronically locked/signed by Dudley Garnica R.N. (19:45 10/08/2016)]
--- NOTE | 2016-10-08 19:30 | ED NURSING NOTES ---
Clinical Report - Nurses [facility] [address] [place] [address] 10/08/2016 17:12 Patient: JAMARI MCCLELLAND TRIAGE Triage time 17:15 Oct 08 2016. Acuity: LEVEL 3. Chief Complaint: "ASTHMA ATTACK" and WHEEZING. Alert. DAVEY COMA SCORE: Davey Coma Scale: 15- eyes open spontaneously (4); best verbal response- oriented x 4 (5); best motor response- obeys commands (6). --17:27 Quoc Perez R.N. 17:16 10/08/16. BP: 117/78. HR: 128. RR: 20. O2 saturation: 100%. Temp: 98.2 F. Pain level now: 08/19. --17:27 Quoc Perez R.N. 17:32 10/08/16. Temp: 99.5 F (oral). Additional comments: Temp recheck. --17:32 Quoc Perez R.N. Weight: 63.5 kg stated. Height/Length: 61 inches Per Patient. BMI: 26.5. --17:17 Quoc Perez R.N. Medications Advair Diskus Inhalation (Aerosol Powder Breath Activated 100-50 mcg/dose), 2x a day. Albuterol Sulfate Inhalation 2 puffs, PRN. Singulair Oral pt uncertain, at bedtime. --17:21 Quoc Perez R.N. Allergies No Known Drug Allergy. --17:21 Quoc Perez R.N. Medication/allergy information source: the patient. --17:27 Quoc Perez R.N. History Arrived by private vehicle. Historian: patient. Accompanied by father. Primary physician (Odalis Vale). ( Worsening asthma for the last 2 days. Pt states that she has been using her Albuterol MDI at least once every hour without improvement. Pt states that she is 18 weeks .). Onset. (about 2 days ago). She has had chills, a cough, wheezing and chest pain. Treatment CORRECTIONS SPECIALIST: (Albuterol MDI--last dose ~ 15 minutes ago). PAST MEDICAL HX: Immunizations: up-to-date. Currently . In 2nd trimester. SOCIAL HX: Former smoker, end date 2015. No alcohol use or drug use. No infectious disease exposure. ABUSE ASSESSMENT: No report of abuse. FALL RISK ASSESSMENT: Fall risk assessment completed. No fall risk identified. NUTRITIONAL RISK ASSESSMENT: The nutritional risk assessment revealed no deficiencies. FUNCTIONAL ASSESSMENT: Functional assessment: no impairments noted. LEARNING NEEDS ASSESSMENT: The learning needs assessment revealed no barriers. SKIN INTEGRITY ASSESSMENT: Skin integrity risk assessment completed. No skin integrity risk identified. --17:27 Quoc Perez R.N. PROBLEMS: Vulvovaginitis. Ureterolithiasis. Dehydration. Hyperemesis Gravidarum. URI. Gastroesophageal Reflux Disease. Status Asthmaticus. Pelvic Pain. Care. Otitis Externa. Otitis Media. Abdominal Pain. Gastroenteritis. Mastitis. Anxiety Reaction. Lung Disease. Hemorrhoids. Diarrhea. Vomiting. . Nephrolithiasis. Renal Colic. Bronchitis. Asthma. UTI - Urinary Tract Infection. Cystitis. Ovarian Cyst. --17:25 Quoc Perez R.N. Appendicitis [RuleOut]. Abdominal Pain [RuleOut]. [RuleOut]. Flank Pain [RuleOut]. --17:25 Quoc Perez R.N. ADDITIONAL SURGERIES: Kidney Sx with ino stents. Laparoscopy. Renal Stone Manipulation. Ureteral Stent. --17:25 Quoc Perez R.N. Interventions ID band on patient. To treatment room. --17:27 Quoc Perez R.N. PHYSICAL ASSESSMENT Ambulatory to room. GENERAL / NEURO / PSYCH: Alert. Oriented X 4. HEENT: Mucous membranes are pink. RESPIRATORY: Mild respiratory distress. The patient can speak in full sentences. Expiratory and inspiratory bilateral wheezes diffusely. CVS: Cardiac rhythm: sinus tachycardia. GI / : Abdomen soft. SKIN: Skin is warm and dry. Normal skin turgor. --17:34 Quoc Perez R.N. NURSING PROGRESS NOTES equipment monitor phototypesetting and pulse oximeter placed on patient; monitor alarms on. Patient gowned. Patient identifiers checked. Call light placed in reach. Side rails up x 1. Bed placed in lowest position. Brakes of bed on. Patient ready for evaluation- chart flagged and ED physician notified. --17:29 Quoc Perez R.N. 17:33 10/08/2016 Zofran ODT (Ondansetron) PO Tablets 4 mg given. Allergies verified and confirmed 5 rights. --17:38 Quoc Perez R.N. 17:39 10/08/2016 Duoneb (Ipratropium-Albuterol) Neb TX Nebulizer 1 unit dose given. Given by the respiratory therapist. Allergies verified and confirmed 5 rights. --17:39 Quoc Perez R.N. 17:55 10/08/2016 Prednisone PO Tablets 60 mg given. Allergies verified and confirmed 5 rights. --18:19 Quoc Perez R.N. 18:09 10/08/2016 Albuterol Neb TX Nebulizer 1 unit dose given. Given by the respiratory therapist. Allergies verified and confirmed 5 rights. --18:09 Amanda Bush 18:22 10/08/16. BP: 115/80. HR: 124. RR: 20. O2 saturation: 96% on room air. Pain level now: 3/10. Additional comments: Chest discomfort. --18:23 Quoc Perez R.N. 19:30 10/08/2016 Acetaminophen (APAP) PO Tablets 1000 mg given. Allergies verified and confirmed 5 rights. --19:30 Dudley Garnica R.N. DISPOSITION / DISCHARGE Departure time: 1935. Condition at departure: stable. The goals identified in the patient's plan of care were met. No learning barriers present. Discharge instructions provided and reviewed with the patient. Reviewed medication(s) side effects, precautions, dosing and course information. Prescription(s) given to the patient. Patient verbalized understanding. Written instructions provided in Belgian. ( Jamari verbalizes understanding of all d/c instructions including need to f/u with OBGYN. She has no questions and voices no concerns at this time.). The patient was discharged by the physician. She was discharged home and accompanied by family. She left the Emergency Department ambulatory and via private vehicle. Family member driving. DAVEY COMA SCORE: Davey Coma Scale: 15- eyes open spontaneously (4); best verbal response- oriented x 4 (5); best motor response- obeys commands (6). --19:45 Dudley Garnica R.N. 19:30 10/08/16. BP: 112/66 (regular adult cuff) taken on the left arm, via an automated monitor, while lying. HR: 113 (tachycardic). RR: 18 (regular, unlabored and normal). O2 saturation: 97% on room air. Temp: 98.9 F (oral). Pain level now: 0/10. --19:45 Dudley Garnica R.N. Locked/Released at 10/08/2016 19:45 by Dudley Garnica R.N.
--- NOTE | 2016-10-08 19:30 | ED ORDER SUMMARY ---
..... Patient: JAMARI MCCLELLAND OrderSheet [facility] VisitID: [id number] [place] [address] 21y, F Registration Date/Time: 10/08/2016 ORDER SHEET Weight: 63.5 kg (stated) Allergies: No Known Drug Allergy GENERAL ORDERS: RT Evaluation Stat (17:40 10/08/2016 Sharron R.N. verbal order read back to [facility]) (17:40 Sharron R.N.) MEDICATION ORDERS: DuoNeb Neb Tx 1 unit dose (NOW) (17:31 10/08/2016 [facility]) (17:39 Sharron R.N.) Prednisone PO 60 mg (NOW) (17:31 10/08/2016 [facility]) (18:19 Sharron R.N.) Zofran ODT PO 4 mg (NOW) (17:31 10/08/2016 [facility]) (17:38 Sharron R.N.) Albuterol Neb Tx 1 unit dose (NOW, with pediatric spacer, HHN) (17:48 10/08/2016 [facility]) (18:09 MRobideyadiel) Acetaminophen PO 1,000 mg (NOW) (19:27 10/08/2016 [facility]) (Ack 19:28 Robert R.N.) (19:30 Robert R.N.) IV FLUIDS: ORDER SHEET NOTES: [Electronically signed by Dudley Garnica R.N. (19:45 10/08/2016)] [Electronically signed by Mariano Jacinto DO (23:07 10/08/2016)] [Electronically locked/signed by Dudley Garnica R.N. (19:45 10/08/2016)]
--- NOTE | 2016-10-08 23:07 | ED MAR SUMMARY ---
..... Medication Administration Record [facility] [address] [place] [address] Patient: JAMARI MCCLELLAND Visit ID: [id number] 21y, F Weight: 63.5 kg Height/Length: 61 in BMI: 26.5 ALLERGIES: No Known Drug Allergy Given 17:33 10/08/2016 Quoc Perez RAsafN. Medication Administered: ZOFRAN ODT [PO] (ONDANSETRON), Dose: 4 mg Tablets PO. Medication Ordered: Zofran ODT PO 4 mg (NOW). Given 17:39 10/08/2016 Quoc Perez R.N. Medication Administered: DUONEB [NEB TX] (IPRATROPIUM-ALBUTEROL), Dose: 1 unit dose Nebulizer Neb TX. Medication Ordered: DuoNeb Neb Tx 1 unit dose (NOW). Given 17:55 10/08/2016 Quoc Perez RAsafN. Medication Administered: PREDNISONE [PO], Dose: 60 mg Tablets PO. Medication Ordered: Prednisone PO 60 mg (NOW). Given 18:09 10/08/2016 Amanda Bush, Medication Administered: ALBUTEROL [NEB TX], Dose: 1 unit dose Nebulizer Neb TX. Medication Ordered: Albuterol Neb Tx 1 unit dose (NOW, with pediatric spacer, N). Given 19:30 10/08/2016 Dudley Garnica R.N. Medication Administered: ACETAMINOPHEN [PO] (APAP), Dose: 1000 mg Tablets PO. Medication Ordered: Acetaminophen PO 1,000 mg (NOW).
--- NOTE | 2016-10-08 23:07 | ED DISCHARGE INSTRUCTIONS ---
Patient: JAMARI MCCLELLAND General Instructions [facility] VisitID: [id number] [place], [place] [id number] 21y, F Registration Date/Time: 10/08/2016 Moderate persistent asthma with an acute exacerbation. No status asthmaticus or hypoxemia. INSTRUCTIONS Warnings: Further evaluation is necessary. It is very important to follow up with a physician. GENERAL WARNINGS: Return or contact your physician immediately if your condition worsens or changes unexpectedly, if not improving as expected, or if other problems arise. Your Current Medications: CONTINUE TAKING THE FOLLOWING MEDICATIONS: Advair Diskus Inhalation : Aerosol Powder Breath Activated 100-50 mcg/dose, 2x a day. Albuterol Sulfate Inhalation : 2 puffs PRN. Singulair Oral : pt uncertain at bedtime. Prescription Medications: Prednisone 20 mg: take 2 orally every day for 4 days. Dispense sufficient quantity. No refills. OTC Medications: Acetaminophen (available over the counter): take according to label instructions. Follow-up with: Odalis Roldan PA-C, [facility] , [facility], [address] [place] [id number] Follow up in two days. ADDITIONAL INFORMATION Asthma [Adult] Asthma is a disease where the small air passages within the lung go into spasm and restrict the flow of air. Inflammation and swelling of the airways cause further restriction. During an acute asthma attack, these factors cause difficulty breathing, wheezing, cough and chest tightness. An asthma attack can be triggered by many things. Common triggers include the common cold, bronchitis, pneumonia, irritants such as smoke or pullutants in the air, emotional upset and heavy exercise. Inmany adults with asthma, allergies todust, mold, pollen and animal dander can cause an asthma attack. Skipping doses of daily asthma medicine can also bring on an asthma attack. Asthma can be controlled with proper medicines and decreased exposure to known allergens. Home Care: Take prescribed medicine exactly at the times advised. If you have a hand-held inhaler or aerosol breathing medicine, do not use it more than once every four hours, unless told to do so. (If you need this medicine more than every four hours, you may need to return to the Emergency Room.) If prescribed an antibiotic or prednisone, take all of the medicine even if you are feeling better after a few days. Do not smoke. Avoid being exposed to the smoke of others. Some persons with asthma have worsening of their symptoms when they take aspirin and non-steroidal medicines like ibuprofen (Motrin, Advil) and naproxen (Aleve, Naprosyn). Talk to your doctor if you think this may apply to you. Acetaminophen (Tylenol)should be safe to use. Follow Up with your doctor, or as advised by our staff. Always bring all of your current medicines with you for your doctor to see. If you do not already have one, talk to your doctor about developing a personalized "Asthma Action Plan." [NOTE: A pneumococcal vaccine and yearly flu shot (every fall) are recommended. Ask your doctor about this.] Get Prompt Medical Attention if any of the following occur: Increased wheezing or shortness of breath Need to use your inhalers more often than usual without relief Fever of 100.4F (38C) or higher, or as directed by your healthcare provider Coughing up lots of dark-colored or bloody sputum (mucus) Chest pain with each breath You do not start to improve within 24 hours Call 911 If Any Of The Following Occur : Trouble walking or talking because of shortness of breath If you use a peak flow meter andyou are still in the red zone (less than 50 percent) 15 minutes after using inhaler medication Lips or fingernails turning johnson or blue Prednisone Oral tablet What is this medicine? PREDNISONE (PRED ni sone) is a corticosteroid. It is commonly used to treat inflammation of the skin, joints, lungs, and other organs. Common conditions treated include asthma, allergies, and arthritis. It is also used for other conditions, such as blood disorders and diseases of the adrenal glands. How should I use this medicine? Take this medicine by mouth with a glass of water. Follow the directions on the prescription label. Take this medicine with food. If you are taking this medicine once a day, take it in the morning. Do not take more medicine than you are told to take. Do not suddenly stop taking your medicine because you may develop a severe reaction. Your doctor will tell you how much medicine to take. If your doctor wants you to stop the medicine, the dose may be slowly lowered over time to avoid any side effects. Talk to your cushion filler regarding the use of this medicine in children. Special care may be needed. What side effects may I notice from receiving this medicine? Side effects that you should report to your doctor or health workforce investment act career manager as soon as possible: allergic reactions like skin rash, itching or hives, swelling of the face, lips, or tongue changes in emotions or moods changes in vision depressed mood eye pain fever or chills, cough, sore throat, pain or difficulty passing urine increased thirst swelling of ankles, feet Side effects that usually do not require medical attention (report to your doctor or health workforce investment act career manager if they continue or are bothersome): confusion, excitement, restlessness headache nausea, vomiting skin problems, acne, thin and shiny skin trouble sleeping weight gain What may interact with this medicine? Do not take this medicine with any of the following medications: metyrapone mifepristone This medicine may also interact with the following medications: aminoglutethimide amphotericin B aspirin and aspirin-like medicines barbiturates certain medicines for diabetes, like glipizide or glyburide cholestyramine cholinesterase inhibitors cyclosporine digoxin diuretics ephedrine female hormones, like estrogens and control pills isoniazid ketoconazole NSAIDS, medicines for pain and inflammation, like ibuprofen or naproxen phenytoin rifampin toxoids vaccines warfarin What if I miss a dose? If you miss a dose, take it as soon as you can. If it is almost time for your next dose, talk to your doctor or health workforce investment act career manager. You may need to miss a dose or take an extra dose. Do not take double or extra doses without advice. Where should I keep my medicine? Keep out of the reach of children. Store at room temperature between 15 and 30 degrees C (59 and 86 degrees F). Protect from light. Keep container tightly closed. Throw away any unused medicine after the expiration date. What should I tell my health care provider before I take this medicine? They need to know if you have any of these conditions: Ashland's syndrome diabetes glaucoma heart disease high blood pressure infection (especially a virus infection such as chickenpox, cold sores, or herpes) kidney disease liver disease mental illness myasthenia gravis osteoporosis seizures stomach or intestine problems thyroid disease an unusual or allergic reaction to lactose, prednisone, other medicines, foods, dyes, or preservatives or trying to get breast-feeding What should I watch for while using this medicine? Visit your doctor or health workforce investment act career manager for regular checks on your progress. If you are taking this medicine over a prolonged period, carry an identification card with your name and address, the type and dose of your medicine, and your doctor's name and address. This medicine may increase your risk of getting an infection. Tell your doctor or health workforce investment act career manager if you are around anyone with measles or chickenpox, or if you develop sores or blisters that do not heal properly. If you are going to have surgery, tell your doctor or health workforce investment act career manager that you have taken this medicine within the last twelve months. Ask your doctor or health workforce investment act career manager about your diet. You may need to lower the amount of salt you eat. This medicine may affect blood sugar levels. If you have diabetes, check with your doctor or health workforce investment act career manager before you change your diet or the dose of your diabetic medicine. Acetaminophen Oral tablet What is this medicine? ACETAMINOPHEN (a set a HOMER jaylan fen) is a pain reliever. It is used to treat mild pain and fever. How should I use this medicine? Take this medicine by mouth with a glass of water. Follow the directions on the package or prescription label. Take your medicine at regular intervals. Do not take your medicine more often than directed. Talk to your cushion filler regarding the use of this medicine in children. While this drug may be prescribed for children as young as 6 years of age for selected conditions, precautions do apply. What side effects may I notice from receiving this medicine? Side effects that you should report to your doctor or health workforce investment act career manager as soon as possible: allergic reactions like skin rash, itching or hives, swelling of the face, lips, or tongue breathing problems fever or sore throat redness, blistering, peeling or loosening of the skin, including inside the mouth trouble passing urine or change in the amount of urine unusual bleeding or bruising unusually weak or tired yellowing of the eyes or skin Side effects that usually do not require medical attention (report to your doctor or health workforce investment act career manager if they continue or are bothersome): headache nausea, stomach upset What may interact with this medicine? alcohol imatinib isoniazid other medicines with acetaminophen What if I miss a dose? If you miss a dose, take it as soon as you can. If it is almost time for your next dose, take only that dose. Do not take double or extra doses. Where should I keep my medicine? Keep out of reach of children. Store at room temperature between 20 and 25 degrees C (68 and 77 degrees F). Protect from moisture and heat. Throw away any unused medicine after the expiration date. What should I tell my health care provider before I take this medicine? They need to know if you have any of these conditions: if you frequently drink alcohol containing drinks liver disease an unusual or allergic reaction to acetaminophen, other medicines, foods, dyes or preservatives or trying to get breast-feeding What should I watch for while using this medicine? Tell your doctor or health workforce investment act career manager if the pain lasts more than 10 days (5 days for children), if it gets worse, or if there is a new or different kind of pain. Also, check with your doctor if a fever lasts for more than 3 days. Do not take other medicines that contain acetaminophen with this medicine. Always read labels carefully. If you have questions, ask your doctor or pharmacist. If you take too much acetaminophen get medical help right away. Too much acetaminophen can be very dangerous and cause liver damage. Even if you do not have symptoms, it is important to get help right away. You have been given the following additional information: Asthma, Acute (Adult) Prednisone Oral tablet Acetaminophen Oral tablet (Electronically signed by Mariano Jacinto DO 10/08/2016 23:07)
--- NOTE | 2016-10-08 23:07 | ED MED RECONCILIATION SUMMARY ---
Patient: JAMARI MCCLELLAND Medication Reconciliation Report [facility] VisitID: [id number] [place] [address] 21y, F Registration Date/Time: 10/08/2016 Weight: 63.5 kg Height/Length: 61 in. BMI: 26.5 ALLERGIES: No Known Drug Allergy The patient's Home Medications are listed below: CONTINUE TAKING THE FOLLOWING MEDICATIONS: Advair Diskus Inhalation (100-50 mcg/dose), 2x a day Albuterol Sulfate Inhalation 2 puffs, PRN Singulair Oral pt uncertain, at bedtime The source(s) of the original Home Medication information: patient The following Medications were given to the patient in the Emergency Department: Zofran ODT [PO] PO 4 mg, administered: 10/08/2016 5:33:00 PM Duoneb [Neb Tx] Neb TX 1 unit dose, administered: 10/08/2016 5:39:00 PM Albuterol [Neb Tx] Neb TX 1 unit dose, administered: 10/08/2016 6:09:00 PM Prednisone [PO] PO 60 mg, administered: 10/08/2016 5:55:00 PM Acetaminophen [PO] PO 1000 mg, administered: 10/08/2016 7:30:00 PM The following Medications were prescribed to the patient: Acetaminophen (available over the counter): take according to label instructions. -- Mariano Jacinto DO Prednisone 20 mg: take 2 orally every day for 4 days. Dispense sufficient quantity. No refills. -- Mariano Jacinto DO
--- NOTE | 2016-10-08 23:07 | ED MED RECONCILIATION SUMMARY ---
Patient: JAMARI MCCLELLAND Medication Reconciliation Report [facility] VisitID: [id number] [place] [address] 21y, F Registration Date/Time: 10/08/2016 Weight: 63.5 kg Height/Length: 61 in. BMI: 26.5 ALLERGIES: No Known Drug Allergy The patient's Home Medications are listed below: CONTINUE TAKING THE FOLLOWING MEDICATIONS: Advair Diskus Inhalation (100-50 mcg/dose), 2x a day Albuterol Sulfate Inhalation 2 puffs, PRN Singulair Oral pt uncertain, at bedtime The source(s) of the original Home Medication information: patient The following Medications were given to the patient in the Emergency Department: Zofran ODT [PO] PO 4 mg, administered: 10/08/2016 5:33:00 PM Duoneb [Neb Tx] Neb TX 1 unit dose, administered: 10/08/2016 5:39:00 PM Albuterol [Neb Tx] Neb TX 1 unit dose, administered: 10/08/2016 6:09:00 PM Prednisone [PO] PO 60 mg, administered: 10/08/2016 5:55:00 PM Acetaminophen [PO] PO 1000 mg, administered: 10/08/2016 7:30:00 PM The following Medications were prescribed to the patient: Acetaminophen (available over the counter): take according to label instructions. -- Mariano Jacinto DO Prednisone 20 mg: take 2 orally every day for 4 days. Dispense sufficient quantity. No refills. -- Mariano Jacinto DO
--- NOTE | 2016-10-08 23:07 | ED DISCHARGE INSTRUCTIONS ---
Patient: JAMARI MCCLELLAND General Inst[facility] VisitID: [id number] [place], [place] [id number] 21y, F Registration Date/Time: 10/08/2016 Moderate persistent asthma with an acute exacerbation. No status asthmaticus or hypoxemia. INSTRUCTIONS Warnings: Further evaluation is necessary. It is very important to follow up with a physician. GENERAL WARNINGS: Return or contact your physician immediately if your condition worsens or changes unexpectedly, if not improving as expected, or if other problems arise. Your Current Medications: CONTINUE TAKING THE FOLLOWING MEDICATIONS: Advair Diskus Inhalation : Aerosol Powder Breath Activated 100-50 mcg/dose, 2x a day. Albuterol Sulfate Inhalation : 2 puffs PRN. Singulair Oral : pt uncertain at bedtime. Prescription Medications: Prednisone 20 mg: take 2 orally every day for 4 days. Dispense sufficient quantity. No refills. OTC Medications: Acetaminophen (available over the counter): take according to label instructions. Follow-up with: Odalis Roldan PA-C, [facility], , [facility], [address] [place] [id number] Follow up in two days. ADDITIONAL INFORMATION Asthma [Adult] Asthma is a disease where the small air passages within the lung go into spasm and restrict the flow of air. Inflammation and swelling of the airways cause further restriction. During an acute asthma attack, these factors cause difficulty breathing, wheezing, cough and chest tightness. An asthma attack can be triggered by many things. Common triggers include the common cold, bronchitis, pneumonia, irritants such as smoke or pullutants in the air, emotional upset and heavy exercise. Inmany adults with asthma, allergies todust, mold, pollen and animal dander can cause an asthma attack. Skipping doses of daily asthma medicine can also bring on an asthma attack. Asthma can be controlled with proper medicines and decreased exposure to known allergens. Home Care: Take prescribed medicine exactly at the times advised. If you have a hand-held inhaler or aerosol breathing medicine, do not use it more than once every four hours, unless told to do so. (If you need this medicine more than every four hours, you may need to return to the Emergency Room.) If prescribed an antibiotic or prednisone, take all of the medicine even if you are feeling better after a few days. Do not smoke. Avoid being exposed to the smoke of others. Some persons with asthma have worsening of their symptoms when they take aspirin and non-steroidal medicines like ibuprofen (Motrin, Advil) and naproxen (Aleve, Naprosyn). Talk to your doctor if you think this may apply to you. Acetaminophen (Tylenol)should be safe to use. Follow Up with your doctor, or as advised by our staff. Always bring all of your current medicines with you for your doctor to see. If you do not already have one, talk to your doctor about developing a personalized "Asthma Action Plan." [NOTE: A pneumococcal vaccine and yearly flu shot (every fall) are recommended. Ask your doctor about this.] Get Prompt Medical Attention if any of the following occur: Increased wheezing or shortness of breath Need to use your inhalers more often than usual without relief Fever of 100.4F (38C) or higher, or as directed by your healthcare provider Coughing up lots of dark-colored or bloody sputum (mucus) Chest pain with each breath You do not start to improve within 24 hours Call 911 If Any Of The Following Occur : Trouble walking or talking because of shortness of breath If you use a peak flow meter andyou are still in the red zone (less than 50 percent) 15 minutes after using inhaler medication Lips or fingernails turning johnson or blue Prednisone Oral tablet What is this medicine? PREDNISONE (PRED ni sone) is a corticosteroid. It is commonly used to treat inflammation of the skin, joints, lungs, and other organs. Common conditions treated include asthma, allergies, and arthritis. It is also used for other conditions, such as blood disorders and diseases of the adrenal glands. How should I use this medicine? Take this medicine by mouth with a glass of water. Follow the directions on the prescription label. Take this medicine with food. If you are taking this medicine once a day, take it in the morning. Do not take more medicine than you are told to take. Do not suddenly stop taking your medicine because you may develop a severe reaction. Your doctor will tell you how much medicine to take. If your doctor wants you to stop the medicine, the dose may be slowly lowered over time to avoid any side effects. Talk to your woven wood shade assembler regarding the use of this medicine in children. Special care may be needed. What side effects may I notice from receiving this medicine? Side effects that you should report to your doctor or health child care center assistant director as soon as possible: allergic reactions like skin rash, itching or hives, swelling of the face, lips, or tongue changes in emotions or moods changes in vision depressed mood eye pain fever or chills, cough, sore throat, pain or difficulty passing urine increased thirst swelling of ankles, feet Side effects that usually do not require medical attention (report to your doctor or health child care center assistant director if they continue or are bothersome): confusion, excitement, restlessness headache nausea, vomiting skin problems, acne, thin and shiny skin trouble sleeping weight gain What may interact with this medicine? Do not take this medicine with any of the following medications: metyrapone mifepristone This medicine may also interact with the following medications: aminoglutethimide amphotericin B aspirin and aspirin-like medicines barbiturates certain medicines for diabetes, like glipizide or glyburide cholestyramine cholinesterase inhibitors cyclosporine digoxin diuretics ephedrine female hormones, like estrogens and control pills isoniazid ketoconazole NSAIDS, medicines for pain and inflammation, like ibuprofen or naproxen phenytoin rifampin toxoids vaccines warfarin What if I miss a dose? If you miss a dose, take it as soon as you can. If it is almost time for your next dose, talk to your doctor or health child care center assistant director. You may need to miss a dose or take an extra dose. Do not take double or extra doses without advice. Where should I keep my medicine? Keep out of the reach of children. Store at room temperature between 15 and 30 degrees C (59 and 86 degrees F). Protect from light. Keep container tightly closed. Throw away any unused medicine after the expiration date. What should I tell my health care provider before I take this medicine? They need to know if you have any of these conditions: Fairfield's syndrome diabetes glaucoma heart disease high blood pressure infection (especially a virus infection such as chickenpox, cold sores, or herpes) kidney disease liver disease mental illness myasthenia gravis osteoporosis seizures stomach or intestine problems thyroid disease an unusual or allergic reaction to lactose, prednisone, other medicines, foods, dyes, or preservatives or trying to get breast-feeding What should I watch for while using this medicine? Visit your doctor or health child care center assistant director for regular checks on your progress. If you are taking this medicine over a prolonged period, carry an identification card with your name and address, the type and dose of your medicine, and your doctor's name and address. This medicine may increase your risk of getting an infection. Tell your doctor or health child care center assistant director if you are around anyone with measles or chickenpox, or if you develop sores or blisters that do not heal properly. If you are going to have surgery, tell your doctor or health child care center assistant director that you have taken this medicine within the last twelve months. Ask your doctor or health child care center assistant director about your diet. You may need to lower the amount of salt you eat. This medicine may affect blood sugar levels. If you have diabetes, check with your doctor or health child care center assistant director before you change your diet or the dose of your diabetic medicine. Acetaminophen Oral tablet What is this medicine? ACETAMINOPHEN (a set a HOMER jaylan fen) is a pain reliever. It is used to treat mild pain and fever. How should I use this medicine? Take this medicine by mouth with a glass of water. Follow the directions on the package or prescription label. Take your medicine at regular intervals. Do not take your medicine more often than directed. Talk to your woven wood shade assembler regarding the use of this medicine in children. While this drug may be prescribed for children as young as 6 years of age for selected conditions, precautions do apply. What side effects may I notice from receiving this medicine? Side effects that you should report to your doctor or health child care center assistant director as soon as possible: allergic reactions like skin rash, itching or hives, swelling of the face, lips, or tongue breathing problems fever or sore throat redness, blistering, peeling or loosening of the skin, including inside the mouth trouble passing urine or change in the amount of urine unusual bleeding or bruising unusually weak or tired yellowing of the eyes or skin Side effects that usually do not require medical attention (report to your doctor or health child care center assistant director if they continue or are bothersome): headache nausea, stomach upset What may interact with this medicine? alcohol imatinib isoniazid other medicines with acetaminophen What if I miss a dose? If you miss a dose, take it as soon as you can. If it is almost time for your next dose, take only that dose. Do not take double or extra doses. Where should I keep my medicine? Keep out of reach of children. Store at room temperature between 20 and 25 degrees C (68 and 77 degrees F). Protect from moisture and heat. Throw away any unused medicine after the expiration date. What should I tell my health care provider before I take this medicine? They need to know if you have any of these conditions: if you frequently drink alcohol containing drinks liver disease an unusual or allergic reaction to acetaminophen, other medicines, foods, dyes or preservatives or trying to get breast-feeding What should I watch for while using this medicine? Tell your doctor or health child care center assistant director if the pain lasts more than 10 days (5 days for children), if it gets worse, or if there is a new or different kind of pain. Also, check with your doctor if a fever lasts for more than 3 days. Do not take other medicines that contain acetaminophen with this medicine. Always read labels carefully. If you have questions, ask your doctor or pharmacist. If you take too much acetaminophen get medical help right away. Too much acetaminophen can be very dangerous and cause liver damage. Even if you do not have symptoms, it is important to get help right away. You have been given the following additional information: Asthma, Acute (Adult) Prednisone Oral tablet Acetaminophen Oral tablet (Electronically signed by Mariano Jacinto DO 10/08/2016 23:07)
--- NOTE | 2016-10-08 23:07 | ED MAR SUMMARY ---
..... Medication Administration Record [facility] [address] [place] [address] Patient: JAMARI MCCLELLAND Visit ID: [id number] 21y, F Weight: 63.5 kg Height/Length: 61 in BMI: 26.5 ALLERGIES: No Known Drug Allergy Given 17:33 10/08/2016 Quoc Perez RAsafN. Medication Administered: ZOFRAN ODT [PO] (ONDANSETRON), Dose: 4 mg Tablets PO. Medication Ordered: Zofran ODT PO 4 mg (NOW). Given 17:39 10/08/2016 Quoc Perez R.N. Medication Administered: DUONEB [NEB TX] (IPRATROPIUM-ALBUTEROL), Dose: 1 unit dose Nebulizer Neb TX. Medication Ordered: DuoNeb Neb Tx 1 unit dose (NOW). Given 17:55 10/08/2016 Quoc Perez RAsafN. Medication Administered: PREDNISONE [PO], Dose: 60 mg Tablets PO. Medication Ordered: Prednisone PO 60 mg (NOW). Given 18:09 10/08/2016 Amanda Bush, Medication Administered: ALBUTEROL [NEB TX], Dose: 1 unit dose Nebulizer Neb TX. Medication Ordered: Albuterol Neb Tx 1 unit dose (NOW, with pediatric spacer, N). Given 19:30 10/08/2016 Dudley Garnica R.N. Medication Administered: ACETAMINOPHEN [PO] (APAP), Dose: 1000 mg Tablets PO. Medication Ordered: Acetaminophen PO 1,000 mg (NOW).
== END 2016-10-08 19:36 | disposition home or self-care (01) ==
LOC: ED SRH 17:12
DX: O99.512 Diseases of the respiratory system complicating pregnancy, second trimester (principal); J45.41 Moderate persistent asthma with (acute) exacerbation; Z3A.18 18 weeks gestation of pregnancy; Z87.891 Personal history of nicotine dependence

== ENCOUNTER 2016-12-21 10:51 | Emergency (ER) | payer BC ==
--- NOTE | 2016-12-21 13:42 | ED CLINICAL REPORT ---
Clinical Report - Physicians/Mid Levels [facility] [address] [place] [address] 12/21/2016 10:52 Patient: JAMARI MCCLELLAND Time Seen: 10:56. Arrived- By private vehicle. Historian- patient. HISTORY OF PRESENT ILLNESS Chief Complaint: NAUSEA. This started 2 days ago and is still present. It was gradual in onset and has been waxing/waning. No recent travel. She has had nausea. She has had vomiting. The vomiting has occurred several times. No blood-tinged emesis or frankly bloody emesis. She has had diarrhea. This has occurred several times. It has been watery. No bloody diarrhea. No black stools, bloody stools, abdominal pain, constipation or flank pain. No history of possible bad food exposure or known contact with a sick individual. Has not recently been camping. Has recently been on antibiotics (last abx was po flagyl for BV 2-3 months ago). The illness is described as moderate. Similar symptoms previously: Recent medical care: The patient was seen recently at this facility in the emergency department. REVIEW OF SYSTEMS No fever, muscle aches, difficulty with urination, dark urine or headache. No sore throat, cough, chest pain, difficulty breathing or excessive urination. No skin rash, jaundice or back pain. Currently . All systems otherwise negative, except as recorded above. PAST HISTORY Primary physician: Odalis Vale OB: Dr Villanueva - located at [facility] in [place] PROBLEMS: Ureterolithiasis. Dehydration. Hyperemesis Gravidarum. URI. Gastroesophageal Reflux Disease. Status Asthmaticus. Pelvic Pain. Care. Otitis Externa. Otitis Media. Abdominal Pain. Gastroenteritis. Mastitis. Anxiety Reaction. Lung Disease. Hemorrhoids. Diarrhea. Vomiting. Nephrolithiasis. Renal Colic. Bronchitis. Asthma. UTI - Urinary Tract Infection. Cystitis. Ovarian Cyst. SURGERIES: Kidney Sx with ino stents. Laparoscopy. Renal Stone Manipulation. Ureteral Stent. SOCIAL HISTORY Never smoker. No alcohol use or drug use. Is a local resident. ADDITIONAL NOTES The nursing notes have been reviewed. PHYSICAL EXAM Vital Signs: 12/21/2016 10:59 BP: 128/104. HR: 98. RR: 16. O2 saturation: 98%. Temp: 98.1 F. Pain level now: 07/22. Appearance: Alert. Oriented X3. (FHT: 147). Patient in mild distress. Eyes: Pupils equal, round and reactive to light. Eyes normal inspection. No pale conjunctivae or scleral icterus. ENT: Dry mucous membranes present. No pharyngeal erythema or tonsillar exudate. Neck: Normal inspection. Neck supple. CVS: Heart sounds normal. Pulses normal. Respiratory: No respiratory distress. Breath sounds normal. Abdomen: Soft and nontender. Gravid uterus. Back: Normal inspection. Skin: Skin warm and dry. Normal skin color. Normal skin turgor. Extremities: Extremities exhibit normal ROM. No lower extremity edema. No calf tenderness. No lower extremity edema. Neuro: Oriented X 3. No motor deficit. No sensory deficit. LABS, X-RAYS, AND EKG Laboratory Tests: UA-Culture if indicated: (FRANCIS: 12/21/2016 12:20) ( MsgRcvd 12/21/2016 12:35) Final results Test Result Flag Units (Reference) URINE COLOR YELLOW URINE APPEARANCE SL CLOUDY URINE GLUCOSE NEGATIVE (NEGATIVE) URINE BILIRUBIN NEGATIVE (NEGATIVE) URINE KETONE NEGATIVE (NEGATIVE) URINE SPECIFIC GRAVITY 1.025 (1.010-1.030) URINE PH 6.0 (5.0-8.0) URINE PROTEIN NEGATIVE (NEGATIVE) URINE UROBILINOGEN 0.2 EU/dL (0.2-1.0) URINE NITRITE NEGATIVE (NEGATIVE) URINE BLOOD NEGATIVE (NEGATIVE) URINE LEUK ESTERASE TRACE (NEGATIVE) URINE RBC NONE SEEN rbc/hpf (0-1) URINE WBC 5-10 wbc/hpf (0-1) URINE EPITHELIAL CELLS >15 EPI/hpf (0-5) URINE BACTERIA MODERATE (2+ TO 3+) (NONE SEEN) 2+ URINE COMMENT CULTURE INDICATED 2+ MUCOUSEPITHELIAL CONTAMINATION. NO CULTURE SETUP.Please call laboratory if culture wanted.URINE CULTURES ARE SET-UP BASED ON THE FOLLOWING CRITERIA:POSITIVE NITRITEPOSITIVE LEUKOCYTE ESTERASEGREATER THAN 10 WHITE BLOOD CELLSMODERATE (2+) OR GREATER BACTERIA CBC w Diff: (FRANCIS: 12/21/2016 11:20) ( MsgRcvd 12/21/2016 11:33) Final results Test Result Flag Units (Reference) WHITE BLOOD COUNT 9.8 K/uL (4.5-11.5) RED BLOOD COUNT 4.04 M/uL (4.00-5.20) HEMOGLOBIN 11.4 L gm/dL (12.0-16.0) HEMATOCRIT 33.9 L % (36.0-46.0) MEAN CELL VOLUME 84 fL (80-100) MEAN CORPUSCULAR HGB 28 pg (26-34) MEAN CORPUSCULAR HGB CONC 34 g/dL (31-37) RED CELL DISTRIBUTION WIDTH 13.2 % (11.6-14.8) PLATELET COUNT 255 K/uL (150-400) NEUTROPHIL % 87.7 H % (50-75) LYMPH % 6.3 L % (25-40) MONO % 3.8 % (3-14) EOSINOPHIL % 0.3 % (0-4) BASOPHIL % 1.9 % (0-2) CMP: (FRANCIS: 12/21/2016 11:20) ( MsgRcvd 12/21/2016 12:00) Final results Test Result Flag Units (Reference) GLUCOSE 99 mg/dL (70-110) BUN 11 mg/dL (7-18) CREATININE 0.8 mg/dL (0.6-1.3) Estimated GFR >60 mL/min Estimated GFR- >60 mL/min Note: Persistent reduction over 3 months in eGFR<60 mL/min/1.73 m2 defines CKD. Patients with eGFR values>=60 mL/min/1.73 m2 may also have CKD if evidence ofpersistent proteinuria. Additional information may be foundat www.kidney.org. SODIUM 138 mmol/L (136-145) POTASSIUM 3.6 mmol/L (3.5-5.1) Slightly hemolyzed specimen CHLORIDE 105 mmol/L (98-107) CARBON DIOXIDE 18 L mmol/L (21-32) CALCIUM 8.7 mg/dL (8.5-10.1) TOTAL PROTEIN 6.7 g/dL (6.4-8.2) ALBUMIN 2.9 L g/dL (3.3-5.0) BILIRUBIN, TOTAL 0.6 mg/dL (0.0-1.0) ALKALINE PHOSPHATASE 94 U/L (46-116) AST (SGOT) 25 U/L (15-37) Slightly hemolyzed specimen ALT (SGPT) 25 U/L (12-78) Stool WBC: (FRANCIS: 12/21/2016 12:46) ( MsgRcvd 12/21/2016 13:24) Final results Test Result Flag Units (Reference) FECAL LEUKOCYTES DATE: 12/21/16 FECAL LEUKOCYTES: MODERATE CDT SOURCE STOOL C-DIFFICILE TOXIN A/B CALLED TO: MARKIE MILLS RN CDT RESULT:: POSITIVE * . Microbiology: Urine culture ordered. Pulse Oximetry: 12/21/2016 10:59 O2 saturation: 98%. (FIO2 - room air). Interpretation: normal. PROGRESS AND PROCEDURES Course of Care: Normal Saline 2 liters IVPB given. Protonix 40 mg IVP given. Reglan 10 mg IVP given. Metronidazole 500 mg PO given. 14:01 12/21/16. Patient is stable. Physical exam findings are improved. Symptoms much better. Nontoxic. C.diff positive, otherwise labs look good (mild decreased HCO3-). I have arranged for close out pt follow up. Discussed preg cat of medications with pt and father. Patient/family counseled. Old ED records reviewed. Patient has had multiple ED visits (18 visits to [facility] ED in past 11 months). Disposition: Discharged. Condition: stable and improved. CLINICAL IMPRESSION Vomiting with nausea. Diarrhea Third trimester . Ultrasound demonstrated an intrauterine . C. Difficile colitis. Moderate hyperemesis gravidarum less than 21 weeks with volume depletion. Acute urinary tract infection with cystitis. INSTRUCTIONS Do not work for three days. Drink plenty of fluids. No alcohol. Avoid alcohol and NSAIDS. Examples of NSAIDS include aspirin, ibuprofen (Advil) and naproxen (Aleve). Avoid fatty, fried/greasy, lactose-containing (such as milk, cheese and ice cream), salty and spicy foods. (Phenergan is Category C in - meaning possibly harmful to the baby. It is routinely used in however but its use should be discussed with your OB / PCP prior to using. It is important to control your nausea, so you may use one or two doses if you are not able to talk with your medical providers. You may try OTC Kaopectate - generally regarded as the antidiarrheal agent of choice in (does not cross the placenta). Please see the Table regarding Over the Counter Medications in (antidiarrheals) from the [employer] you have been given). Warnings: Further evaluation is necessary in order to recheck abnormal lab, obtain test results and conduct further tests. It is very important to follow up with a physician. GENERAL WARNINGS: Return or contact your physician immediately if your condition worsens or changes unexpectedly, if not improving as expected, or if other problems arise. Your Current Medications: CONTINUE TAKING THE FOLLOWING MEDICATIONS: Advair Diskus Inhalation : Aerosol Powder Breath Activated 100-50 mcg/dose, 2x a day. Albuterol Sulfate Inhalation : 2 puffs PRN. Singulair Oral : pt uncertain at bedtime. Zofran Oral. Prescription Medications: Flagyl 500 mg: Take 1 tablet orally every 8 hours for 10 days. No refill. Substitution is permissible Macrobid 100 mg: Take 1 capsule orally every 12 hours for 7 days. No refills. Substitution is permissible. Reglan 10 mg tablets: take 1 orally four times daily (before meals and at bedtime). Dispense sixty (60). No refills. Substitution is permissible. Phenergan suppositories 25 mg: Insert 1 rectally every 4 to 6 hours as needed for nausea or vomiting. Dispense ten (10). No refills. Substitution is permissible. Follow-up: Follow up with your doctor tomorrow. Follow up with an hot knife cutter- as recommended by your primary care physician- Dr Villanueva tomorrow. Follow-up with: Odalis Roldan PA-C, [facility], , [facility], [address] [place] [address], [id number] Follow up. Reason for referral: An appointment has been made for you for tomorrow with Odalis Vale at 3:30 pm - please arrive 10 min early. (Electronically signed by Mariano Jacinto DO 12/21/2016 14:25)
--- NOTE | 2016-12-21 13:43 | ED ORDER SUMMARY ---
..... Patient: JAMARI MCCLELLAND OrderSheet [facility] VisitID: [id number] [place] [address] 21y, F Registration Date/Time: 12/21/2016 ORDER SHEET Weight: 66.6 kg (stated) Allergies: No Known Drug Allergy GENERAL ORDERS: CBC w Diff Urgent (11:04 [facility]/21/2016 [facility] (Ack 11:06 LNations ER Tech1) (12:30 JBest R.N.) CMP Urgent (11:12/21/2016 PHcoson ) (Ack 11:06 LNations ER Tech1) (12:30 JBest R.N.) UA-Culture if indicated Urgent (11:04 12/21/2016 ) (Ack 11:06 LNations ER Tech1) (12:30 JBest R.N.) Stool for C. Difficile [facility] (12:28 [facility] (Ack 12:36 PWeiler ER Tech1) (12:51 JBest R.N.) Stool WBC Urgent (12:28 12[facility]21/2016 [facility] (Ack 12:36 PWeiler ER Tech1) (12:51 JBest R.N.) MEDICATION ORDERS: Metronidazole PO 500 mg (NOW) (14:00 12/21/2016 [facility] DO) (14:09 GMarshall R.N.) IV FLUIDS: IV NS : initial bolus 1000 mL (1000 mL/hr), then 1000 mL/hr for X1 (NOW) (11:04 12/21/2016 [facility] DO) (11:23 JBest R.N.) Reglan IV 10 mg (NOW) (11:04 12/21/2016 [facility] DO) (11:24 JBest R.N.) Protonix IVP 40mg 40 mg (Mix in NS 10ml over 2min) (11:08 12/21/2016 [facility] DO) (11:25 JBest R.N.) Ceftriaxone IV 1 gm/50mL (NOW) (12:48 12/21/2016 [facility] DO) (12:59 JBest R.N.) ORDER SHEET NOTES: [Electronically signed by Ze Fuentes R.N. (14:12/21/2016)] [Electronically signed by Mariano Jacinto DO (14:12/21/2016)] [Electronically locked/signed by Ze Fuentes R.N. (14:12/21/2016)]
--- NOTE | 2016-12-21 13:43 | ED ORDER SUMMARY ---
..... Patient: JAMARI MCCLELLAND OrderSheet [facility] VisitID: [id number] [place] [address] 21y, F Registration Date/Time: 12/21/2016 ORDER SHEET Weight: 66.6 kg (stated) Allergies: No Known Drug Allergy GENERAL ORDERS: CBC w Diff Urgent (11:04 [facility]/2016 [facility] (Ack 11:06 LNations ER Tech1) (12:30 JBest R.N.) CMP Urgent (11:12/21/2016 [facility] ) (Ack 11:06 LNations ER Tech1) (12:30 JBest R.N.) UA-Culture if indicated Urgent (11:04 12/21/2016 ) (Ack 11:06 LNations ER Tech1) (12:30 JBest R.N.) Stool for C. Difficile [facility]12[facility]28 [facility] (Ack 12:36 PWeiler ER Tech1) (12:51 JBest R.N.) Stool WBC [facility]12:28 [facility] (Ack 12:36 PWeiler ER Tech1) (12:51 JBest R.N.) MEDICATION ORDERS: Metronidazole PO 500 mg (NOW) (14:00 12/21/2016 [facility] DO) (14:09 GMarshall R.N.) IV FLUIDS: IV NS : initial bolus 1000 mL (1000 mL/hr), then 1000 mL/hr for X1 (NOW) (11:04 12/21/2016 [facility] DO) (11:23 JBest R.N.) Reglan IV 10 mg (NOW) (11:04 12/21/2016 [facility] DO) (11:24 JBest R.N.) Protonix IVP 40mg 40 mg (Mix in NS 10ml over 2min) (11:08 12/21/2016 [facility] DO) (11:25 JBest R.N.) Ceftriaxone IV 1 gm/50mL (NOW) (12:48 12/21/2016 [facility] DO) (12:59 JBest R.N.) ORDER SHEET NOTES: [Electronically signed by Ze Fuentes R.N. (14:12/21/2016)] [Electronically signed by Mariano Jacinto DO (14:12/21/2016)] [Electronically locked/signed by Ze Fuentes R.N. (14:12/21/2016)]
--- NOTE | 2016-12-21 13:43 | ED NURSING NOTES ---
Clinical Report - [facility] [address] [place] [address] 12/21/2016 10:52 Patient: JAMARI MCCLELLAND TRIAGE Triage time 10:59. Acuity: LEVEL 3. Chief Complaint: NAUSEA, VOMITING and DIARRHEA. --11:03 Philomena Smith R.N. 10:59 12/21/16. BP: 128/104. HR: 98. RR: 16. O2 saturation: 98%. Temp: 98.1 F. Pain level now: 07/22. --11:03 Philomena Smith R.N. Weight: 66.6 kg stated. Height/Length: 61 inches Per Patient. BMI: 27.8. --11:03 Philomena Smith R.N. Medications Advair Diskus Inhalation (Aerosol Powder Breath Activated 100-50 mcg/dose), 2x a day. Albuterol Sulfate Inhalation 2 puffs, PRN. Singulair Oral pt uncertain, at bedtime. --11:00 Philomena Smith R.N. Zofran Oral. --11:00 Philomena Smith R.N. Allergies No Known Drug Allergy. --11:00 Philomena Smith R.N. History Historian: patient and family. Primary physician (Kay (Blaire)). ( 29 weeks ). Onset. (about 2 days ago). ( Second ). Treatment [employer]: None. PAST MEDICAL HX: Immunizations: up-to-date. Currently . SOCIAL HX: Never smoker. No alcohol use or drug use. No infectious disease exposure. SELF HARM ASSESSMENT: A self harm assessment was performed. The patient answered "no" to the question "Do you have thoughts of harming or killing yourself?". --11:03 Philomena Smith R.N. 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 --11:30 Philomena Smith R.N. PROBLEMS: Vulvovaginitis. Ureterolithiasis. Dehydration. Hyperemesis Gravidarum. URI. Sick Contact. Gastroesophageal Reflux Disease. Status Asthmaticus. Pelvic Pain. Care. Otitis Externa. Otitis Media. Abdominal Pain. Gastroenteritis. Mastitis. Anxiety Reaction. Lung Disease. Hemorrhoids. OB History. Diarrhea. Vomiting. . Nephrolithiasis. Renal Colic. Bronchitis. Asthma. UTI - Urinary Tract Infection. Cystitis. Ovarian Cyst. --11: Philomena Smith R.N. ADDITIONAL SURGERIES: Kidney Sx with ino stents. Laparoscopy. Renal Stone Manipulation. Ureteral Stent. --11: Philomena Smith R.N. Interventions ID band on patient. To room. --11:03 Philomena Smith R.N. PHYSICAL ASSESSMENT Ambulatory to room. GENERAL / NEURO / PSYCH: Alert. Oriented X 4. Appears in no acute distress. SKIN: Skin is warm and dry. --11:04 Philomena Smith R.N. NURSING PROGRESS NOTES Reassurance given. Two patient identifiers checked. Call light placed in reach. Bed placed in lowest position. Brakes of bed on. Patient ready for evaluation- ED physician notified. --11:04 Philomena Smith R.N. ( baby HR via ultrasound = 147). --11:05 Philomena Smith R.N. ( appt. made for pt. tomorrow with Odalis Vale at 1520). --11:05 Ely Zimmerman ER Tech1 11:13 12/21/2016 Site #1 started via IV in the right antecubital space with an 20g angiocath, with aseptic technique and good blood return; one attempt. Blood drawn: rainbow set. Labeled in the presence of the patient and sent to the lab. Saline lock flushed with 10 mL saline. --11:23 Philomena Smith R.N. 11:12/21/2016 Started bag #1 1000 mL IV Fluids IV NS (Saline); bolus of 1000 mL over 1 hour(s) then at 999 mL/kg over 1 hour(s) via site #1 via IV pump. Allergies verified and confirmed 5 rights. IV patency established. IV site checked: no pain, redness, or swelling. IV flushed thoroughly pre- and post-medication administration. --11:23 Philomena Smith R.N. 11:24 12/21/2016 Reglan (Metoclopramide HCl) IVP 10 mg given over 5 minute(s) via site #1. Allergies verified and confirmed 5 rights. IV patency established. IV site checked: no pain, redness, or swelling. IV flushed thoroughly pre- and post-medication administration. IVP given by RN. --11:24 Philomena Smith R.N. 11:25 12/21/2016 PROTONIX 40MG (Pantoprazole Sodium) IVP 40 mg given over 2 minute(s) via site #1. Allergies verified and confirmed 5 rights. IV patency established. IV site checked: no pain, redness, or swelling. IV flushed thoroughly pre- and post-medication administration. IVP given by RN. --11:25 Philomena Smith R.N. <<STRICKEN ENTRY-- 11:29 12/21/2016 PROTONIX (Pantoprazole Sodium) IVP 40 mg given over 1 minute(s) via site #1. Allergies verified and confirmed 5 rights. IV patency established. IV site checked: no pain, redness, or swelling. IV flushed thoroughly pre- and post-medication administration. IVP given by RN. --11:29 Philomena Smith R.N. --END STRIKE>> Correction. --11:30 Philomena Smith R.N. ( Pts dad came out of room and said she cannot control her bowels. When I entered the room she was standing in a watery pool of diarrhea. Cleaned pt with wipes, placed her clothing in a pt belongings bag, and provided her with paper scrub pants to wear.). GI / : The patient reports diarrhea that is described as watery and is associated with cramps. --11:46 Philomena Smith R.N. 12:52 12/21/2016 Site #1 relocated to the left antecubital space with an 22g angiocath, with aseptic technique and good blood return; one attempt. Saline lock flushed with 10 mL saline. --12:52 Philomena Smith R.N. 12:58 12/21/2016 Started 1 gm of Ceftriaxone IVPB in bag #1 50 mL; at 100 mcg/kg/min over 30 minute(s) via site #1 via IV pump. Allergies verified and confirmed 5 rights. IV patency established. IV site checked: no pain, redness, or swelling. IV flushed thoroughly pre- and post-medication administration. --12:59 Philomena Smith R.N. 13:25 12/21/16. Critical value relayed to ED by Lab. Critical value received by Domingo SHELDON. Critical value read back. ED physician and charge nurse notifed of critical value (C-Diff Positive). --13:25 Domingo Robison R.N. Call light placed in reach. ( welfare check. Patient has no needs at this time. IV Rocephin infused, IV Saline infusing.). --13:28 Ze Fuentes R.N. 13:31 12/21/2016 Ceftriaxone IVPB Discontinued: bag #1 infused. Total amount infused: 50 mL. --13:57 Ze Fuentes R.N. 13:32 12/21/2016 IV Fluids IV NS Discontinued: bag #1 infused. Total amount infused: 1000 mL. IV patency established. IV site checked: no pain, redness, or swelling. IV flushed thoroughly. --13:42 Ze Fuentes R.N. 13:34 12/21/2016 Site #1 removed. Catheter intact. Manual pressure and bandaid applied. --13:35 Ze Fuentes R.N. 14:09 12/21/2016 Metronidazole PO 500 mg given. --14:09 Ze Fuentes R.N. DISPOSITION / DISCHARGE Condition at departure: improved. --13:56 Ze Fuentes R.N. 13:55 12/21/16. BP: 115/69. HR: 98. RR: 20. O2 saturation: 100%. Temp: 99 F. Pain level now 10. --13:56 Ze Fuentes R.N. No learning barriers present. Discharge instructions provided and reviewed with the patient. Patient verbalized understanding. Written instructions provided in Guyanese. The patient was discharged by the physician. She was accompanied by parent. She left the Emergency Department ambulatory. --14:08 Ze Fuentes R.N. Locked/Released at 12/21/2016 14:09 by Ze Fuentes R.N.
--- NOTE | 2016-12-21 14:25 | ED DISCHARGE INSTRUCTIONS ---
Patient: JAMARI MCCLELLAND General Instructions [facility] VisitID: [id number] [place] [address] 21y, F Registration Date/Time: 12/21/2016 Vomiting with nausea. Diarrhea Third trimester . Ultrasound demonstrated an intrauterine . C. Difficile colitis. Moderate hyperemesis gravidarum less than 21 weeks with volume depletion. Acute urinary tract infection with cystitis. INSTRUCTIONS Do not work for three days. Drink plenty of fluids. No alcohol. Avoid alcohol and NSAIDS. Examples of NSAIDS include aspirin, ibuprofen (Advil) and naproxen (Aleve). Avoid fatty, fried/greasy, lactose-containing (such as milk, cheese and ice cream), salty and spicy foods. (Phenergan is Category C in - meaning possibly harmful to the baby. It is routinely used in however but its use should be discussed with your OB / PCP prior to using. It is important to control your nausea, so you may use one or two doses if you are not able to talk with your medical providers. You may try OTC Kaopectate - generally regarded as the antidiarrheal agent of choice in (does not cross the placenta). Please see the Table regarding Over the Counter Medications in (antidiarrheals) from the [employer] you have been given). Warnings: Further evaluation is necessary in order to recheck abnormal lab, obtain test results and conduct further tests. It is very important to follow up with a physician. GENERAL WARNINGS: Return or contact your physician immediately if your condition worsens or changes unexpectedly, if not improving as expected, or if other problems arise. Your Current Medications: CONTINUE TAKING THE FOLLOWING MEDICATIONS: Advair Diskus Inhalation : Aerosol Powder Breath Activated 100-50 mcg/dose, 2x a day. Albuterol Sulfate Inhalation : 2 puffs PRN. Singulair Oral : pt uncertain at bedtime. Zofran Oral. Prescription Medications: Flagyl 500 mg: Take 1 tablet orally every 8 hours for 10 days. No refill. Substitution is permissible Macrobid 100 mg: Take 1 capsule orally every 12 hours for 7 days. No refills. Substitution is permissible. Reglan 10 mg tablets: take 1 orally four times daily (before meals and at bedtime). Dispense sixty (60). No refills. Substitution is permissible. Phenergan suppositories 25 mg: Insert 1 rectally every 4 to 6 hours as needed for nausea or vomiting. Dispense ten (10). No refills. Substitution is permissible. Follow-up: Follow up with your doctor tomorrow. Follow up with an assistant reading teacher- as recommended by your primary care physician- Dr Villanueva tomorrow. Follow-up with: Odalis Roldan PA-C, [facility], , [facility], [address], [address], [place], [address] Follow up. Reason for referral: An appointment has been made for you for tomorrow with Odalis Vale at 3:30 pm - please arrive 10 min early. ADDITIONAL INFORMATION Vomiting [6Yr-Adult] Vomiting is a common symptom that may be due to different causes. These include gastroenteritis ("stomach flu"), food poisoning and gastritis. There are other more serious causes of vomiting which may be hard to diagnose early in the illness. Therefore, it is important to watch for the warning signs listed below. The main danger from repeated vomiting is dehydration. This is due to excess loss of water and minerals from the body. When this occurs, body fluids must be replaced. Home Care: If symptoms are severe, rest at home for the next 24 hours. You may use acetaminophen (Tylenol) or ibuprofen (Motrin, Advil) to control fever, unless another medicine was prescribed. [NOTE : If you have chronic liver or kidney disease or ever had a stomach ulcer or GI bleeding, talk with your doctor before using these medicines.] (Aspirin should never be used in anyone under 18 years of age who is ill with a fever. It may cause severe liver damage.) Avoid tobacco and alcohol use, which may worsen your symptoms. If medicines for vomiting were prescribed, take as directed. Once vomiting stops, then follow these guidelines: During The First 12-24 Hours follow the diet below: FRUIT JUICES: Apple, grape juice, clear fruit drinks, and electrolyte replacement drinks. BEVERAGES: Soft drinks without caffeine; mineral water (plain or flavored), decaffeinated tea and coffee. SOUPS: Clear broth, consomm and bouillon DESSERTS: Plain gelatin, popsicles and fruit juice bars. As you feel better, you may add 6-8 ounces of yogurt per day. During The Next 24 Hours you may add the following to the above: Hot cereal, plain toast, bread, rolls, crackers Plain noodles, rice, mashed potatoes, chicken noodle or rice soup Unsweetened canned fruit (avoid pineapple), bananas Limit caffeine and chocolate. No spices or seasonings except salt. During The Next 24 Hours Gradually resume a normal diet, as you feel better and your symptoms lessen. Follow Up with your doctor as advised if you are not improving over the next 2-3 days. Get Prompt Medical Attention if any of the following occur: Constant right-sided lower abdominal pain or increasing general abdominal pain Continued vomiting (unable to keep liquids down) for 24 hours Frequent diarrhea (more than 5 times a day); blood (red or black color) or mucus in diarrhea Reduced urine output or extreme thirst Weakness, dizziness or fainting Unusually drowsy or confused Fever of 100.4F (38C) oral or higher, not better with fever medication Yellow color of the eyes or skin Diarrhea, Bacterial [6Yr-Adult] You have gastro-enteritis which is another name for an infection in the intestinal tract. Although most of the time this is due to a virus ("stomach flu"), you may have a more serious bacterial infection . This may cause fever, vomiting, stomach cramping and diarrhea. There may also be blood or mucus in the stool. Antibiotics are often used to treat this type of infection. Sometimes it is necessary to wait until a stool culture is complete before an antibiotic can be chosen. This may take about two days. In the meantime, follow the advice below. Home Care 1. If antibiotics were prescribed, take them until they are finished. 2. You may use acetaminophen (Tylenol) or ibuprofen (Motrin, Advil) to control pain and fever, unless another medicine was prescribed for this. [NOTE: If you have chronic liver or kidney disease or ever had a stomach ulcer or GI bleeding, talk with your doctor before using these medicines.] (Aspirin should never be used in anyone under 18 years of age who is ill with a fever. It may cause severe liver damage.) 3. Do not give zsdz-ijw-tbeewdz anti-diarrheal medicines, unless advised by your doctor. 4. Once vomiting stops: During The First 12-24 Hours follow the diet below: BEVERAGES: Sport drinks like Gatorade, soft drinks without caffeine; gingerale, mineral water (plain or flavored), decaffeinated tea and coffee. SOUPS: Clear broth, consomm and bouillon DESSERTS: Plain gelatin (Jell-O), popsicles and fruit juice bars. During The Next 24 Hours you may add the following to the above: Hot cereal, plain toast, bread, rolls, crackers Plain noodles, rice, mashed potatoes, chicken noodle or rice soup Unsweetened canned fruit (avoid pineapple), bananas Limit fat intake to less than 15 grams per day by avoiding margarine, butter, oils, mayonnaise, sauces, gravies, fried foods, peanut butter, meat, poultry and fish. Limit fiber; avoid raw or cooked vegetables, fresh fruits (except bananas) and bran cereals. Limit caffeine and chocolate. No spices or seasonings except salt. During The Next 24 Hours Gradually resume a normal diet, as you feel better and your symptoms lessen. 5. PREVENTION General Tips Hand washing with soap and water is the best way to prevent the spread of infection. Wash hands after handling your sick child. Wash your hands after using the toilet and before meals. Clean the toilet after each use. Keep your child out of school until cleared by your doctor. Food Preparation People with diarrhea should not prepare food for others. When preparing foods, wash your hands before and after. Wash your hands after using cutting boards, counter-tops and knives that have been in contact with raw foods. When preparing foods, keep uncooked meats away from cooked and vhxry-cz-duw foods. Follow Up with your doctor as advised. Call if not improving within 24 hours or if diarrhea lasts more than one week on antibiotics. If a stool (diarrhea) sample was taken, you may call in 2 days (or as directed) for the results. Get Prompt Medical Attention if any of the following occur: Increasing abdominal pain or constant lower right abdominal pain Continued vomiting (unable to keep liquids down) Frequent diarrhea (more than 5 times a day) Blood in vomit or stool (black or red color) Reduced oral intake Dark urine, reduced urine output Weakness, dizziness, fainting Drowsiness, confusion, stiff neck or seizure Fever over 101.0 F (38.3 C) for more than 3 days New rash Hyperemesis Of Hyperemesis of is a severe form of "morning sickness", where the vomiting is excessive and may cause dehydration and chemical imbalances in the body. It occurs in about 1% of pregnancies, and is usually worse during the 10-12th week of . It gets better by the 16th week. Its cause is not well understood, but may be related to rising hormone levels early in the . It can be a serious threat to mother and fetus if dehydration becomes severe. Therefore, follow the advice below carefully. If symptoms are severe and not controlled by home measures, intravenous fluids and admission to the hospital may be needed. Home Care: 1) Activity a. After awakening from sleep, remain in bed for 15 minutes before getting up. 2) Diet a. Eat frequent small meals rather than 3 large meals. b. A diet high in carbohydrates (starches) and fiber is best. Avoid greasy or spicy foods. c. If you are having trouble keeping down solid foods, drink frequent, small amounts of liquids with electrolytes, such as broth or sports drinks. If nausea and vomiting continue, rest your stomach by waiting 1-2 hours before trying to drink again. d. Keep a log of the foods you eat and how they affect your symptoms. Avoid foods that trigger your symptoms. e. Keep Saltine crackers at the bedside. If you are nauseated upon awakening, eat some crackers or dry toast before getting out of bed. 3) Medicine a. In general, it is best to avoid strong medicines during , especially during the first three months. The effect on the growing baby is not always known and these could cause harm. Your doctor will recommend a prescription medicine only when the symptoms you are having (vomiting and dehydration) are more dangerous to the baby than the small risk of using the medicine. b. Taking Vitamin B6 (pyridoxine), 10-25 mg daily is safe and may be helpful to reduce nausea. c. Check with your doctor before taking any other ekff-mda-ygqrdsu or herbal medicines during your . Follow Up: With your doctor within the next few days or as instructed by this facility. Get Prompt Medical Attention if any of the following occur: -- Unable to keep any clear liquids down over a six-hour period -- Worsening weakness, dizziness or fainting occurs -- No weight gain over a two-week period -- Severe constant lower right abdominal pain -- Fever, chills or frequent diarrhea Bladder Infection,Female (Adult) A bladder infection ("cystitis" or "UTI") usually causes a constant urge to urinate and a burning when passing urine. Urine may be cloudy, smelly or dark. There may be pain in the lower abdomen. A bladder infection occurs when bacteria from the vaginal area enter the bladder opening (urethra). This can occur from sexual intercourse, wearing tight clothing, dehydration and other factors. Home Care: Drink lots of fluids (at least 6-8 glasses a day, unless you must restrict fluids for other medical reasons). This will force the medicine into your urinary system and flush the bacteria out of your body. Avoid sexual intercourse until your symptoms are gone. Avoid caffeine, alcohol and spicy foods. These can irritate the bladder. A bladder infection is treated with antibiotics. You may also be given Pyridium (generic = phenazopyridine) to reduce the burning sensation. This medicine will cause your urine to become a bright orange color. The orange urine may stain clothing. You may wear a pad or panty-liner to protect clothing. Preventing Future Infections: Always wipe from front to back after a bowel movement. Keep the genital area clean and dry. Drink plenty of fluids each day to avoid dehydration. Both sexual partners should wash before intercourse. Urinate right after intercourse to flush out the bladder. Wear cotton underwear and cotton-lined panty hose; avoid tight-fitting pants. If you are on control pills and are having frequent bladder infections, discuss with your doctor. Follow Up: Return to this facility or see your doctor if ALL symptoms are not gone after three days of treatment. Get Prompt Medical Attention if any of the following occur: Fever of 100.4F (38C) or higher, or as directed by your healthcare provider No improvement by the third day of treatment Increasing back or abdominal pain Repeated vomiting; unable to keep medicine down Weakness, dizziness or fainting Vaginal discharge Pain, redness or swelling in the labia (outer vaginal area) Florence Diet A bland diet is used for patients with an upset stomach. It consists of foods that are mild and easy to digest. It is better to eat small frequent meals rather than three large meals a day. BEVERAGES OK: Fruit juices, non-caffeinated teas and coffee, non-carbonated swanson AVOID: Carbonated beverage, caffeinated tea and coffee, all alcoholic beverages BREAD OK: Refined white, wheat or rye bread, laura or soda crackers, Melissa toast, plain rolls, bagels AVOID: Whole-grain bread CEREAL OK: Refined cereals: cooked or ready to eat AVOID: Whole grain cereals and granola, or those containing bran, seeds or nuts DESSERTS OK: Peanut butter and all others except those to "avoid" AVOID: Chocolate, cocoa, coconut, popcorn, nuts, seeds, jam, marmalade FRUITS OK: Canned, cooked, frozen or fresh fruits without seeds or tough skin AVOID: Olives, skin and seeds of fruit MEATS OK: All fresh or preserved meat, fish and fowl AVOID: Any that are prepared with those spices to "avoid" CHEESE & EGGS OK: Eggs, cottage cheese, cream cheese, other cheeses AVOID: All cheeses made with those spices to "avoid" POTATOES & PASTA OK: Potato, rice, macaroni, noodles, spaghetti AVOID: None SOUPS OK: All soups without heavy seasoning AVOID: Soups made with those spices to "avoid" VEGETABLES OK: Canned, cooked, fresh or frozen mildly flavored vegetables without seeds, skins or coarse fiber AVOID: Vegetables prepared with those spices to "avoid"; skin and seeds of vegetables and those with coarse fiber SPICES OK: Salt, lemon and stebbins juice, vinegar, all extracts, faustino, cinnamon, thyme, mace, allspice, paprika AVOID: Palmer powder, cloves, pepper, seed spices, garlic, gravy pickles, highly seasoned salad dressings Metronidazole Oral tablet What is this medicine? METRONIDAZOLE ( troe NI da zole) is an antiinfective. It is used to treat certain kinds of bacterial and protozoal infections. It will not work for colds, flu, or other viral infections. How should I use this medicine? Take this medicine by mouth with a full glass of water. Follow the directions on the prescription label. Take your medicine at regular intervals. Do not take your medicine more often than directed. Take all of your medicine as directed even if you think you are better. Do not skip doses or stop your medicine early. Talk to your display fabricator regarding the use of this medicine in children. Special care may be needed. What side effects may I notice from receiving this medicine? Side effects that you should report to your doctor or health adult caregiver as soon as possible: allergic reactions like skin rash or hives, swelling of the face, lips, or tongue confusion, clumsiness difficulty speaking discolored or sore mouth dizziness fever, infection numbness, tingling, pain or weakness in the hands or feet trouble passing urine or change in the amount of urine redness, blistering, peeling or loosening of the skin, including inside the mouth seizures unusually weak or tired vaginal irritation, dryness, or discharge Side effects that usually do not require medical attention (report to your doctor or health adult caregiver if they continue or are bothersome): diarrhea headache irritability metallic taste nausea stomach pain or cramps trouble sleeping What may interact with this medicine? Do not take this medicine with any of the following medications: alcohol or any product that contains alcohol amprenavir oral solution cisapride disulfiram dofetilide dronedarone paclitaxel injection pimozide ritonavir oral solution sertraline oral solution sulfamethoxazole-trimethoprim injection thioridazine ziprasidone This medicine may also interact with the following medications: cimetidine lithium other medicines that prolong the QT interval (cause an abnormal heart rhythm) phenobarbital phenytoin warfarin What if I miss a dose? If you miss a dose, take it as soon as you can. If it is almost time for your next dose, take only that dose. Do not take double or extra doses. Where should I keep my medicine? Keep out of the reach of children. Store at room temperature below 25 degrees C (77 degrees F). Protect from light. Keep container tightly closed. Throw away any unused medicine after the expiration date. What should I tell my health care provider before I take this medicine? They need to know if you have any of these conditions: anemia or other blood disorders disease of the nervous system fungal or yeast infection if you drink alcohol containing drinks liver disease seizures an unusual or allergic reaction to metronidazole, or other medicines, foods, dyes, or preservatives or trying to get breast-feeding What should I watch for while using this medicine? Tell your doctor or health adult caregiver if your symptoms do not improve or if they get worse. You may get drowsy or dizzy. Do not drive, use machinery, or do anything that needs mental alertness until you know how this medicine affects you. Do not stand or sit up quickly, especially if you are an older patient. This reduces the risk of dizzy or fainting spells. Avoid alcoholic drinks while you are taking this medicine and for three days afterward. Alcohol may make you feel dizzy, sick, or flushed. If you are being treated for a sexually transmitted disease, avoid sexual contact until you have finished your treatment. Your sexual partner may also need treatment. Nitrofurantoin, Nitrofurantoin, Macrocrystalline Oral capsule What is this medicine? NITROFURANTOIN (gucci michellealma delia walter LIAM toymiriam) is an antibiotic. It is used to treat urinary tract infections. How should I use this medicine? Take this medicine by mouth with a glass of water. Follow the directions on the prescription label. Take this medicine with food or milk. Take your doses at regular intervals. Do not take your medicine more often than directed. Do not stop taking except on your doctor's advice. Talk to your display fabricator regarding the use of this medicine in children. While this drug may be prescribed for selected conditions, precautions do apply. What side effects may I notice from receiving this medicine? Side effects that you should report to your doctor or health adult caregiver as soon as possible: allergic reactions like skin rash or hives, swelling of the face, lips, or tongue chest pain cough difficulty breathing dizziness, drowsiness fever or infection joint aches or pains pale or blue-tinted skin redness, blistering, peeling or loosening of the skin, including inside the mouth tingling, burning, pain, or numbness in hands or feet unusual bleeding or bruising unusually weak or tired yellowing of eyes or skin Side effects that usually do not require medical attention (report to your doctor or health adult caregiver if they continue or are bothersome): dark urine diarrhea headache loss of appetite nausea or vomiting temporary hair loss What may interact with this medicine? antacids containing magnesium trisilicate probenecid quinolone antibiotics like ciprofloxacin, lomefloxacin, norfloxacin and ofloxacin sulfinpyrazone What if I miss a dose? If you miss a dose, take it as soon as you can. If it is almost time for your next dose, take only that dose. Do not take double or extra doses. Where should I keep my medicine? Keep out of the reach of children. Store at room temperature between 15 and 30 degrees C (59 and 86 degrees F). Protect from light. Throw away any unused medicine after the expiration date. What should I tell my health care provider before I take this medicine? They need to know if you have any of these conditions: anemia diabetes olxxfwr-[id number] dehydrogenase deficiency kidney disease liver disease lung disease other chronic illness an unusual or allergic reaction to nitrofurantoin, other antibiotics, other medicines, foods, dyes or preservatives or trying to get breast-feeding What should I watch for while using this medicine? Tell your doctor or health adult caregiver if your symptoms do not improve or if you get new symptoms. Drink several glasses of water a day. If you are taking this medicine for a long time, visit your doctor for regular checks on your progress. If you are diabetic, you may get a false positive result for sugar in your urine with certain brands of urine tests. Check with your doctor. Metoclopramide Hydrochloride Oral tablet What is this medicine? METOCLOPRAMIDE (met oh kloe PRA mide) is used to treat the symptoms of gastroesophageal reflux disease (GERD) like heartburn. It is also used to treat people with slow emptying of the stomach and intestinal tract. How should I use this medicine? Take this medicine by mouth with a glass of water. Follow the directions on the prescription label. Take this medicine on an empty stomach, about 30 minutes before eating. Take your doses at regular intervals. Do not take your medicine more often than directed. Do not stop taking except on the advice of your doctor or health adult caregiver. A special MedGuide will be given to you by the pharmacist with each prescription and refill. Be sure to read this information carefully each time. Talk to your display fabricator regarding the use of this medicine in children. Special care may be needed. What side effects may I notice from receiving this medicine? Side effects that you should report to your doctor or health adult caregiver as soon as possible: allergic reactions like skin rash, itching or hives, swelling of the face, lips, or tongue abnormal production of milk in females breast enlargement in both males and females change in the way you walk difficulty moving, speaking or swallowing drooling, lip smacking, or rapid movements of the tongue excessive sweating fever involuntary or uncontrollable movements of the eyes, head, arms and legs irregular heartbeat or palpitations muscle twitches and spasms unusually weak or tired Side effects that usually do not require medical attention (report to your doctor or health adult caregiver if they continue or are bothersome): change in sex drive or performance depressed mood diarrhea difficulty sleeping headache menstrual changes restless or nervous What may interact with this medicine? acetaminophen cyclosporine digoxin medicines for blood pressure medicines for diabetes, including insulin medicines for hay fever and other allergies medicines for depression, especially an Monoamine Oxidase Inhibitor (MAOI) medicines for Parkinson's disease, like levodopa medicines for sleep or for pain tetracycline What if I miss a dose? If you miss a dose, take it as soon as you can. If it is almost time for your next dose, take only that dose. Do not take double or extra doses. Where should I keep my medicine? Keep out of the reach of children. Store at room temperature between 20 and 25 degrees C (68 and 77 degrees F). Protect from light. Keep container tightly closed. Throw away any unused medicine after the expiration date. What should I tell my health care provider before I take this medicine? They need to know if you have any of these conditions: breast cancer depression diabetes heart failure high blood pressure kidney disease liver disease Parkinson's disease or a movement disorder pheochromocytoma seizures stomach obstruction, bleeding, or perforation an unusual or allergic reaction to metoclopramide, procainamide, sulfites, other medicines, foods, dyes, or preservatives or trying to get breast-feeding What should I watch for while using this medicine? It may take a few weeks for your stomach condition to start to get better. However, do not take this medicine for longer than 12 weeks. The longer you take this medicine, and the more you take it, the greater your chances are of developing serious side effects. If you are an elderly patient, a female patient, or you have diabetes, you may be at an increased risk for side effects from this medicine. Contact your doctor immediately if you start having movements you cannot control such as lip smacking, rapid movements of the tongue, involuntary or uncontrollable movements of the eyes, head, arms and legs, or muscle twitches and spasms. Patients and their families should watch out for worsening depression or thoughts of suicide. Also watch out for any sudden or severe changes in feelings such as feeling anxious, agitated, panicky, irritable, hostile, aggressive, impulsive, severely restless, overly excited and hyperactive, or not being able to sleep. If this happens, especially at the beginning of treatment or after a change in dose, call your doctor. Do not treat yourself for high fever. Ask your doctor or health adult caregiver for advice. You may get drowsy or dizzy. Do not drive, use machinery, or do anything that needs mental alertness until you know how this drug affects you. Do not stand or sit up quickly, especially if you are an older patient. This reduces the risk of dizzy or fainting spells. Alcohol can make you more drowsy and dizzy. Avoid alcoholic drinks. Promethazine Hydrochloride Rectal suppository What is this medicine? PROMETHAZINE (proe METH a zeen) is an antihistamine. It is used to treat allergic reactions and to treat or prevent nausea and vomiting from illness or motion sickness. It is also used to make you sleep before surgery, and to help treat pain or nausea after surgery. How should I use this medicine? This medicine is for rectal use only. Do not take by mouth. Wash your hands before and after use. Take off the foil wrapping. Wet the tip of the suppository with cold tap water to make it easier to use. Lie on your side with your lower leg straightened out and your upper leg bent forward toward your stomach. Lift upper buttock to expose the rectal area. Apply gentle pressure to insert the suppository completely into the rectum, pointed end first. Hold buttocks together for a few seconds. Remain lying down for about 15 minutes to avoid having the suppository come out. Do not use more often than directed. Talk to your display fabricator regarding the use of this medicine in children. Special care may be needed. This medicine should not be given to infants and children younger than 2 years old. What side effects may I notice from receiving this medicine? Side effects that you should report to your doctor or health adult caregiver as soon as possible: blurred vision irregular heartbeat, palpitations or chest pain muscle or facial twitches pain or difficulty passing urine seizures skin rash slowed or shallow breathing unusual bleeding or bruising yellowing of the eyes or skin Side effects that usually do not require medical attention (report to your doctor or health adult caregiver if they continue or are bothersome): headache nightmares, agitation, nervousness, excitability, not able to sleep (these are more likely in children) stuffy nose What may interact with this medicine? Do not take this medicine with any of the following medications: medicines called MAO Inhibitors like Nardil, Parnate, Marplan, Eldepryl other phenothiazines like trimethobenzamide This medicine may also interact with the following medications: barbiturates such as phenobarbital bromocriptine certain antidepressants certain antihistamines used in allergy or cold medicines epinephrine levodopa medicines for sleep medicines for mental problems and psychotic disturbances medicines for movement abnormalities as in Parkinson's disease, or for gastrointestinal problems muscle relaxants prescription pain medicines What if I miss a dose? If you miss a dose, use it as soon as you can. If it is almost time for your next dose, use only that dose. Do not use double doses. Where should I keep my medicine? Keep out of the reach of children. Store in a refrigerator between 2 and 8 degrees C (36 and 46 degrees F). Throw away any unused medicine after the expiration date. What should I tell my health care provider before I take this medicine? They need to know if you have any of these conditions: glaucoma high blood pressure or heart disease kidney disease liver disease lung or breathing disease, like asthma prostate trouble pain or difficulty passing urine seizures an unusual or allergic reaction to promethazine or phenothiazines, other medicines, foods, dyes, or preservatives or trying to get breast-feeding What should I watch for while using this medicine? Tell your doctor or health adult caregiver if your symptoms do not start to get better in 1 to 2 days. You may get drowsy or dizzy. Do not drive, use machinery, or do anything that needs mental alertness until you know how this medicine affects you. To reduce the risk of dizzy or fainting spells, do not stand or sit up quickly, especially if you are an older patient. Alcohol may increase dizziness and drowsiness. Avoid alcoholic drinks. Your mouth may get dry. Chewing sugarless gum or sucking hard candy, and drinking plenty of water may help. Contact your doctor if the problem does not go away or is severe. This medicine may cause dry eyes and blurred vision. If you wear contact lenses you may feel some discomfort. Lubricating drops may help. See your eye doctor if the problem does not go away or is severe. This medicine can make you more sensitive to the sun. Keep out of the sun. If you cannot avoid being in the sun, wear protective clothing and use sunscreen. Do not use sun lamps or tanning beds/booths. If you are diabetic, check your blood-sugar levels regularly. You have been given the following additional information: Vomiting (6Y-Adult) Diarrhea, Bacterial (6Y-Adult) Hyperemesis Gravidarum Bladder Infection, Female (Adult) Diet, [place] (Adult) Metronidazole Oral tablet Nitrofurantoin, Nitrofurantoin, Macrocrystalline Oral capsule Metoclopramide Hydrochloride Oral tablet Promethazine Hydrochloride Rectal suppository Do not work for three days. (Electronically signed by Mariano Jacinto DO 12/21/2016 14:25)
--- NOTE | 2016-12-21 14:26 | ED MAR SUMMARY ---
..... Medication Administration Record [facility] [address] [place] [place] [address] Patient: JAMARI MCCLELLAND Visit ID: [id number] 21y, F Weight: 66.6 kg Height/Length: 61 in BMI: 27.8 ALLERGIES: No Known Drug Allergy Start 11:23 12/21/2016 Philomena Smith R.N., Stop 13:32 12/21/2016 Ze Fuentes R.N. Medication Administered: IV NS (SALINE), Dose: IV Fluids over 1 hour(s), Rate: 999 mL/kg, Bolus: 1000 mL over 1 hour(s), Dispensed: 1000 mL bag, Site: #1 right AC. Medication Ordered: IV NS : initial bolus 1000 mL (1000 mL/hr), then 1000 mL/hr for X1 (NOW). Given 11:24 12/21/2016 Philomena Smith R.N. Medication Administered: REGLAN [IVP] (METOCLOPRAMIDE HCL), Dose: 10 mg IVP over 5 minute(s), Site: #1 right AC. Medication Ordered: Reglan IV 10 mg (NOW). Given 11:25 12/21/2016 Philmoena Smith R.N. Medication Administered: PROTONIX 40MG [IVP] (PANTOPRAZOLE SODIUM), Dose: 40 mg IVP over 2 minute(s), Site: #1 right AC. Medication Ordered: Protonix IVP 40mg 40 mg (Mix in NS 10ml over 2min). Start 12:58 12/21/2016 Philomena Smith R.N., Stop 13:31 12/21/2016 Ze Fuentes R.N. Medication Administered: CEFTRIAXONE [IVPB], Dose: 1 gm IVPB over 30 minute(s), Rate: 100 mcg/kg/min, Dispensed: 50 mL bag, Site: #1 left AC. Medication Ordered: Ceftriaxone IV 1 gm/50mL (NOW). Given 14:09 12/21/2016 Ze Fuentes R.N. Medication Administered: METRONIDAZOLE [PO], Dose: 500 mg PO. Medication Ordered: Metronidazole PO 500 mg (NOW).
--- NOTE | 2016-12-21 14:26 | ED MED RECONCILIATION SUMMARY ---
Patient: JAMARI MCCLELLAND Medication Reconciliation Report [facility] VisitID: [id number] [place] [address] 21y, F Registration Date/Time: 12/21/2016 Weight: 66.6 kg Height/Length: 61 in. BMI: 27.8 ALLERGIES: No Known Drug Allergy The patient's Home Medications are listed below: CONTINUE TAKING THE FOLLOWING MEDICATIONS: Advair Diskus Inhalation (100-50 mcg/dose), 2x a day Albuterol Sulfate Inhalation 2 puffs, PRN Singulair Oral pt uncertain, at bedtime Zofran Oral The source(s) of the original Home Medication information: Not obtained. The following Medications were given to the patient in the Emergency Department: IV NS IV Fluids bolus 1000 mL over 1 hour(s), then 999 mL/kg, administered: 12/21/2016 11:23:00 AM Reglan [IVP] IVP 10 mg, administered: 12/21/2016 11:24:00 AM PROTONIX 40MG [IVP] IVP 40 mg, administered: 12/21/2016 11:25:00 AM Ceftriaxone [IVPB] IVPB bolus 0, then 1 gm 100 mcg/kg/min, administered: 12/21/2016 12:58:00 PM Metronidazole [PO] PO 500 mg, administered: 12/21/2016 2:09:00 PM The following Medications were prescribed to the patient: Flagyl 500 mg: Take 1 tablet orally every 8 hours for 10 days. No refill. Substitution is permissible -- Mariano Jacinto DO Macrobid 100 mg: Take 1 capsule orally every 12 hours for 7 days. No refills. Substitution is permissible. -- Mariano Jacinto DO Reglan 10 mg tablets: take 1 orally four times daily (before meals and at bedtime). Dispense sixty (60). No refills. Substitution is permissible. -- Mariano Jacinto DO Phenergan suppositories 25 mg: Insert 1 rectally every 4 to 6 hours as needed for nausea or vomiting. Dispense ten (10). No refills. Substitution is permissible. -- Mariano Jacinto DO
--- NOTE | 2016-12-21 14:26 | ED MAR SUMMARY ---
..... Medication Administration Record [facility] [address] [place] [address] Patient: JAMARI MCCLELLAND Visit ID: [id number] 21y, F Weight: 66.6 kg Height/Length: 61 in BMI: 27.8 ALLERGIES: No Known Drug Allergy Start 11:23 12/21/2016 Philomena Smith R.N., Stop 13:32 12/21/2016 Ze Fuentes R.N. Medication Administered: IV NS (SALINE), Dose: IV Fluids over 1 hour(s), Rate: 999 mL/kg, Bolus: 1000 mL over 1 hour(s), Dispensed: 1000 mL bag, Site: #1 right AC. Medication Ordered: IV NS : initial bolus 1000 mL (1000 mL/hr), then 1000 mL/hr for X1 (NOW). Given 11:24 12/21/2016 Philomena Smith R.N. Medication Administered: REGLAN [IVP] (METOCLOPRAMIDE HCL), Dose: 10 mg IVP over 5 minute(s), Site: #1 right AC. Medication Ordered: Reglan IV 10 mg (NOW). Given 11:25 12/21/2016 Philomena Smith R.N. Medication Administered: PROTONIX 40MG [IVP] (PANTOPRAZOLE SODIUM), Dose: 40 mg IVP over 2 minute(s), Site: #1 right AC. Medication Ordered: Protonix IVP 40mg 40 mg (Mix in NS 10ml over 2min). Start 12:58 12/21/2016 Philomena Smith R.N., Stop 13:31 12/21/2016 Ze Fuentes R.N. Medication Administered: CEFTRIAXONE [IVPB], Dose: 1 gm IVPB over 30 minute(s), Rate: 100 mcg/kg/min, Dispensed: 50 mL bag, Site: #1 left AC. Medication Ordered: Ceftriaxone IV 1 gm/50mL (NOW). Given 14:09 12/21/2016 Ze Fuentes R.N. Medication Administered: METRONIDAZOLE [PO], Dose: 500 mg PO. Medication Ordered: Metronidazole PO 500 mg (NOW).
--- NOTE | 2016-12-21 14:26 | ED MED RECONCILIATION SUMMARY ---
Patient: JAMARI MCCLELLAND Medication Reconciliation Report [facility] VisitID: [id number] [place] [address] 21y, F Registration Date/Time: 12/21/2016 Weight: 66.6 kg Height/Length: 61 in. BMI: 27.8 ALLERGIES: No Known Drug Allergy The patient's Home Medications are listed below: CONTINUE TAKING THE FOLLOWING MEDICATIONS: Advair Diskus Inhalation (100-50 mcg/dose), 2x a day Albuterol Sulfate Inhalation 2 puffs, PRN Singulair Oral pt uncertain, at bedtime Zofran Oral The source(s) of the original Home Medication information: Not obtained. The following Medications were given to the patient in the Emergency Department: IV NS IV Fluids bolus 1000 mL over 1 hour(s), then 999 mL/kg, administered: 12/21/2016 11:23:00 AM Reglan [IVP] IVP 10 mg, administered: 12/21/2016 11:24:00 AM PROTONIX 40MG [IVP] IVP 40 mg, administered: 12/21/2016 11:25:00 AM Ceftriaxone [IVPB] IVPB bolus 0, then 1 gm 100 mcg/kg/min, administered: 12/21/2016 12:58:00 PM Metronidazole [PO] PO 500 mg, administered: 12/21/2016 2:09:00 PM The following Medications were prescribed to the patient: Flagyl 500 mg: Take 1 tablet orally every 8 hours for 10 days. No refill. Substitution is permissible -- Mariano Jacinto DO Macrobid 100 mg: Take 1 capsule orally every 12 hours for 7 days. No refills. Substitution is permissible. -- Mariano Jacinto DO Reglan 10 mg tablets: take 1 orally four times daily (before meals and at bedtime). Dispense sixty (60). No refills. Substitution is permissible. -- Mariano Jacinto DO Phenergan suppositories 25 mg: Insert 1 rectally every 4 to 6 hours as needed for nausea or vomiting. Dispense ten (10). No refills. Substitution is permissible. -- Mariano Jacinto DO
== END 2016-12-21 14:30 | disposition home or self-care (01) ==
LOC: ED SRH 10:51
DX: O21.1 Hyperemesis gravidarum with metabolic disturbance (principal); O98.813 Other maternal infectious and parasitic diseases complicating pregnancy, third trimester; A04.7 Enterocolitis due to Clostridium difficile; O21.2 Late vomiting of pregnancy; O23.13 Infections of bladder in pregnancy, third trimester; Z3A.29 29 weeks gestation of pregnancy
CPT/HCPCS: 90004; 90100; 90112; 95059; 99262